=== PATIENT | female | born 1955 | race Two or more races ===

== ENCOUNTER 2020-07-15 09:36 | Outpatient (REF) | payer OTHER, SELFPAY ==
[2020-07-15 11:05] LABS: Basophils Percent Auto 0.4 % (0-2); Eosinophils Absolute Auto 0.3 X10*3/uL (0.0-0.4); Eosinophils Percent Auto 2.8 % (0-4); Hematocrit 37.4 % (37-47); Hemoglobin 13.1 g/dl (12.0-16.0); Imm Gran Abs Auto 0.06 X10*3/uL (0.00-0.03); Imm Gran Pct Auto 0.6 % (0.0-0.4); Lymphocytes Absolute Auto 3.1 X10*3/uL (1.2-4.9); MANUAL DIFF FLAG NO; Mean Corpuscular Hemoglobin 27.3 pg (27.0-33.0); Mean Corpuscular Volume 77.9 fL (80-98); Mean Platelet Volume 10.2 fL (9.4-12.3); Monocytes Absolute Auto 0.8 X10*3/uL (0.1-1.2); Monocytes Percent Auto 8.5 % (2-11); Neutrophils Absolute Auto 5.1 X10*3/uL (2.0-8.3); Neutrophils Percent Auto 54.7 % (45-73); Platelet Count 301 X10*3/uL (160-400); Red Cell Distribution Width 15.1 % (11.0-16.0); White Blood Count 9.3 X10*3/uL (4.8-10.8)
[2020-07-15 11:48] LABS: Alanine Aminotransferase 23 U/L (0-31); Albumin Level 4.5 g/dL (3.5-5.0); Alkaline Phosphatase 75 U/L (39-117); Anion Gap 13 (12-20); Aspartate Amino Transferase 23 U/L (5-31); Bilirubin Total 0.5 mg/dL (0.0-1.0); Blood Urea Nitrogen 10 mg/dL (9-16); Calcium 8.4 mg/dL (8.4-10.2); Carbon Dioxide 25 mmol/L (22-29); Chloride 105 mmol/L (96-108); Cholesterol 128 mg/dL; Estimated Glomerular Filt Rate > 60; Glucose Fasting 117 mg/dL (60-99); HDL Cholesterol 41 mg/dL; LDL Cholesterol Calculated 69 mg/dl; Potassium 4.6 mmol/l (3.3-5.1); Sodium 138 mmol/L (135-145); Total Protein 7.5 g/dL (6.5-8.0); Triglycerides 91 mg/dL
[2020-07-15 11:57] LABS: TSH reflex Free T4 2.52 mIU/mL (0.32-4.0)
[2020-07-15 12:15] LABS: Folate 11.5 ng/mL (> or = 4.0); Vitamin B12 490 pg/mL (200-900)
[2020-07-16 17:06] LABS: Absolute CD3 Count 1718 cells/uL (840-3060); Absolute CD4 Count 962 cells/uL (490-1740); Absolute CD8 Count 820 cells/uL (180-1170); Absolute Lymphocytes 2643 cells/uL (850-3900); CD4 CD8 Ratio 1.17 (0.86-5.00); Percent CD3 Cells 65 % (57-85); Percent CD4 Cells 36 % (30-61); Percent CD8 Cells 31 % (12-42)
[2020-07-19 15:11] LABS: Collagen Type I C-Telopeptide 85 pg/mL (see note)
[2020-07-20 13:22] LABS: HIV RNA PCR Qn Copies <20 DETECTED copies/mL (NOT DETECTED); HIV RNA PCR Qn Log Copies <1.30 DETECTED (NOT DETECTED)
== END 2020-07-15 09:37 | disposition home or self-care (01) ==
LOC: HO.LAB 09:36
PROVIDERS: PCP Internal Medicine; Referring Provider Internal Medicine Infectious Disease; Visit Provider Internal Medicine Endocrinology, Diabetes & Metabolism
DX: M81.0 Age-related osteoporosis without current pathological fracture (principal); E11.9 Type 2 diabetes mellitus without complications; E78.00 Pure hypercholesterolemia, unspecified; E53.8 Deficiency of other specified B group vitamins; E55.9 Vitamin D deficiency, unspecified; E03.9 Hypothyroidism, unspecified; B20 Human immunodeficiency virus [HIV] disease
CPT/HCPCS: 36415; 80053; 80061; 82306; 82523; 82607; 82746; 84443; 85025; 86359; 86360; 87536

== ENCOUNTER → 2020-09-16 10:21 | Outpatient (BNVA) | payer OTHER, SELFPAY | PROVIDERS: PCP Internal Medicine; Visit Provider Hospitalist | DX: J44.9 Chronic obstructive pulmonary disease, unspecified (principal); E66.09 Other obesity due to excess calories; B20 Human immunodeficiency virus [HIV] disease; R91.8 Other nonspecific abnormal finding of lung field; Z68.34 Body mass index [BMI] 34.0-34.9, adult | CPT/HCPCS: 99212 ==

== ENCOUNTER → 2020-11-07 11:15 | Outpatient (BNVA) | payer OTHER, SELFPAY | PROVIDERS: PCP Internal Medicine; Visit Provider Internal Medicine Endocrinology, Diabetes & Metabolism | DX: E11.42 Type 2 diabetes mellitus with diabetic polyneuropathy (principal); E78.00 Pure hypercholesterolemia, unspecified; E66.9 Obesity, unspecified; M81.0 Age-related osteoporosis without current pathological fracture; I10 Essential (primary) hypertension | CPT/HCPCS: 82947; 96402; 99212 ==

== ENCOUNTER 2020-12-02 11:30 | Outpatient (REF) | payer OTHER, SELFPAY | END 2020-12-02 11:31 | disposition home or self-care (01) | LOC: HO.LAB 11:30 | PROVIDERS: Visit Provider Internal Medicine | DX: Z20.822 Contact with and (suspected) exposure to COVID-19 (principal) | CPT/HCPCS: C9803; U0003; U0005 ==

== ENCOUNTER 2020-12-12 11:22 | Emergency (ER) | payer OTHER, SELFPAY ==
--- NOTE | ~2020-12-12 | XR_ITS ---
EXAMINATION: XR CHEST CLINICAL INFORMATION: covid+ sob COMPARISON: CT dated 03/05/2020 and radiograph dated 09/11/2019 TECHNIQUE: Frontal view of the chest was obtained. FINDINGS: Linear opacity in the left lung base to correspond to focal pleural parenchymal scarring. There is a subtle, hazy airspace opacity in the lateral aspect of the right upper lobe. No additional airspace opacities are identified. Mild dependent atelectasis. Cardiac and mediastinal contours are normal aside from calcific atherosclerosis in the thoracic aorta. Pulmonary vascular is normal. No acute osseous findings. XR/XR chest 1V IMPRESSION: Subtle focal airspace opacity in the lateral aspect of the right upper lobe which is of uncertain etiology, potentially corresponding to pneumonia. No additional evidence of pneumonia. Mild dependent atelectasis.
--- NOTE | ~2020-12-12 | US_ITS ---
EXAMINATION: US VENOUS ULTRASOUND WITH DOPPLER LOWER EXTREMITY, BILATERAL CLINICAL INFORMATION: Bilateral calf pain. COMPARISON: Ultrasound venous duplex TECHNIQUE: Ultrasound of the deep veins is performed from the hip to the calf with compression sonography and color and pulse Doppler assessment. Spectral analysis with color-flow imaging is performed. FINDINGS: RIGHT: There is normal venous compression and respiratory variation and augmented flow. The visualized common femoral vein, superficial femoral vein, profunda femoral vein, popliteal vein, and the trifurcation region shows no evidence of deep venous thrombosis. There is no significant popliteal fossa cyst. LEFT: There is normal venous compression and respiratory variation and augmented flow. The visualized common femoral vein, superficial femoral vein, profunda femoral vein, popliteal vein, and the trifurcation region shows no evidence of deep venous thrombosis. There is no significant popliteal fossa cyst. If the patient's symptoms persist, followup ultrasound in 5 days 7 days might be of value to exclude proximal propagation from a non-visualized calf vein. US/US venous duplex LE BI IMPRESSION: No DVT demonstrated in the bilateral lower extremity.
--- NOTE | ~2020-12-12 | NM_ITS ---
EXAMINATION: NM LUNG IMAGE PERFUSION CLINICAL INFORMATION: Difficulty breathing. Chronic shortness of breath. Chest tightness. Covid positive. COPD. COMPARISON: CT chest 03/05/2020. Chest x-ray 12/12/2020 TECHNIQUE: 4.0 mCi technetium 99m MAA was used for perfusion.. Multiple images were obtained of the chest. FINDINGS: There is homogeneous perfusion of the right and left lung. No defects. No evidence of pulmonary embolism. NM/DC pul perfusion IMPRESSION: Normal perfusion lung scan. No evidence of pulmonary embolism.
[2020-12-12 11:45] VITALS: BP 109/70; PULSE 97; RESP 18; TEMP 38.2; O2SAT 96; BMI 32.9
--- NOTE | 2020-12-12 12:54 | ED.SOB ---
HPI - SOB/Dyspnea General Chief Complaint: Dyspnea Stated Complaint: COVIS + DIFF BREATHING Time Seen by Provider: 12/12/20 12:51 Source: patient Mode of arrival: ambulatory History of Present Illness HPI Narrative: 65-year-old female with a past medical history of COPD chronically on 2L NC, DM, HTN, anemia, hypothyroid, obesity, hyperlipidemia, COVID-19 positive on 12/02/2020, presenting to the ED complaining persistent chronic SOB, chest tightness, myalgias, generalized fatigue, bilateral calf pain since COVID-19 diagnosis. Also reports low-grade fevers. Denies abdominal pain, nausea/vomiting, recent travel, decreased p.o. intake Related Data Home Medications Medication Instructions Recorded Confirmed dolutegravir 50 mg tablet 50 mg PO DAILY 07/22/20 11/07/20 fluticasone fur. 100 mcg-umeclid 1 inh INHALATION DAILY 07/22/20 11/07/20 62.5 mcg-vilant 25 mcg inhalat.powder emtricitabine 200 mg-tenofovir 1 tab PO DAILY 11/07/20 11/07/20 alafenamide fumarate 25 mg tablet sulfamethoxazole 800 1 tab PO 3XW 11/07/20 11/07/20 mg-trimethoprim 160 mg tablet Previous Rx's Medication Instructions Recorded albuterol sulfate 2.5 mg INHALATION Q6H PRN 30 Days 07/22/20 #75 ml alcohol swabs 1 pad TOPICAL BID 90 Days #200 ea 07/22/20 atorvastatin 10 mg tablet 10 mg PO DAILY 90 Days #90 tab 07/22/20 blood sugar diagnostic #50 ea 07/22/20 ferrous sulfate 325 mg (65 mg 325 mg PO TID 90 Days #270 tab 07/22/20 iron) tablet lancets 28 gauge #100 ea 07/22/20 levothyroxine 25 mcg tablet 25 mcg PO DAILY 90 Days #90 tab 07/22/20 lisinopril 10 mg tablet 10 mg PO DAILY 90 Days #90 tab 07/22/20 montelukast 10 mg tablet 10 mg PO DAILY 90 Days #90 tab 07/22/20 umeclidinium 62.5 mcg/actuation 1 inh PO DAILY #30 cap 08/26/20 blister powder for inhalation fluticasone furoate 200 1 inh PO DAILY #60 cap 09/03/20 mcg-vilanterol 25 mcg/dose inhalation powder nystatin 100,000 unit/gram topical 1 appl TOPICAL BID 14 Days #30 g 10/14/20 cream ProAir HFA 90 mcg/actuation 2 puff INHALATION Q4H PRN #8.5 g NS 10/15/20 aerosol inhaler cyanocobalamin (vitamin B-12) 500 500 mcg SUBLINGUAL DAILY 30 Days 10/15/20 mcg sublingual tablet #30 tab denosumab 60 mg/mL subcutaneous 60 mg SUBCUT [id number] #1 ml 10/29/20 syringe calcium carbonate 600 mg (1,500 1 tab PO BID 90 Days #180 tab 11/07/20 mg)-vitamin D3 400 unit tablet cholecalciferol (vitamin D3) 50 50 mcg PO DAILY 90 Days #90 tab 11/07/20 mcg (2,000 unit) tablet metformin 500 mg tablet,extended 500 mg PO BID 90 Days #180 tab 11/07/20 release 24hr mometasone-formoterol HFA 200 2 puff INHALATION Q12H 30 Days #13 12/04/20 mcg-5 mcg/actuation aerosol inhaler g azithromycin See Rx Instructions .ROUTE 12/12/20 .COMPLEX #6 tab benzonatate [Tessalon Perles] 100 mg PO TID PRN #14 cap 12/12/20 cefpodoxime 200 mg PO BID 7 Days #14 tab 12/12/20 Allergies Allergy/AdvReac Type Severity Reaction Status Date / Time egg [EGG] Allergy Intermediate STOMACH Verified 09/16/20 10:31 UPSET Review of Systems Review of Systems: Constitutional: + Fever, No Chills, No Night Sweats, + Fatigue, No Malaise ENT/Mouth: No Hearing loss, No Ear Pain, + Nasal Congestion, No sore throat, + Rhinorrhea, No Swallowing Difficulty Eyes: No Eye Pain, No Swelling, No Redness, No Foreign Body, No Discharge, No Vision Changes Cardiovascular: + Chest Pain, + SOB, No Dyspnea on Exertion, No Orthopnea, + Edema Respiratory: + Cough, No Sputum, No Wheezing Gastrointestinal: No Nausea, No Vomiting, No Diarrhea, No Constipation, No Abdominal pain Musculoskeletal: No joint pain, + Myalgias, No Joint Swelling Skin: No Skin Lesions, No rash Neuro: + Weakness, No Numbness, No Headache Yes all other systems are reviewed and are negative PMFSH Past Medical History Attestation statement: The following information was validated with the patient. Medical History (Updated 12/12/20 @ 16:56 by JAM Mccartney) Age-related osteoporosis without current pathological fracture Anemia COPD (chronic obstructive pulmonary disease) Diabetes mellitus Essential hypertension HIV (human immunodeficiency virus infection) Hypothyroidism Intertrigo Obese Obesity (BMI 30-39.9) Pulmonary nodules Pure hypercholesterolemia Surgical History (Updated 07/14/20 @ 11:42 by CHEVY Taylor) History of tubal ligation History of umbilical hernia repair Family History Family History (Updated 07/14/20 @ 11:44 by CHEVY Taylor) Father Medical history unknown Mother Diabetes Hypertension CVD (cardiovascular disease) Pulmonary embolism Sister Colon cancer Maternal Aunt Breast cancer Brother Substance abuse Family/Other FH: mental illness Social History Social History (Updated 07/22/20 @ 16:51 by Amarilis Squires MD) Alcohol intake: never Smoking Status: Former smoker Tobacco Type: Cigarette Years Smoked: 38 years Advance Directives: Yes Advance Directives Information Provided: Yes Advance Directives on File: No Physical Exam Vital Signs: Vital Signs: Last Vital Signs Temp 98.0 F 12/12/20 15:22 Pulse 87 12/12/20 15:22 Resp 18 12/12/20 15:22 BP 135/58 L 12/12/20 15:22 Pulse Ox 95 12/12/20 15:22 Oxygen Flow Rate 2 12/12/20 11:45 Body Mass Index 32.9 Const: General: cooperative, healthy appearing and no acute distress Orientation/consciousness: patient oriented x3 Limitations: no limitations HENMT: Head: Yes normal to inspection Ears: hearing grossly normal bilaterally General nose exam: Normal external nose present Face and sinus: Yes normal facial exam Eyes: General: appearance normal, both eyes and all related structures EOM: EOMs intact bilaterally Neck: Neck: Yes normal visual inspection and Yes no meningeal signs Resp: Effort & Inspection: normal respiratory effort Auscultation: clear to auscultation bilaterally and wheezes expiratory wheezes and throughout Cardio: Rate: regular rate Heart sounds: S1 normal heart sound present and S2 normal heart sound present GI: Inspection: Yes normal to inspection Palpation (GI): Soft to palpation, nontender, no guarding and not rigid Skin: Rashes: no rashes Wounds: no wounds Neuro: General: patient oriented x3, tone normal, moves all extremities and no meningeal signs Gait exam (Neuro): Normal gait present Extrem: Other: +1 b/l pitting edema >RLE with bilateral calf ttp General: Yes normal to inspection Course Course Course Narrative: XR chest 1V IMPRESSION: Subtle focal airspace opacity in the lateral aspect of the right upper lobe which is of uncertain etiology, potentially corresponding to pneumonia. No additional evidence of pneumonia. Mild dependent atelectasis. >> lactic, blood cultures, empiric IV Azithromycin & Ceftriaxone ordered -no leukocytosis, lactic negative, CRP mildly elevated. Troponin <5. -D-dimer 412 >> CTA ordered however patient difficult access, unable to obtain 20 gauge will obtain V/Q scan to r/o PE US venous duplex LE BI IMPRESSION: No DVT demonstrated in the bilateral lower extremity. -1700--ED care transferred to [employer] Kristal pending V/Q scan, ambulation with pulse ox, and anticipated DC home MDM - SOB/Dyspnea MDM Narrative Medical decision making narrative: 65-year-old female with a past medical history of COPD chronically on 2L NC, DM, HTN, anemia, hypothyroid, obesity, hyperlipidemia, COVID-19 positive on 12/02/2020, presenting to the ED complaining persistent chronic SOB, chest tightness, myalgias, generalized fatigue, bilateral calf pain since COVID-19 diagnosis. On exam low-grade temp 100.8?, NAD/nontoxic, diffuse expiatory wheeze, +RLE edema in bilateral calf tenderness. Concern for COVID-19 symptoms/viral pneumonia vs PE/DVT vs ACS vs COPD exacerbation Plan: EKG, labs, CXR, venous duplex, CTA, reassess Medical Records Attestation: I reviewed the patient's medical records. Lab Data Attestation: I reviewed the patient's lab results. Result diagrams: 12/12/20 14:11 12/12/20 14:11 Labs: Lab Results 12/12/20 12/12/20 12/12/20 Range/Units 14:11 14:11 14:11 WBC 8.9 (4.8-10.8) X10*3/uL RBC 4.92 (4.20-5.50) X10*6/uL Hgb 13.5 (12.0-16.0) g/dl Hct 38.4 (37-47) % MCV 78.0 L (80-98) fL MCH 27.4 (27.0-33.0) pg MCHC 35.2 H (31.0-35.0) g/dl RDW 14.5 (11.0-16.0) % Plt Count 311 (160-400) X10*3/uL MPV 9.8 (9.4-12.3) fL Immature Gran % (Auto) 0.5 H (0.0-0.4) % Neut % (Auto) 67.2 (45-73) % Lymph % (Auto) 23.7 (20-40) % Kershaw % (Auto) 8.2 (2-11) % Eos % (Auto) 0.2 (0-4) % Baso % (Auto) 0.2 (0-2) % Lymph # (Auto) 2.1 (1.2-4.9) X10*3/uL Kershaw # (Auto) 0.7 (0.1-1.2) X10*3/uL Eos # (Auto) 0.0 (0.0-0.4) X10*3/uL Baso # (Auto) 0.0 (0.0-0.2) X10*3/uL Abs Immat Gran (auto) 0.04 H (0.00-0.03) X10*3/uL Absolute Neuts (auto) 6.0 (2.0-8.3) X10*3/uL Absolute Nucleated RBC 0.000 (0.0-0.012) X10*3/uL Nucleated RBC % (auto) 0.0 (0.0-0.2) /100WBC PT 13.3 H (10.8-13.0) SEC INR 1.1 (0.9-1.1) APTT 25.1 (24.1-38.0) SEC D-Dimer 412 NG/ML Sodium 136 (135-145) mmol/L Potassium 4.3 (3.3-5.1) mmol/L Chloride 104 (96-108) mmol/L Carbon Dioxide 20 L (22-29) mmol/L Anion Gap 16 (12-20) BUN 8 L (9-16) mg/dL Creatinine 0.71 (0.5-1.4) mg/dL Estim Creat Clear Calc 79.2 Estimated GFR > 60 Random Glucose 108 (60-115) mg/dL Lactic Acid (0.5-2.0) mmol/L Calcium 8.8 (8.4-10.2) mg/dL Magnesium 1.7 (1.6-2.6) mg/dL Ferritin 184 (10-250) ng/mL Total Bilirubin 0.7 (0.0-1.0) mg/dL Direct Bilirubin 0.3 (0.0-0.5) mg/dL AST 23 (5-31) U/L ALT 13 (0-31) U/L Alkaline Phosphatase 87 (39-117) U/L Lactate Dehydrogenase 217 (122-220) U/L Troponin I High Sens (<3.5-17.0) ng/L C-Reactive Protein 5.69 H (< or = 0.50) mg/dL B-Natriuretic Peptide (<100) pg/mL Total Protein 8.1 H (6.5-8.0) g/dL Albumin 4.6 (3.5-5.0) g/dL Procalcitonin ng/mL 12/12/20 12/12/20 12/12/20 Range/Units 14:11 14:12 16:28 WBC (4.8-10.8) X10*3/uL RBC (4.20-5.50) X10*6/uL Hgb (12.0-16.0) g/dl Hct (37-47) % MCV (80-98) fL MCH (27.0-33.0) pg MCHC (31.0-35.0) g/dl RDW (11.0-16.0) % Plt Count (160-400) X10*3/uL MPV (9.4-12.3) fL Immature Gran % (Auto) (0.0-0.4) % Neut % (Auto) (45-73) % Lymph % (Auto) (20-40) % Kershaw % (Auto) (2-11) % Eos % (Auto) (0-4) % Baso % (Auto) (0-2) % Lymph # (Auto) (1.2-4.9) X10*3/uL Kershaw # (Auto) (0.1-1.2) X10*3/uL Eos # (Auto) (0.0-0.4) X10*3/uL Baso # (Auto) (0.0-0.2) X10*3/uL Abs Immat Gran (auto) (0.00-0.03) X10*3/uL Absolute Neuts (auto) (2.0-8.3) X10*3/uL Absolute Nucleated RBC (0.0-0.012) X10*3/uL Nucleated RBC % (auto) (0.0-0.2) /100WBC PT (10.8-13.0) SEC INR (0.9-1.1) APTT (24.1-38.0) SEC D-Dimer NG/ML Sodium (135-145) mmol/L Potassium (3.3-5.1) mmol/L Chloride (96-108) mmol/L Carbon Dioxide (22-29) mmol/L Anion Gap (12-20) BUN (9-16) mg/dL Creatinine (0.5-1.4) mg/dL Estim Creat Clear Calc Estimated GFR Random Glucose (60-115) mg/dL Lactic Acid 0.9 (0.5-2.0) mmol/L Calcium (8.4-10.2) mg/dL Magnesium (1.6-2.6) mg/dL Ferritin (10-250) ng/mL Total Bilirubin (0.0-1.0) mg/dL Direct Bilirubin (0.0-0.5) mg/dL AST (5-31) U/L ALT (0-31) U/L Alkaline Phosphatase (39-117) U/L Lactate Dehydrogenase (122-220) U/L Troponin I High Sens 4.2 (<3.5-17.0) ng/L C-Reactive Protein (< or = 0.50) mg/dL B-Natriuretic Peptide < 10 (<100) pg/mL Total Protein (6.5-8.0) g/dL Albumin (3.5-5.0) g/dL Procalcitonin 0.02 ng/mL ECG Data Attestation: I personally reviewed and interpreted this ECG as follows: ECG interpretation date: 12/12/20 ECG interpretation time: 13:39 Interpretation: EKG normal sinus rhythm. Rate of 89. No STEMI, nonischemic. QTC 430 Discharge Plan Discharge Clinical Impression: COVID-19, Pneumonia Instructions: Viral Pneumonia (ED) Additional Instructions: Your x-ray showed evidence of pneumonia. A Zithromax and an cefpodoxime antibiotics, take as prescribed Continue to use all home prescribed medications including her inhalers and neb machine Continue to self isolate at home as your COVID-19 positive. Follow-up with her doctor, if you have persistent or worsening shortness of breath, chest pain, or fever unresolved medications return to the ED Prescriptions: New cefpodoxime 200 mg tablet 200 mg PO BID 7 Days Qty: 14 RF: 0 azithromycin 250 mg tablet See Rx Instructions .ROUTE .COMPLEX Qty: 6 RF: 0 benzonatate [Tessalon Perles] 100 mg capsule 100 mg PO TID PRN (Reason: cough) Qty: 14 RF: 0 No Action umeclidinium [Incruse Ellipta] 62.5 mcg/actuation blister with device 1 inh PO DAILY Qty: 30 RF: 11 fluticasone furoate-vilanterol [Breo Ellipta] 200-25 mcg/dose blister with device 1 inh PO DAILY Qty: 60 RF: 11 nystatin 100,000 unit/gram cream 1 appl topical BID 14 Days Qty: 30 RF: 2 cyanocobalamin (vitamin B-12) 500 mcg tablet, sublingual 500 mcg sublingual DAILY 30 Days Qty: 30 RF: 6 albuterol sulfate [ProAir HFA] 90 mcg/actuation HFA aerosol inhaler 2 puff inhalation Q4H PRN (Reason: for wheezing) Qty: 8.5 RF: 5 Prolia 60 mg/mL syringe 60 mg subcut [id number] Qty: 1 RF: 1 Dulera 200-5 mcg/actuation HFA aerosol inhaler 2 puff inhalation Q12H 30 Days Qty: 13 RF: 11 Tivicay 50 mg tablet 50 mg PO DAILY RF: 0 Trelegy Ellipta 100-62.5-25 mcg blister with device 1 inh inhalation DAILY RF: 0 lisinopril 10 mg tablet 10 mg PO DAILY 90 Days Qty: 90 RF: 3 albuterol sulfate 2.5 mg /3 mL (0.083 %) solution for nebulization 2.5 mg inhalation Q6H PRN (Reason: shortness of breath or wheezing) 30 Days Qty: 75 RF: 6 alcohol swabs [Alcohol Prep Pads] Pads, Medicated 1 pad topical BID 90 Days Qty: 200 RF: 3 atorvastatin 10 mg tablet 10 mg PO DAILY 90 Days Qty: 90 RF: 3 (DME) FreeStyle Lite Strips Strip See Rx Instructions .ROUTE .MEDSUPPLY Qty: 50 RF: 11 ferrous sulfate 325 mg (65 mg iron) tablet 325 mg PO TID 90 Days Qty: 270 RF: 3 (DME) lancets [FreeStyle Lancets] 28 gauge misc See Rx Instructions .ROUTE .MEDSUPPLY Qty: 100 RF: 11 levothyroxine 25 mcg tablet 25 mcg PO DAILY 90 Days Qty: 90 RF: 1 montelukast 10 mg tablet 10 mg PO DAILY 90 Days Qty: 90 RF: 3 Descovy 200-25 mg tablet 1 tab PO DAILY RF: 0 sulfamethoxazole-trimethoprim 800-160 mg tablet 1 tab PO 3XW RF: 0 metformin 500 mg tablet extended release 24hr 500 mg PO BID 90 Days Qty: 180 RF: 1 cholecalciferol (vitamin D3) 50 mcg (2,000 unit) tablet 50 mcg PO DAILY 90 Days Qty: 90 RF: 3 calcium carbonate-vitamin D3 600 mg(1,500mg) -400 unit tablet 1 tab PO BID 90 Days Qty: 180 RF: 2 Print Language: Latvian
--- NOTE | 2020-12-12 13:14 | ECG_ITS ---
Test Reason : SOB Blood Pressure : / mmHG Vent. Rate : 089 BPM Atrial Rate : 089 BPM P-R Int : 136 ms QRS Dur : 086 ms QT Int : 354 ms P-R-T Axes : 037 -27 041 degrees QTc Int : 430 ms Normal sinus rhythm Normal ECG When compared to the previous EKG of Vent. rate has decreased Referred By: Marnie Beard Electronically Signed By:MARSHALL SAPP MD
[2020-12-12] MEDS: Acetaminophen 325 MG TABLET 650 MG PO (13:17)
[2020-12-12 14:21] LABS: MANUAL DIFF FLAG NO
[2020-12-12 14:26] LABS: Basophils Percent Auto 0.2 % (0-2); Eosinophils Percent Auto 0.2 % (0-4); Hematocrit 38.4 % (37-47); Hemoglobin 13.5 g/dl (12.0-16.0); Imm Gran Abs Auto 0.04 X10*3/uL (0.00-0.03); Imm Gran Pct Auto 0.5 % (0.0-0.4); Lymphocytes Absolute Auto 2.1 X10*3/uL (1.2-4.9); Lymphocytes Percent Auto 23.7 % (20-40); Mean Corpuscular HGB Conc 35.2 g/dl (31.0-35.0); Mean Corpuscular Hemoglobin 27.4 pg (27.0-33.0); Mean Platelet Volume 9.8 fL (9.4-12.3); Monocytes Absolute Auto 0.7 X10*3/uL (0.1-1.2); Monocytes Percent Auto 8.2 % (2-11); Neutrophils Percent Auto 67.2 % (45-73); Platelet Count 311 X10*3/uL (160-400); Red Blood Count 4.92 X10*6/uL (4.20-5.50); Red Cell Distribution Width 14.5 % (11.0-16.0); White Blood Count 8.9 X10*3/uL (4.8-10.8)
[2020-12-12 14:28] LABS: INTERNATIONAL NORM RATIO 1.1 (0.9-1.1); Prothrombin Time 13.3 SEC (10.8-13.0)
[2020-12-12 14:31] LABS: D Dimer 412 NG/ML; Partial Thromboplastin Time 25.1 SEC (24.1-38.0)
[2020-12-12 14:37] VITALS: RESP 18
[2020-12-12 14:47] LABS: Alanine Aminotransferase 13 U/L (0-31); Albumin Level 4.6 g/dL (3.5-5.0); Alkaline Phosphatase 87 U/L (39-117); Anion Gap 16 (12-20); Aspartate Amino Transferase 23 U/L (5-31); Bilirubin Direct 0.3 mg/dL (0.0-0.5); Bilirubin Total 0.7 mg/dL (0.0-1.0); Blood Urea Nitrogen 8 mg/dL (9-16); C Reactive Protein 5.69 mg/dL (< or = 0.50); Calcium 8.8 mg/dL (8.4-10.2); Carbon Dioxide 20 mmol/L (22-29); Chloride 104 mmol/L (96-108); Creatinine Clr Calc Pharmacy 79.2; Estimated Glomerular Filt Rate > 60; Glucose Random 108 mg/dL (60-115); Magnesium 1.7 mg/dL (1.6-2.6); Potassium 4.3 mmol/L (3.3-5.1); Sodium 136 mmol/L (135-145); Total Protein 8.1 g/dL (6.5-8.0)
[2020-12-12 14:49] LABS: Lactate Dehydrogenase 217 U/L (122-220)
[2020-12-12] MEDS: Albuterol Sulfate 90 MCG 8 GM INHALER 4 PUFF INHALE (14:51)
[2020-12-12 14:53] LABS: B Type Natriuretic Peptide < 10 pg/mL (<100); Troponin-I High Sensitivity 4.2 ng/L (<3.5-17.0)
[2020-12-12 15:09] LABS: Ferritin 184 ng/mL (10-250)
--- NOTE | 2020-12-12 15:15 | PC.NURSE ---
PT TOUGH STICK, SECOND RN TO TRY IV. LAB WORK SENT, NO DIFF BREATHING, NO CP, AT US NOW.
[2020-12-12 15:22] VITALS: BP 135/58; PULSE 87; RESP 18; TEMP 36.7; O2SAT 95
--- NOTE | 2020-12-12 16:09 | PC.NURSE ---
REPORT GIVEN TO ABRAHAM SR. PT MOVED TO ED ROOM 2 FOR FURTHER WORK UP.
[2020-12-12 16:26] LABS: Procalcitonin 0.02 ng/mL
[2020-12-12] MEDS: cefTRIAXone sodium 1 GM in 0.9 % Sodium Chloride 50 ML IV (16:44)
[2020-12-12 16:51] LABS: Lactic Acid 0.9 mmol/L (0.5-2.0)
[2020-12-12] MEDS: Azithromycin 500 MG in 0.9 % Sodium Chloride 250 ML 125 MG IV (17:15)
[2020-12-12 18:26] VITALS: BP 132/48; PULSE 84; RESP 16; O2SAT 98
--- NOTE | 2020-12-12 18:28 | PC.NURSE ---
pt to nuclear med for scan, on return restarted iv ABX. Pt denies ppain, has been resting quietly. she is sinus on monitor with no ectopy. awaits results. will continue to monitor
--- NOTE | 2020-12-12 19:42 | PC.NURSE ---
Pt ambulating to and from the bathroom with a steady gait, reports some SOB upon return to room but quickly recovered. Plan for ambulation trial.
--- NOTE | 2020-12-12 19:46 | PC.NURSE ---
electrostatic powder coating technician at bedside for ambulation trial.
[2020-12-12 19:54] VITALS: O2SAT 95
--- NOTE | 2020-12-12 21:06 | PC.NURSE ---
daughter (Morgan [phone]) called for update on her mother, daughter was told mother is to be discharged home tonight with antibiotics and daughter will receive a call when mother is ready to be picked up. daughter was reminded to bring oxygen for her mother. daughter has no other questions at this time.
--- NOTE | 2020-12-12 21:28 | PC.NURSE ---
Provider at bedside informing pt of plan to DC home.
[2020-12-12 21:44] VITALS: BP 112/85; PULSE 85; RESP 20; O2SAT 95
== END 2020-12-12 21:45 | disposition home or self-care (01) ==
PROVIDERS: Physician Assistant; Emergency Provider Emergency Medicine; PCP Internal Medicine
DX: U07.1 COVID-19 (principal); J12.82 Pneumonia due to coronavirus disease 2019; R60.0 Localized edema; R06.02 Shortness of breath; M79.605 Pain in left leg; M79.604 Pain in right leg; Z79.899 Other long term (current) drug therapy
CPT/HCPCS: 36415; 71045; 78580; 80048; 80076; 82728; 83605; 83615; 83735; 83880; 84145; 84484; 85025; 85379; 85610; 85730; 86140; 87040; 93005; 93970; 96360; 96361; 99285; A9540; J0456; J0696

== ENCOUNTER 2021-01-21 10:14 | Outpatient (REF) | payer OTHER, SELFPAY ==
--- NOTE | ~2021-01-21 | MM_ITS ---
EXAMINATION: BONE DENSITOMETRY CLINICAL INDICATION: Osteoporosis. COMPARISON: Previous BD dated 12/05/2018 and baseline BD dated 10/31/2006. TECHNIQUE: Using a [employer] DXA System (software version: 13.1) manufactured by [employer] dual-energy x-ray absorptiometry was performed of the lumbar spine and left hip. The images are of good technical quality. Summary results are attached. FINDINGS: AP SPINE L1-L4: Current: BMD 0.934 g/cm2, Z-score -1.0, T-score -2.0, osteopenia, 0.5% decrease from previous, 1.5% increase from baseline (<5% change is not significant). Prior: BMD 0.939 g/cm2. Baseline: BMD 0.920 g/cm2. LEFT FEMUR, NECK: Current: BMD 0.655 g/cm2, Z-score -1.7, T-score -2.8, osteoporosis. Prior: BMD 0.629 g/cm2. Baseline: BMD 0.744 g/cm2. LEFT FEMUR, TOTAL: Current: BMD 0.733 g/cm2, Z-score -1.4, T-score -2.2, osteopenia, 10.9% increase from previous, 1.9% decrease from baseline (<5% change is not significant). Prior: BMD 0.661 g/cm2. Baseline: BMD 0.747 g/cm2. IDENTIFIED RISK FACTORS: Early menopause, low calcium intake, osteoporosis, secondary osteoporosis. HISTORY OF FRACTURE: None listed. MEDICATIONS: Calcium, vitamin D. MM/XR DEXA axial skeleton IMPRESSION: 1. DIAGNOSIS: Osteoporosis based on the lowest T-score value of -2.8 in the femoral neck applying World Health Organization criteria. 2. 10-YEAR FRACTURE RISK PREDICTION, FRAX: According to the guidelines, FRAX calculation should only be performed on patients in the osteopenia bone density category. Therefore, FRAX was not performed on this patient. 3. Treatment Recommendations: NOF guidelines recommend consideration for treatment in postmenopausal women and men age 50 and older presenting with the following: -A hip or vertebral (clinical or morphometric) fracture. -T-score less than or equal to -2.5 at the femoral neck or spine after appropriate evaluation to exclude secondary causes. -Low bone mass at the hip or spine and a 10-year fracture probability by FRAX of greater than or equal to 3% for hip fracture or greater than or equal to 20% for major osteoporotic fracture based on the [place] adapted WHO algorithm. 4. Other Recommendations: All treatment decisions require clinical judgment and consideration of individual patient factors, including patient preferences, comorbidities, previous drug use, risk factors not captured in the FRAX model (e.g. frailty, falls, vitamin D deficiency, increased bone turnover, interval significant decline in bone density) and possible under or overestimation of fracture risk by FRAX. Additional medical evaluation for secondary cause of low bone mineral density may be appropriate. FUTURE SCAN RECOMMENDATION: People with diagnosed cases of osteoporosis or at high risk for fracture should have regular bone mineral density tests. For patients eligible for Medicare, routine testing is allowed once every 2 years. The testing frequency can be increased to one year for patients who have rapidly progressing disease, those who are receiving or discontinuing medical therapy to restore bone mass, or have additional risk factors.
== END 2021-01-21 10:15 | disposition home or self-care (01) ==
LOC: HO.MAMMO 10:14
PROVIDERS: Visit Provider Internal Medicine Endocrinology, Diabetes & Metabolism
DX: M81.0 Age-related osteoporosis without current pathological fracture (principal); E58 Dietary calcium deficiency; Z78.0 Asymptomatic menopausal state
CPT/HCPCS: 77080

== ENCOUNTER 2021-01-28 08:22 | Outpatient (REF) | payer OTHER, SELFPAY ==
[2021-01-28 09:29] LABS: MANUAL DIFF FLAG NO
[2021-01-28 09:36] LABS: Basophils Absolute Auto 0.1 X10*3/uL (0.0-0.2); Basophils Percent Auto 0.7 % (0-2); Eosinophils Absolute Auto 0.5 X10*3/uL (0.0-0.4); Hemoglobin 13.3 g/dl (12.0-16.0); Imm Gran Abs Auto 0.05 X10*3/uL (0.00-0.03); Imm Gran Pct Auto 0.5 % (0.0-0.4); Lymphocytes Absolute Auto 3.6 X10*3/uL (1.2-4.9); Lymphocytes Percent Auto 34.3 % (20-40); Mean Corpuscular Hemoglobin 27.7 pg (27.0-33.0); Mean Corpuscular Volume 79.2 fL (80-98); Mean Platelet Volume 10.2 fL (9.4-12.3); Monocytes Absolute Auto 0.8 X10*3/uL (0.1-1.2); Monocytes Percent Auto 7.3 % (2-11); Neutrophils Absolute Auto 5.4 X10*3/uL (2.0-8.3); Neutrophils Percent Auto 52.2 % (45-73); Platelet Count 331 X10*3/uL (160-400); Red Cell Distribution Width 15.9 % (11.0-16.0); White Blood Count 10.4 X10*3/uL (4.8-10.8)
[2021-01-28 10:20] LABS: Alanine Aminotransferase 18 U/L (0-31); Albumin Level 4.4 g/dL (3.5-5.0); Alkaline Phosphatase 77 U/L (39-117); Anion Gap 14 (12-20); Aspartate Amino Transferase 21 U/L (5-31); Bilirubin Total 0.6 mg/dL (0.0-1.0); Blood Urea Nitrogen 10 mg/dL (9-16); Calcium 9.6 mg/dL (8.4-10.2); Carbon Dioxide 26 mmol/L (22-29); Chloride 105 mmol/L (96-108); Cholesterol 140 mg/dL; Estimated Glomerular Filt Rate > 60; Glucose Fasting 110 mg/dL (60-99); HDL Cholesterol 43 mg/dL; Iron 108 mcg/dL (30-160); LDL Cholesterol Calculated 71 mg/dl; Percent Iron Saturation 30 % (15-50); Potassium 4.7 mmol/L (3.3-5.1); Sodium 140 mmol/L (135-145); Total Iron Binding Capacity 362 mcg/dL (228-428); Total Protein 7.6 g/dL (6.5-8.0); Triglycerides 134 mg/dL; Unsaturated Iron Binding 254 ug/dL
[2021-01-28 10:41] LABS: TSH reflex Free T4 2.58 uIU/mL (0.32-4.0)
[2021-02-01 14:11] LABS: Vitamin D 25-OH, D2 <4 ng/mL; Vitamin D 25-OH, D3 39 ng/mL; Vitamin D 25-OH, Total 39 ng/mL (30-100)
== END 2021-01-28 08:23 | disposition home or self-care (01) ==
LOC: HO.LAB 08:22
PROVIDERS: PCP Internal Medicine; Visit Provider Internal Medicine
DX: D64.9 Anemia, unspecified (principal); E78.00 Pure hypercholesterolemia, unspecified; E03.9 Hypothyroidism, unspecified; E55.9 Vitamin D deficiency, unspecified
CPT/HCPCS: 36415; 80053; 80061; 82306; 83540; 84443; 85025

== ENCOUNTER 2021-02-26 10:18 | Outpatient (REF) | payer OTHER, SELFPAY ==
--- NOTE | ~2021-02-26 | MM_ITS ---
EXAMINATION: MM SCREENING DIGITAL BREAST TOMOSYNTHESIS, BILATERAL CLINICAL INFORMATION: Screening. Asymptomatic. The lifetime risk of breast cancer based on the Tyrer-Cuzick Model is 4.6%. COMPARISON: Mammography: February 21, 2020 and studies dating back to April 19, 2011 TECHNIQUE: Digital breast tomosynthesis is performed in both the craniocaudal and mediolateral oblique views along with computer-aided detection (CAD). Synthesized 2D images are generated from the tomosynthesis. FINDINGS: There are scattered areas of fibroglandular density (ACR BI-RADS breast composition Category b). There is a stable region of architectural distortion seen about the lateral aspect of the right breast. No new abnormal dominant mass or suspicious grouping of microcalcifications identified. MM/MM tomosynthesis screening BI IMPRESSION: There are no significant changes from prior study. ASSESSMENT: BI-RADS 2: Benign RECOMMENDATION: Routine annual mammography screening. This patient's information was entered into a reminder system with a target due date for their next mammogram.
== END 2021-02-26 10:19 | disposition home or self-care (01) ==
LOC: HO.MAMMO 10:18
PROVIDERS: Visit Provider Internal Medicine
DX: Z12.31 Encounter for screening mammogram for malignant neoplasm of breast (principal)
CPT/HCPCS: 77063; 77067

== ENCOUNTER 2021-03-23 09:35 | Outpatient (REF) | payer OTHER, SELFPAY ==
[2021-03-23 10:15] LABS: MANUAL DIFF FLAG NO
[2021-03-23 10:32] LABS: Basophils Absolute Auto 0.1 X10*3/uL (0.0-0.2); Basophils Percent Auto 0.5 % (0-2); Eosinophils Absolute Auto 0.3 X10*3/uL (0.0-0.4); Eosinophils Percent Auto 2.6 % (0-4); Hematocrit 36.8 % (37-47); Hemoglobin 12.9 g/dl (12.0-16.0); Imm Gran Abs Auto 0.05 X10*3/uL (0.00-0.03); Imm Gran Pct Auto 0.5 % (0.0-0.4); Lymphocytes Absolute Auto 3.3 X10*3/uL (1.2-4.9); Lymphocytes Percent Auto 31.4 % (20-40); Mean Corpuscular HGB Conc 35.1 g/dl (31.0-35.0); Mean Corpuscular Hemoglobin 27.9 pg (27.0-33.0); Mean Corpuscular Volume 79.5 fL (80-98); Mean Platelet Volume 9.6 fL (9.4-12.3); Monocytes Absolute Auto 0.8 X10*3/uL (0.1-1.2); Monocytes Percent Auto 7.4 % (2-11); Neutrophils Percent Auto 57.6 % (45-73); Platelet Count 302 X10*3/uL (160-400); Red Blood Count 4.63 X10*6/uL (4.20-5.50); White Blood Count 10.4 X10*3/uL (4.8-10.8)
[2021-03-23 11:12] LABS: Alanine Aminotransferase 18 U/L (0-31); Aspartate Amino Transferase 18 U/L (5-31); Estimated Glomerular Filt Rate > 60
[2021-03-24 15:01] LABS: HIV RNA PCR Qn Copies <20 NOT DETECTED copies/mL (NOT DETECTED); HIV RNA PCR Qn Log Copies <1.30 NOT DETECTED (NOT DETECTED)
[2021-03-24 15:45] LABS: Absolute CD3 Count 2067 cells/uL (840-3060); Absolute CD4 Count 1242 cells/uL (490-1740); Absolute CD8 Count 926 cells/uL (180-1170); Absolute Lymphocytes 3286 cells/uL (850-3900); CD4 CD8 Ratio 1.34 (0.86-5.00); Percent CD3 Cells 63 % (57-85); Percent CD4 Cells 38 % (30-61); Percent CD8 Cells 28 % (12-42)
[2021-03-24 18:55] LABS: HCV Log PCR <1.18 NOT DETECTED Log IU/mL (NOT DETECTED); HepC Viral Load <15 NOT DETECTED IU/mL (NOT DETECTED)
== END 2021-03-23 09:36 | disposition home or self-care (01) ==
LOC: HO.LAB 09:35
PROVIDERS: PCP Internal Medicine; Referring Provider Internal Medicine; Visit Provider Internal Medicine Infectious Disease
DX: B20 Human immunodeficiency virus [HIV] disease (principal)
CPT/HCPCS: 36415; 82565; 84450; 84460; 85025; 86359; 86360; 87522; 87536

== ENCOUNTER 2021-03-24 08:26 | Outpatient (REF) | payer OTHER, SELFPAY ==
--- NOTE | ~2021-03-24 | CT_ITS ---
EXAMINATION: CT CHEST WITHOUT CONTRAST CLINICAL INFORMATION: Nonspecific abnormal finding of lung mabry COMPARISON: Previous chest CT February 2020 and chest x-ray November 2020 TECHNIQUE: Multidetector volumetric CT imaging of the chest was done. Axial MIP volume rendering provided. Sagittal and coronal reformatted images were obtained. This CT examination was performed using dose optimization techniques as appropriate, variously including the following: *Automated exposure control *Adjustment of mA and/or kV according to patient size (this includes techniques or standardized protocols for targeted exams where dose is matched to indication/reason for exam; i.e. extremities or head) *Use of iterative reconstruction technique DLP: 309 mGy-cm FINDINGS: BACKBREAKER: LUNGS: There is evidence of emphysema. There are small pulmonary micronodules that are stable. Largest pulmonary nodules are a 3 mm right lower lobe nodule axial image 318 series 5 and left lower lobe nodule axial image 205. There are linear branching calcifications probably representing calcified broncholiths, for example in the right lower lobe axial image 256 series 9. There is scarring or subsegmental atelectasis in the right upper lobe, right middle lobe and lingula. MEDIASTINUM: The thyroid gland is unremarkable. There are small mediastinal lymph nodes that are stable. There is mild coronary artery calcification. There is no pericardial effusion. PLEURA: There is no pleural effusion. No pleural mass or thickening. There is a small right diaphragmatic hernia containing fat. AXILLA: No lymphadenopathy. UPPER ABDOMEN: There is fatty infiltration of the pancreas. There is high attenuation in the gallbladder questionable for gallstones. OSSEOUS STRUCTURES: Unremarkable. CT/CT chest wo con IMPRESSION: Mild emphysema. Stable small pulmonary nodules or micronodules.
== END 2021-03-24 08:27 | disposition home or self-care (01) ==
LOC: HO.CT 08:26
PROVIDERS: Visit Provider Hospitalist
DX: R91.8 Other nonspecific abnormal finding of lung field (principal)
CPT/HCPCS: 71250

== ENCOUNTER → 2021-04-23 09:46 | Outpatient (BNVA) | payer OTHER, SELFPAY | PROVIDERS: PCP Internal Medicine; Visit Provider Hospitalist | DX: J44.9 Chronic obstructive pulmonary disease, unspecified (principal); J96.11 Chronic respiratory failure with hypoxia; R91.8 Other nonspecific abnormal finding of lung field | CPT/HCPCS: 99212 ==

== ENCOUNTER → 2021-05-15 10:48 | Outpatient (BNVA) | payer OTHER, SELFPAY | PROVIDERS: PCP Internal Medicine; Visit Provider Nurse Practitioner Gerontology ==

== ENCOUNTER → 2021-05-19 10:17 | Outpatient (BNVA) | payer OTHER, SELFPAY | PROVIDERS: PCP Internal Medicine; Visit Provider Nurse Practitioner Gerontology | DX: M81.0 Age-related osteoporosis without current pathological fracture (principal) | CPT/HCPCS: 96372 ==

== ENCOUNTER 2021-06-01 08:55 | Outpatient (REF) | payer OTHER, SELFPAY ==
[2021-06-01 09:51] LABS: Alanine Aminotransferase 20 U/L (0-31); Albumin Level 4.7 g/dL (3.5-5.0); Alkaline Phosphatase 84 U/L (39-117); Anion Gap 13 (12-20); Aspartate Amino Transferase 22 U/L (5-31); Blood Urea Nitrogen 9 mg/dL (9-16); Calcium 9.1 mg/dL (8.4-10.2); Carbon Dioxide 24 mmol/L (22-29); Chloride 107 mmol/L (96-108); Cholesterol 140 mg/dL; Estimated Glomerular Filt Rate > 60; Glucose Fasting 113 mg/dL (60-99); HDL Cholesterol 42 mg/dL; LDL Cholesterol Calculated 72 mg/dl; Potassium 4.9 mmol/L (3.3-5.1); Sodium 139 mmol/L (135-145); Total Protein 8.1 g/dL (6.5-8.0); Triglycerides 133 mg/dL
[2021-06-01 10:02] LABS: Creatinine Urine 185.14 mg/dL
[2021-06-02 16:01] LABS: Calcium (PTHI) 9.3 mg/dL (8.6-10.4); PTHI 73 pg/mL (14-64)
== END 2021-06-01 08:56 | disposition home or self-care (01) ==
LOC: HO.LAB 08:55
PROVIDERS: Absent Provider Internal Medicine; PCP Internal Medicine; Visit Provider Internal Medicine
DX: M81.0 Age-related osteoporosis without current pathological fracture (principal); E78.5 Hyperlipidemia, unspecified; E11.42 Type 2 diabetes mellitus with diabetic polyneuropathy
CPT/HCPCS: 36415; 80053; 80061; 82043; 83970

== ENCOUNTER 2021-09-21 09:33 | Outpatient (REF) | payer OTHER, SELFPAY ==
[2021-09-21 10:13] LABS: Urine Cytology See Pathology rpt
[2021-09-21 10:22] LABS: INTERNATIONAL NORM RATIO 0.9 (0.9-1.1); Prothrombin Time 10.7 SEC (9.9-13.0)
[2021-09-21 10:45] LABS: Anion Gap 13 (12-20); Carbon Dioxide 25 mmol/L (22-29); Chloride 106 mmol/L (96-108); Potassium 4.6 mmol/L (3.3-5.1); Sodium 139 mmol/L (135-145)
[2021-09-22 14:12] LABS: Absolute CD3 Count 2300 cells/uL (840-3060); Absolute CD4 Count 1350 cells/uL (490-1740); Absolute CD8 Count 1026 cells/uL (180-1170); Absolute Lymphocytes 3463 cells/uL (850-3900); CD4 CD8 Ratio 1.32 (0.86-5.00); Percent CD3 Cells 66 % (57-85); Percent CD4 Cells 39 % (30-61); Percent CD8 Cells 30 % (12-42)
[2021-09-24 15:21] LABS: HCV Log PCR <1.18 log IU/mL; HepC Viral Load <15 IU/mL
[2021-09-24 19:27] LABS: HIV RNA PCR Qn Copies <20 Copies/mL; HIV RNA PCR Qn Log Copies <1.30 Log cps/mL
== END 2021-09-21 09:34 | disposition home or self-care (01) ==
LOC: HO.LAB 09:33
PROVIDERS: Absent Provider Internal Medicine; PCP Internal Medicine; Visit Provider Internal Medicine Infectious Disease
DX: B20 Human immunodeficiency virus [HIV] disease (principal)
CPT/HCPCS: 36415; 80051; 85610; 86359; 86360; 87522; 87536; 88112

== ENCOUNTER 2021-10-21 08:42 | Outpatient (REF) | payer MEDICAID, SELFPAY ==
[2021-10-21 09:05] LABS: MANUAL DIFF FLAG NO
[2021-10-21 09:41] LABS: Basophils Percent Auto 0.4 % (0-2); Eosinophils Absolute Auto 0.2 X10*3/uL (0.0-0.4); Eosinophils Percent Auto 2.1 % (0-4); Hematocrit 38.2 % (37.0-47.0); Hemoglobin 13.3 g/dl (12.0-16.0); Imm Gran Abs Auto 0.04 X10*3/uL (0.00-0.03); Imm Gran Pct Auto 0.4 % (0.0-0.4); Lymphocytes Absolute Auto 2.4 X10*3/uL (1.2-4.9); Lymphocytes Percent Auto 26.7 % (20-40); Mean Corpuscular HGB Conc 34.8 g/dl (31.0-35.0); Mean Corpuscular Hemoglobin 27.4 pg (27.0-33.0); Mean Corpuscular Volume 78.6 fL (80.0-98.0); Mean Platelet Volume 10.5 fL (9.4-12.3); Monocytes Absolute Auto 0.8 X10*3/uL (0.1-1.2); Monocytes Percent Auto 8.7 % (2-11); Neutrophils Absolute Auto 5.6 x10*3/uL (2.0-8.3); Neutrophils Percent Auto 61.7 % (45-73); Platelet Count 272 X10*3/uL (160-400); Red Blood Count 4.86 X10*6/uL (4.20-5.50); Red Cell Distribution Width 14.1 % (11.0-16.0)
[2021-10-21 10:19] LABS: Creatinine Urine 166.96 mg/dL; Microalbum/Creatinine Ratio Ur 6.5 ug/mg cr
[2021-10-21 10:34] LABS: Alanine Aminotransferase 13 U/L (0-31); Albumin Level 4.3 g/dL (3.5-5.0); Alkaline Phosphatase 71 U/L (39-117); Anion Gap 14 (12-20); Aspartate Amino Transferase 18 U/L (5-31); Bilirubin Total 0.6 mg/dL (0.0-1.0); Blood Urea Nitrogen 10 mg/dL (9-16); Calcium 9.3 mg/dL (8.4-10.2); Carbon Dioxide 22 mmol/L (22-29); Chloride 107 mmol/L (96-108); Cholesterol 119 mg/dL; Estimated Glomerular Filt Rate > 60; Glucose Fasting 122 mg/dL (60-99); HDL Cholesterol 37 mg/dL; LDL Cholesterol Calculated 61 mg/dl; Potassium 4.7 mmol/L (3.3-5.1); Sodium 138 mmol/L (135-145); Total Protein 7.3 g/dL (6.5-8.0); Triglycerides 105 mg/dL
[2021-10-21 10:39] LABS: Free T4 (Free Thyroxine) 0.96 ng/dL (0.71-1.85); Thyroid Stimulating Hormone 2.31 uIU/mL (0.32-4.0)
[2021-10-21 10:57] LABS: Folate 3.9 ng/mL (> or = 4.0); Vitamin B12 661 pg/mL (200-900)
[2021-10-22 07:02] LABS: LDL Cholesterol Direct 64 mg/dL (<100)
[2021-10-25 15:41] LABS: Vitamin D 25-OH, D2 <4 ng/mL; Vitamin D 25-OH, D3 36 ng/mL; Vitamin D 25-OH, Total 36 ng/mL (30-100)
== END 2021-10-21 08:43 | disposition home or self-care (01) ==
LOC: HO.LAB 08:42
PROVIDERS: PCP Internal Medicine; Visit Provider Internal Medicine Endocrinology, Diabetes & Metabolism
DX: E11.42 Type 2 diabetes mellitus with diabetic polyneuropathy (principal); E03.9 Hypothyroidism, unspecified; E78.5 Hyperlipidemia, unspecified; E53.8 Deficiency of other specified B group vitamins; E55.9 Vitamin D deficiency, unspecified; D64.9 Anemia, unspecified; M81.0 Age-related osteoporosis without current pathological fracture
CPT/HCPCS: 36415; 80053; 80061; 82043; 82306; 82607; 82746; 83721; 84439; 84443; 85025

== ENCOUNTER → 2021-10-22 09:58 | Outpatient (BNVA) | payer MEDICAID, SELFPAY | PROVIDERS: PCP Internal Medicine; Visit Provider Internal Medicine Endocrinology, Diabetes & Metabolism | DX: M81.0 Age-related osteoporosis without current pathological fracture (principal) | CPT/HCPCS: 99212 ==

== ENCOUNTER → 2021-11-17 10:01 | Outpatient (BNVA) | payer MEDICARE, MEDICAID, SELFPAY | PROVIDERS: PCP Internal Medicine; Visit Provider Internal Medicine Endocrinology, Diabetes & Metabolism | DX: M81.0 Age-related osteoporosis without current pathological fracture (principal) | CPT/HCPCS: 96372 ==

== ENCOUNTER → 2021-11-23 09:39 | Outpatient (BNVA) | payer MEDICARE, MEDICAID, SELFPAY | PROVIDERS: PCP Internal Medicine; Visit Provider Hospitalist | DX: J44.9 Chronic obstructive pulmonary disease, unspecified (principal); J96.11 Chronic respiratory failure with hypoxia; R91.8 Other nonspecific abnormal finding of lung field; Z79.899 Other long term (current) drug therapy; Z99.81 Dependence on supplemental oxygen | CPT/HCPCS: 99212 ==

== ENCOUNTER 2022-03-29 11:32 | Outpatient (REF) | payer MEDICARE, MEDICAID, SELFPAY ==
--- NOTE | ~2022-03-29 | MM_ITS ---
EXAMINATION: MM SCREENING DIGITAL BREAST TOMOSYNTHESIS, BILATERAL CLINICAL INFORMATION: Screening. Asymptomatic. The lifetime risk of breast cancer based on the Tyrer-Cuzick Model is 5%. COMPARISON: Mammography: 02/26/2021, 02/21/2020, 12/05/2018 TECHNIQUE: Digital breast tomosynthesis is performed in both the craniocaudal and mediolateral oblique views along with computer-aided detection (CAD). Synthesized 2D images are generated from the tomosynthesis. FINDINGS: There are scattered areas of fibroglandular density (ACR BI-RADS breast composition Category b). Parenchymal pattern is similar to prior studies. Minor scattered asymmetries are stable including nodular asymmetric density anterior lower inner left breast. No developing density. There are no significant masses, abnormal calcifications, or other abnormalities. MM/MM tomosynthesis screening BI IMPRESSION: No mammographic evidence of malignancy. ASSESSMENT: BI-RADS 1: Negative RECOMMENDATION: Routine annual mammography screening. This patient's information was entered into a reminder system with a target due date for their next mammogram.
== END 2022-03-29 11:33 | disposition home or self-care (01) ==
LOC: HO.MAMMO 11:32
PROVIDERS: PCP Internal Medicine; Visit Provider Internal Medicine
DX: Z12.31 Encounter for screening mammogram for malignant neoplasm of breast (principal)
CPT/HCPCS: 77063; 77067

== ENCOUNTER 2022-05-14 08:59 | Outpatient (REF) | payer MEDICARE, MEDICAID, SELFPAY ==
[2022-05-14 09:42] LABS: MANUAL DIFF FLAG NO
[2022-05-14 10:47] LABS: Basophils Absolute Auto 0.1 X10*3/uL (0.0-0.2); Basophils Percent Auto 0.5 % (0-2); Eosinophils Absolute Auto 0.2 X10*3/uL (0.0-0.4); Eosinophils Percent Auto 2.4 % (0-4); Hematocrit 39.8 % (37.0-47.0); Hemoglobin 13.8 g/dl (12.0-16.0); Imm Gran Abs Auto 0.04 X10*3/uL (0.00-0.03); Imm Gran Pct Auto 0.4 % (0.0-0.4); Lymphocytes Percent Auto 30.9 % (20-40); Mean Corpuscular HGB Conc 34.7 g/dl (31.0-35.0); Mean Corpuscular Hemoglobin 27.8 pg (27.0-33.0); Mean Corpuscular Volume 80.1 fL (80.0-98.0); Mean Platelet Volume 10.2 fL (9.4-12.3); Monocytes Absolute Auto 0.7 X10*3/uL (0.1-1.2); Monocytes Percent Auto 6.9 % (2-11); Neutrophils Absolute Auto 5.7 x10*3/uL (2.0-8.3); Neutrophils Percent Auto 58.9 % (45-73); Platelet Count 288 X10*3/uL (160-400); Red Blood Count 4.97 X10*6/uL (4.20-5.50); Red Cell Distribution Width 14.7 % (11.0-16.0); White Blood Count 9.6 X10*3/uL (4.8-10.8)
[2022-05-17 15:36] LABS: Absolute CD3 Count 2338 cells/uL (840-3060); Absolute CD4 Count 1485 cells/uL (490-1740); Absolute CD8 Count 987 cells/uL (180-1170); Absolute Lymphocytes 3429 cells/uL (850-3900); CD4 CD8 Ratio 1.51 (0.86-5.00); Percent CD3 Cells 68 % (57-85); Percent CD4 Cells 43 % (30-61); Percent CD8 Cells 29 % (12-42)
== END 2022-05-14 09:00 | disposition home or self-care (01) ==
LOC: HO.LAB 08:59
PROVIDERS: Absent Provider Internal Medicine Endocrinology, Diabetes & Metabolism; PCP Internal Medicine; Visit Provider Internal Medicine Infectious Disease
DX: B20 Human immunodeficiency virus [HIV] disease (principal)
CPT/HCPCS: 36415; 80051; 82565; 84450; 84460; 85025; 86359; 86360

== ENCOUNTER 2022-05-25 08:59 | Outpatient (REF) | payer MEDICARE, MEDICAID, SELFPAY ==
[2022-05-25 11:50] LABS: Estimated Glomerular Filt Rate > 60
[2022-05-26 12:37] LABS: Calcium (PTHI) 9.5 mg/dL (8.6-10.4); PTHI 85 pg/mL (16-77)
== END 2022-05-25 09:00 | disposition home or self-care (01) ==
LOC: HO.LAB 08:59
PROVIDERS: PCP Internal Medicine; Visit Provider Internal Medicine Endocrinology, Diabetes & Metabolism
DX: M81.0 Age-related osteoporosis without current pathological fracture (principal)
CPT/HCPCS: 36415; 82565; 83970

== ENCOUNTER 2022-06-02 11:39 | Outpatient (REF) | payer MEDICARE, MEDICAID, SELFPAY ==
[2022-06-02 12:45] LABS: Total Volume 24 Hour Urine 500 mL
[2022-06-02 13:07] LABS: Creatinine, 24Hr Urine 0.6 G/Day (1.0-2.0); Creatinine, mg/dL 114.07
[2022-06-05 18:02] LABS: Calcium, 24 Hr Urine 56 mg/24 h; Calcium/Creatinine Ratio 105 mg/g creat (30-275); Creatinine 24Hr Urine 0.54 g/24 h (0.50-2.15)
== END 2022-06-02 11:40 | disposition home or self-care (01) ==
LOC: HO.LNP 11:39
PROVIDERS: Visit Provider Internal Medicine Endocrinology, Diabetes & Metabolism
DX: M81.0 Age-related osteoporosis without current pathological fracture (principal); E11.42 Type 2 diabetes mellitus with diabetic polyneuropathy
CPT/HCPCS: 82340; 82570; 96372; 99212

== ENCOUNTER 2022-08-09 08:28 | Outpatient (REF) | payer OTHER, SELFPAY ==
[2022-08-09 08:51] LABS: MANUAL DIFF FLAG NO
[2022-08-09 09:08] LABS: Basophils Absolute Auto 0.1 X10*3/uL (0.0-0.2); Basophils Percent Auto 0.4 % (0-2); Eosinophils Absolute Auto 0.6 X10*3/uL (0.0-0.4); Eosinophils Percent Auto 5.4 % (0-4); Hematocrit 39.6 % (37.0-47.0); Hemoglobin 13.8 g/dl (12.0-16.0); Imm Gran Abs Auto 0.04 X10*3/uL (0.00-0.03); Imm Gran Pct Auto 0.4 % (0.0-0.4); Lymphocytes Absolute Auto 3.7 X10*3/uL (1.2-4.9); Lymphocytes Percent Auto 32.6 % (20-40); Mean Corpuscular HGB Conc 34.8 g/dl (31.0-35.0); Mean Corpuscular Volume 77.3 fL (80.0-98.0); Mean Platelet Volume 9.7 fL (9.4-12.3); Monocytes Absolute Auto 0.8 X10*3/uL (0.1-1.2); Monocytes Percent Auto 7.2 % (2-11); Neutrophils Absolute Auto 6.1 x10*3/uL (2.0-8.3); Platelet Count 303 X10*3/uL (160-400); Red Blood Count 5.12 X10*6/uL (4.20-5.50); Red Cell Distribution Width 14.1 % (11.0-16.0); White Blood Count 11.3 X10*3/uL (4.8-10.8)
[2022-08-09 09:39] LABS: Alanine Aminotransferase 21 U/L (0-31); Albumin Level 4.5 g/dL (3.5-5.0); Anion Gap 15 (12-20); Aspartate Amino Transferase 22 U/L (5-31); Calcium 9.9 mg/dL (8.4-10.2); Carbon Dioxide 24 mmol/L (22-29); Chloride 104 mmol/L (96-108); Estimated Glomerular Filt Rate > 60; Sodium 138 mmol/L (135-145)
[2022-08-09 10:00] LABS: Vitamin D 25-OH Total 42.8 ng/mL (>30)
[2022-08-10 15:58] LABS: HIV RNA PCR Qn Copies NOT DETECTED copies/mL (NOT DETECTED); HIV RNA PCR Qn Log Copies NOT DETECTED (NOT DETECTED)
[2022-08-11 13:39] LABS: Absolute CD3 Count 2103 cells/uL (840-3060); Absolute CD4 Count 1299 cells/uL (490-1740); Absolute CD8 Count 919 cells/uL (180-1170); Absolute Lymphocytes 3278 cells/uL (850-3900); CD4 CD8 Ratio 1.41 (0.86-5.00); Percent CD3 Cells 64 % (57-85); Percent CD4 Cells 40 % (30-61); Percent CD8 Cells 28 % (12-42)
[2022-08-12 17:47] LABS: Calcium (PTHI) 9.7 mg/dL (8.6-10.4); PTHI 57 pg/mL (16-77)
== END 2022-08-09 08:29 | disposition home or self-care (01) ==
LOC: HO.LAB 08:28
PROVIDERS: Absent Provider Internal Medicine Infectious Disease; PCP Internal Medicine; Visit Provider Internal Medicine Endocrinology, Diabetes & Metabolism
DX: E21.3 Hyperparathyroidism, unspecified (principal); M81.0 Age-related osteoporosis without current pathological fracture; B20 Human immunodeficiency virus [HIV] disease
CPT/HCPCS: 36415; 80051; 82040; 82306; 82310; 82565; 83970; 84450; 84460; 85025; 86359; 86360; 87536

== ENCOUNTER → 2022-08-10 10:34 | Outpatient (BNVA) | payer OTHER, SELFPAY | PROVIDERS: PCP Internal Medicine; Visit Provider Internal Medicine Endocrinology, Diabetes & Metabolism | DX: E11.42 Type 2 diabetes mellitus with diabetic polyneuropathy (principal); Z79.84 Long term (current) use of oral hypoglycemic drugs | CPT/HCPCS: 82947; 83036; 99212 ==

== ENCOUNTER 2022-11-29 08:05 | Outpatient (REF) | payer OTHER, SELFPAY ==
[2022-11-29 08:26] LABS: MANUAL DIFF FLAG NO
[2022-11-29 09:00] LABS: Basophils Absolute Auto 0.1 X10*3/uL (0.0-0.2); Basophils Percent Auto 0.6 % (0-2); Eosinophils Absolute Auto 0.3 X10*3/uL (0.0-0.4); Eosinophils Percent Auto 2.6 % (0-4); Hematocrit 40.1 % (37.0-47.0); Hemoglobin 13.9 g/dl (12.0-16.0); Imm Gran Abs Auto 0.06 X10*3/uL (0.00-0.03); Imm Gran Pct Auto 0.6 % (0.0-0.4); Lymphocytes Absolute Auto 4.1 X10*3/uL (1.2-4.9); Lymphocytes Percent Auto 39.6 % (20-40); Mean Corpuscular HGB Conc 34.7 g/dl (31.0-35.0); Mean Corpuscular Hemoglobin 27.1 pg (27.0-33.0); Mean Corpuscular Volume 78.2 fL (80.0-98.0); Mean Platelet Volume 10.2 fL (9.4-12.3); Monocytes Absolute Auto 0.9 X10*3/uL (0.1-1.2); Monocytes Percent Auto 8.2 % (2-11); Neutrophils Percent Auto 48.4 % (45-73); Platelet Count 310 X10*3/uL (160-400); Red Blood Count 5.13 X10*6/uL (4.20-5.50); Red Cell Distribution Width 14.6 % (11.0-16.0); White Blood Count 10.3 X10*3/uL (4.8-10.8)
[2022-11-29 09:38] LABS: Alanine Aminotransferase 20 U/L (0-31); Albumin Level 4.4 g/dL (3.5-5.0); Anion Gap 14 (12-20); Aspartate Amino Transferase 21 U/L (5-31); Carbon Dioxide 25 mmol/L (22-29); Chloride 105 mmol/L (96-108); Cholesterol 146 mg/dL; Estimated Glomerular Filt Rate > 60; HDL Cholesterol 44 mg/dL; LDL Cholesterol Calculated 85 mg/dl; Potassium 4.8 mmol/L (3.3-5.1); Sodium 139 mmol/L (135-145); Triglycerides 88 mg/dL
[2022-11-30 13:04] LABS: Absolute CD3 Count 2351 cells/uL (840-3060); Absolute CD4 Count 1394 cells/uL (490-1740); Absolute CD8 Count 1094 cells/uL (180-1170); Absolute Lymphocytes 4063 cells/uL (850-3900); CD4 CD8 Ratio 1.27 (0.86-5.00); Percent CD3 Cells 58 % (57-85); Percent CD4 Cells 34 % (30-61); Percent CD8 Cells 27 % (12-42)
[2022-12-01 13:48] LABS: Calcium (PTHI) 9.8 mg/dL (8.6-10.4); PTHI 60 pg/mL (16-77)
[2022-12-01 14:54] LABS: HIV RNA PCR Qn Copies NOT DETECTED copies/mL (NOT DETECTED); HIV RNA PCR Qn Log Copies NOT DETECTED (NOT DETECTED)
== END 2022-11-29 08:06 | disposition home or self-care (01) ==
LOC: HO.LAB 08:05
PROVIDERS: Absent Provider Internal Medicine Infectious Disease; PCP Internal Medicine; Visit Provider Internal Medicine Endocrinology, Diabetes & Metabolism
DX: E11.42 Type 2 diabetes mellitus with diabetic polyneuropathy (principal); E21.3 Hyperparathyroidism, unspecified; B20 Human immunodeficiency virus [HIV] disease
CPT/HCPCS: 36415; 80051; 80061; 82040; 82565; 83970; 84450; 84460; 85025; 86359; 86360; 87536

== ENCOUNTER → 2022-12-01 12:36 | Outpatient (BNVA) | payer OTHER, SELFPAY | PROVIDERS: PCP Internal Medicine; Visit Provider Internal Medicine Endocrinology, Diabetes & Metabolism | DX: M81.0 Age-related osteoporosis without current pathological fracture (principal) | CPT/HCPCS: 99212 ==

== ENCOUNTER → 2022-12-03 13:53 | Outpatient (BNVA) | payer OTHER, SELFPAY | PROVIDERS: PCP Internal Medicine; Visit Provider Hospitalist | DX: J96.10 Chronic respiratory failure, unspecified whether with hypoxia or hypercapnia (principal); R91.8 Other nonspecific abnormal finding of lung field; J44.9 Chronic obstructive pulmonary disease, unspecified; B20 Human immunodeficiency virus [HIV] disease; Z23 Encounter for immunization; Z99.81 Dependence on supplemental oxygen | CPT/HCPCS: 90471; 90677; 99212 ==

== ENCOUNTER → 2022-12-07 10:49 | Outpatient (BNVA) | payer OTHER, SELFPAY | PROVIDERS: PCP Internal Medicine; Visit Provider Internal Medicine Endocrinology, Diabetes & Metabolism | DX: M81.0 Age-related osteoporosis without current pathological fracture (principal); Z79.620 Long term (current) use of immunosuppressive biologic | CPT/HCPCS: 96372 ==

== ENCOUNTER 2022-12-31 10:56 | Outpatient (REF) | payer OTHER, SELFPAY ==
--- NOTE | ~2022-12-31 | CT_ITS ---
EXAMINATION: CT CHEST WITHOUT CONTRAST CLINICAL INFORMATION: Nonspecific abnormal lung findings. COMPARISON: CT chest 03/24/2021. TECHNIQUE: Multidetector volumetric CT imaging of the chest was done. Axial MIP volume rendering provided. Sagittal and coronal reformatted images were obtained. This CT examination was performed using dose optimization techniques as appropriate, variously including the following: *Automated exposure control *Adjustment of mA and/or kV according to patient size (this includes techniques or standardized protocols for targeted exams where dose is matched to indication/reason for exam; i.e. extremities or head) *Use of iterative reconstruction technique DLP: 144 mGy-cm FINDINGS: SUPERVISOR PRE WAVE: Well-expanded lungs. LUNGS: The lungs are well-expanded without any acute pneumonic process. There are several micronodules throughout both lungs. The most significant nodules are 3 mm right lower lobe axial image 388/5 and a 5 mm nodule axial image 385 image 5. Overall these nodules are stable. No new nodules visualized. Linear calcification is seen in the right lower lobe anterior segment adjacent to major fissure on axial image 296/5, question broncholiths as suggested previously. Minimal scarring or atelectasis seen in the lingula and right middle lobe. MEDIASTINUM: The thyroid lobes are symmetric and normal. The central trachea and the bronchi are widely patent. Heart size and the great vessels are normal caliber. No abnormal size mediastinal or hilar lymph nodes seen. No pericardial effusion. CORONARY ARTERY CALCIFICATION: Mild coronary artery calcifications are present. PLEURA: There is no pleural effusion. No pleural mass or thickening. AXILLA: Small shotty axillary lymph nodes are seen. The chest wall is unremarkable. UPPER ABDOMEN: Visualized liver, spleen, pancreas and bilateral adrenal glands are unremarkable. OSSEOUS STRUCTURES: No aggressive lytic or sclerotic process seen. There is mild ventral spondylosis mid dorsal spine. CT/CT chest wo IV con IMPRESSION: Multiple micronodules are stable. Right lower lobe largest pulmonary nodules measuring 3 mm and 5 mm are stable as well. No new nodules are seen. No abnormal size mediastinal or hilar lymph nodes seen. Fleischner guidelines were followed.
== END 2022-12-31 10:57 | disposition home or self-care (01) ==
LOC: HO.CT 10:56
PROVIDERS: PCP Internal Medicine; Visit Provider Hospitalist
DX: R91.8 Other nonspecific abnormal finding of lung field (principal)
CPT/HCPCS: 71250

== ENCOUNTER 2023-04-20 09:53 | Outpatient (AMB) | payer OTHER, SELFPAY ==
[2023-04-20 10:39] VITALS: BP 110/60; PULSE 71; O2SAT 92
--- NOTE | 2023-04-20 10:39 | A.OFFVIS_ITS ---
Intake Vital Signs 04/20/23 10:39 Weight 83 kg BP 110/60 Blood Pressure Location Lt brachial Position Sitting Pulse 71 Pulse Source Pulse Oximeter Pulse Oximetry (%) 92 Oxygen Delivery Method Room Air Intake Visit Reasons: 6 Mins Walk Eval for O2 Allergies egg [EGG] Allergy (Intermediate, Verified 04/20/23 10:40) STOMACH UPSET Medication List - Last Reconciled 04/20/23 by Danuta Winkler LPN albuterol sulfate 2.5 mg (3 mL) inhalation Q6H PRN 30 days alcohol swabs (Alcohol Prep Pads) 1 pad topical BID 90 days atorvastatin 20 mg PO BEDTIME 90 days blood sugar diagnostic ([employer] Ultra Test strips) USE DIRECTED TESTS 4 X/DAY blood-glucose meter ([employer] Ultra2 Meter kit) As directed tests 4 X/day calcium carbonate-vitamin D3 600 mg-10 mcg (400 unit) 1 tab PO BID 90 days cholecalciferol (vitamin D3) 100 mcg (2 x 50 mcg (2,000 unit)) PO DAILY 90 days cyanocobalamin (vitamin B-12) 500 mcg sublingual DAILY 30 days denosumab (Prolia) 60 mg subcut [id number] dolutegravir (Tivicay) 50 mg PO DAILY emtricitabine-tenofovir alafen 200-25 mg (Descovy) 1 tab PO DAILY ferrous sulfate 325 mg PO TID 90 days fluticasone furoate-vilanterol 200-25 mcg/dose (Breo Ellipta) 1 inh PO DAILY lancets (Bell[employer] UltraSoft Lancets) As directed tests 4 X/day levothyroxine 25 mcg PO DAILY lisinopril 10 mg PO DAILY 90 days metformin ER 500 mg PO BID mometasone-formoterol 200-5 mcg/actuation (Dulera) 2 puffs inhalation Q12H 30 days montelukast 10 mg PO DAILY 90 days nebulizers (AeroEclipse II Nebulizer) As directed nystatin 1 appl topical BID 14 days Oxygen Home Use As directed sulfamethoxazole-trimethoprim 800-160 mg 1 tab PO 3XW umeclidinium 62.5 mcg/actuation (Incruse Ellipta) 1 inh inhalation DAILY Ventolin HFA 90 mcg/actuation (albuterol sulfate) 2 puffs PO Q4H PRN BART walker with seat [facility] Medical History Age-related osteoporosis without current pathological fracture Anemia B12 deficiency Chronic respiratory failure COPD (chronic obstructive pulmonary disease) Diabetes mellitus Essential hypertension HIV (human immunodeficiency virus infection) Hypothyroidism Intertrigo Loss of balance Lumbar degenerative disc disease Obese Obesity (BMI 30-39.9) Pulmonary nodules Pure hypercholesterolemia Surgical History History of tubal ligation History of umbilical hernia repair Family History Father Medical history unknown Mother Diabetes Hypertension CVD (cardiovascular disease) Pulmonary embolism Sister Colon cancer Maternal Aunt Breast cancer Brother Substance abuse Family/Other FH: mental illness Social History Housing: Apartment Alcohol intake: never Patient Tobacco Use Status: Former Tobacco user Tobacco use type: Cigarette Years Smoked: 38 years e-Cigarette/Vaping Use: Never Used Second Hand Smoke Exposure: No service: No Current occupational status: disabled Cognitive needs: No Hearing needs: No Vision needs: No Office Procedures 6 Minute Walk Time:: 10:30 SPO2 % at rest: 92 Pulse at rest: 71 SPO2 % during excercise: 88 Pulse during excercise: 110 SPO2 % after excercise: 93 Pulse after excercise: 89 Distance in yards walked: 200 Cristian Score: 8 Performance Observations:: [place] walked on level ground without assistance, she walked for 2 minutes before her SPO2 decreased to 88% on room air. O2 started at 2 lpm pulsed and her SPO2 recovered to 93% and was maintained at 93% for the remainder of the walk. [id number] - 6 Minute Walk Assessment & Plan Assessment & Plan (1) COPD (chronic obstructive pulmonary disease): Code(s): J44.9 - Chronic obstructive pulmonary disease, unspecified Orders: Orders AMB 6 minute walk Today J44.9 - Chronic obstructive pulmonary disease, unspecified Coding Level of Care Code Established Pt Est Pt Level 1 (87542) Patient Type Established Diagnoses COPD (chronic obstructive pulmonary disease) J44.9 CPT Codes Coding ([id number]) Comment NURSE VISIT ONLY
[2023-04-20 10:46] VITALS: PULSE 71; O2SAT 92
== END 2023-04-20 10:40 | disposition home or self-care (01) ==
PROVIDERS: PCP Internal Medicine; Visit Provider Hospitalist
DX: J44.9 Chronic obstructive pulmonary disease, unspecified (principal)
CPT/HCPCS: 94618

== ENCOUNTER → 2023-04-20 09:53 | Outpatient (BNVA) | payer OTHER, SELFPAY | PROVIDERS: PCP Internal Medicine; Visit Provider Hospitalist | DX: J44.9 Chronic obstructive pulmonary disease, unspecified (principal) | CPT/HCPCS: 94618; 99212 ==

== ENCOUNTER 2023-04-27 08:10 | Outpatient (REF) | payer OTHER, SELFPAY ==
[2023-04-27 09:55] LABS: Alanine Aminotransferase 14 U/L (0-31); Albumin Level 4.4 g/dL (3.5-5.0); Alkaline Phosphatase 76 U/L (39-117); Anion Gap 12 (12-20); Aspartate Amino Transferase 19 U/L (5-31); Bilirubin Total 0.6 mg/dL (0.0-1.0); Blood Urea Nitrogen 10 mg/dL (9-16); Carbon Dioxide 24 mmol/L (22-29); Chloride 108 mmol/L (96-108); Cholesterol 110 mg/dL (<200); Estimated Glomerular Filt Rate > 60; Glucose Fasting 124 mg/dL (60-99); HDL Cholesterol 38 mg/dL (>40); LDL Cholesterol Calculated 50 mg/dL (<100); Potassium 4.5 mmol/L (3.3-5.1); Sodium 139 mmol/L (135-145); Total Protein 7.8 g/dL (6.5-8.0); Triglycerides 111 mg/dL (<150)
[2023-04-27 10:00] LABS: Vitamin D 25-OH Total 45.1 ng/mL (>30)
[2023-04-27 10:08] LABS: Folate 6.5 ng/mL (> or = 4.0); Vitamin B12 394 pg/mL (200-900)
[2023-04-27 11:09] LABS: Creatinine Urine 191.25 mg/dL; Microalbum/Creatinine Ratio Ur 3.6 ug/mg cr (<30)
== END 2023-04-27 08:11 | disposition home or self-care (01) ==
LOC: HO.LAB 08:10
PROVIDERS: PCP Internal Medicine; Visit Provider Internal Medicine
DX: E78.5 Hyperlipidemia, unspecified (principal); E11.9 Type 2 diabetes mellitus without complications; E53.8 Deficiency of other specified B group vitamins; E78.00 Pure hypercholesterolemia, unspecified; E55.9 Vitamin D deficiency, unspecified; E03.9 Hypothyroidism, unspecified
CPT/HCPCS: 36415; 80053; 80061; 82043; 82306; 82570; 82607; 82746; 84443

== ENCOUNTER 2023-05-03 11:08 | Outpatient (REF) | payer OTHER, SELFPAY | END 2023-05-03 11:09 | disposition home or self-care (01) | LOC: HO.MAMMO 11:08 | PROVIDERS: PCP Internal Medicine; Visit Provider Internal Medicine | DX: Z12.31 Encounter for screening mammogram for malignant neoplasm of breast (principal) | CPT/HCPCS: 77063; 77067 ==

== ENCOUNTER → 2023-05-03 11:15 | Outpatient (BNV) | payer OTHER, SELFPAY | PROVIDERS: PCP Internal Medicine; Visit Provider Radiology Diagnostic Radiology | DX: Z12.31 Encounter for screening mammogram for malignant neoplasm of breast (principal) | CPT/HCPCS: 77063; 77067 ==

== ENCOUNTER 2023-05-16 10:20 | Outpatient (REF) | payer OTHER, SELFPAY ==
--- NOTE | 2023-05-16 11:03 | PFT_ITS ---
Forced vital capacity is 69%, FEV1 51%, FEV1 over FVC ratio is 57. IPR89-77 27% and MVV 45%. Post bronchodilator therapy, there is no significant change. Total lung capacity 92% and residual volume 117%. Diffusion capacity 57%. CONCLUSION: Moderately severe obstructive airway disorder. No significant response to bronchodilator therapy. Clinical correlation recommended. MD JESSA Hi/RYAN / [id number]
== END 2023-05-16 10:21 | disposition home or self-care (01) ==
LOC: HO.RESP 10:20
PROVIDERS: PCP Internal Medicine; Visit Provider Hospitalist
DX: J96.10 Chronic respiratory failure, unspecified whether with hypoxia or hypercapnia (principal)
CPT/HCPCS: 94010; 94727; 94729

== ENCOUNTER → 2023-05-16 11:03 | Outpatient (BNV) | payer OTHER, SELFPAY | PROVIDERS: PCP Internal Medicine; Visit Provider Internal Medicine | DX: J96.10 Chronic respiratory failure, unspecified whether with hypoxia or hypercapnia (principal) | CPT/HCPCS: 94060; 94727; 94729 ==

== ENCOUNTER 2023-05-18 11:22 | Outpatient (AMB) | payer OTHER, SELFPAY ==
[2023-05-18 11:26] VITALS: BP 142/80; BMI 33.7
--- NOTE | 2023-05-18 11:26 | MHC.PC.OV ---
Vital Signs 05/18/23 11:26 Height 5 ft 2 in Weight 184 lb BMI 33.7 BP 142/80 H Blood Pressure Location Lt brachial Position Sitting Intake Visit Reasons: 4 month f/u Intake Note: Patient here for a 4 month follow up Certified Pharmacist Assistant Required: No Accompanied by: Self / Same As Patient Allergies egg [EGG] Allergy (Intermediate, Verified 05/18/23 11:34) STOMACH UPSET Medication List - Last Reconciled 05/18/23 by Amarilis Squires MD albuterol sulfate 2.5 mg (3 mL) inhalation Q6H PRN 30 days alcohol swabs (Alcohol Prep Pads) 1 pad topical BID 90 days atorvastatin 20 mg PO BEDTIME 90 days blood sugar diagnostic ([employer] Ultra Test strips) USE DIRECTED TESTS 4 X/DAY blood-glucose meter ([employer] Ultra2 Meter kit) As directed tests 4 X/day calcium carbonate-vitamin D3 600 mg-10 mcg (400 unit) 1 tab PO BID 90 days cholecalciferol (vitamin D3) 100 mcg (2 x 50 mcg (2,000 unit)) PO DAILY 90 days cyanocobalamin (vitamin B-12) 500 mcg sublingual DAILY 30 days denosumab (Prolia) 60 mg subcut [id number] dolutegravir (Tivicay) 50 mg PO DAILY emtricitabine-tenofovir alafen 200-25 mg (Descovy) 1 tab PO DAILY fluticasone furoate-vilanterol 200-25 mcg/dose (Breo Ellipta) 1 inh PO DAILY lancets ([employer] UltraSoft Lancets) As directed tests 4 X/day levothyroxine 25 mcg PO DAILY lisinopril 10 mg PO DAILY 90 days metformin ER 500 mg PO BID mometasone-formoterol 200-5 mcg/actuation (Dulera) 2 puffs inhalation Q12H 30 days montelukast 10 mg PO DAILY 90 days nebulizers (AeroEclipse II Nebulizer) As directed nystatin 1 appl topical BID 14 days Oxygen Home Use As directed sulfamethoxazole-trimethoprim 800-160 mg 1 tab PO 3XW umeclidinium 62.5 mcg/actuation (Incruse Ellipta) 1 inh inhalation DAILY Ventolin HFA 90 mcg/actuation (albuterol sulfate) 2 puffs PO Q4H PRN BART walker with seat Tobacco use date assessed: 01/24/23 Fall risk assessment: No Falls in past year Last assessed Fall Risk: 05/18/23 Dental Screening Dental Screen Date: 05/18/23 Did you have a dental visit in the last 12 months?: No Did you have a dental problem in the last 6 months where you did not have access to dental care?: No Was dental information given to patient?: Patient has dentist HPI HPI Comments History of Present Illness Details This is a 67-year-old female with diabetes mellitus type 2, hypertension, hypothyroidism, pure hypercholesterolemia, COPD and HIV that comes today accompanied by daughter complaining of bilateral pain in foot burning like in quality most likely due to neuropathy. I will start her on gabapentin and patient was advised that gabapentin can cause sleepiness and dizziness. A1c within goal. Blood pressure stable. TSH normal. LDL within goal. She use rescue inhaler few times a month and is on 2 L of nasal cannula. HIV stable with HAART and follow by [facility]. [facility] Medical History (Updated 05/18/23 @ 11:41 by Amarilis Squires MD) B12 deficiency Chronic respiratory failure Loss of balance Lumbar degenerative disc disease Obesity (BMI 30-39.9) Age-related osteoporosis without current pathological fracture Pulmonary nodules Obese Intertrigo Anemia Hypothyroidism COPD (chronic obstructive pulmonary disease) HIV (human immunodeficiency virus infection) Pure hypercholesterolemia Essential hypertension Diabetes mellitus Surgical History History of umbilical hernia repair History of tubal ligation Family History Father Medical history unknown Mother Diabetes Hypertension CVD (cardiovascular disease) Pulmonary embolism Sister Colon cancer Maternal Aunt Breast cancer Brother Substance abuse Family/Other FH: mental illness Social History Housing: Apartment Alcohol intake: never Patient Tobacco Use Status: Former Tobacco user Tobacco use type: Cigarette Years Smoked: 38 years e-Cigarette/Vaping Use: Never Used Second Hand Smoke Exposure: No service: No Current occupational status: disabled Cognitive needs: No Hearing needs: No Vision needs: No Questionnaire Thrive Questionnaire Date Thrive assessed: 09/30/22 MIRANDA-7 AMB Questionnaire MIRANDA-7 Date MIRANDA - 7 assessed: 02/09/23 Source: Developed by Drs. Kenneth Tavarez, Tuyet David, Kenneth Peterson and colleagues, with an educational faby from [employer] Review of Systems Const All systems reviewed & are unremarkable except as noted in HPI and below Eyes Reports no additional complaints, Denies change in vision and Denies other visual disturbances Card Denies chest pain at rest, Denies chest pain with activity, Denies edema, Denies irregular heart rhythm, Denies claudication, Denies dyspnea, Denies dyspnea on exertion, Denies orthopnea, Denies paroxysmal nocturnal dyspnea and Denies slow heart rate Resp Denies cough, Denies dyspnea and Denies dyspnea on exertion GI Denies abdominal pain, Denies change in bowel habits, Denies excessive flatus, Denies nausea and Denies vomiting Denies urinary incontinence, Denies urinary hesitancy and Denies urinary urgency Musc Denies abnormal gait, Denies atrophy, Denies deformity, Reports arthralgias and Denies limited range of motion Skin/Breast Denies bleeding lesions, Denies changing lesions and Denies rash Neuro Denies abnormal gait and Denies lack of coordination Physical exam (Primary Care) Vital Signs: Last Vital Signs BP 142/80 H 05/18/23 11:26 BMI result Body Mass Index 33.7 Tobacco/Smoking Status: Tobacco use Status Tobacco use date assessed 01/24/23 05/18/23 11:29 Patient Tobacco Use Status Former Tobacco user 05/18/23 11:29 Tobacco use type Cigarette 05/18/23 11:29 e-Cigarette/Vaping Use Never Used 05/18/23 11:29 Thrive Assessment: Date of Thrive Assessment Date Thrive assessed 09/30/22 05/18/23 11:29 Eyes General: appearance normal, both eyes and all related structures Eyelids: Yes eyelids normal Conjunctivae: conjunctivae normal Neck Neck: Yes normal visual inspection and Yes supple Resp Effort & Inspection: normal respiratory effort Auscultation: clear to auscultation bilaterally Cardio Jugular venous distension: no JVD Rate: regular rate Rhythm: regular rhythm Heart sounds: S1 normal heart sound present and S2 normal heart sound present Extrem General: Yes full ROM Results AMB Hemoglobin A1c AMB Hemoglobin A1c 6.5 % Last Edit by CHEVY Morgan on 05/18/23 11:35 Assessment and Plan Assessment & Plan (1) Diabetes mellitus: Code(s): E11.9 - Type 2 diabetes mellitus without complications Qualifiers: Diabetes mellitus type: type 2 Diabetes mellitus terminal superintendent insulin use: without terminal superintendent use Diabetes mellitus complication status: with neurologic complications Diabetes mellitus complication detail: with polyneuropathy Qualified Code(s): E11.42 - Type 2 diabetes mellitus with diabetic polyneuropathy Plan: Continue metformin. A1c goal is equal or less than 7%. (2) Essential hypertension: Code(s): I10 - Essential (primary) hypertension Plan: Continue lisinopril. Blood pressure goal is equal or less than 130/80. (3) Pure hypercholesterolemia: Code(s): E78.00 - Pure hypercholesterolemia, unspecified Plan: Continue statins. LDL goal is less than 70. (4) COPD (chronic obstructive pulmonary disease): Code(s): J44.9 - Chronic obstructive pulmonary disease, unspecified Plan: Continue Incruse and longstanding inhaler. Use rescue inhaler as needed. Follow-up with pulmonology. (5) HIV (human immunodeficiency virus infection): Comment: stable Code(s): B20 - Human immunodeficiency virus [HIV] disease Plan: Continue Descovy and Tivicay. Follow-up with ID. (6) Neuropathy: Code(s): G62.9 - Polyneuropathy, unspecified Plan: Start gabapentin. Orders: Orders AMB Hemoglobin A1c Today E11.9 - Type 2 diabetes mellitus without complications Comprehensive [place]. Panel Fast 4 Months J44.9 - Chronic obstructive pulmonary disease, unspecified Thyroid Stimulating Hormone 4 Months E03.9 - Hypothyroidism, unspecified Lipid Panel 4 Months E78.5 - Hyperlipidemia, unspecified Microalbumin, Random (w Creat) 4 Months E11.9 - Type 2 diabetes mellitus without complications Complete Blood Count Auto Diff 4 Months D64.9 - Anemia, unspecified IRON PROFILE 4 Months D64.9 - Anemia, unspecified Vitamin B12 and Folate 4 Months E53.8 - Deficiency of other specified B group vitamins Vitamin D 25-OH Total 4 Months E55.9 - Vitamin D deficiency, unspecified Referrals Cologuard Test Z12.11 - Encounter for screening for malignant neoplasm of colon, Z12.12 - Encounter for screening for malignant neoplasm of rectum Medications: New gabapentin 100 mg PO TID 90 days 270 caps 1RF G62.9 - Polyneuropathy, unspecified Coding Level of Care Code Est Pt Level 4 (86711) Diagnoses Type 2 diabetes mellitus with diabetic polyneuropathy, without long-term current use of insulin E11.42 Diabetes mellitus type: type 2 Diabetes mellitus chcf insulin use: without chcf use Diabetes mellitus complication status: with neurologic complications Diabetes mellitus complication detail: with polyneuropathy Essential hypertension I10 Pure hypercholesterolemia E78.00 COPD (chronic obstructive pulmonary disease) J44.9 HIV (human immunodeficiency virus infection) B20 Neuropathy G62.9 Time Spent (min) 25
== END 2023-05-18 11:45 | disposition home or self-care (01) ==
PROVIDERS: PCP Internal Medicine; Visit Provider Internal Medicine
DX: E11.42 Type 2 diabetes mellitus with diabetic polyneuropathy (principal); J44.9 Chronic obstructive pulmonary disease, unspecified; B20 Human immunodeficiency virus [HIV] disease; I10 Essential (primary) hypertension; E78.00 Pure hypercholesterolemia, unspecified; G62.9 Polyneuropathy, unspecified
CPT/HCPCS: 83036; 99214

== ENCOUNTER 2023-05-20 09:09 | Outpatient (REF) | payer OTHER, SELFPAY ==
[2023-05-20 09:56] LABS: Basophils Absolute Auto 0.1 X10*3/uL (0.0-0.2); Basophils Percent Auto 0.5 % (0-2); Neutrophils Absolute Auto 5.6 x10*3/uL (2.0-8.3); PLT CLUMP 1; Red Cell Distribution Width 14.9 % (11.0-16.0); SCAN SMEAR FLAG 1
[2023-05-20 09:59] LABS: Eosinophils Absolute Auto 0.3 X10*3/uL (0.0-0.4); Eosinophils Percent Auto 2.8 % (0-4); Hematocrit 40.6 % (37.0-47.0); Hemoglobin 13.9 g/dl (12.0-16.0); Imm Gran Abs Auto 0.04 X10*3/uL (0.00-0.03); Imm Gran Pct Auto 0.4 % (0.0-0.4); Lymphocytes Absolute Auto 3.1 X10*3/uL (1.2-4.9); Lymphocytes Percent Auto 31.5 % (20-40); MANUAL DIFF FLAG SCAN; Mean Corpuscular HGB Conc 34.2 g/dl (31.0-35.0); Mean Corpuscular Hemoglobin 26.7 pg (27.0-33.0); Mean Corpuscular Volume 78.1 fL (80.0-98.0); Monocytes Absolute Auto 0.8 X10*3/uL (0.1-1.2); Monocytes Percent Auto 7.7 % (2-11); Neutrophils Percent Auto 57.1 % (45-73)
[2023-05-20 10:06] LABS: White Blood Count 9.9 X10*3/uL (4.8-10.8)
[2023-05-20 10:19] LABS: Alanine Aminotransferase 13 U/L (0-31); Anion Gap 16 (12-20); Aspartate Amino Transferase 17 U/L (5-31); Carbon Dioxide 20 mmol/L (22-29); Chloride 107 mmol/L (96-108); Estimated Glomerular Filt Rate > 60; Potassium 4.3 mmol/L (3.3-5.1); Sodium 139 mmol/L (135-145)
[2023-05-20 10:35] LABS: Syphilis Screen Nonreactive (Nonreactive)
[2023-05-20 10:45] LABS: Platelet Count 193 X10*3/uL (160-400); SLIDE REVIEW VERIFIED
[2023-05-22 12:09] LABS: HIV RNA PCR Qn Copies NOT DETECTED copies/mL (NOT DETECTED); HIV RNA PCR Qn Log Copies NOT DETECTED (NOT DETECTED)
[2023-05-23 08:39] LABS: Absolute CD3 Count 2568 cells/uL (840-3060); Absolute CD4 Count 1598 cells/uL (490-1740); Absolute CD8 Count 1070 cells/uL (180-1170); Absolute Lymphocytes 3659 cells/uL (850-3900); CD4 CD8 Ratio 1.49 (0.86-5.00); Percent CD3 Cells 70 % (57-85); Percent CD4 Cells 44 % (30-61); Percent CD8 Cells 29 % (12-42)
== END 2023-05-20 09:10 | disposition home or self-care (01) ==
LOC: HO.LAB 09:09
PROVIDERS: PCP Internal Medicine; Visit Provider Internal Medicine Infectious Disease
DX: B20 Human immunodeficiency virus [HIV] disease (principal)
CPT/HCPCS: 0353U; 36415; 80051; 82565; 84450; 84460; 85025; 86359; 86360; 86780; 87536

== ENCOUNTER 2023-06-09 10:42 | Outpatient (AMB) | payer OTHER, SELFPAY ==
--- NOTE | 2023-06-09 10:51 | MHC.OFFVIS ---
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 She is currently using oxygen at a level of 2 L continues. She is not clear she is on a conserving device trial. She continues uses Spiriva. She is also using her rescue inhaler. She has been having issues with shortness of breath. Moderate severity. He did have a chest x-ray done at [facility] at the that will reviewed in December demonstrating some atelectatic changes. She also had a x-ray at [facility] that we have to look up. She has not had pulmonary function studies in some time. We talked about the importance of pulmonary rehabilitation. We also reviewed her CT scan of the chest done at [facility] February 2019 demonstrating new 3 mm pulmonary nodule along with moderate degree of emphysema. We did review her chest x-ray that was without any acute disease. She is scheduled to undergo a CT scan of the chest in February to assess the pulmonary nodules. In the meantime she continues use her respiratory therapy with good effect. 11/23/2021 the patient is here for a pulmonary follow-up visit. Overall she is feeling better from respiratory status. She is tolerating her respiratory therapy very well. She has not had to use her rescue inhaler. She does continue with the oxygen. She does tolerate the pulse valve conserving device very well. Although, I do believe she can get a professional bondsman tank. She is currently has C tanks. I will request that she can get at least a be tank or professional bondsman in order to provide her with less discomfort in her shoulder. I will send a script to the [employer] for this and did give her a copy so she can order them herself. We did review her last CT scan of the chest done back in March 2021 demonstrating pulmonary nodules which are subcentimeter in nature. Since the patient is doing well will go ahead and repeat the CT scan a year from now which would be close to year and have from her last CT scan of the chest. If her CT scan does not show any changes then we can just follow her imaging studies as needed. 12/03/2022 the patient is here for pulmonary follow-up visit. Overall the patient has been doing relatively well. She is using her oxygen with good effect. She has a pulse device that she can not carry with good tolerability. She also continues with her inhalers with good effect as well as where we did review her CT scan of the chest that she had back in 2020 demonstrating pulmonary nodules. She was supposed to have a CT scan prior to this visit but she has not had as of yet. Therefore I will order CT scan. I explained to her this anything worsening and we have to have her come in so we can address that. Otherwise I will let him know that everything is okay. If her CT scan demonstrates the ability then no further additional CT scans are needed serial E although we can consider them as needed. Will plan to return in 6 months with a repeat pulmonary function studies. 06/09/2023 the patient is here for pulmonary follow-up visit. The patient overall has been about the same. Still complains about dyspnea on exertion. Moderate severity. The oxygen has been helpful. However, the tanks having extremely happy for her. She has a hard time carrying season velasquez. The patient would like better portability outside of the home. Will request a portable oxygen concentrator which provide better portability also the home for her. The patient also can get some B Cylinders. This also be helpful. Will request him for the [employer]. We did do a titration study again the patient did require oxygen with activity. She continues respiratory therapy. Has not required prednisone. Her last CT scan of the chest back in December 2022 demonstrating stable pulmonary nodules. [facility] Medical History Age-related osteoporosis without current pathological fracture Anemia B12 deficiency Chronic respiratory failure COPD (chronic obstructive pulmonary disease) Diabetes mellitus Essential hypertension HIV (human immunodeficiency virus infection) Hypothyroidism Intertrigo Loss of balance Lumbar degenerative disc disease Obese Obesity (BMI 30-39.9) Pulmonary nodules Pure hypercholesterolemia Surgical History History of umbilical hernia repair History of tubal ligation Family History Father Medical history unknown Mother Diabetes Hypertension CVD (cardiovascular disease) Pulmonary embolism Sister Colon cancer Maternal Aunt Breast cancer Brother Substance abuse Family/Other FH: mental illness Social History Housing: Apartment Alcohol intake: never Patient Tobacco Use Status: Former Tobacco user Tobacco use type: Cigarette Years Smoked: 38 years e-Cigarette/Vaping Use: Never Used Second Hand Smoke Exposure: No service: No Current occupational status: disabled Cognitive needs: No Hearing needs: No Vision needs: No Review of Systems Const All systems reviewed & are unremarkable except as noted in HPI and below Eyes Reports no additional complaints, Denies change in vision and Denies other visual disturbances Card Denies chest pain at rest, Denies chest pain with activity, Denies edema, Denies irregular heart rhythm, Denies claudication, Denies dyspnea, Denies dyspnea on exertion, Denies orthopnea, Denies paroxysmal nocturnal dyspnea and Denies slow heart rate Resp Denies cough, Denies dyspnea and Denies dyspnea on exertion GI Denies abdominal pain, Denies change in bowel habits, Denies excessive flatus, Denies nausea and Denies vomiting Denies urinary incontinence, Denies urinary hesitancy and Denies urinary urgency Musc Denies abnormal gait, Denies atrophy, Denies deformity, Reports arthralgias and Denies limited range of motion Skin/Breast Denies bleeding lesions, Denies changing lesions and Denies rash Neuro Denies abnormal gait and Denies lack of coordination Physical Exam Vital Signs: Last Vital Signs Pulse 72 06/09/23 10:52 Pulse Ox 96 06/09/23 10:52 Oxygen Delivery Method Room Air 06/09/23 10:52 BMI result Body Mass Index 33.6 Const General: comfortable HEENT General nose exam: Nasal discharge present Eyes Pupils: Equal, round and reactive pupils present Neck Neck: Yes normal visual inspection, Yes full ROM and Yes no lymphadenopathy Chest Chest palpation & inspection: normal inspection of the chest Resp Auscultation: diminished lung sounds Cardio Rate: regular rate Rhythm: regular rhythm Heart sounds: S1 normal heart sound present and S2 normal heart sound present GI Palpation (GI): Soft to palpation and nontender Auscultation: normal bowel sounds General: Yes no CVA tenderness Back/Spine/Pelvis Back: no CVA tenderness Skin General skin exam: rashes and/or lesions noted Neuro Cranial nerves: Yes Equal, round and reactive pupils present Office Procedures 6 Minute Walk Time:: 21:55 SPO2 % at rest: 92 Pulse at rest: 89 SPO2 % during excercise: 87 Pulse during excercise: 94 Distance in yards walked: 200 Cristian Score: 5 Supplemental Oxygen: desaturated to 87% RA with activity. Placed on 2Lpulse inproved to 94% with activity 33854 - 6 Minute Walk Assessment & Plan Assessment & Plan (1) COPD (chronic obstructive pulmonary disease): Code(s): J44.9 - Chronic obstructive pulmonary disease, unspecified Qualifiers: COPD type: emphysema Emphysema type: centrilobular Qualified Code(s): J43.2 - Centrilobular emphysema Plan: continue respiratory therapy (2) Pulmonary nodules: Code(s): R91.8 - Other nonspecific abnormal finding of lung field (3) Chronic respiratory failure: Code(s): J96.10 - Chronic respiratory failure, unspecified whether with hypoxia or hypercapnia Qualifiers: Respiratory failure complication: hypoxia Qualified Code(s): J96.11 - Chronic respiratory failure with hypoxia Plan Continue Breo and Incruse daily CHAZ as needed conrinue singulair continue oxygen 2 L pulse with activity. B cylinders or professional bondsman. Requesting Portable oxygen concentrater for better portability outside of the home Follow-up in 6 months Coding Level of Care Code Est Pt Level 4 (20591) Diagnoses Centrilobular emphysema J43.2 COPD type: emphysema Emphysema type: centrilobular Pulmonary nodules R91.8 Chronic respiratory failure with hypoxia J96.11 Respiratory failure complication: hypoxia CPT Codes Coding ([id number]) Time Spent (min) 16
[2023-06-09 10:52] VITALS: PULSE 72; O2SAT 96; BMI 33.6
[2023-06-09 21:55] VITALS: PULSE 89; O2SAT 92
== END 2023-06-09 11:14 | disposition home or self-care (01) ==
PROVIDERS: PCP Internal Medicine; Visit Provider Hospitalist
DX: J43.2 Centrilobular emphysema (principal); R91.8 Other nonspecific abnormal finding of lung field; J96.11 Chronic respiratory failure with hypoxia
CPT/HCPCS: 94618; 99214

== ENCOUNTER → 2023-06-09 10:42 | Outpatient (BNVA) | payer OTHER, SELFPAY | PROVIDERS: Visit Provider Hospitalist | DX: J96.11 Chronic respiratory failure with hypoxia (principal); J43.2 Centrilobular emphysema; R91.8 Other nonspecific abnormal finding of lung field; Z99.81 Dependence on supplemental oxygen | CPT/HCPCS: 94618; 99212 ==

== ENCOUNTER 2023-06-14 09:41 | Outpatient (AMB) | payer OTHER, SELFPAY ==
--- NOTE | 2023-06-14 10:16 | AM.OFFVISNUR ---
Intake Intake Visit Reasons: prolia Allergies egg [EGG] Allergy (Intermediate, Verified 06/09/23 10:53) STOMACH UPSET Office Meds Prolia 60 mg/mL subcutaneous syringe Performing Provider: Kenneth Story MD Performing Location: [facility] Endocrinology Administered by: Audrey Albright LPN on 06/14/23 10:17 Dose Route Admin Location Dispensed Lot Number Expiration Date NDC Hogshead Wrecker 60 mg subcut Right upper arm 1 mL [id number] 10/19/25 AMGEN Coding Assessment & Plan Assessment & Plan Orders: Orders AMB Denosumab Injection Patient Supplied Today M81.0 - Age-related osteoporosis without current pathological fracture
== END 2023-06-14 09:56 | disposition home or self-care (01) ==
PROVIDERS: PCP Internal Medicine; Visit Provider Internal Medicine Endocrinology, Diabetes & Metabolism
DX: M81.0 Age-related osteoporosis without current pathological fracture (principal)

== ENCOUNTER → 2023-06-14 09:41 | Outpatient (BNVA) | payer OTHER, SELFPAY | PROVIDERS: PCP Internal Medicine; Visit Provider Internal Medicine Endocrinology, Diabetes & Metabolism | DX: M81.0 Age-related osteoporosis without current pathological fracture (principal) | CPT/HCPCS: 96372; J0897 ==

== ENCOUNTER 2023-08-26 09:26 | Outpatient (REF) | payer OTHER, SELFPAY ==
[2023-08-26 10:20] LABS: Basophils Absolute Auto 0.1 X10*3/uL (0.0-0.2); Basophils Percent Auto 0.6 % (0-2); Eosinophils Absolute Auto 0.3 X10*3/uL (0.0-0.4); Hematocrit 38.6 % (37.0-47.0); Hemoglobin 13.5 g/dl (12.0-16.0); Imm Gran Abs Auto 0.03 X10*3/uL (0.00-0.03); Imm Gran Pct Auto 0.4 % (0.0-0.4); Lymphocytes Absolute Auto 3.3 X10*3/uL (1.2-4.9); Lymphocytes Percent Auto 39.1 % (20-40); Mean Corpuscular Hemoglobin 26.8 pg (27.0-33.0); Mean Corpuscular Volume 76.7 fL (80.0-98.0); Monocytes Absolute Auto 0.7 X10*3/uL (0.1-1.2); Monocytes Percent Auto 7.9 % (2-11); Neutrophils Absolute Auto 4.1 x10*3/uL (2.0-8.3); Red Blood Count 5.03 X10*6/uL (4.20-5.50); Red Cell Distribution Width 14.5 % (11.0-16.0)
[2023-08-26 10:21] LABS: Mean Platelet Volume 11.3 fL (9.4-12.3); Platelet Count 203 X10*3/uL (160-400); White Blood Count 8.4 X10*3/uL (4.8-10.8)
[2023-08-29 10:43] LABS: Absolute CD3 Count 2527 cells/uL (840-3060); Absolute CD4 Count 1538 cells/uL (490-1740); Absolute CD8 Count 1138 cells/uL (180-1170); Absolute Lymphocytes 3607 cells/uL (850-3900); CD4 CD8 Ratio 1.35 (0.86-5.00); Percent CD3 Cells 70 % (57-85); Percent CD4 Cells 43 % (30-61); Percent CD8 Cells 32 % (12-42)
[2023-08-29 14:47] LABS: HIV RNA PCR Qn Copies NOT DETECTED copies/mL (NOT DETECTED); HIV RNA PCR Qn Log Copies NOT DETECTED (NOT DETECTED)
[2023-08-30 13:03] LABS: Hepatitis B Viral DNA Qn - cp NOT DETECTED Log IU/mL (NOT DETECTED); Hepatitis B Viral DNA Qn-IU/mL NOT DETECTED (NOT DETECTED)
[2023-08-30 14:44] LABS: HCV Log PCR <1.18 NOT DETECTED Log IU/mL (NOT DETECTED); HepC Viral Load <15 NOT DETECTED IU/mL (NOT DETECTED)
== END 2023-08-26 09:27 | disposition home or self-care (01) ==
LOC: HO.LAB 09:26
PROVIDERS: Absent Provider Internal Medicine Endocrinology, Diabetes & Metabolism; PCP Internal Medicine; Visit Provider Internal Medicine Infectious Disease
DX: B20 Human immunodeficiency virus [HIV] disease (principal)
CPT/HCPCS: 36415; 80051; 82565; 84450; 84460; 85025; 86359; 86360; 86780; 87517; 87522; 87536

== ENCOUNTER 2023-09-16 08:07 | Outpatient (REF) | payer OTHER, SELFPAY ==
[2023-09-16 08:39] LABS: MANUAL DIFF FLAG NO
[2023-09-16 09:20] LABS: Basophils Absolute Auto 0.1 X10*3/uL (0.0-0.2); Basophils Percent Auto 0.5 % (0-2); Eosinophils Absolute Auto 0.3 X10*3/uL (0.0-0.4); Hematocrit 37.9 % (37.0-47.0); Hemoglobin 13.4 g/dl (12.0-16.0); Imm Gran Abs Auto 0.03 X10*3/uL (0.00-0.03); Imm Gran Pct Auto 0.3 % (0.0-0.4); Lymphocytes Absolute Auto 3.9 X10*3/uL (1.2-4.9); Lymphocytes Percent Auto 37.9 % (20-40); Mean Corpuscular HGB Conc 35.4 g/dl (31.0-35.0); Mean Corpuscular Hemoglobin 27.5 pg (27.0-33.0); Mean Corpuscular Volume 77.7 fL (80.0-98.0); Mean Platelet Volume 10.3 fL (9.4-12.3); Monocytes Absolute Auto 0.8 X10*3/uL (0.1-1.2); Monocytes Percent Auto 7.4 % (2-11); Neutrophils Absolute Auto 5.2 x10*3/uL (2.0-8.3); Neutrophils Percent Auto 50.9 % (45-73); Platelet Count 304 X10*3/uL (160-400); Red Blood Count 4.88 X10*6/uL (4.20-5.50); Red Cell Distribution Width 14.5 % (11.0-16.0); White Blood Count 10.2 X10*3/uL (4.8-10.8)
[2023-09-16 10:14] LABS: Creatinine Urine 66.55 mg/dL; Microalbumin Urine < 5.0 mg/L
[2023-09-16 10:31] LABS: Alanine Aminotransferase 16 U/L (0-31); Albumin Level 4.4 g/dL (3.5-5.0); Alkaline Phosphatase 83 U/L (39-117); Anion Gap 16 (12-20); Aspartate Amino Transferase 20 U/L (5-31); Bilirubin Total 0.6 mg/dL (0.0-1.0); Blood Urea Nitrogen 11 mg/dL (9-16); Calcium 9.7 mg/dL (8.4-10.2); Carbon Dioxide 24 mmol/L (22-29); Chloride 105 mmol/L (96-108); Cholesterol 116 mg/dL (<200); Estimated Glomerular Filt Rate > 60; Glucose Fasting 129 mg/dL (60-99); HDL Cholesterol 37 mg/dL (>40); Iron 73 mcg/dL (30-160); LDL Cholesterol Calculated 54 mg/dL (<100); Percent Iron Saturation 22 % (15-50); Potassium 4.4 mmol/L (3.3-5.1); Sodium 141 mmol/L (135-145); Total Iron Binding Capacity 330 mcg/dL (228-428); Total Protein 8.1 g/dL (6.5-8.0); Triglycerides 127 mg/dL (<150); Unsaturated Iron Binding 257 ug/dL
[2023-09-16 10:33] LABS: Thyroid Stimulating Hormone 4.12 uIU/mL (0.32-4.0); Vitamin D 25-OH Total 48.1 ng/mL (>30)
[2023-09-16 10:42] LABS: Folate 5.2 ng/mL (> or = 4.0); Vitamin B12 322 pg/mL (200-900)
== END 2023-09-16 08:08 | disposition home or self-care (01) ==
LOC: HO.LAB 08:07
PROVIDERS: PCP Internal Medicine; Visit Provider Internal Medicine
DX: J44.9 Chronic obstructive pulmonary disease, unspecified (principal); E11.42 Type 2 diabetes mellitus with diabetic polyneuropathy; E78.5 Hyperlipidemia, unspecified; E11.9 Type 2 diabetes mellitus without complications; E03.9 Hypothyroidism, unspecified; E53.8 Deficiency of other specified B group vitamins; E55.9 Vitamin D deficiency, unspecified; D64.9 Anemia, unspecified
CPT/HCPCS: 36415; 80053; 80061; 82043; 82306; 82570; 82607; 82746; 83540; 84443; 85025

== ENCOUNTER 2023-09-16 09:24 | Outpatient (REF) | payer OTHER, SELFPAY ==
[2023-09-16 11:08] LABS: CT PCR NOT DETECTED (Not Detect.); NG PCR NOT DETECTED (Not Detect.)
== END 2023-09-16 09:25 | disposition home or self-care (01) ==
LOC: HO.LNP 09:24
PROVIDERS: Visit Provider Internal Medicine Infectious Disease
DX: B20 Human immunodeficiency virus [HIV] disease (principal); R76.8 Other specified abnormal immunological findings in serum
CPT/HCPCS: 0353U

== ENCOUNTER 2023-09-21 09:49 | Outpatient (AMB) | payer OTHER, SELFPAY ==
--- NOTE | 2023-09-21 09:56 | MHC.PC.OV ---
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 Accompanied by: Daughter Allergies egg [EGG] Allergy (Intermediate, Verified 09/21/23 10:10) STOMACH UPSET Medication List - Last Reconciled 09/21/23 by Amarilis Squires MD albuterol sulfate 2.5 mg (3 mL) inhalation Q6H PRN 30 days alcohol swabs (Alcohol Prep Pads) 1 pad topical BID 90 days atorvastatin 20 mg PO BEDTIME 90 days blood sugar diagnostic ([employer] Ultra Test strips) USE DIRECTED TESTS 4 X/DAY blood-glucose meter (Synd[employer] Ultra2 Meter kit) As directed tests 4 X/day calcium carbonate-vitamin D3 600 mg-10 mcg (400 unit) 1 tab PO BID 90 days cholecalciferol (vitamin D3) (Vitamin D3) 50 mcg PO DAILY denosumab (Prolia) 60 mg subcut [id number] dolutegravir (Tivicay) 50 mg PO DAILY emtricitabine-tenofovir alafen 200-25 mg (Descovy) 1 tab PO DAILY fluticasone furoate-vilanterol 200-25 mcg/dose (Breo Ellipta) 1 inh PO DAILY lancets (SyndicatePlusuch UltraSoft Lancets) As directed tests 4 X/day levothyroxine 25 mcg PO DAILY lisinopril 10 mg PO DAILY 90 days metformin ER 500 mg PO BID mometasone-formoterol 200-5 mcg/actuation (Dulera) 2 puffs inhalation Q12H 30 days montelukast 10 mg PO DAILY 90 days nebulizers (AeroEclipse II Nebulizer) As directed nystatin 1 appl topical BID 14 days Oxygen Home Use As directed sulfamethoxazole-trimethoprim 800-160 mg 1 tab PO 3XW umeclidinium 62.5 mcg/actuation (Incruse Ellipta) 1 inh inhalation DAILY Ventolin HFA 90 mcg/actuation (albuterol sulfate) 2 puffs PO Q4H PRN NS walker with seat Tobacco use date assessed: 09/21/23 Fall risk assessment: No Falls in past year Last assessed Fall Risk: 09/21/23 Dental Screening Dental Screen Date: 09/21/23 Did you have a dental visit in the last 12 months?: No Did you have a dental problem in the last 6 months where you did not have access to dental care?: No Was dental information given to patient?: Patient has dentist HPI HPI Comments History of Present Illness Details This is a 67-year-old female with diabetes mellitus type 2, hypertension, pure hypercholesterolemia, HIV, COPD and osteoporosis that comes today accompanied by daughter for follow-up on her conditions. A1c elevated and I will add Tradjenta. Blood pressure stable. LDL within goal. On HAART for her HIV and this is follow by Infectious Disease which has been stable. COPD stable with longstanding inhaler and is oxygen dependent. Osteoporosis is follow by Endocrinology on Prolia. No chest pain or shortness of breath. She has hypothyroidism and her TSH is mildly elevated. She takes levothyroxine with [employer] in the morning with LDL medications. I advised her to start taking either alone or at bedtime. TSH will be repeated in 6 weeks. [facility] Medical History B12 deficiency Chronic respiratory failure Loss of balance Lumbar degenerative disc disease Obesity (BMI 30-39.9) Age-related osteoporosis without current pathological fracture Pulmonary nodules Obese Intertrigo Anemia Hypothyroidism COPD (chronic obstructive pulmonary disease) HIV (human immunodeficiency virus infection) Pure hypercholesterolemia Essential hypertension Diabetes mellitus Surgical History History of umbilical hernia repair History of tubal ligation Family History Father Medical history unknown Mother Diabetes Hypertension CVD (cardiovascular disease) Pulmonary embolism Sister Colon cancer Maternal Aunt Breast cancer Brother Substance abuse Family/Other FH: mental illness Social History Housing: Apartment Alcohol intake: never Patient Tobacco Use Status: Former Tobacco user Tobacco use type: Cigarette Years Smoked: 38 years e-Cigarette/Vaping Use: Never Used Second Hand Smoke Exposure: No service: No Current occupational status: disabled Cognitive needs: No Hearing needs: No Vision needs: No Questionnaire PHQ-9 Over the last 2 weeks, how often have you been bothered by any of the following problems? 1. Little interest or pleasure in doing things: not at all 2. Feeling down, depressed, or hopeless: not at all 3. Trouble falling or staying asleep, or sleeping too much: not at all 4. Feeling tired or having little energy: not at all 5. Poor appetite or overeating: not at all 6. Feeling bad about yourself - or that you are a failure or have let yourself or your family down: not at all 7. Trouble concentrating on things, such as reading the newspaper or watching television: not at all 8. Moving or speaking so slowly that other people could have noticed. Or the opposite - being so fidgety or restless that you have been moving around a lot more than usual: not at all 9. Thoughts that you would be better off or of hurting yourself in some way: not at all Total score: 0 Depression Screening Interpretation: Negative Depression Screening Done: Yes 12233 - PHQ-9 Billing: Yes Source: Developed by Drs. Kenneth Tavarez, Tuyet David, Kenneth Peterson and colleagues, with an educational faby from [employer]. Thrive Questionnaire Date Thrive assessed: 09/21/23 I am a: Patient What is your living situation today?: I have a steady place to live Within the past 12 months, did the food you bought not last and you didn't have the money to get more?: Never true Within the past 12 months, did you worry whether your food would run out before you got money to buy more?: Never true Do you have trouble paying for medicines?: No Do you have trouble getting transportation to medical appointments?: No Do you have trouble paying your heating and electricity bill?: No Do you have trouble taking care of your child, family member or friend?: No Do you have trouble with day-to-day activities such as bathing, preparing meals, shopping, managing finances, etc.?: Yes Are you currently unemployed and looking for a job?: No Are you interested in more education?: No Please select the resources that you would like help with: None Currently or been in a relationship where the following occur: no concerns reported THRIVE Score: 0 AUDIT C Alcohol Use Questionnaire (AUDIT-C) 1. How often do you have a drink containing alcohol?: Never Total Score: 0 MIRANDA-7 AMB Questionnaire MIRANDA-7 Date MIRANDA - 7 assessed: 09/21/23 Feeling nervous, anxious, or on edge: 1 = Several days Not being able to stop or control worryin = Not at all Worrying too much about different things: 1 = Several days Trouble relaxin = Not at all Being so restless that it is hard to sit still: 0 = Not at all Becoming easily annoyed or irritable: 1 = Several days Feeling afraid as if something awful might happen: 0 = Not at all Total MIRANDA-7 score (0-4 normal; 5-9 mild; 10-14 moderate; 15-21 severe): 3 Source: Developed by Drs. Kenneth Tavarez, Tuyet David, Kenneth Peterson and colleagues, with an educational faby from [employer]. MIRANDA-7 Assessment Billing MIRANDA-7 Assessment Tool: MIRANDA-7 Assessment 39779 Review of Systems Const All systems reviewed & are unremarkable except as noted in HPI and below Eyes Reports no additional complaints, Denies change in vision and Denies other visual disturbances Card Denies chest pain at rest, Denies chest pain with activity, Denies edema, Denies irregular heart rhythm, Denies claudication, Denies dyspnea, Denies dyspnea on exertion, Denies orthopnea, Denies paroxysmal nocturnal dyspnea and Denies slow heart rate Resp Denies cough, Denies dyspnea and Denies dyspnea on exertion GI Denies abdominal pain, Denies change in bowel habits, Denies excessive flatus, Denies nausea and Denies vomiting Denies urinary incontinence, Denies urinary hesitancy and Denies urinary urgency Musc Denies abnormal gait, Denies atrophy, Denies deformity and Denies limited range of motion Skin/Breast Denies bleeding lesions, Denies changing lesions and Denies rash Neuro Denies abnormal gait, Denies behavioral changes and Denies lack of coordination Psych Denies behavioral changes Physical exam (Primary Care) Vital Signs: Last Vital Signs BP 118/70 09/21/23 09:57 BMI result Body Mass Index 32.9 Tobacco/Smoking Status: Tobacco use Status Tobacco use date assessed 09/21/23 09/21/23 10:07 Patient Tobacco Use Status Former Tobacco user 09/21/23 10:03 Tobacco use type Cigarette 09/21/23 10:03 e-Cigarette/Vaping Use Never Used 09/21/23 10:03 PHQ-9: PHQ-9 Score PHQ-9: Total score 0 09/21/23 11:47 Depression Screening Interpretation: Negative Thrive Assessment: Date of Thrive Assessment Date Thrive assessed 09/21/23 09/21/23 10:03 Currently or been in a relationship where the following occur: no concerns reported Eyes General: appearance normal, both eyes and all related structures Eyelids: Yes eyelids normal Conjunctivae: conjunctivae normal Neck Neck: Yes normal visual inspection and Yes supple Resp Effort & Inspection: normal respiratory effort Auscultation: clear to auscultation bilaterally Cardio Jugular venous distension: no JVD Rate: regular rate Rhythm: regular rhythm Heart sounds: S1 normal heart sound present and S2 normal heart sound present Extrem General: Yes full ROM Office Procedures Flu Questionnaire Does the patient have a severe egg allergy?: No Results AMB Hemoglobin A1c AMB Hemoglobin A1c 7.5 % Last Edit by CHEVY Morgan on 09/21/23 10:09 Immunizations flu vacc [id number] 6mos up(PF) 60 mcg(15 mcgx4)/0.5 mL IM syringe Performing Provider: Amarilis Squires MD [facility] Documented (not given) by: CHEVY Morgan on 09/21/23 10:03 Reason Not Given: Received Previously Results Reviewed Results Reviewed: Laboratory Last Values Hgb A1c (Clinic) 7.5 % (4.0-6.0) H 09/21/23 09:55 Assessment and Plan Assessment & Plan (1) Diabetes mellitus: Code(s): E11.9 - Type 2 diabetes mellitus without complications Qualifiers: Diabetes mellitus complication detail: with polyneuropathy Diabetes mellitus complication status: with neurologic complications Diabetes mellitus intern brand insulin use: without fpc use Diabetes mellitus type: type 2 Qualified Code(s): E11.42 - Type 2 diabetes mellitus with diabetic polyneuropathy Plan: Continue metformin. Start Tradjenta. A1c goal is equal or less than 7%. (2) HIV (human immunodeficiency virus infection): Comment: stable Code(s): B20 - Human immunodeficiency virus [HIV] disease Plan: Continue Tivicay, Descovy and Bactrim. Follow-up with ID. (3) COPD (chronic obstructive pulmonary disease): Code(s): J44.9 - Chronic obstructive pulmonary disease, unspecified Qualifiers: COPD type: emphysema Emphysema type: centrilobular Qualified Code(s): J43.2 - Centrilobular emphysema Plan: Continue longstanding inhaler. Use rescue inhaler as needed. Use oxygen as needed. Follow-up with pulmonology. (4) Hypothyroidism: Code(s): E03.9 - Hypothyroidism, unspecified Qualifiers: Hypothyroidism type: unspecified Qualified Code(s): E03.9 - Hypothyroidism, unspecified Plan: Continue levothyroxine and patient was instructed to take it with water and wait 1 hour for the other medications. If she can not do that she can take levothyroxine at bedtime. TSH will be repeated in 6 weeks and patient is aware. Patient was taking levothyroxine with the other medications and her TSH was slightly elevated. (5) Essential hypertension: Code(s): I10 - Essential (primary) hypertension Plan: Continue lisinopril. Blood pressure goal is equal or less than 130/80. (6) Pure hypercholesterolemia: Code(s): E78.00 - Pure hypercholesterolemia, unspecified Plan: Continue statins. Repeat lipid panel. LDL goal is less than 70. (7) Age-related osteoporosis without current pathological fracture: Code(s): M81.0 - Age-related osteoporosis without current pathological fracture Plan: Continue Prolia. Follow-up with endocrinology. Orders: Orders AMB Hemoglobin A1c Today E11.9 - Type 2 diabetes mellitus without complications Lipid Panel 4 Months E78.5 - Hyperlipidemia, unspecified Microalbumin, Random (w Creat) 4 Months E11.9 - Type 2 diabetes mellitus without complications Vitamin D 25-OH Total 4 Months E55.9 - Vitamin D deficiency, unspecified Vitamin B12 and Folate 4 Months E53.8 - Deficiency of other specified B group vitamins Influenza [id number] Immunization Today Z23 - Encounter for immunization Thyroid Stimulating Hormone 6 Weeks E03.9 - Hypothyroidism, unspecified Comprehensive Roberts. Panel Fast 4 Months E11.9 - Type 2 diabetes mellitus without complications Medications: New linagliptin (Tradjenta) 5 mg PO DAILY 90 tabs 0RF 90 days E11.9 - Type 2 diabetes mellitus without complications Coding Level of Care Code Est Pt Level 4 (51210) Diagnoses Type 2 diabetes mellitus with diabetic polyneuropathy, without long-term current use of insulin E11.42 Diabetes mellitus complication detail: with polyneuropathy Diabetes mellitus complication status: with neurologic complications Diabetes mellitus fpc insulin use: without fpc use Diabetes mellitus type: type 2 HIV (human immunodeficiency virus infection) B20 Centrilobular emphysema J43.2 COPD type: emphysema Emphysema type: centrilobular Hypothyroidism, unspecified type E03.9 Hypothyroidism type: unspecified Essential hypertension I10 Pure hypercholesterolemia E78.00 Age-related osteoporosis without current pathological fracture M81.0 Additional Codes MIRANDA-7 Assessment Billing - MIRANDA-7 Assessment Tool: MIRANDA-7 Assessment 41104 ([id number]) Time Spent (min) 28
[2023-09-21 09:57] VITALS: BP 118/70; BMI 32.9
== END 2023-09-21 10:28 | disposition home or self-care (01) ==
PROVIDERS: PCP Internal Medicine; Visit Provider Internal Medicine
DX: E11.42 Type 2 diabetes mellitus with diabetic polyneuropathy (principal); B20 Human immunodeficiency virus [HIV] disease; J43.2 Centrilobular emphysema; E03.9 Hypothyroidism, unspecified; I10 Essential (primary) hypertension; E78.00 Pure hypercholesterolemia, unspecified; M81.0 Age-related osteoporosis without current pathological fracture; Z23 Encounter for immunization
CPT/HCPCS: 83036; 99214

== ENCOUNTER 2023-10-14 10:50 | Outpatient (REF) | payer OTHER, SELFPAY ==
--- NOTE | ~2023-10-14 | MM_ITS ---
EXAMINATION: BONE DENSITOMETRY CLINICAL INDICATION: Osteoporosis. COMPARISON: Previous BD dated 01/21/2021 and baseline BD dated 10/31/2006. TECHNIQUE: Using a BlueSpace DXA System (software version: 13.1) manufactured by [employer], dual-energy x-ray absorptiometry was performed of the lumbar spine and left hip. The images are of good technical quality. Summary results are attached. FINDINGS: LEFT FEMUR, NECK: Current: BMD 0.661 g/cm2, Z-score -1.5, T-score -2.7, osteoporosis. Prior: BMD 0.655 g/cm2. Baseline: BMD 0.744 g/cm2. LEFT FEMUR, TOTAL: Current: BMD 0.753 g/cm2, Z-score -1.1, T-score -2.0, osteopenia, 2.7% increase from previous, 0.8% increase from baseline (<5% change is not significant). Prior: BMD 0.733 g/cm2. Baseline: BMD 0.747 g/cm2. AP SPINE L1-L4: Current: BMD 0.966 g/cm2, Z-score -0.7, T-score -1.8, osteopenia, 3.4% increase from previous, 5.0% increase from baseline (<5% change is not significant). Prior: BMD 0.934 g/cm2. Baseline: BMD 0.920 g/cm2. IDENTIFIED RISK FACTORS: Osteoporosis. HISTORY OF FRACTURE: None listed. MEDICATIONS: Vitamin D, Prolia. MM/XR DEXA axial skeleton IMPRESSION: 1. DIAGNOSIS: Osteoporosis based on the lowest T-score value of -2.7 in the femoral neck applying World Health Organization criteria. 2. 10-YEAR FRACTURE RISK PREDICTION, FRAX: According to the guidelines, FRAX calculation should only be performed on patients in the osteopenia bone density category. Therefore, FRAX was not performed on this patient. 3. Treatment Recommendations: NOF guidelines recommend consideration for treatment in postmenopausal women and men age 50 and older presenting with the following: -A hip or vertebral (clinical or morphometric) fracture. -T-score less than or equal to -2.5 at the femoral neck or spine after appropriate evaluation to exclude secondary causes. -Low bone mass at the hip or spine and a 10-year fracture probability by FRAX of greater than or equal to 3% for hip fracture or greater than or equal to 20% for major osteoporotic fracture based on the [place] adapted WHO algorithm. 4. Other Recommendations: All treatment decisions require clinical judgment and consideration of individual patient factors, including patient preferences, comorbidities, previous drug use, risk factors not captured in the FRAX model (e.g. frailty, falls, vitamin D deficiency, increased bone turnover, interval significant decline in bone density) and possible under or overestimation of fracture risk by FRAX. Additional medical evaluation for secondary cause of low bone mineral density may be appropriate. FUTURE SCAN RECOMMENDATION: People with diagnosed cases of osteoporosis or at high risk for fracture should have regular bone mineral density tests. For patients eligible for Medicare, routine testing is allowed once every 2 years. The testing frequency can be increased to one year for patients who have rapidly progressing disease, those who are receiving or discontinuing medical therapy to restore bone mass, or have additional risk factors.
== END 2023-10-14 10:51 | disposition home or self-care (01) ==
LOC: HO.MAMMO 10:50
PROVIDERS: PCP Internal Medicine; Visit Provider Internal Medicine Endocrinology, Diabetes & Metabolism
DX: M81.0 Age-related osteoporosis without current pathological fracture (principal); Z79.620 Long term (current) use of immunosuppressive biologic
CPT/HCPCS: 77080

== ENCOUNTER 2023-11-21 08:18 | Outpatient (REF) | payer OTHER, SELFPAY | END 2023-11-21 08:19 | disposition home or self-care (01) | LOC: HO.LAB 08:18 | PROVIDERS: PCP Internal Medicine; Visit Provider Internal Medicine Infectious Disease | DX: Z13.89 Encounter for screening for other disorder (principal) ==

== ENCOUNTER 2023-11-28 09:55 | Outpatient (AMB) | payer OTHER, SELFPAY ==
--- NOTE | 2023-11-28 09:57 | A.OFFVIS_ITS ---
Intake Vital Signs 11/28/23 09:58 Height 5 ft 2 in Weight 180 lb 1.883 oz BMI 32.9 BP 140/72 H Blood Pressure Location Lt brachial Position Sitting Pulse 82 Pulse Source Pulse Oximeter Intake Visit Reasons: f/u Type 2 DM Intake Note: Patient present today to follow up on Type 2 Diabetes Mellitus. Last Diabetic Eye exam: 06/30/2023 [facility] Last Podiatry Visit: Doesn't have one. Random Glucose: 133 mg/dl HgA1C: 7.5% 09/21/2023 Truck Car And [employer]er Required: Yes Truck Car And [employer] Cleaner Language: Telephone Repairer Name: Audrey medical staff Information Interpreted: non-clinical & clinical Accompanied by: Daughter Allergies egg [EGG] Allergy (Intermediate, Verified 11/28/23 10:06) STOMACH UPSET HPI HPI Comments History of Present Illness Details This 66-year-old H ispanic female fol lowed by endocrino logy for managemen t of osteoporosis and type 2 diabete s?. Today's visit focus is on the diabetes She has D M type 2 diagnosed over 10 years. ? Currently on Metformin ER 500 mg bid not taking . Trajenta 5 mg Q D She reports reso lution of diarrhea after decreasing the dose. ? Other past medic al history is HIV, anemia, COPD, thy roiditis, hypothyr oidism, osteoporos is, hyperlipidemia . ? The pat ient apparently ruiz s neuropathy but n o other microvascu lar disease. She d oes not have macro vascular disease. She has not been checking blood sug ars and did not br ing meter or senso r to f/u ? ? ? L ast ophthalmology evaluation:, has a ppt in next few mo s no retinopath y. She is overdue for dilated eye ex am. [facility] Medical History B12 deficiency Chronic respiratory failure Loss of balance Lumbar degenerative disc disease Obesity (BMI 30-39.9) Age-related osteoporosis without current pathological fracture Pulmonary nodules Obese Intertrigo Anemia Hypothyroidism COPD (chronic obstructive pulmonary disease) HIV (human immunodeficiency virus infection) Pure hypercholesterolemia Essential hypertension Diabetes mellitus Surgical History History of umbilical hernia repair History of tubal ligation Family History Father Medical history unknown Mother Diabetes Hypertension CVD (cardiovascular disease) Pulmonary embolism Sister Colon cancer Maternal Aunt Breast cancer Brother Substance abuse Family/Other FH: mental illness Social History Housing: Apartment Alcohol intake: never Patient Tobacco Use Status: Former Tobacco user Tobacco use type: Cigarette Years Smoked: 38 years e-Cigarette/Vaping Use: Never Used Second Hand Smoke Exposure: No service: No Current occupational status: disabled Cognitive needs: No Hearing needs: No Vision needs: No Physical Exam There are no Cushingoid features. Absence of blue sclera. Absence of kyphosis. Thyroid gland is of nl size and weighs 15 gms. There are no thyroid nodules palpated. Lungs CTA. Heart S1 S2 Reg R/R Abdominal exam benign. Muscle strength 5/5 . Examination of spine reveals absence of tenderness on palpation Assessment & Plan Assessment & Plan (1) Diabetes mellitus: Code(s): E11.9 - Type 2 diabetes mellitus without complications Qualifiers: Diabetes mellitus type: type 2 Diabetes mellitus intermediate card tender insulin use: without mcfp use Diabetes mellitus complication status: with neurologic complications Diabetes mellitus complication detail: with polyneuropathy Qualified Code(s): E11.42 - Type 2 diabetes mellitus with diabetic polyneuropathy Plan: This 66-year-old female with history of type 2 diabetes being treated with metformin and Trajenta with less than optimal glycemic control and known microvascular complications namely neuropathy. Plan is to switch the Tradjenta to Ozempic and started 0.25 mg Q weekly. Patient was warned about the side effects do a case management coordinator including nausea, vomiting rare risk of pancreatitis. (2) Age-related osteoporosis without current pathological fracture: Code(s): M81.0 - Age-related osteoporosis without current pathological fracture Plan: This is a 66-year-old female with a history of osteoporosis previously treated with a bisphosphonate for now treated with Prolia with improved bone density on recent DEXA. Secondary workup showed mild secondary hyperparathyroid which resolved The plan is to continue the Prolia injections. . Will check calcium and BMP prior to Prolia injection. Could consider transitioning Prolia to alendronate at next visit after next injection aS patient received about 3 years of Prolia injections with improvement in bone density Medications: New semaglutide (Ozempic) for 4 weeks 0.25 mg (0.368 mL) subcut QWEEK 3 mL 4RF Discontinued linagliptin (Tradjenta) Discontinued Reason: Doctor's Order 5 mg PO DAILY 90 days 90 tabs 0RF E11.9 - Type 2 diabetes mellitus without complications Coding Level of Care Code Est Pt Level 4 (56428) Diagnoses Type 2 diabetes mellitus with diabetic polyneuropathy, without long-term current use of insulin E11.42 Diabetes mellitus type: type 2 Diabetes mellitus intermediate card tender insulin use: without mcfp use Diabetes mellitus complication status: with neurologic complications Diabetes mellitus complication detail: with polyneuropathy Age-related osteoporosis without current pathological fracture M81.0
[2023-11-28 09:58] VITALS: BP 140/72; PULSE 82; BMI 32.9
[2023-11-28 10:14] LABS: Glucose, Whole Blood 133 mg/dL (60-115)
== END 2023-11-28 10:39 | disposition home or self-care (01) ==
PROVIDERS: PCP Internal Medicine; Visit Provider Internal Medicine Endocrinology, Diabetes & Metabolism
DX: E11.42 Type 2 diabetes mellitus with diabetic polyneuropathy (principal); M81.0 Age-related osteoporosis without current pathological fracture
CPT/HCPCS: 99214

== ENCOUNTER → 2023-11-28 09:55 | Outpatient (BNVA) | payer OTHER, SELFPAY | PROVIDERS: PCP Internal Medicine; Visit Provider Internal Medicine Endocrinology, Diabetes & Metabolism | DX: E11.42 Type 2 diabetes mellitus with diabetic polyneuropathy (principal); M81.0 Age-related osteoporosis without current pathological fracture | CPT/HCPCS: 36415; 82310; 82947; 99212 ==

== ENCOUNTER 2023-11-28 10:50 | Outpatient (REF) | payer OTHER, SELFPAY ==
[2023-11-28 13:27] LABS: Calcium 9.6 mg/dL (8.4-10.2)
== END 2023-11-28 10:51 | disposition home or self-care (01) ==
LOC: HO.10HDL 10:50
PROVIDERS: Visit Provider Internal Medicine Endocrinology, Diabetes & Metabolism
DX: Z13.89 Encounter for screening for other disorder (principal)
CPT/HCPCS: 36415; 82310

== ENCOUNTER 2023-12-12 10:10 | Outpatient (AMB) | payer OTHER, SELFPAY ==
--- NOTE | 2023-12-12 10:13 | MHC.OFFVIS ---
Vital Signs 12/12/23 10:15 Height 5 ft 2 in Weight 180 lb 1.883 oz BMI 32.9 Pulse 74 Pulse Source Pulse Oximeter Pulse Oximetry (%) 96 Oxygen Delivery Method Room Air Intake Visit Reasons: COPD Exhibit Electrician Required: No Allergies egg [EGG] Allergy (Intermediate, Verified 12/12/23 10:18) STOMACH UPSET HPI Comments Details: The patient is a 68-year-old woman known COPD and chronic respiratory failure on oxygen. She is currently using oxygen at a level of 2 L continues. She is not clear she is on a conserving device trial. She continues uses Spiriva. She is also using her rescue inhaler. She has been having issues with shortness of breath. Moderate severity. He did have a chest x-ray done at [facility] at the that will reviewed in December demonstrating some atelectatic changes. She also had a x-ray at [facility] that we have to look up. She has not had pulmonary function studies in some time. We talked about the importance of pulmonary rehabilitation. We also reviewed her CT scan of the chest done at [facility] February 2019 demonstrating new 3 mm pulmonary nodule along with moderate degree of emphysema. We did review her chest x-ray that was without any acute disease. She is scheduled to undergo a CT scan of the chest in February to assess the pulmonary nodules. In the meantime she continues use her respiratory therapy with good effect. 11/23/2021 the patient is here for a pulmonary follow-up visit. Overall she is feeling better from respiratory status. She is tolerating her respiratory therapy very well. She has not had to use her rescue inhaler. She does continue with the oxygen. She does tolerate the pulse valve conserving device very well. Although, I do believe she can get a c python developer tank. She is currently has C tanks. I will request that she can get at least a be tank or c python developer in order to provide her with less discomfort in her shoulder. I will send a script to the [facility] for this and did give her a copy so she can order them herself. We did review her last CT scan of the chest done back in March 2021 demonstrating pulmonary nodules which are subcentimeter in nature. Since the patient is doing well will go ahead and repeat the CT scan a year from now which would be close to year and have from her last CT scan of the chest. If her CT scan does not show any changes then we can just follow her imaging studies as needed. 12/03/2022 the patient is here for pulmonary follow-up visit. Overall the patient has been doing relatively well. She is using her oxygen with good effect. She has a pulse device that she can not carry with good tolerability. She also continues with her inhalers with good effect as well as where we did review her CT scan of the chest that she had back in 2020 demonstrating pulmonary nodules. She was supposed to have a CT scan prior to this visit but she has not had as of yet. Therefore I will order CT scan. I explained to her this anything worsening and we have to have her come in so we can address that. Otherwise I will let him know that everything is okay. If her CT scan demonstrates the ability then no further additional CT scans are needed serial E although we can consider them as needed. Will plan to return in 6 months with a repeat pulmonary function studies. 06/09/2023 the patient is here for pulmonary follow-up visit. The patient overall has been about the same. Still complains about dyspnea on exertion. Moderate severity. The oxygen has been helpful. However, the tanks having extremely happy for her. She has a hard time carrying season velasquez. The patient would like better portability outside of the home. Will request a portable oxygen concentrator which provide better portability also the home for her. The patient also can get some B Cylinders. This also be helpful. Will request him for the [facility]. We did do a titration study again the patient did require oxygen with activity. She continues respiratory therapy. Has not required prednisone. Her last CT scan of the chest back in December 2022 demonstrating stable pulmonary nodules. 12/12/2023 the patient is here for a pulmonary follow-up visit. She does complaint of dyspnea on exertion. Does not feel like the Breo and the Incruse hopeful. She does like to continue with the powder inhaler. Will try her on Trelegy 200 to see if she finds this more effective. In the meantime she continues with her oxygen therapy with good effect. She does use it continuously. In addition to that she did get a portable oxygen concentrator. Although all time she still using the oxygen tanks she finds him a little bit easier to use. The patient does have underlying pulmonary nodules. We did look at her last CT scan back in December 2022. She will require a CT scan in the coming month. [facility] Medical History B12 deficiency Chronic respiratory failure Loss of balance Lumbar degenerative disc disease Obesity (BMI 30-39.9) Age-related osteoporosis without current pathological fracture Pulmonary nodules Obese Intertrigo Anemia Hypothyroidism COPD (chronic obstructive pulmonary disease) HIV (human immunodeficiency virus infection) Pure hypercholesterolemia Essential hypertension Diabetes mellitus Surgical History History of umbilical hernia repair History of tubal ligation Family History Father Medical history unknown Mother Diabetes Hypertension CVD (cardiovascular disease) Pulmonary embolism Sister Colon cancer Maternal Aunt Breast cancer Brother Substance abuse Family/Other FH: mental illness Social History Housing: Apartment Alcohol intake: never Patient Tobacco Use Status: Former Tobacco user Tobacco use type: Cigarette Years Smoked: 38 years e-Cigarette/Vaping Use: Never Used Second Hand Smoke Exposure: No service: No Current occupational status: disabled Cognitive needs: No Hearing needs: No Vision needs: No Review of Systems Const All systems reviewed & are unremarkable except as noted in HPI and below Eyes Reports no additional complaints, Denies change in vision and Denies other visual disturbances Card Denies chest pain at rest, Denies chest pain with activity, Denies edema, Denies irregular heart rhythm, Denies claudication, Denies dyspnea, Reports dyspnea on exertion, Denies orthopnea, Denies paroxysmal nocturnal dyspnea and Denies slow heart rate Resp Denies cough, Denies dyspnea and Reports dyspnea on exertion GI Denies abdominal pain, Denies change in bowel habits, Denies excessive flatus, Denies nausea and Denies vomiting Denies urinary incontinence, Denies urinary hesitancy and Denies urinary urgency Musc Denies abnormal gait, Denies atrophy, Denies deformity and Denies limited range of motion Skin/Breast Denies bleeding lesions, Denies changing lesions and Denies rash Neuro Denies abnormal gait, Denies behavioral changes and Denies lack of coordination Psych Denies behavioral changes Physical Exam Vital Signs: Last Vital Signs Pulse 74 12/12/23 10:15 Pulse Ox 96 12/12/23 10:15 Oxygen Delivery Method Room Air 12/12/23 10:15 BMI result Body Mass Index 32.9 Const General: comfortable HEENT General nose exam: Nasal discharge present Eyes Pupils: Equal, round and reactive pupils present Neck Neck: Yes normal visual inspection, Yes full ROM and Yes no lymphadenopathy Chest Chest palpation & inspection: normal inspection of the chest Resp Auscultation: diminished lung sounds Cardio Rate: regular rate Rhythm: regular rhythm Heart sounds: S1 normal heart sound present and S2 normal heart sound present GI Palpation (GI): Soft to palpation and nontender Auscultation: normal bowel sounds General: Yes no CVA tenderness Back/Spine/Pelvis Back: no CVA tenderness Skin General skin exam: rashes and/or lesions noted Neuro Cranial nerves: Yes Equal, round and reactive pupils present Assessment & Plan Assessment & Plan (1) COPD (chronic obstructive pulmonary disease): Code(s): J44.9 - Chronic obstructive pulmonary disease, unspecified Category: Medical Qualifiers: COPD type: emphysema Emphysema type: centrilobular Qualified Code(s): J43.2 - Centrilobular emphysema Plan: continue respiratory therapy (2) Pulmonary nodules: Code(s): R91.8 - Other nonspecific abnormal finding of lung field Category: Medical (3) Chronic respiratory failure: Code(s): J96.10 - Chronic respiratory failure, unspecified whether with hypoxia or hypercapnia Category: Medical Qualifiers: Respiratory failure complication: hypoxia Qualified Code(s): J96.11 - Chronic respiratory failure with hypoxia Plan stop Breo and Incruse daily start Trelegy 200 CHAZ as needed conrinue singulair continue oxygen 2 L pulse with activity. Has POC, but suing tanks Follow-up in 6 months Orders: Orders CT chest wo IV con 1 Month R91.8 - Other nonspecific abnormal finding of lung field Medications: New yawnddtpqmu-ondnjhsim-[id number] 200-62.5-25 mcg (Trelegy Ellipta) 1 inh inhalation DAILY 60 ea 12RF 30 days
[2023-12-12 10:15] VITALS: PULSE 74; O2SAT 96; BMI 32.9
== END 2023-12-12 10:28 | disposition home or self-care (01) ==
LOC: HO.HPS 10:14
PROVIDERS: PCP Internal Medicine; Visit Provider Hospitalist
DX: J43.2 Centrilobular emphysema (principal); R91.8 Other nonspecific abnormal finding of lung field; J96.11 Chronic respiratory failure with hypoxia
CPT/HCPCS: 99214

== ENCOUNTER → 2023-12-12 10:14 | Outpatient (BNVA) | payer OTHER, SELFPAY | PROVIDERS: PCP Internal Medicine; Visit Provider Hospitalist | DX: J96.10 Chronic respiratory failure, unspecified whether with hypoxia or hypercapnia (principal); R91.8 Other nonspecific abnormal finding of lung field; J44.9 Chronic obstructive pulmonary disease, unspecified | CPT/HCPCS: 99212 ==

== ENCOUNTER 2023-12-14 08:31 | Outpatient (REF) | payer OTHER, SELFPAY ==
[2023-12-14 10:23] LABS: MANUAL DIFF FLAG NO
[2023-12-14 10:38] LABS: Basophils Percent Auto 0.4 % (0-2); Eosinophils Absolute Auto 0.2 X10*3/uL (0.0-0.4); Hemoglobin 13.8 g/dl (12.0-16.0); Imm Gran Abs Auto 0.02 X10*3/uL (0.00-0.03); Imm Gran Pct Auto 0.2 % (0.0-0.4); Lymphocytes Absolute Auto 3.4 X10*3/uL (1.2-4.9); Mean Corpuscular HGB Conc 35.4 g/dl (31.0-35.0); Mean Corpuscular Volume 76.2 fL (80.0-98.0); Mean Platelet Volume 10.1 fL (9.4-12.3); Monocytes Absolute Auto 0.8 X10*3/uL (0.1-1.2); Monocytes Percent Auto 8.4 % (2-11); Neutrophils Absolute Auto 4.7 x10*3/uL (2.0-8.3); Platelet Count 290 X10*3/uL (160-400); Red Blood Count 5.12 X10*6/uL (4.20-5.50); Red Cell Distribution Width 14.7 % (11.0-16.0); White Blood Count 9.1 X10*3/uL (4.8-10.8)
[2023-12-14 11:01] LABS: Alanine Aminotransferase 14 U/L (0-31); Anion Gap 13 (12-20); Aspartate Amino Transferase 18 U/L (5-31); Carbon Dioxide 23 mmol/L (22-29); Chloride 106 mmol/L (96-108); Estimated Glomerular Filt Rate > 60; Potassium 4.2 mmol/L (3.3-5.1); Sodium 138 mmol/L (135-145)
[2023-12-14 11:02] LABS: Alanine Aminotransferase 14 U/L (0-31); Albumin Level 4.3 g/dL (3.5-5.0); Alkaline Phosphatase 85 U/L (39-117); Anion Gap 12 (12-20); Aspartate Amino Transferase 18 U/L (5-31); Bilirubin Total 0.5 mg/dL (0.0-1.0); Blood Urea Nitrogen 9 mg/dL (9-16); Calcium 9.5 mg/dL (8.4-10.2); Carbon Dioxide 24 mmol/L (22-29); Chloride 106 mmol/L (96-108); Estimated Glomerular Filt Rate > 60; Glucose Fasting 123 mg/dL (60-99); Potassium 4.2 mmol/L (3.3-5.1); Sodium 138 mmol/L (135-145)
[2023-12-14 11:17] LABS: Syphilis Screen Nonreactive (Nonreactive)
[2023-12-14 14:24] LABS: CT PCR NOT DETECTED (Not Detect.); NG PCR NOT DETECTED (Not Detect.)
[2023-12-15 11:08] LABS: Absolute CD3 Count 2690 cells/uL (840-3060); Absolute CD4 Count 1552 cells/uL (490-1740); Absolute CD8 Count 1268 cells/uL (180-1170); Absolute Lymphocytes 3845 cells/uL (850-3900); CD4 CD8 Ratio 1.22 (0.86-5.00); Percent CD3 Cells 70 % (57-85); Percent CD4 Cells 40 % (30-61); Percent CD8 Cells 33 % (12-42)
[2023-12-17 16:53] LABS: HIV RNA PCR Qn Copies 81 Copies/mL; HIV RNA PCR Qn Log Copies 1.91 Log cps/mL
== END 2023-12-14 08:32 | disposition home or self-care (01) ==
LOC: HO.10HDL 08:31
PROVIDERS: Referring Provider Internal Medicine Infectious Disease; Visit Provider Internal Medicine Endocrinology, Diabetes & Metabolism
DX: B20 Human immunodeficiency virus [HIV] disease (principal); E11.42 Type 2 diabetes mellitus with diabetic polyneuropathy
CPT/HCPCS: 0353U; 36415; 80051; 80053; 82565; 84450; 84460; 85025; 86359; 86360; 86780; 87536; 87900

== ENCOUNTER 2023-12-15 09:10 | Outpatient (AMB) | payer OTHER, SELFPAY ==
--- NOTE | 2023-12-15 09:40 | AM.OFFVISNUR ---
Intake Intake Visit Reasons: Prolia Injection Allergies egg [EGG] Allergy (Intermediate, Verified 12/12/23 10:18) STOMACH UPSET Office Meds Prolia 60 mg/mL subcutaneous syringe Performing Provider: Kenneth Story MD Performing Location: [facility] Endocrinology Administered by: Audrey Albright LPN on 12/15/23 09:40 Dose Route Admin Location Dispensed Lot Number Expiration Date NDC Printing Supervisor 60 mg subcut Right upper arm 1 mL [id number] 04/21/26 [employer] Coding Assessment & Plan Assessment & Plan Orders: Orders AMB Denosumab Injection Patient Supplied Today M81.0 - Age-related osteoporosis without current pathological fracture Medications: New Prolia (denosumab) 60 mg subcut ONCE 1 mL 0RF NS M81.0 - Age-related osteoporosis without current pathological fracture
== END 2023-12-15 09:41 | disposition home or self-care (01) ==
PROVIDERS: PCP Internal Medicine; Visit Provider Internal Medicine Endocrinology, Diabetes & Metabolism
DX: M81.0 Age-related osteoporosis without current pathological fracture (principal)

== ENCOUNTER → 2023-12-15 09:10 | Outpatient (BNVA) | payer OTHER, SELFPAY | PROVIDERS: PCP Internal Medicine; Visit Provider Internal Medicine Endocrinology, Diabetes & Metabolism | DX: M81.0 Age-related osteoporosis without current pathological fracture (principal) | CPT/HCPCS: 96372; J0897 ==

== ENCOUNTER 2024-01-30 08:45 | Outpatient (REF) | payer OTHER, SELFPAY ==
[2024-01-30 11:33] LABS: Alanine Aminotransferase 15 U/L (0-31); Albumin Level 4.4 g/dL (3.5-5.0); Alkaline Phosphatase 86 U/L (39-117); Anion Gap 11 (12-20); Aspartate Amino Transferase 19 U/L (5-31); Bilirubin Total 0.5 mg/dL (0.0-1.0); Blood Urea Nitrogen 9 mg/dL (9-16); Calcium 9.3 mg/dL (8.4-10.2); Carbon Dioxide 25 mmol/L (22-29); Chloride 107 mmol/L (96-108); Cholesterol 106 mg/dL (<200); Estimated Glomerular Filt Rate > 60; Glucose Fasting 108 mg/dL (60-99); HDL Cholesterol 40 mg/dL (>40); LDL Cholesterol Calculated 51 mg/dL (<100); Potassium 4.8 mmol/L (3.3-5.1); Sodium 138 mmol/L (135-145); Total Protein 8.1 g/dL (6.5-8.0); Triglycerides 76 mg/dL (<150)
[2024-01-30 11:47] LABS: Vitamin D 25-OH Total 43.1 ng/mL (>30)
[2024-01-30 11:57] LABS: Folate 7.1 ng/mL (> or = 4.0); Vitamin B12 342 pg/mL (200-900)
== END 2024-01-30 08:46 | disposition home or self-care (01) ==
LOC: HO.10HDL 08:45
PROVIDERS: Visit Provider Internal Medicine
DX: E78.5 Hyperlipidemia, unspecified (principal); E55.9 Vitamin D deficiency, unspecified; E53.8 Deficiency of other specified B group vitamins; E11.9 Type 2 diabetes mellitus without complications; R91.8 Other nonspecific abnormal finding of lung field
CPT/HCPCS: 36415; 80053; 80061; 82306; 82607; 82746

== ENCOUNTER 2024-01-30 10:01 | Outpatient (REF) | payer OTHER, SELFPAY ==
--- NOTE | ~2024-01-30 | CT_ITS ---
EXAMINATION: CT CHEST WITHOUT CONTRAST CLINICAL INFORMATION: Multiple micronodules seen on the previous examination COMPARISON: None available. TECHNIQUE: Multidetector volumetric CT imaging of the chest was done. Axial MIP volume rendering provided. Sagittal and coronal reformatted images were obtained. This CT examination was performed using dose optimization techniques as appropriate, variously including the following: *Automated exposure control *Adjustment of mA and/or kV according to patient size (this includes techniques or standardized protocols for targeted exams where dose is matched to indication/reason for exam; i.e. extremities or head) *Use of iterative reconstruction technique DLP: 156 mGy-cm FINDINGS: VASCULAR ULTRASOUND TECHNICIAN: Unremarkable. LUNGS: There are mild emphysematous changes with micronodules seen mostly on the right there is tree-in-bud appearance micronodules are 80 seen in the right lower lobe seen on images 28-31 series 4 and there is 0.3 cm nodule in the right lower lobe seen on image 31. There are a few other micronodules seen bilaterally. Another area of micronodular nodularity seen in the lingula. Central airways are patent. No significant consolidations seen. MEDIASTINUM: The mediastinum is normal. CORONARY ARTERY CALCIFICATION: Mild PLEURA: There is no pleural effusion. No pleural mass or thickening. AXILLA: No lymphadenopathy. UPPER ABDOMEN: There is small hiatal hernia. OSSEOUS STRUCTURES: Unremarkable. CT/CT chest wo IV con IMPRESSION: 1. Mild emphysematous changes with micronodules and tree-in-bud appearance. 2. Mild coronary artery calcifications. 3. Small hiatal hernia. Fleischner guidelines were followed.
== END 2024-01-30 10:02 | disposition home or self-care (01) ==
LOC: HO.CT 10:01
PROVIDERS: PCP Internal Medicine; Visit Provider Hospitalist
DX: R91.8 Other nonspecific abnormal finding of lung field (principal)
CPT/HCPCS: 71250

== ENCOUNTER 2024-02-02 10:44 | Outpatient (AMB) | payer OTHER, SELFPAY ==
[2024-02-02 10:50] VITALS: BP 112/70; PULSE 70; O2SAT 97; BMI 31.6
--- NOTE | 2024-02-02 10:50 | MHC.PC.OV ---
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 Accompanied by: Daughter Allergies egg [EGG] Allergy (Intermediate, Verified 02/02/24 11:03) STOMACH UPSET Medication List - Last Reconciled 02/02/24 by Amarilis Squires MD albuterol sulfate 2.5 mg (3 mL) inhalation Q6H PRN 30 days alcohol swabs (Alcohol Prep Pads) 1 pad topical BID 90 days atorvastatin 20 mg PO BEDTIME 90 days blood sugar diagnostic ([employer] Ultra Test strips) USE DIRECTED TESTS 4 X/DAY blood-glucose meter ([employer] Ultra2 Meter kit) As directed tests 4 X/day blood-glucose meter,continuous (FreeStyle Marco 3 [place]) As directed blood-glucose sensor (FreeStyle Marco 3 Sensor device) As directed change every 14 days calcium carbonate-vitamin D3 600 mg-10 mcg (400 unit) 1 tab PO BID 90 days cholecalciferol (vitamin D3) (Vitamin D3) 100 mcg (2 x 50 mcg (2,000 unit)) PO DAILY denosumab (Prolia) 60 mg subcut [id number] dolutegravir (Tivicay) 50 mg PO DAILY emtricitabine-tenofovir alafen 200-25 mg (Descovy) 1 tab PO DAILY fluticasone furoate-vilanterol 200-25 mcg/dose (Breo Ellipta) 1 inh PO DAILY iamupgabhyt-qadympykv-hrsvbmsy 200-62.5-25 mcg (Trelegy Ellipta) 1 inh inhalation DAILY 30 days lancets DIRECTED TESTS 4 X/DAY levothyroxine 25 mcg PO DAILY lisinopril 10 mg PO DAILY 90 days metformin ER 500 mg PO BID mometasone-formoterol 200-5 mcg/actuation (Dulera) 2 puffs inhalation Q12H 30 days montelukast 10 mg PO DAILY 90 days nebulizers (AeroEclipse II Nebulizer) As directed nystatin 1 appl topical BID 14 days Oxygen Home Use As directed semaglutide (Ozempic) 0.25 mg (0.368 mL) subcut QWEEK sulfamethoxazole-trimethoprim 800-160 mg 1 tab PO 3XW umeclidinium 62.5 mcg/actuation (Incruse Ellipta) 1 inh inhalation DAILY Ventolin HFA 90 mcg/actuation (albuterol sulfate) 2 puffs inhalation Q4H PRN NS walker with seat Tobacco use date assessed: 09/21/23 Fall risk assessment: No Falls in past year Last assessed Fall Risk: 02/02/24 Dental Screening Dental Screen Date: 02/02/24 Did you have a dental visit in the last 12 months?: No Did you have a dental problem in the last 6 months where you did not have access to dental care?: No Was dental information given to patient?: No HPI HPI Comments History of Present Illness Details This is a 68-year-old female with diabetes mellitus type 2, COPD and HIV that comes today accompanied by daughter for her physical exam. A1c within goal. COPD stable with long-acting inhaler and this is follow by pulmonology. HIV well controlled with medications and follow by ID. Denies any chest pain or shortness on breath. She is oxygen dependent with 2 L of oxygen by nasal cannula. Last mammogram was 2022 and has mammogram scheduled for April. Last colonoscopy was 2012 showing no colon polyps and has no family history of colon cancer. Colonoscopy from 2006 did show tubular adenoma that was removed. She has Cologuard at home that will be done soon. Last bone density was 2022 showing osteoporosis and this is follow by Endocrinology. She does complains of left 5th finger pain in which had surgery in the past to straighten it out and improve but has small DIP deviation. Tender lower limbs on physical exam. [facility] Medical History (Updated 02/02/24 @ 11:37 by Amarilis Squires MD) B12 deficiency Chronic respiratory failure Loss of balance Lumbar degenerative disc disease Obesity (BMI 30-39.9) Age-related osteoporosis without current pathological fracture Pulmonary nodules Obese Intertrigo Anemia Hypothyroidism COPD (chronic obstructive pulmonary disease) HIV (human immunodeficiency virus infection) Pure hypercholesterolemia Essential hypertension Diabetes mellitus Surgical History (Updated 02/02/24 @ 11:10 by Amarilis Squires MD) History of laparoscopy History of tubal ligation Family History (Updated 02/02/24 @ 11:12 by Amarilis Squires MD) Father Medical history unknown Mother Diabetes Hypertension CVD (cardiovascular disease) Pulmonary embolism Sister Crohn disease Maternal Aunt Breast cancer Brother Substance abuse Family/Other FH: mental illness Social History Housing: Apartment Alcohol intake: never Patient Tobacco Use Status: Former Tobacco user Tobacco use type: Cigarette Years Smoked: 38 years e-Cigarette/Vaping Use: Never Used Second Hand Smoke Exposure: No service: No Current occupational status: disabled Cognitive needs: No Hearing needs: No Vision needs: No Questionnaire Thrive Questionnaire Date Thrive assessed: 09/21/23 MIRANDA-7 AMB Questionnaire MIRANDA-7 Date MIRANDA - 7 assessed: 09/21/23 Source: Developed by Drs. Kenneth Tavarez, Tuyet David, Kenneth Peterson and colleagues, with an educational faby from [employer]. Review of Systems Const All systems reviewed & are unremarkable except as noted in HPI and below Card Denies chest pain at rest, Denies chest pain with activity, Denies edema, Denies irregular heart rhythm, Denies claudication, Denies dyspnea, Denies dyspnea on exertion, Denies orthopnea, Denies paroxysmal nocturnal dyspnea and Denies slow heart rate Resp Denies cough, Denies dyspnea and Denies dyspnea on exertion Physical exam (Primary Care) Vital Signs: Last Vital Signs Pulse 70 02/02/24 10:50 BP 112/70 02/02/24 10:50 Pulse Ox 97 02/02/24 10:50 Oxygen Delivery Method Nasal Cannula 02/02/24 10:50 BMI result Body Mass Index 31.6 BMI Assessment/Plan discussion: High BMI High, discussed plan: lifestyle, weight reduction, dietary and physical activity Tobacco/Smoking Status: Tobacco use Status Tobacco use date assessed 09/21/23 02/02/24 10:58 Patient Tobacco Use Status Former Tobacco user 02/02/24 10:58 Tobacco use type Cigarette 02/02/24 10:58 e-Cigarette/Vaping Use Never Used 02/02/24 10:58 Thrive Assessment: Date of Thrive Assessment Date Thrive assessed 09/21/23 02/02/24 10:58 Const General: cooperative and well groomed Nutritional Appearance: obese HENMT Head: Yes normal to inspection, Yes normocephalic and Yes atraumatic Ears: external ears normal Eyes General: appearance normal, both eyes and all related structures Eyelids: Yes eyelids normal Conjunctivae: conjunctivae normal Neck Neck: Yes normal visual inspection and Yes supple Resp Effort & Inspection: normal respiratory effort Auscultation: clear to auscultation bilaterally Cardio Jugular venous distension: no JVD Rate: regular rate Rhythm: regular rhythm Heart sounds: S1 normal heart sound present and S2 normal heart sound present GI Inspection: Yes normal to inspection Palpation (GI): Soft to palpation and nontender Auscultation: normal bowel sounds Skin General skin exam: no rashes or lesions noted Neuro General: no focal motor deficits Extrem Other: Left 5th finger permanently flexed General: Yes full ROM Psych Appearance: grossly normal Office Procedures Advance Care Planning Advance Care Planning discussion: Exists, not on file Date of discussion: 02/02/24 Who was present: Patient, healthcare proxy and me Forms completed: Health Care Proxy Time spent: 1-15 minutes, on File Actual minutes spent: 1 Results AMB Hemoglobin A1c AMB Hemoglobin A1c 6.2 % Last Edit by CHEVY Morgan on 02/02/24 11:00 Assessment and Plan Assessment & Plan (1) Physical exam: Code(s): Z00.00 - Encounter for general adult medical examination without abnormal findings Plan: Repeat in a year. (2) COPD (chronic obstructive pulmonary disease): Code(s): J44.9 - Chronic obstructive pulmonary disease, unspecified Qualifiers: COPD type: emphysema Emphysema type: centrilobular Qualified Code(s): J43.2 - Centrilobular emphysema Plan: Continue long-acting inhaler. Use rescue inhaler as needed. Continue oxygen. Follow-up with pulmonology. (3) HIV (human immunodeficiency virus infection): Comment: stable Code(s): B20 - Human immunodeficiency virus [HIV] disease Qualifiers: HIV symptom status: asymptomatic, with no history of HIV-related illness Qualified Code(s): Z21 - Asymptomatic human immunodeficiency virus [HIV] infection status Plan: Continue Tivicay and Descovy. Follow-up with ID. (4) Diabetes mellitus: Code(s): E11.9 - Type 2 diabetes mellitus without complications Qualifiers: Diabetes mellitus type: type 2 Diabetes mellitus loading unit operator crimping insulin use: without loading unit operator crimping use Diabetes mellitus complication status: with neurologic complications Diabetes mellitus complication detail: with polyneuropathy Qualified Code(s): E11.42 - Type 2 diabetes mellitus with diabetic polyneuropathy Plan: Increase Ozempic to 0.5 mg. Continue metformin. A1c goal is equal or less than 7%. (5) Left hand pain: Code(s): M79.642 - Pain in left hand Plan: X-ray ordered. Orders: Orders AMB Hemoglobin A1c Today E11.42 - Type 2 diabetes mellitus with diabetic polyneuropathy XR hand LT 2V Today M79.642 - Pain in left hand Microalbumin, Random (w Creat) 4 Months E11.9 - Type 2 diabetes mellitus without complications Lipid Panel 4 Months E78.5 - Hyperlipidemia, unspecified Vitamin D 25-OH Total 4 Months E55.9 - Vitamin D deficiency, unspecified Comprehensive [place]. Panel Fast 4 Months E11.42 - Type 2 diabetes mellitus with diabetic polyneuropathy, J43.2 - Centrilobular emphysema Thyroid Stimulating Hormone 4 Months E03.9 - Hypothyroidism, unspecified Medications: New semaglutide (Ozempic) 0.5 mg (0.736 mL) subcut QWEEK 4 weeks 2.944 mL 0RF Refilled atorvastatin 20 mg PO BEDTIME 90 days 90 tabs 3RF E78.00 - Pure hypercholesterolemia, unspecified lisinopril 10 mg PO DAILY 90 days 90 tabs 3RF metformin ER 500 mg PO BID 180 tabs 2RF E11.42 - Type 2 diabetes mellitus with diabetic polyneuropathy levothyroxine 25 mcg PO DAILY 90 tabs 1RF Discontinued semaglutide (Ozempic) for 4 weeks Discontinued Reason: Patient Completed Course 0.25 mg (0.368 mL) subcut QWEEK 3 mL 4RF Coding Level of Care Code Est Pt Level 3 (74396) Est Pt Prev Care >65y(03745) Diagnoses Physical exam Z00.00 Centrilobular emphysema J43.2 COPD type: emphysema Emphysema type: centrilobular Asymptomatic HIV infection, with no history of HIV-related illness Z21 HIV symptom status: asymptomatic, with no history of HIV-related illness Type 2 diabetes mellitus with diabetic polyneuropathy, without long-term current use of insulin E11.42 Diabetes mellitus type: type 2 Diabetes mellitus loading unit operator crimping insulin use: without loading unit operator crimping use Diabetes mellitus complication status: with neurologic complications Diabetes mellitus complication detail: with polyneuropathy Left hand pain M79.642 CPT Codes Advance Care Planning - Time spent: 1-15 minutes, on File ([id number]) Time Spent (min) 40
== END 2024-02-02 11:23 | disposition home or self-care (01) ==
PROVIDERS: PCP Internal Medicine; Visit Provider Internal Medicine
DX: Z00.00 Encounter for general adult medical examination without abnormal findings (principal); J43.2 Centrilobular emphysema; Z21 Asymptomatic human immunodeficiency virus [HIV] infection status; E11.42 Type 2 diabetes mellitus with diabetic polyneuropathy; M79.642 Pain in left hand
CPT/HCPCS: 1123F; 83036; 99213; 99397

== ENCOUNTER 2024-02-02 11:30 | Outpatient (REF) | payer OTHER, SELFPAY ==
[2024-02-02 13:46] LABS: Creatinine Urine 78.91 mg/dL; Microalbumin Urine < 5.0 mg/L
== END 2024-02-02 11:31 | disposition home or self-care (01) ==
LOC: HO.10HDLNP 11:30
PROVIDERS: Visit Provider Internal Medicine
DX: E11.42 Type 2 diabetes mellitus with diabetic polyneuropathy (principal)
CPT/HCPCS: 82570

== ENCOUNTER 2024-04-02 10:00 | Outpatient (REF) | payer OTHER, SELFPAY ==
[2024-04-02 14:43] LABS: CT PCR NOT DETECTED (Not Detect.); NG PCR NOT DETECTED (Not Detect.)
== END 2024-04-02 10:01 | disposition home or self-care (01) ==
LOC: HO.10HDL 10:00
PROVIDERS: Visit Provider Internal Medicine Infectious Disease
DX: B20 Human immunodeficiency virus [HIV] disease (principal)
CPT/HCPCS: 87491; 87591

== ENCOUNTER 2024-04-09 09:05 | Outpatient (REF) | payer OTHER, SELFPAY ==
[2024-04-09 10:36] LABS: MANUAL DIFF FLAG NO
[2024-04-09 10:46] LABS: Basophils Absolute Auto 0.1 X10*3/uL (0.0-0.2); Basophils Percent Auto 0.6 % (0-2); Eosinophils Absolute Auto 0.4 X10*3/uL (0.0-0.4); Eosinophils Percent Auto 3.8 % (0-4); Hemoglobin 14.7 g/dl (12.0-16.0); Imm Gran Abs Auto 0.04 X10*3/uL (0.00-0.03); Imm Gran Pct Auto 0.4 % (0.0-0.4); Lymphocytes Absolute Auto 3.4 X10*3/uL (1.2-4.9); Lymphocytes Percent Auto 33.8 % (20-40); Mean Corpuscular Hemoglobin 27.7 pg (27.0-33.0); Mean Corpuscular Volume 79.1 fL (80.0-98.0); Mean Platelet Volume 9.9 fL (9.4-12.3); Monocytes Absolute Auto 0.8 X10*3/uL (0.1-1.2); Monocytes Percent Auto 8.4 % (2-11); Neutrophils Absolute Auto 5.3 x10*3/uL (2.0-8.3); Platelet Count 307 X10*3/uL (160-400); Red Blood Count 5.31 X10*6/uL (4.20-5.50); White Blood Count 9.9 X10*3/uL (4.8-10.8)
[2024-04-09 11:05] LABS: Alanine Aminotransferase 13 U/L (0-31); Anion Gap 16 (12-20); Aspartate Amino Transferase 18 U/L (5-31); Carbon Dioxide 22 mmol/L (22-29); Chloride 108 mmol/L (96-108); Estimated Glomerular Filt Rate > 60; Potassium 4.5 mmol/L (3.3-5.1); Sodium 141 mmol/L (135-145)
[2024-04-09 11:29] LABS: Syphilis Screen Nonreactive (Nonreactive)
[2024-04-09 11:31] LABS: ~HepC Num1 3.31 S/CO (0.00-0.79); ~Hepatitis C Antibody Reactive (Nonreactive)
[2024-04-10 16:34] LABS: HIV RNA PCR Qn Copies 51 copies/mL (NOT DETECTED); HIV RNA PCR Qn Log Copies 1.71 (NOT DETECTED)
[2024-04-13 12:03] LABS: Absolute CD3 Count 2587 cells/uL (840-3060); Absolute CD4 Count 1549 cells/uL (490-1740); Absolute CD8 Count 1179 cells/uL (180-1170); Absolute Lymphocytes 3648 cells/uL (850-3900); CD4 CD8 Ratio 1.31 (0.86-5.00); Percent CD3 Cells 71 % (57-85); Percent CD4 Cells 42 % (30-61); Percent CD8 Cells 32 % (12-42)
== END 2024-04-09 09:06 | disposition home or self-care (01) ==
LOC: HO.10HDL 09:05
PROVIDERS: Visit Provider Internal Medicine Infectious Disease
DX: B20 Human immunodeficiency virus [HIV] disease (principal)
CPT/HCPCS: 36415; 80051; 82565; 82947; 84450; 84460; 85025; 86359; 86360; 86780; 86803; 87536; 99212

== ENCOUNTER 2024-04-09 09:20 | Outpatient (AMB) | payer OTHER, SELFPAY ==
[2024-04-09 09:24] VITALS: BP 104/62; PULSE 80; BMI 32.2
--- NOTE | 2024-04-09 09:24 | MHC.OFFVIS ---
Vital Signs 04/09/24 09:24 Height 5 ft 2 in Weight 175 lb 14.862 oz BMI 32.2 BP 104/62 Blood Pressure Location Lt brachial Position Sitting Pulse 80 Pulse Source Pulse Oximeter Intake Visit Reasons: f/u Type 2 DM/ osteoporosis Intake Note: Patient presents today for D2MT follow up visit. Last Diabetic Eye exam: 12/30/23 Last Podiatry Visit: Doesn't have one Random Glucose:117 mg/dl HgA1c: 6.2% 02/02/24 Staffing Operations Manager Required: Yes Staffing Operations Manager Language: Pharmacy Benefits Coordinator Services: Staffing Operations Manager Present Staffing Operations Manager Name: Tsering Information Interpreted: non-clinical & clinical Accompanied by: Daughter Allergies egg [EGG] Allergy (Intermediate, Verified 04/09/24 09:31) STOMACH UPSET Medication List - Last Reconciled 04/09/24 by Kenneth Story MD albuterol sulfate 2.5 mg (3 mL) inhalation Q6H PRN 30 days alcohol swabs (Alcohol Prep Pads) 1 pad topical BID 90 days alendronate 70 mg PO QWEEK atorvastatin 20 mg PO BEDTIME 90 days blood sugar diagnostic ([employer] Ultra Test strips) USE DIRECTED TESTS 4 X/DAY blood-glucose meter ([employer] Ultra2 Meter kit) As directed tests 4 X/day blood-glucose meter,continuous (FreeStyle [place] 3 [place]) As directed blood-glucose sensor (FreeStyle Marco 3 Sensor device) As directed change every 14 days calcium carbonate-vitamin D3 600 mg-10 mcg (400 unit) 1 tab PO BID 90 days cholecalciferol (vitamin D3) (Vitamin D3) 100 mcg (2 x 50 mcg (2,000 unit)) PO DAILY dolutegravir (Tivicay) 50 mg PO DAILY emtricitabine-tenofovir alafen 200-25 mg (Descovy) 1 tab PO DAILY fluticasone furoate-vilanterol 200-25 mcg/dose (Breo Ellipta) 1 inh PO DAILY akspvbtlgmr-vtolvvxas-gyqwyztk 200-62.5-25 mcg (Trelegy Ellipta) 1 inh inhalation DAILY 30 days lancets DIRECTED TESTS 4 X/DAY levothyroxine 25 mcg PO DAILY lisinopril 10 mg PO DAILY 90 days metformin ER 500 mg PO BID mometasone-formoterol 200-5 mcg/actuation (Dulera) 2 puffs inhalation Q12H 30 days montelukast 10 mg PO DAILY 90 days nebulizers (AeroEclipse II Nebulizer) As directed nystatin 1 appl topical BID 14 days Oxygen Home Use As directed semaglutide (Ozempic) 0.5 mg (0.736 mL) subcut QWEEK 4 weeks sulfamethoxazole-trimethoprim 800-160 mg 1 tab PO 3XW umeclidinium 62.5 mcg/actuation (Incruse Ellipta) 1 inh inhalation DAILY Ventolin HFA 90 mcg/actuation (albuterol sulfate) 2 puffs inhalation Q4H PRN NS walker with seat HPI Comments Details: This 66-year-old female followed by endocrinology for management of osteoporosis and type 2 diabetes?. She has DM type 2 diagnosed over 10 years. ? Currently on Metformin ER 500 mg bid . Ozempic 0.5 mg Qwkly ? Other past medical history is HIV, anemia, COPD, thyroiditis, hypothyroidism, osteoporosis, hyperlipidemia. ? The patient apparently has neuropathy but no other microvascular disease. She does not have macrovascular disease. Marco download shows she is using the sensor 94% of the time. Average glucose is 125 with G mi of 6.3% variability 25.5%. 93% range with 7% hyperglycemia and no hypoglycemia ? ? ? Last ophthalmology evaluation:, 12/2023 no retinopathy. She is overdue for dilated eye exam. She is on Prolia 60 mg Q6 mos for osteoporosis. Last injection 12/15/2023 [facility] Medical History (Updated 02/02/24 @ 11:37 by Amarilis Squires MD) B12 deficiency Chronic respiratory failure Loss of balance Lumbar degenerative disc disease Obesity (BMI 30-39.9) Age-related osteoporosis without current pathological fracture Pulmonary nodules Obese Intertrigo Anemia Hypothyroidism COPD (chronic obstructive pulmonary disease) HIV (human immunodeficiency virus infection) Pure hypercholesterolemia Essential hypertension Diabetes mellitus Surgical History (Updated 02/02/24 @ 11:10 by Amarilis Squires MD) History of laparoscopy History of tubal ligation Family History (Updated 02/02/24 @ 11:12 by Amarilis Squires MD) Father Medical history unknown Mother Diabetes Hypertension CVD (cardiovascular disease) Pulmonary embolism Sister Crohn disease Maternal Aunt Breast cancer Brother Substance abuse Family/Other FH: mental illness Social History Housing: Apartment Alcohol intake: never Patient Tobacco Use Status: Former Tobacco user Tobacco use type: Cigarette Years Smoked: 38 years e-Cigarette/Vaping Use: Never Used Second Hand Smoke Exposure: No service: No Current occupational status: disabled Cognitive needs: No Hearing needs: No Vision needs: No Physical Exam Vital Signs: Last Vital Signs Pulse 80 04/09/24 09:24 BP 104/62 04/09/24 09:24 BMI result Body Mass Index 32.2 There are no Cushingoid features. Absence of blue sclera. Absence of kyphosis. Thyroid gland is of nl size and weighs 15 gms. There are no thyroid nodules palpated. Lungs CTA. Heart S1 S2 Reg R/R Abdominal exam benign. Muscle strength 5/5 . Examination of spine reveals absence of tenderness on palpation Results Reviewed Results Reviewed: Laboratory Last Values Glucose (Clinic) 117 mg/dL (60-115) H 04/09/24 09:33 Assessment & Plan Assessment & Plan (1) Diabetes mellitus: Code(s): E11.9 - Type 2 diabetes mellitus without complications Category: Medical Qualifiers: Diabetes mellitus complication detail: with polyneuropathy Diabetes mellitus complication status: with neurologic complications Diabetes mellitus assisted insulin use: without science writer use Diabetes mellitus type: type 2 Qualified Code(s): E11.42 - Type 2 diabetes mellitus with diabetic polyneuropathy Plan: This 66-year-old female with history of type 2 diabetes being treated with metformin and Ozempic with excellent improved glycemic control and known microvascular complications namely neuropathy. Plan is to continue the current management. Patient will follow up with the primary care diabetes team here (2) Age-related osteoporosis without current pathological fracture: Code(s): M81.0 - Age-related osteoporosis without current pathological fracture Category: Medical Plan: This is a 66-year-old female with a history of osteoporosis previously treated with a bisphosphonate for now treated with Prolia with improved bone density on recent DEXA. Secondary workup showed mild secondary hyperparathyroid which resolved . Recent DEXA showed improvement of bone density with low score of -2.7 T-score in the femoral neck The plan is to transition the patient from Prolia to alendronate 70 mg Q weekly in last wk 05/2025 Medications: New alendronate 70 mg PO QWEEK 5 tabs 5RF Refilled semaglutide (Ozempic) 0.5 mg (0.736 mL) subcut QWEEK 2.944 mL 5RF 4 weeks metformin ER 500 mg PO BID 180 tabs 4RF E11.42 - Type 2 diabetes mellitus with diabetic polyneuropathy Discontinued denosumab (Prolia) Discontinued Reason: Doctor's Order 60 mg subcut [id number] 1 mL 0RF M81.0 - Age-related osteoporosis without current pathological fracture Coding Level of Care Code Est Pt Level 4 (45545) Diagnoses Type 2 diabetes mellitus with diabetic polyneuropathy, without long-term current use of insulin E11.42 Diabetes mellitus complication detail: with polyneuropathy Diabetes mellitus complication status: with neurologic complications Diabetes mellitus science writer insulin use: without science writer use Diabetes mellitus type: type 2 Age-related osteoporosis without current pathological fracture M81.0
[2024-04-09 09:36] LABS: Glucose, Whole Blood 117 mg/dL (60-115)
== END 2024-04-09 09:50 | disposition home or self-care (01) ==
PROVIDERS: PCP Internal Medicine; Visit Provider Internal Medicine Endocrinology, Diabetes & Metabolism
DX: E11.42 Type 2 diabetes mellitus with diabetic polyneuropathy (principal); M81.0 Age-related osteoporosis without current pathological fracture
CPT/HCPCS: 99214

== ENCOUNTER 2024-05-08 11:07 | Outpatient (REF) | payer OTHER, SELFPAY ==
--- NOTE | ~2024-05-08 | MM_ITS ---
EXAMINATION: MM SCREENING DIGITAL BREAST TOMOSYNTHESIS, BILATERAL CLINICAL INFORMATION: Screening. Asymptomatic. COMPARISON: Mammography: Comparison is made with available priors TECHNIQUE: Digital breast mammography with tomosynthesis is performed in both the craniocaudal and mediolateral oblique views along with computer-aided detection (CAD). FINDINGS: There are scattered areas of fibroglandular density (ACR BI-RADS breast composition Category b). Focal asymmetry lower inner left breast anterior depth stable dating back to 2020. There are no significant masses, abnormal calcifications, or other abnormalities. MM/MM tomosynthesis screening BI IMPRESSION: No mammographic evidence of malignancy. ASSESSMENT: BI-RADS BI-RADS 2 - Benign Findings RECOMMENDATION: Routine annual mammography screening. 1 year F/U This examination should not preclude the clinical evaluation of a suspicious palpable abnormality. This patient's information was entered into a reminder system with a target due date for their next mammogram. Electronically signed by: Leslie Betancourt DO 05/21/2024 04:22 PM EDT
== END 2024-05-08 11:08 | disposition home or self-care (01) ==
LOC: HO.MAMMO 11:07
PROVIDERS: PCP Internal Medicine; Visit Provider Internal Medicine
DX: Z12.31 Encounter for screening mammogram for malignant neoplasm of breast (principal)
CPT/HCPCS: 77063; 77067

== ENCOUNTER → 2024-05-08 11:15 | Outpatient (BNV) | payer OTHER, SELFPAY | PROVIDERS: PCP Internal Medicine; Visit Provider Internal Medicine | DX: Z12.31 Encounter for screening mammogram for malignant neoplasm of breast (principal) | CPT/HCPCS: 77063; 77067 ==

== ENCOUNTER 2024-06-13 09:32 | Outpatient (REF) | payer OTHER, SELFPAY ==
--- NOTE | ~2024-06-13 | XR_ITS ---
EXAMINATION: XR HAND LEFT 3 VIEWS CLINICAL INFORMATION: Pain in left hand M79.642. Pain in 5th digit. COMPARISON: XR Left hand wrist (report only). TECHNIQUE: PA, lateral, and oblique views of the left hand. FINDINGS: There is no fracture or dislocation. There is fusion of the fifth digit DIP joint. Mild soft tissue prominence along the ulnar aspect of the fifth metacarpal and in the distal aspect of the fifth digit. XR/XR hand LT 2V IMPRESSION: No fracture or dislocation. Mild soft tissue prominence along the ulnar aspect of the fifth metacarpal and in the distal aspect of the fifth digit. Electronically signed by: Kenneth Bustos MD 08/01/2024 09:00 AM NATALIIA
== END 2024-06-13 09:33 | disposition home or self-care (01) ==
LOC: HO.XRAY 09:32
PROVIDERS: PCP Internal Medicine; Visit Provider Internal Medicine
DX: J43.2 Centrilobular emphysema (principal); M79.642 Pain in left hand
CPT/HCPCS: 73120; 99212

== ENCOUNTER 2024-06-13 09:34 | Outpatient (AMB) | payer OTHER, SELFPAY ==
--- NOTE | 2024-06-13 09:45 | A.OFFVIS_ITS ---
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 She is currently using oxygen at a level of 2 L continues. She is not clear she is on a conserving device trial. She continues uses Spiriva. She is also using her rescue inhaler. She has been having issues with shortness of breath. Moderate severity. He did have a chest x-ray done at [facility] at the that will reviewed in December demonstrating some atelectatic changes. She also had a x- ray at [facility] that we have to look up. She has not had pulmonary function studies in some time. We talked about the importance of pulmonary rehabilitation. We also reviewed her CT scan of the chest done at [facility] February 2019 demonstrating new 3 mm pulmonary nodule along with moderate degree of emphysema. We did review her chest x-ray that was without any acute disease. She is scheduled to undergo a CT scan of the chest in February to assess the pulmonary nodules. In the meantime she continues use her respiratory therapy with good effect. 11/23/2021 the patient is here for a pulmonary follow-up visit. Overall she is feeling better from respiratory status. She is tolerating her respiratory therapy very well. She has not had to use her rescue inhaler. She does continue with the oxygen. She does tolerate the pulse valve conserving device very well. Although, I do believe she can get a bait tier tank. She is currently has C tanks. I will request that she can get at least a be tank or bait tier in order to provide her with less discomfort in her shoulder. I will send a script to the [facility] for this and did give her a copy so she can order them herself. We did review her last CT scan of the chest done back in March 2021 demonstrating pulmonary nodules which are subcentimeter in nature. Since the patient is doing well will go ahead and repeat the CT scan a year from now which would be close to year and have from her last CT scan of the chest. If her CT scan does not show any changes then we can just follow her imaging studies as needed. 12/03/2022 the patient is here for pulmonary follow-up visit. Overall the patient has been doing relatively well. She is using her oxygen with good effect. She has a pulse device that she can not carry with good tolerability. She also continues with her inhalers with good effect as well as where we did review her CT scan of the chest that she had back in 2020 demonstrating pulmonary nodules. She was supposed to have a CT scan prior to this visit but she has not had as of yet. Therefore I will order CT scan. I explained to her this anything worsening and we have to have her come in so we can address that. Otherwise I will let him know that everything is okay. If her CT scan demonstrates the ability then no further additional CT scans are needed serial E although we can consider them as needed. Will plan to return in 6 months with a repeat pulmonary function studies. 06/09/2023 the patient is here for pulmonary follow-up visit. The patient overall has been about the same. Still complains about dyspnea on exertion. Moderate severity. The oxygen has been helpful. However, the tanks having extremely happy for her. She has a hard time carrying season velasquez. The patient would like better portability outside of the home. Will request a portable oxygen concentrator which provide better portability also the home for her. The patient also can get some B Cylinders. This also be helpful. Will request him for the [facility]. We did do a titration study again the patient did require oxygen with activity. She continues respiratory therapy. Has not required prednisone. Her last CT scan of the chest back in December 2022 demonstrating stable pulmonary nodules. 12/12/2023 the patient is here for a pulmonary follow-up visit. She does complaint of dyspnea on exertion. Does not feel like the Breo and the Incruse hopeful. She does like to continue with the powder inhaler. Will try her on Trelegy 200 to see if she finds this more effective. In the meantime she continues with her oxygen therapy with good effect. She does use it continuously. In addition to that she did get a portable oxygen concentrator. Although all time she still using the oxygen tanks she finds him a little bit easier to use. The patient does have underlying pulmonary nodules. We did look at her last CT scan back in December 2022. She will require a CT scan in the coming month. 06/13/2024 the patient is here for a pulmonary follow-up visit. Overall she is doing okay. She is tolerating the Trelegy very well. Helping her. She is complaining of worsening cough still productive in nature greenish in color. Moderate severity. . Inhalers do help her partially. She is concerned because she is developing some chest discomfort along the back area when she coughs. The patient did have a CT scan of the chest part of the lung cancer screening program back in 02/09/2024 which I personally reviewed. She has developed tree-in-bud suggesting bronchiolitis primarily in the right lung. Explained to the patient that this may or may not be related to her ongoing symptoms. Will go ahead and request a sputum for culture and also AFB. She has had TB test in the past with a PPD that been negative. At some point will do blood work including a TB test. For now will try to get a sputum in addition to getting an x-ray when she has the opportunity. Will go ahead and give her a course of antibiotics for now in it the patient has done better she can always call the office. [facility] Medical History (Updated 06/13/24 @ 21:44 by Noel Albright MD) Bronchiolitis B12 deficiency Chronic respiratory failure Loss of balance Lumbar degenerative disc disease Obesity (BMI 30-39.9) Age-related osteoporosis without current pathological fracture Pulmonary nodules Obese Intertrigo Anemia Hypothyroidism COPD (chronic obstructive pulmonary disease) HIV (human immunodeficiency virus infection) Pure hypercholesterolemia Essential hypertension Diabetes mellitus Surgical History (Updated 02/02/24 @ 11:10 by Amarilis Squires MD) History of laparoscopy History of tubal ligation Family History (Updated 02/02/24 @ 11:12 by Amarilis Squires MD) Father Medical history unknown Mother Diabetes Hypertension CVD (cardiovascular disease) Pulmonary embolism Sister Crohn disease Maternal Aunt Breast cancer Brother Substance abuse Family/Other FH: mental illness Social History Housing: Apartment Alcohol intake: never Patient Tobacco Use Status: Former Tobacco user Tobacco use type: Cigarette Years Smoked: 38 years e-Cigarette/Vaping Use: Never Used Second Hand Smoke Exposure: No service: No Current occupational status: disabled Cognitive needs: No Hearing needs: No Vision needs: No Review of Systems Const All systems reviewed & are unremarkable except as noted in HPI and below Eyes Reports no additional complaints, Denies change in vision and Denies other visual disturbances Card Denies chest pain at rest, Denies chest pain with activity, Denies edema, Denies irregular heart rhythm, Denies claudication, Denies dyspnea, Reports dyspnea on exertion, Denies orthopnea, Denies paroxysmal nocturnal dyspnea and Denies slow heart rate Resp Reports change in phlegm color, Reports chest congestion, Denies cough, Denies dyspnea and Reports dyspnea on exertion GI Denies abdominal pain, Denies change in bowel habits, Denies excessive flatus, Denies nausea and Denies vomiting Denies urinary incontinence, Denies urinary hesitancy and Denies urinary urgency Musc Denies abnormal gait, Denies atrophy, Denies deformity and Denies limited range of motion Skin/Breast Denies bleeding lesions, Denies changing lesions and Denies rash Neuro Denies abnormal gait, Denies behavioral changes and Denies lack of coordination Psych Denies behavioral changes Physical Exam Vital Signs: Last Vital Signs Pulse 78 06/13/24 09:46 BP 128/60 06/13/24 09:46 Pulse Ox 94 06/13/24 09:46 Oxygen Delivery Method Room Air 06/13/24 09:46 BMI result Body Mass Index 32.9 Const General: comfortable HEENT General nose exam: Nasal discharge present Eyes Pupils: Equal, round and reactive pupils present Neck Neck: Yes normal visual inspection, Yes full ROM and Yes no lymphadenopathy Chest Chest palpation & inspection: normal inspection of the chest Resp Effort & Inspection: normal respiratory effort and Actively coughing Quality: productive Auscultation: diminished lung sounds Cardio Rate: regular rate Rhythm: regular rhythm Heart sounds: S1 normal heart sound present and S2 normal heart sound present GI Palpation (GI): Soft to palpation and nontender Auscultation: normal bowel sounds General: Yes no CVA tenderness Back/Spine/Pelvis Back: no CVA tenderness Skin General skin exam: rashes and/or lesions noted Neuro Cranial nerves: Yes Equal, round and reactive pupils present Results Reviewed Results Reviewed: personally reviewd CT chest 02/2024 with tree in bud Assessment & Plan Assessment & Plan (1) COPD (chronic obstructive pulmonary disease): Code(s): J44.9 - Chronic obstructive pulmonary disease, unspecified Category: Medical Qualifiers: COPD type: emphysema Emphysema type: centrilobular Qualified Code(s): J43.2 - Centrilobular emphysema Plan: continue respiratory therapy (2) Pulmonary nodules: Code(s): R91.8 - Other nonspecific abnormal finding of lung field Category: Medical (3) Chronic respiratory failure: Code(s): J96.10 - Chronic respiratory failure, unspecified whether with hypoxia or hypercapnia Category: Medical Qualifiers: Respiratory failure complication: hypoxia Qualified Code(s): J96.11 - Chronic respiratory failure with hypoxia (4) Bronchiolitis: Code(s): J21.9 - Acute bronchiolitis, unspecified Category: Medical Plan Trelegy 200 CHAZ as needed conrinue singulair continue oxygen 2 L pulse with activity. Has POC, but suing tanks sputum cu CXR start Augmentin x 14 days Follow-up in 4 months Orders: Orders Acid-fast Culture + Smear Today J43.2 - Centrilobular emphysema, R91.8 - Other nonspecific abnormal finding of lung field Sputum Cult + Gram stain Today J43.2 - Centrilobular emphysema, R91.8 - Other nonspecific abnormal finding of lung field XR chest 2V Today J43.2 - Centrilobular emphysema, R91.8 - Other nonspecific abnormal finding of lung field Medications: New amoxicillin-pot clavulanate 875-125 mg 1 tab PO BID 20 tabs 0RF 10 days Refilled albuterol sulfate 2.5 mg (3 mL) inhalation Q6H PRN 180 mL 11RF shortness of breath or wheezing 30 days Coding Level of Care Code Est Pt Level 4 (10488) Complex EM visit Add On G2211 Diagnoses Centrilobular emphysema J43.2 COPD type: emphysema Emphysema type: centrilobular Pulmonary nodules R91.8 Chronic respiratory failure with hypoxia J96.11 Respiratory failure complication: hypoxia Bronchiolitis J21.9 Time Spent (min) 17
[2024-06-13 09:46] VITALS: BP 128/60; PULSE 78; O2SAT 94; BMI 32.9
== END 2024-06-13 10:09 | disposition home or self-care (01) ==
PROVIDERS: PCP Internal Medicine; Visit Provider Hospitalist
DX: J43.2 Centrilobular emphysema (principal); R91.8 Other nonspecific abnormal finding of lung field; J96.11 Chronic respiratory failure with hypoxia; J21.9 Acute bronchiolitis, unspecified
CPT/HCPCS: 99214; G2211

== ENCOUNTER 2024-06-22 08:56 | Outpatient (REF) | payer OTHER, SELFPAY ==
[2024-06-22 11:09] LABS: Alanine Aminotransferase 19 U/L (0-31); Albumin Level 4.4 g/dL (3.5-5.0); Alkaline Phosphatase 73 U/L (39-117); Anion Gap 14 (12-20); Aspartate Amino Transferase 29 U/L (5-31); Bilirubin Total 0.8 mg/dL (0.0-1.0); Blood Urea Nitrogen 11 mg/dL (9-16); Carbon Dioxide 23 mmol/L (22-29); Chloride 108 mmol/L (96-108); Cholesterol 114 mg/dL (<200); Estimated Glomerular Filt Rate > 60; Glucose Fasting 102 mg/dL (60-99); HDL Cholesterol 39 mg/dL (>40); LDL Cholesterol Calculated 53 mg/dL (<100); Potassium 5.1 mmol/L (3.3-5.1); Sodium 140 mmol/L (135-145); Total Protein 8.1 g/dL (6.5-8.0); Triglycerides 113 mg/dL (<150)
[2024-06-22 11:20] LABS: Creatinine Urine 97.58 mg/dL; Microalbumin Urine < 5.0 mg/L
[2024-06-22 11:32] LABS: Thyroid Stimulating Hormone 3.01 uIU/mL (0.32-4.0); Vitamin D 25-OH Total 48.6 ng/mL (>30)
[2024-06-22 11:39] LABS: Folate 11.1 ng/mL (> or = 4.0); Vitamin B12 306 pg/mL (200-900)
== END 2024-06-22 08:57 | disposition home or self-care (01) ==
LOC: HO.LAB 08:56
PROVIDERS: PCP Internal Medicine; Visit Provider Internal Medicine
DX: E11.42 Type 2 diabetes mellitus with diabetic polyneuropathy (principal); E78.5 Hyperlipidemia, unspecified; E53.8 Deficiency of other specified B group vitamins; E55.9 Vitamin D deficiency, unspecified; E03.9 Hypothyroidism, unspecified; E11.9 Type 2 diabetes mellitus without complications; J43.2 Centrilobular emphysema
CPT/HCPCS: 36415; 80053; 80061; 82043; 82306; 82570; 82607; 82746; 84443

== ENCOUNTER 2024-06-26 10:43 | Outpatient (AMB) | payer OTHER, SELFPAY ==
--- NOTE | 2024-06-26 10:51 | A.OFFPC_ITS ---
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 Accompanied by: Daughter Allergies egg [EGG] Allergy (Intermediate, Verified 06/26/24 11:08) STOMACH UPSET Medication List - Last Reconciled 06/26/24 by Amarilis Squires MD albuterol sulfate 2.5 mg (3 mL) inhalation Q6H PRN 30 days alcohol swabs (Alcohol Prep Pads) 1 pad topical BID 90 days alendronate 70 mg PO QWEEK atorvastatin 20 mg PO BEDTIME 90 days blood sugar diagnostic (Vyuuch Ultra Test strips) USE DIRECTED TESTS 4 X/DAY blood-glucose meter (AdapxTouch Ultra2 Meter kit) As directed tests 4 X/day blood-glucose meter,continuous (FreeStyle Marco 3 [place]) As directed blood-glucose sensor (FreeStyle Marco 3 Sensor device) USE DIRECTED CHANGE EVERY 14 DAYS calcium carbonate-vitamin D3 600 mg-10 mcg (400 unit) 1 tab PO BID 90 days cholecalciferol (vitamin D3) (Vitamin D3) 100 mcg (2 x 50 mcg (2,000 unit)) PO DAILY dolutegravir (Tivicay) 50 mg PO DAILY emtricitabine-tenofovir alafen 200-25 mg (Descovy) 1 tab PO DAILY fluticasone furoate-vilanterol 200-25 mcg/dose (Breo Ellipta) 1 inh PO DAILY wgyikbxqust-lzwlzbdxj-jviztufj 200-62.5-25 mcg (Trelegy Ellipta) 1 inh inhalation DAILY 30 days lancets DIRECTED TESTS 4 X/DAY levothyroxine 25 mcg PO DAILY lisinopril 10 mg PO DAILY 90 days metformin ER 500 mg PO BID mometasone-formoterol 200-5 mcg/actuation (Dulera) 2 puffs inhalation Q12H 30 days montelukast 10 mg PO DAILY 90 days nebulizers (AeroEclipse II Nebulizer) As directed nystatin 1 appl topical BID 14 days Oxygen Home Use As directed semaglutide (Ozempic) 0.5 mg (0.736 mL) subcut QWEEK 4 weeks umeclidinium 62.5 mcg/actuation (Incruse Ellipta) 1 inh inhalation DAILY Ventolin HFA 90 mcg/actuation (albuterol sulfate) 2 puffs inhalation Q4H PRN NS walker with seat Tobacco use date assessed: 09/21/23 Fall risk assessment: No Falls in past year Last assessed Fall Risk: 06/26/24 Dental Screening Dental Screen Date: 02/02/24 HPI HPI Comments History of Present Illness Details This is a 68-year-old female with diabetes mellitus type 2, hypertension, dyslipidemia, hypothyroidism, COPD and HIV that comes today accompanied by certified ophthalmic surgical assistant for follow-up on her conditions. A1c within goal. I will increase Ozempic to 0.5 mg. Blood pressure stable. LDL within goal. TSH normal. On 2 L of oxygen by nasal cannula saturating at 97%. COPD has been stable with Trelegy and is follow by pulmonology. Recently had bronchitis treated with antibiotics but recovered well. HIV stable with medications and follow by Infectious Disease. Declines any opportunistic infection. No chest pain or shortness on breath. [facility] Medical History Bronchiolitis B12 deficiency Chronic respiratory failure Loss of balance Lumbar degenerative disc disease Obesity (BMI 30-39.9) Age-related osteoporosis without current pathological fracture Pulmonary nodules Obese Intertrigo Anemia Hypothyroidism COPD (chronic obstructive pulmonary disease) HIV (human immunodeficiency virus infection) Pure hypercholesterolemia Essential hypertension Diabetes mellitus Surgical History History of laparoscopy History of tubal ligation Family History Father Medical history unknown Mother Diabetes Hypertension CVD (cardiovascular disease) Pulmonary embolism Sister Crohn disease Maternal Aunt Breast cancer Brother Substance abuse Family/Other FH: mental illness Social History Housing: Apartment Alcohol intake: never Patient Tobacco Use Status: Former Tobacco user Tobacco use type: Cigarette Years Smoked: 38 years e-Cigarette/Vaping Use: Never Used Second Hand Smoke Exposure: No service: No Current occupational status: disabled Cognitive needs: No Hearing needs: No Vision needs: No Questionnaire Thrive Questionnaire Date Thrive assessed: 09/21/23 MIRANDA-7 AMB Questionnaire MIRANDA-7 Date MIRANDA - 7 assessed: 09/21/23 Source: Developed by Drs. Kenneth Tavarez, Tuyet David, Kenneth Peterson and colleagues, with an educational faby from [employer]. Review of Systems Const All systems reviewed & are unremarkable except as noted in HPI and below Card Denies chest pain at rest, Denies chest pain with activity, Denies edema, Denies irregular heart rhythm, Denies claudication, Denies dyspnea, Denies dyspnea on exertion, Denies orthopnea, Denies paroxysmal nocturnal dyspnea and Denies slow heart rate Resp Denies cough, Denies dyspnea and Denies dyspnea on exertion GI Denies abdominal pain, Denies change in bowel habits, Denies excessive flatus, Denies nausea and Denies vomiting Physical exam (Primary Care) Vital Signs: Last Vital Signs Pulse 75 06/26/24 10:54 BP 132/80 06/26/24 10:54 Pulse Ox 97 06/26/24 10:54 Oxygen Delivery Method Nasal Cannula 06/26/24 10:54 Oxygen Flow Rate 2 06/26/24 10:54 BMI result Body Mass Index 31.3 BMI Assessment/Plan discussion: High BMI High, discussed plan: lifestyle, weight reduction, dietary and physical activity Tobacco/Smoking Status: Tobacco use Status Tobacco use date assessed 09/21/23 06/26/24 11:00 Patient Tobacco Use Status Former Tobacco user 06/26/24 11:00 Tobacco use type Cigarette 06/26/24 11:00 e-Cigarette/Vaping Use Never Used 06/26/24 11:00 Thrive Assessment: Date of Thrive Assessment Date Thrive assessed 09/21/23 06/26/24 11:00 [facility] Other: nasal canula in place Resp Effort & Inspection: normal respiratory effort Auscultation: clear to auscultation bilaterally Cardio Jugular venous distension: no JVD Rate: regular rate Rhythm: regular rhythm Heart sounds: S1 normal heart sound present and S2 normal heart sound present Extrem General: Yes full ROM Office Procedures Flu Questionnaire Does the patient have a severe egg allergy?: No Results AMB Hemoglobin A1c AMB Hemoglobin A1c 5.9 % Last Edit by CHEVY Morgan on 06/26/24 11:1 0 Immunizations Fluarix Triv [id number] (PF) 45 mcg (15 mcg x 3)/0.5 mL IM syringe Performing Provider: Amarilis Squires MD [facility] Documented (not given) by: CHEVY Morgan on 06/26/24 11:07 Reason Not Given: Received Previously Results Reviewed Results Reviewed: Laboratory Last Values Hgb A1c (Clinic) 5.9 % (4.0-6.0) 06/26/24 10:51 Coding Level of Care Code Est Pt Level 4 (01971) Complex EM visit Add On G2211 Diagnoses Centrilobular emphysema J43.2 COPD type: emphysema Emphysema type: centrilobular Asymptomatic HIV infection, with no history of HIV-related illness Z21 HIV symptom status: asymptomatic, with no history of HIV-related illness Hypothyroidism, unspecified type E03.9 Hypothyroidism type: unspecified Pure hypercholesterolemia E78.00 Essential hypertension I10 Type 2 diabetes mellitus with diabetic polyneuropathy, without long-term current use of insulin E11.42 Diabetes mellitus complication detail: with polyneuropathy Diabetes mellitus complication status: with neurologic complications Diabetes mellitus assisted insulin use: without assistant terminal manager use Diabetes mellitus type: type 2 Time Spent (min) 22 Assessment & Plan Assessment & Plan (1) COPD (chronic obstructive pulmonary disease): Code(s): J44.9 - Chronic obstructive pulmonary disease, unspecified Category: Medical Qualifiers: COPD type: emphysema Emphysema type: centrilobular Qualified Code(s): J43.2 - Centrilobular emphysema Plan: Continue long-acting inhaler. Use rescue inhaler as needed. Use oxygen as needed. Follow-up with pulmonology. (2) HIV (human immunodeficiency virus infection): Comment: stable Code(s): B20 - Human immunodeficiency virus [HIV] disease Category: Medical Qualifiers: HIV symptom status: asymptomatic, with no history of HIV-related illness Qualified Code(s): Z21 - Asymptomatic human immunodeficiency virus [HIV] infection status Plan: Continue Descovy and Tivicay. Follow-up with ID. (3) Hypothyroidism: Code(s): E03.9 - Hypothyroidism, unspecified Category: Medical Qualifiers: Hypothyroidism type: unspecified Qualified Code(s): E03.9 - Hypothyroidism, unspecified Plan: Continue levothyroxine. Monitor TSH. (4) Pure hypercholesterolemia: Code(s): E78.00 - Pure hypercholesterolemia, unspecified Category: Medical Plan: Continue statins. LDL goal is less than 70. (5) Essential hypertension: Code(s): I10 - Essential (primary) hypertension Category: Medical Plan: Continue lisinopril. Blood pressure goal is equal or less than 130/80. (6) Diabetes mellitus: Code(s): E11.9 - Type 2 diabetes mellitus without complications Category: Medical Qualifiers: Diabetes mellitus complication detail: with polyneuropathy Diabetes mellitus complication status: with neurologic complications Diabetes mellitus assistant terminal manager insulin use: without assistant terminal manager use Diabetes mellitus type: type 2 Qualified Code(s): E11.42 - Type 2 diabetes mellitus with diabetic polyneuropathy Plan: Continue metformin. Increase Ozempic. A1c goal is equal or less than 7%. Orders: Orders Lipid Panel 4 Months E78.5 - Hyperlipidemia, unspecified Vitamin B12 and Folate 4 Months E53.8 - Deficiency of other specified B group vitamins Influenza [id number] Immunization Today Z23 - Encounter for immunization AMB Hemoglobin A1c Today E11.42 - Type 2 diabetes mellitus with diabetic polyneuropathy Vitamin D 25-OH Total 4 Months E55.9 - Vitamin D deficiency, unspecified Microalbumin, Random (w Creat) 4 Months R80.9 - Proteinuria, unspecified Thyroid Stimulating Hormone 4 Months E03.9 - Hypothyroidism, unspecified Comprehensive [place]. Panel Fast 4 Months E11.42 - Type 2 diabetes mellitus with diabetic polyneuropathy Medications: New semaglutide 0.5 mg (0.736 mL) subcut QWEEK 2.944 mL 0RF 4 weeks Refilled alendronate 70 mg PO QWEEK 5 tabs 5RF E11.42 - Type 2 diabetes mellitus with diabetic polyneuropathy atorvastatin 20 mg PO BEDTIME 90 tabs 3RF 90 days E78.00 - Pure hypercholesterolemia, unspecified cholecalciferol (vitamin D3) (Vitamin D3) 100 mcg (2 x 50 mcg (2,000 unit)) PO DAILY 180 tabs 4RF M81.0 - Age-related osteoporosis without current pathological fracture lisinopril 10 mg PO DAILY 90 tabs 3RF 90 days E11.42 - Type 2 diabetes mellitus with diabetic polyneuropathy calcium carbonate-vitamin D3 600 mg-10 mcg (400 unit) 1 tab PO BID 180 tabs 1RF 90 days M81.0 - Age-related osteoporosis without current pathological fracture levothyroxine 25 mcg PO DAILY 90 tabs 1RF E11.42 - Type 2 diabetes mellitus with diabetic polyneuropathy metformin ER 500 mg PO BID 180 tabs 4RF E11.42 - Type 2 diabetes mellitus with diabetic polyneuropathy montelukast 10 mg PO DAILY 90 tabs 3RF 90 days E11.42 - Type 2 diabetes mellitus with diabetic polyneuropathy Discontinued semaglutide (Ozempic) Discontinued Reason: Patient Completed Course 0.5 mg (0.736 mL) subcut QWEEK 4 weeks 2.944 mL 5RF
[2024-06-26 10:54] VITALS: BP 132/80; PULSE 75; O2SAT 97; BMI 31.3
== END 2024-06-26 11:25 | disposition home or self-care (01) ==
LOC: HO.HMCH 10:43
PROVIDERS: PCP Internal Medicine; Visit Provider Internal Medicine
DX: J43.2 Centrilobular emphysema (principal); Z21 Asymptomatic human immunodeficiency virus [HIV] infection status; E11.42 Type 2 diabetes mellitus with diabetic polyneuropathy; E03.9 Hypothyroidism, unspecified; E78.00 Pure hypercholesterolemia, unspecified; I10 Essential (primary) hypertension

== ENCOUNTER → 2024-06-26 10:43 | Outpatient (BNVA) | payer OTHER, SELFPAY | PROVIDERS: PCP Internal Medicine; Visit Provider Internal Medicine | DX: J43.2 Centrilobular emphysema (principal); Z21 Asymptomatic human immunodeficiency virus [HIV] infection status; E03.9 Hypothyroidism, unspecified; E78.00 Pure hypercholesterolemia, unspecified; E11.42 Type 2 diabetes mellitus with diabetic polyneuropathy; I10 Essential (primary) hypertension | CPT/HCPCS: 83036; 99212 ==

== ENCOUNTER 2024-07-06 09:57 | Outpatient (AMB) | payer OTHER, SELFPAY ==
--- NOTE | 2024-07-06 09:58 | MHC.OFFVIS ---
Vital Signs 07/06/24 10:01 BP 122/60 Blood Pressure Location Rt brachial Position Sitting Pulse 76 Pulse Source Pulse Oximeter Pulse Oximetry (%) 95 Oxygen Delivery Method Nasal Cannula Oxygen Flow Rate 2 Intake Visit Reasons: acapella teaching Allergies egg [EGG] Allergy (Intermediate, Verified 07/06/24 10:02) STOMACH UPSET Medication List - Last Reconciled 07/06/24 by Danuta Winkler LPN albuterol sulfate 2.5 mg (3 mL) inhalation Q6H PRN 30 days alcohol swabs (Alcohol Prep Pads) 1 pad topical BID 90 days alendronate 70 mg PO QWEEK atorvastatin 20 mg PO BEDTIME 90 days blood sugar diagnostic ([employer] Ultra Test strips) USE DIRECTED TESTS 4 X/DAY blood-glucose meter ([employer] Ultra2 Meter kit) As directed tests 4 X/day blood-glucose meter,continuous (FreeStyle Marco 3 [place]) As directed blood-glucose sensor (FreeStyle Marco 3 Plus Sensor device) Apply 1 new sensor every 14 days as directed to monitor blood glucose continuously. blood-glucose sensor (FreeStyle Marco 3 Sensor device) USE DIRECTED CHANGE EVERY 14 DAYS calcium carbonate-vitamin D3 600 mg-10 mcg (400 unit) 1 tab PO BID 90 days cholecalciferol (vitamin D3) (Vitamin D3) 100 mcg (2 x 50 mcg (2,000 unit)) PO DAILY dolutegravir (Tivicay) 50 mg PO DAILY emtricitabine-tenofovir alafen 200-25 mg (Descovy) 1 tab PO DAILY gwxddcbrcqz-cusjxifyg-xsmzlvgv 200-62.5-25 mcg (Trelegy Ellipta) 1 inh inhalation DAILY 30 days lancets DIRECTED TESTS 4 X/DAY levothyroxine 25 mcg PO DAILY lisinopril 10 mg PO DAILY 90 days metformin ER 500 mg PO BID montelukast 10 mg PO DAILY 90 days nebulizers (AeroEclipse II Nebulizer) As directed nystatin 1 appl topical BID 14 days Oxygen Home Use As directed semaglutide 0.5 mg (0.736 mL) subcut QWEEK 4 weeks Ventolin HFA 90 mcg/actuation (albuterol sulfate) 2 puffs inhalation Q4H PRN NS walker with seat HPI HPI acapella teaching: Details: [place] is here for an acapella teach. She was educated on the proper use and cleaning of the acapella device. Written instructions were provided to her. She states she does not have any questions at this time. [facility] Medical History Bronchiolitis B12 deficiency Chronic respiratory failure Loss of balance Lumbar degenerative disc disease Obesity (BMI 30-39.9) Age-related osteoporosis without current pathological fracture Pulmonary nodules Obese Intertrigo Anemia Hypothyroidism COPD (chronic obstructive pulmonary disease) HIV (human immunodeficiency virus infection) Pure hypercholesterolemia Essential hypertension Diabetes mellitus Surgical History History of laparoscopy History of tubal ligation Family History Father Medical history unknown Mother Diabetes Hypertension CVD (cardiovascular disease) Pulmonary embolism Sister Crohn disease Maternal Aunt Breast cancer Brother Substance abuse Family/Other FH: mental illness Social History Housing: Apartment Alcohol intake: never Patient Tobacco Use Status: Former Tobacco user Tobacco use type: Cigarette Years Smoked: 38 years e-Cigarette/Vaping Use: Never Used Second Hand Smoke Exposure: No service: No Current occupational status: disabled Cognitive needs: No Hearing needs: No Vision needs: No Physical Exam Vital Signs: Last Vital Signs Pulse 76 07/06/24 10:01 BP 122/60 07/06/24 10:01 Pulse Ox 95 07/06/24 10:01 Oxygen Delivery Method Nasal Cannula 07/06/24 10:01 Oxygen Flow Rate 2 07/06/24 10:01 Assessment & Plan Assessment & Plan (1) COPD (chronic obstructive pulmonary disease): Code(s): J44.9 - Chronic obstructive pulmonary disease, unspecified Category: Medical Qualifiers: COPD type: emphysema Emphysema type: centrilobular Qualified Code(s): J43.2 - Centrilobular emphysema Plan continue respiratory therapy Coding Level of Care Code Established Pt Est Pt Level 1 (65931) Patient Type Established Diagnoses Centrilobular emphysema J43.2 COPD type: emphysema Emphysema type: centrilobular Comment NURSE VISIT ONLY
[2024-07-06 10:01] VITALS: BP 122/60; PULSE 76; O2SAT 95
== END 2024-07-06 10:44 | disposition home or self-care (01) ==
PROVIDERS: PCP Internal Medicine; Visit Provider Hospitalist
DX: J43.2 Centrilobular emphysema (principal)

== ENCOUNTER → 2024-07-06 09:57 | Outpatient (BNVA) | payer OTHER, SELFPAY | PROVIDERS: PCP Internal Medicine; Visit Provider Hospitalist | DX: J43.2 Centrilobular emphysema (principal) | CPT/HCPCS: 99211 ==

== ENCOUNTER 2024-07-10 09:30 | Outpatient (REF) | payer OTHER, SELFPAY ==
[2024-07-10 10:55] LABS: MANUAL DIFF FLAG NO
[2024-07-10 11:22] LABS: Basophils Absolute Auto 0.1 X10*3/uL (0.0-0.2); Basophils Percent Auto 0.7 % (0-2); Eosinophils Absolute Auto 0.7 X10*3/uL (0.0-0.4); Eosinophils Percent Auto 6.5 % (0-4); Hematocrit 37.9 % (37.0-47.0); Hemoglobin 13.4 g/dl (12.0-16.0); Imm Gran Abs Auto 0.04 X10*3/uL (0.00-0.03); Imm Gran Pct Auto 0.4 % (0.0-0.4); Lymphocytes Absolute Auto 3.2 X10*3/uL (1.2-4.9); Lymphocytes Percent Auto 30.2 % (20-40); Mean Corpuscular HGB Conc 35.4 g/dl (31.0-35.0); Mean Corpuscular Hemoglobin 27.7 pg (27.0-33.0); Mean Corpuscular Volume 78.5 fL (80.0-98.0); Monocytes Absolute Auto 0.8 X10*3/uL (0.1-1.2); Monocytes Percent Auto 7.3 % (2-11); Neutrophils Absolute Auto 5.8 x10*3/uL (2.0-8.3); Neutrophils Percent Auto 54.9 % (45-73); Platelet Count 278 X10*3/uL (160-400); Red Blood Count 4.83 X10*6/uL (4.20-5.50); Red Cell Distribution Width 14.5 % (11.0-16.0); White Blood Count 10.5 X10*3/uL (4.8-10.8)
[2024-07-10 11:39] LABS: Alanine Aminotransferase 16 U/L (0-31); Anion Gap 16 (12-20); Aspartate Amino Transferase 23 U/L (5-31); Carbon Dioxide 23 mmol/L (22-29); Chloride 106 mmol/L (96-108); Estimated Glomerular Filt Rate > 60; Potassium 4.6 mmol/L (3.3-5.1); Sodium 140 mmol/L (135-145)
[2024-07-10 11:54] LABS: Syphilis Screen Nonreactive (Nonreactive)
[2024-07-10 12:05] LABS: ~HepC Num1 3.21 S/CO (0.00-0.79); ~Hepatitis C Antibody Reactive (Nonreactive)
[2024-07-10 15:06] LABS: CT PCR NOT DETECTED (Not Detect.); NG PCR NOT DETECTED (Not Detect.)
[2024-07-11 15:44] LABS: HIV RNA PCR Qn Copies NOT DETECTED copies/mL (NOT DETECTED); HIV RNA PCR Qn Log Copies NOT DETECTED (NOT DETECTED)
[2024-07-13 19:07] LABS: Absolute CD3 Count 2130 cells/uL (840-3060); Absolute CD4 Count 1297 cells/uL (490-1740); Absolute CD8 Count 937 cells/uL (180-1170); Absolute Lymphocytes 2888 cells/uL (850-3900); CD4 CD8 Ratio 1.38 (0.86-5.00); Percent CD3 Cells 74 % (57-85); Percent CD4 Cells 45 % (30-61); Percent CD8 Cells 32 % (12-42)
== END 2024-07-10 09:31 | disposition home or self-care (01) ==
LOC: HO.10HDL 09:30
PROVIDERS: Visit Provider Internal Medicine Infectious Disease
DX: B20 Human immunodeficiency virus [HIV] disease (principal)
CPT/HCPCS: 80051; 82565; 84450; 84460; 85025; 86359; 86360; 86780; 86803; 87491; 87536; 87591

== ENCOUNTER 2024-08-01 08:47 | Outpatient (REF) | payer OTHER, SELFPAY | END 2024-08-01 08:48 | disposition home or self-care (01) | LOC: HO.US 08:47 | PROVIDERS: PCP Internal Medicine; Visit Provider Internal Medicine Infectious Disease | DX: R10.11 Right upper quadrant pain (principal) | CPT/HCPCS: 76700 ==

== ENCOUNTER 2024-08-09 09:56 | Outpatient (AMB) | payer OTHER, SELFPAY ==
--- NOTE | 2024-08-09 09:58 | A.OFFVIS_ITS ---
Vital Signs 08/09/24 10:01 Height 5 ft 2 in Weight 174 lb 2.643 oz BMI 31.9 BP 118/68 Blood Pressure Location Rt brachial Position Sitting Pulse 74 Pulse Source Pulse Oximeter Intake Visit Reasons: osteoporosis Intake Note: Patient presents today for a follow-up on Osteoporosis: Set Up Operator Required: Yes Set Up Operator Language: Renal Nurse Services: Set Up Operator Present Set Up Operator Name: CHEVY Black/UMM PEREZ Information Interpreted: non-clinical & clinical Accompanied by: Daughter Allergies egg [EGG] Allergy (Intermediate, Verified 08/09/24 10:06) STOMACH UPSET Medication List - Last Reconciled 08/09/24 by Kenneth Story MD albuterol sulfate 2.5 mg (3 mL) inhalation Q6H PRN 30 days alcohol swabs (Alcohol Prep Pads) 1 pad topical BID 90 days alendronate 70 mg PO QWEEK atorvastatin 20 mg PO BEDTIME 90 days blood sugar diagnostic (OneTouch Ultra Test strips) USE DIRECTED TESTS 4 X/DAY blood-glucose meter (OneTouch Ultra2 Meter kit) As directed tests 4 X/day blood-glucose meter,continuous (FreeStyle Marco 3 [place]) As directed blood-glucose sensor (FreeStyle Marco 3 Sensor device) USE DIRECTED CHANGE EVERY 14 DAYS blood-glucose sensor (FreeStyle Marco 3 Plus Sensor device) Apply 1 new sensor every 14 days as directed to monitor blood glucose continuously. calcium carbonate-vitamin D3 600 mg-10 mcg (400 unit) 1 tab PO BID 90 days cholecalciferol (vitamin D3) (Vitamin D3) 100 mcg (2 x 50 mcg (2,000 unit)) PO DAILY dolutegravir (Tivicay) 50 mg PO DAILY emtricitabine-tenofovir alafen 200-25 mg (Descovy) 1 tab PO DAILY txfvllsffnt-zjbyfemvo-gimsmedt 200-62.5-25 mcg (Trelegy Ellipta) 1 inh inhalation DAILY 30 days lancets DIRECTED TESTS 4 X/DAY levothyroxine 25 mcg PO DAILY lisinopril 10 mg PO DAILY 90 days metformin ER 500 mg PO BID montelukast 10 mg PO DAILY 90 days nebulizers (AeroEclipse II Nebulizer) As directed nystatin 1 appl topical BID 14 days Oxygen Home Use As directed semaglutide 0.5 mg (0.736 mL) subcut QWEEK 4 weeks Ventolin HFA 90 mcg/actuation (albuterol sulfate) 2 puffs inhalation Q4H PRN NS walker with seat HPI Comments Details: This 68-year-old female followed by endocrinology for management of osteoporosis ? Other past medical history is HIV, anemia, COPD, thyroiditis, hypothyroidism, osteoporosis, hyperlipidemia. ? She was on Prolia 60 mg Q6 mos for osteoporosis. She transitioning to alendronate 70 mg Q weekly in 11/2023. Toleraing alendronate PFSH Medical History Bronchiolitis B12 deficiency Chronic respiratory failure Loss of balance Lumbar degenerative disc disease Obesity (BMI 30-39.9) Age-related osteoporosis without current pathological fracture Pulmonary nodules Obese Intertrigo Anemia Hypothyroidism COPD (chronic obstructive pulmonary disease) HIV (human immunodeficiency virus infection) Pure hypercholesterolemia Essential hypertension Diabetes mellitus Surgical History History of laparoscopy History of tubal ligation Family History Father Medical history unknown Mother Diabetes Hypertension CVD (cardiovascular disease) Pulmonary embolism Sister Crohn disease Maternal Aunt Breast cancer Brother Substance abuse Family/Other FH: mental illness Social History Housing: Apartment Alcohol intake: never Patient Tobacco Use Status: Former Tobacco user Tobacco use type: Cigarette Years Smoked: 38 years e-Cigarette/Vaping Use: Never Used Second Hand Smoke Exposure: No service: No Current occupational status: disabled Cognitive needs: No Hearing needs: No Vision needs: No Physical Exam Vital Signs: Last Vital Signs Pulse 74 08/09/24 10:01 BP 118/68 08/09/24 10:01 BMI result Body Mass Index 31.9 Assessment & Plan Assessment & Plan (1) Age-related osteoporosis without current pathological fracture: Code(s): M81.0 - Age-related osteoporosis without current pathological fracture Category: Medical Plan: This is a 68-year-old female with a history of osteoporosis previously treated with a bisphosphonate for now treated with Prolia with improved bone density on recent DEXA. Secondary workup showed mild secondary hyperparathyroid which resolved . Recent DEXA showed improvement of bone density with low score of -2.7 T-score in the femoral neck The plan is to continue alendronate 70 mg Q weekly . Will check urine NTX and assuming suppressed we will continue the oral alendronate. If urine NTX rises could consider use of intravenous bisphosphonate. Anticipate continuing the charla ndronate for another here I which point DEXA bone density would be repeated and may consider drug holiday at that point Orders: Orders Collagen Crosslinks NTX Today M81.0 - Age-related osteoporosis without current pathological fracture Coding Level of Care Code Est Pt Level 3 (07898) Diagnoses Age-related osteoporosis without current pathological fracture M81.0
[2024-08-09 10:01] VITALS: BP 118/68; PULSE 74; BMI 31.9
== END 2024-08-09 10:12 | disposition home or self-care (01) ==
PROVIDERS: PCP Internal Medicine; Visit Provider Internal Medicine Endocrinology, Diabetes & Metabolism
DX: M81.0 Age-related osteoporosis without current pathological fracture (principal)
CPT/HCPCS: 99213

== ENCOUNTER → 2024-08-09 09:56 | Outpatient (BNVA) | payer OTHER, SELFPAY | PROVIDERS: PCP Internal Medicine; Visit Provider Internal Medicine Endocrinology, Diabetes & Metabolism | DX: M81.0 Age-related osteoporosis without current pathological fracture (principal) | CPT/HCPCS: 99212 ==

== ENCOUNTER 2024-09-04 09:50 | Outpatient (REF) | payer OTHER, SELFPAY ==
--- NOTE | ~2024-09-04 | XR_ITS ---
CLINICAL HISTORY: M79.642 - Pain in left hand 3 view left hand Comparison: DX/SR - XR HAND LT 2V - 06/13/24 10:29 EDT Findings: No acute fracture or dislocation. There is unchanged fusion of the middle and distal phalanx of the 5th digit in partial flexion likely indicating old trauma. No significant arthritic change. No erosions. No radiopaque foreign body. IMPRESSION: 1. No acute findings. No significant arthritic change. Stable deformity of the distal left 5th digit. This document has been electronically signed by: Luz Marina Carroll MD on 09/05/2024 06:20:36
== END 2024-09-04 09:51 | disposition home or self-care (01) ==
LOC: HO.HOSX 09:50
DX: M79.642 Pain in left hand (principal); Z98.890 Other specified postprocedural states
CPT/HCPCS: 73130; 99212

== ENCOUNTER 2024-09-04 09:51 | Outpatient (AMB) | payer OTHER, SELFPAY ==
--- NOTE | 2024-09-04 10:01 | MHC.OFFVIS ---
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 Patient reports her pain has been present for a few months, stating pain presented after she heard a crack. Hx of surgery to her 5th digit many years ago here at [facility]. Currently her pain starts in her small finger and radiates up her arm. Denies numbness or tingling. No locking or catching. No other tx. 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 Patient reports her pain has been present for a few months, stating pain presented after she heard a crack. Hx of surgery to her 5th digit many years ago here at [facility]. Currently her pain starts in her small finger and radiates up her arm. Denies numbness or tingling. No locking or catching. No other tx. [facility] Medical History Bronchiolitis B12 deficiency Chronic respiratory failure Loss of balance Lumbar degenerative disc disease Obesity (BMI 30-39.9) Age-related osteoporosis without current pathological fracture Pulmonary nodules Obese Intertrigo Anemia Hypothyroidism COPD (chronic obstructive pulmonary disease) HIV (human immunodeficiency virus infection) Pure hypercholesterolemia Essential hypertension Diabetes mellitus Surgical History History of laparoscopy History of tubal ligation Family History Father Medical history unknown Mother Diabetes Hypertension CVD (cardiovascular disease) Pulmonary embolism Sister Crohn disease Maternal Aunt Breast cancer Brother Substance abuse Family/Other FH: mental illness Social History (Updated 09/04/24 @ 10:10 by CHEVY Kahn) Housing: Apartment Alcohol intake: never Patient Tobacco Use Status: Former Tobacco user Tobacco use type: Cigarette Years Smoked: 38 years e-Cigarette/Vaping Use: Never Used Second Hand Smoke Exposure: No service: No Current occupational status: disabled Current occupation: right hand dominant Cognitive needs: No Hearing needs: No Vision needs: No Review of Systems Const All systems reviewed & are unremarkable except as noted in HPI and below Physical Exam Vital Signs: BMI result Body Mass Index 31.8 Extrem Other: Patient is alert, oriented, and in no acute distress. Neuro: Normal sensation of the tips of all digits of the left hand at this time Vascular: Cap refill brisk Pain: No tenderness to palpation noted of the left small finger or elsewhere in the left hand or wrist ROM: Patient is able to make a closed fist and extend all digits of the left hand fully, with the exception of the DIP joint of the left small finger which is surgically fused into a flexed position Patient reports minimal discomfort with range of motion of the left hand in the ulnar aspect of the left small finger No ligamentous laxity with varus and valgus testing of the MCP, PIP joints of the left small finger Skin: No lacerations or abrasions. General: No ecchymosis, erythema, or evidence of infection. Psych: Appears grossly normal Affect normal Attitude cooperative Results Reviewed Results Reviewed: X-rays obtained in the office today and independently reviewed by me, Maxime Kauffman PA-C, demonstrate surgically fused DIP joint of the left small finger, with no other fracture or acute bony abnormality noted. Assessment & Plan Assessment & Plan (1) Left hand pain: Code(s): M79.642 - Pain in left hand Category: Medical Plan 1. Left small finger pain Ulnar aspect Ongoing for approximately 2-3 months At this time, patient was referred to occupational therapy for range of motion and strengthening of the left hand, particularly the small finger No fracture or acute bony abnormality noted on x-rays, patient is informed of this Patient expresses understanding of this and is amenable to this plan Patient will follow-up as needed with any acute concerns Orders: Orders OT Evaluation and Treatment Today M79.642 - Pain in left hand XR hand LT min 3V Today M79.642 - Pain in left hand Coding Level of Care Code Est Pt Level 3 (12585) Diagnoses Left hand pain M79.642
[2024-09-04 10:11] VITALS: BMI 31.8
== END 2024-09-04 10:31 | disposition home or self-care (01) ==
PROVIDERS: PCP Internal Medicine
DX: M79.642 Pain in left hand (principal)
CPT/HCPCS: 99213

== ENCOUNTER 2024-10-01 10:13 | Outpatient (REF) | payer OTHER, SELFPAY ==
--- OUTSIDE RECORDS SUMMARY | 2024-10-01 11:07 | XMS_ITS | Data Portability ---
Author Organization ZOË - AYDEE REVELES MD [facility], Main Office Address [address] [place] [id number] Assessment Encounter Date Assessment Date Assessment LastModified by Organization Details LastModified Time 05/27/2023 05/27/2023 doximity; video; 19 min [email or web address] Not available 05/27/2023 14:11:09 08/30/2023 08/30/2023 telemedicine. [place] audio. 20 min [email or web address] Not available 08/30/2023 11:19:53 11/30/2023 11/30/2023 AUDIO. [place] audio. 18 min [email or web address] Not available 11/30/2023 09:20:29 04/12/2024 04/12/2024 AUDIO. [place] audio. 16 min [email or web address] Not available 04/12/2024 11:47:22 07/13/2024 07/13/2024 video. [place]. [place] audio. 17 min [email or web address] Not available 07/13/2024 09:50:20 Plan of Treatment Reminders Order Date Submit Date Provider Last Modified By Organization Details Last Modified Time Details Appointments TH B20 F/U 2024 09:00A Aretha Rizzo MD Not available Not available Not available Lab hepatiti s C RNA, qualitat emelina, serum [address] (Lab), [address] [place] [address], [id number], 07/28/2023 15:35:59 hepatiti s B virus, DNA, blood [address] (Lab), [address] [place] [address], [id number], 07/28/2023 15:35:59 CBC w/ diff [address] [place] [address] (Lab), [address] [place] [address], [id number], 07/28/2023 15:35:57 electrol ytes panel, blood [address] (Lab), [address] [place] [address], [id number], 07/28/2023 15:35:57 ALT (alanine aminotra nsferase ), serum or plasma [address] [place] [address] (Lab), [address] [place] [address], [id number], 07/28/2023 15:35:58 AST/SGOT (asparta te aminotra nsferase ), serum or plasma [address] (Lab), [address] [place] [address], [id number], 07/28/2023 15:35:58 CT + NG DNA, PCR, unspecif ied specimen [address] [place] [address] (Lab), [address] [place] [address], [id number], 07/28/2023 15:35:58 creatini ne w/ estimate d GFR (eGFR), serum or plasma [address] (Lab), [address] [place] [address], [id number], 07/28/2023 15:35:58 HIV-1 RNA, quantita tive, PCR, serum or plasma [address] (Lab), [address] [place], [address], 07/28/2023 15:35:58 RPR (rapid plasma reagin), serum [address] (Lab), [address] [place], [address], 07/28/2023 15:35:59 T-cell regulato ry subsets panel, blood [address] (Lab), [address] [place], [address], 07/28/2023 15:35:59 Referral None recorded . Procedures None recorded . Surgeries None recorded . Imaging US, abdomen - RUQ pain [address], [place], [address], 07/27/2024 14:33:12 Medication Orders Descovy 200 mg-25 mg tablet 2022 023 [id number], [address] [place], [address], 05/27/2023 14:09:10 Tivicay 50 mg tablet 2022 023 [facility], [address] [place], [address], 05/27/2023 14:09:09 Bactrim DS 800 mg-160 mg tablet 2022 023 [facility], [address] [place], [address], 05/27/2023 14:09:09 Descovy 200 mg-25 mg tablet 2023 024 [facility], [address] [place], [address], 08/30/2023 11:19:45 Tivicay 50 mg tablet 2023 024 [facility], [address] [place], [address], 08/30/2023 11:19:40 Bactrim DS 800 mg-160 mg tablet 2023 024 [facility], [address] [place], [address], 11/30/2023 09:21:41 Descovy 200 mg-25 mg tablet 2023 024 [facility], [address] [place], [address], 11/30/2023 09:21:41 Tivicay 50 mg tablet 2023 024 [facility], [address] [place], [address], 11/30/2023 09:21:40 Bactrim DS 800 mg-160 mg tablet 2023 024 [facility], [address] [place], [address], 04/12/2024 11:45:34 Descovy 200 mg-25 mg tablet 2023 024 [facility], [address] [place], [address], 04/12/2024 11:45:34 Tivicay 50 mg tablet 2023 024 [facility], [address] [place], [address], 04/12/2024 11:45:33 Bactrim DS 800 mg-160 mg tablet 2023 024 [email or web address] [facility] #2071, [address] [place], [address], 07/13/2024 09:52:03 Descovy 200 mg-25 mg tablet 2023 024 [facility]9359, [address] [place], [address], 07/13/2024 09:52:02 Tivicay 50 mg tablet 2023 024 [facility][id number], [address] [place], [address], 07/13/2024 09:52:01 Patient TargetsNo targets recorded. Patient InstructionsNo instructions recorded. Reason for Referral None Reported. Results Created Date Observation Date Name Description Value Unit Range Abnormal Flag Note LastModifiedBy Organization Detail LastModifiedTime 09/05/1908/01/2024 US, abdom en, compl ete No observ ation record ed. [email or web address] Not Available 2024 10:42:39 Result Notes None recorded. Problems Name Problem SNOMED Code Status Onset Date Resolution Date Notes Provider Name and Address Organization Details Recorded Time Chronic obstructi ve pulmonary disease 04207264 Active 2023 Aydee Rizzo MD [address] [place], [place] [address], [phone] , [facility] RIZZO MD [facility] 4 11:17:18 Human immunodef iciency virus infection 11940136 Active [address] [facility] [facility] [place], [address] , ZOË RIZZO MD [facility] 4 11:17:23 Viral hepatitis C 49240727 Active [address] [facility], [address] , ZOË RIZZO MD [facility] 4 11:17:45 HIV seroposit ivity Active 2015 HIV seropositi vity; snomeddesc ription: HIV seropositi vity; Report Immunity to Registry: Yes; Notes: dx 1989 IVDU [id number] neg 2007 genotype 2007; Not Available [facility] 4 06:58:29 Emphysema tous bronchiti s 934419877 Active 2013 Emphysemat ous bronchitis ; snomeddesc ription: Emphysemat ous bronchitis ; Report Immunity to Registry: Yes; Obstructi ve chronic bronchitis , without exacerbati on; snomeddesc ription: Emphysemat ous bronchitis ; Report Immunity to Registry: Yes; Not Available [facility] 4 06:58:30 Osteopeni a 183063073 Active 2014 Osteopenia ; snomeddesc ription: Osteopenia ; Report Immunity to Registry: Yes; Notes: endocrinol ogy; Not Available [facility] 4 06:58:30 Indigesti on 252311679 Active 2013 Dyspepsia and other specified disorders of function of stomach; snomeddesc ription: Indigestio n; Report Immunity to Registry: Yes; Indigesti on; snomeddesc ription: Indigestio n; Report Immunity to Registry: Yes; Not Available [facility] 4 06:58:30 Cobalamin deficienc y 529961256 Active 2013 Cobalamin deficiency ; snomeddesc ription: Cobalamin deficiency ; Report Immunity to Registry: Yes; Not Available [facility] 4 06:58:30 Disorder of bone and articular cartilage 400249013 Active 2014 Disorder of bone and cartilage, unspecifie d; snomeddesc ription: Osteopenia ; Report Immunity to Registry: Yes; Notes: endocrinol ogy; Not Available [facility] 4 06:58:30 Vitamin B deficienc y 71279429 Active 2013 Other B-complex deficienci es; snomeddesc ription: Cobalamin deficiency ; Report Immunity to Registry: Yes; Not Available [facility] 4 06:58:30 Viral hepatitis B without hepatic coma 263353048 Active 2016 Unspecifie d viral hepatitis B without hepatic coma; snomeddesc ription: Type B viral hepatitis; Report Immunity to Registry: Yes; Notes: past hx core ab pos; s ag neg; s ab pos 2016 HBV undetected 2016, 2017; Not Available [facility] 4 06:58:30 Hepatitis C carrier 257701598 Active 2017 Hepatitis C carrier; snomeddesc ription: Hepatitis C carrier; Report Immunity to Registry: Yes; Notes: VL undetectab le 2010; 2012; Ab pos; VL neg 2014; neg 12/2015; 2016; 2017; Not Available [facility] 4 06:58:31 Type B viral hepatitis 27605892 Active 2016 Type B viral hepatitis; snomeddesc ription: Type B viral hepatitis; Report Immunity to Registry: Yes; Notes: past hx core ab pos; s ag neg; s ab pos 2016 HBV undetected 2017; Not Available [facility] 4 06:58:31 Type 2 diabetes mellitus 99595117 Active 2023 Aydee Rizzo MD [address] [place] [address], [phone] , [facility] - AYDEE RIZZO MD [facility] 4 11:48:54 Problem Notes None recorded. Procedures Surgical History None recorded. Imaging Results Imaging Date Name Status LastModified by Organiz ation Details LastModified Time 08/01/2024 US, abdomen, complete completed [email or web address] Information not available 09/05/2024 10:42:39 Procedure Notes None recorded. Medical Equipment None Reported. Medications Name Sig Start Date Stop Date Status Note LastModified by Organization Details LastModified Time multivita min tablet Multiple Vitamins Quantity : 30; 3 refill(s ) 01/22 completed Frequenc y: qd; VACCINE_ IND: no; SU_FULL_ NAME: Aydee morales; Not Available Not Available Not Available pioglitaz one 15 mg tablet TOME EDYTA TABLETA POR VIA ORAL TODOS LOS SAXENA 07/10 completed Duration : 30; VACCINE_ IND: no; Not Available Not Available Not Available atorvasta tin 20 mg tablet TAB 20MG; Quantity : 90; Duration : 90; 0 refill(s ) 2022 active Duration : 90; VACCINE_ IND: no; Not Available Not Available Not Available albuterol sulfate 2.5 mg/3 mL (0.083 %) solution for nebulizat ion USE 1 VIAL VIA NEBULIZE R EVERY 6 HOURS NEEDED FOR SHORTNES S OF BREATH OR WHEEZING 02/03 completed Duration : 30; VACCINE_ IND: no; Not Available Not Available Not Available atorvasta tin 10 mg tablet 10 mg tablet; Quantity : 30; Duration : 30; 0 refill(s ) 08/27 completed Duration : 30; VACCINE_ IND: no; Not Available Not Available Not Available Pneumovax -23 25 mcg/0.5 mL injection solution - Quantity : ; 0 refill(s ) 11/09 completed VACCINE_ IND: yes; VACCINE_ NAME: pneumoco ccal polysacc haride PPV23; SU_FULL_ NAME: Aydee morales; Not Available Not Available Not Available azithromy tello 250 mg tablet 250 MG TABLET; Quantity : 12; Duration : 30; 0 refill(s ) 07/01 completed Duration : 30; VACCINE_ IND: no; Not Available Not Available Not Available ibuprofen 800 mg tablet 800 mg Quantity : 90; 3 refill(s ) 01/22 completed Frequenc y: tid; VACCINE_ IND: no; SU_FULL_ NAME: Aydee morales; Not Available Not Available Not Available alendrona te 70 mg tablet TAKE 1 TABLET WEEKLY 03/15 completed Duration : 28; VACCINE_ IND: no; Not Available Not Available Not Available cyanocoba elena (vit B-12) 1,000 mcg tablet B-12 1,000 MCG TABLET; Quantity : 30; Duration : 30; 0 refill(s ) 07/01 completed Duration : 30; VACCINE_ IND: no; Not Available Not Available Not Available terazosin 1 mg capsule TAKE 1 CAPSULE NIGHTLY ORALLY 30 DAY(S) 11/28 completed Duration : 30; VACCINE_ IND: no; Not Available Not Available Not Available levothyro xine 25 mcg tablet TAB 25MCG; Quantity : 90; Duration : 90; 0 refill(s ) 02/24 completed Duration : 90; VACCINE_ IND: no; Not Available Not Available Not Available Claritin- D 24 Hour 10 mg-240 mg tablet,ex tended release 1 tab po qd 11/25 completed VACCINE_ IND: no; SU_FULL_ NAME: Aydee morales; Not Available Not Available Not Available Antacid Anti-Gas 200 mg-200 mg-20 mg/5 mL oral suspensio n TAKE 5 ML NEEDED 2 TIMES A DAY ORALLY 30 DAYS 03/15 completed Duration : 30; VACCINE_ IND: no; Not Available Not Available Not Available OneTouch Ultra Test strips 0 Quantity : 100; Duration : 25; 0 refill(s ) 02/24 completed Duration : 25; VACCINE_ IND: no; Not Available Not Available Not Available meclizine 25 mg tablet TOME EDYTA TABLETA POR V?A ORAL JOSÉ LUIS VECES AL D?A CUANDO SEA NECESARI O 11/28 completed Duration : 30; VACCINE_ IND: no; Not Available Not Available Not Available cyanocoba elena (vit B-12) 1,000 mcg/mL injection solution 1000 mcg/mL Quantity : 1; Duration : 28; 3 refill(s ) 04/20 completed Duration : 28; VACCINE_ IND: no; SU_FULL_ NAME: Aydee morales; Not Available Not Available Not Available ferrous sulfate 325 mg (65 mg iron) tablet TAKE 1 TABLET BY MOUTH THREE TIMES A DAY 02/03 completed Duration : 30; VACCINE_ IND: no; Not Available Not Available Not Available metformin 1,000 mg tablet HYDROCHL ORIDE 1000MG TABLET; Quantity : 180; Duration : 90; 0 refill(s ) 08/29 completed Duration : 90; VACCINE_ IND: no; Not Available Not Available Not Available lisinopri l 10 mg tablet TAB 10MG; Quantity : 30; Duration : 30; 0 refill(s ) 02/24 completed Duration : 30; VACCINE_ IND: no; Not Available Not Available Not Available Advair Diskus 250 mcg-50 mcg/dose powder for inhalatio n 250 mcg-50 mcg Quantity : 60.000; Duration : 30; 5 refill(s ) 11/25 completed Duration : 30; VACCINE_ IND: no; Not Available Not Available Not Available Claritin- D 12 Hour 5 mg-120 mg tablet,ex tended release 5 mg-120 mg Quantity : 30; 0 refill(s ) 11/25 completed Frequenc y: qd; VACCINE_ IND: no; SU_FULL_ NAME: Aydee morales; Not Available Not Available Not Available folic acid 1 mg tablet TOME EDYTA TABLETA TODOS LOS D? 11/28 completed Duration : 30; VACCINE_ IND: no; Not Available Not Available Not Available montel[address] st 10 mg tablet TAB 10MG; Quantity : 90; Duration : 90; 0 refill(s ) 2022 active Duration : 90; VACCINE_ IND: no; Not Available Not Available Not Available gabapenti n 100 mg capsule 100 mg Quantity : 90; 3 refill(s ) 11/25 completed Frequenc y: tid; VACCINE_ IND: no; SU_FULL_ NAME: Aydee morales; Not Available Not Available Not Available azelastin e 137 mcg (0.1 %) nasal spray 137 mcg/inh Quantity : 30; Duration : 30; 0 refill(s ) 10/29 completed Duration : 30; VACCINE_ IND: no; Not Available Not Available Not Available fluticaso ne propionat e 50 mcg/actua tion nasal spray,nataliya pension TAKE 1 SPRAY IN EACH NOSTRIL ONCE A DAY 11/28 completed Duration : 30; VACCINE_ IND: no; Not Available Not Available Not Available metformin ER 500 mg tablet,ex tended release 24 hr TAB 500MG ER; Quantity : 60; Duration : 30; 0 refill(s ) 02/24 completed Duration : 30; VACCINE_ IND: no; Not Available Not Available Not Available Ventolin HFA 90 mcg/actua tion aerosol inhaler 108 Quantity : 18; Duration : 25; 0 refill(s ) 02/24 completed Duration : 25; VACCINE_ IND: no; Not Available Not Available Not Available Bactrim DS 800 mg-160 mg tablet Take 1 tablet 3 times a week by oral route for 30 days. 2023 active Not Available Not Available Not Avai lable Vitamin B-12 ER 1,000 mcg tablet,ex tended release TOME EDYTA TABLETA TODOS LOS D? 11/28 completed Duration : 30; VACCINE_ IND: no; Not Available Not Available Not Available Pneumovax -23 25 mcg/0.5 mL injection syringe - Quantity : ; 0 refill(s ) 05/06 completed VACCINE_ IND: yes; VACCINE_ DOCUMENT _DATE: 00:00:00 ; VACCINE_ DOCUMENT _NAME: Pneumoco ccal Polysacc haride (PPSV23) : 06/20/19 ; VACCINE_ NAME: pneumoco ccal polysacc haride PPV23; SU_FULL_ NAME: Aydee Shannon andrew; VIS_DATE : 14:13:43 .0; Not Available Not Available Not Available Prilosec OTC 20 mg tablet,de layed release 20 mg Quantity : 28.000; Duration : 28; 5 refill(s ) 01/22 completed Duration : 28; VACCINE_ IND: no; Not Available Not Available Not Available Alcohol Prep Pads Quantity : 100; Duration : 30; 0 refill(s ) 07/01 completed Duration : 30; VACCINE_ IND: no; Not Available Not Available Not Available Spiriva with [employer] r 18 mcg and inhalatio n capsules 18 mcg Quantity : 30; Duration : 30; 0 refill(s ) 05/20 completed Duration : 30; VACCINE_ IND: no; Not Available Not Available Not Available Truvada 200 mg-300 mg tablet TABLET; Quantity : 30; Duration : 30; 0 refill(s ) 02/17 completed Duration : 30; VACCINE_ IND: no; Not Available Not Available Not Available Antacid Plus Anti-Gas 400 mg-400 mg-40 mg/5 mL oral suspensio n Quantity : 355; Duration : 30; 0 refill(s ) 05/20 completed Duration : 30; VACCINE_ IND: no; Not Available Not Available Not Available oxycodone Quantity : ; 0 refill(s ) 01/22 completed VACCINE_ IND: no; Not Available Not Available Not Available alendrona te Quantity : ; 0 refill(s ) 11/25 completed VACCINE_ IND: no; Not Available Not Available Not Available Imodium A-D 2 mg Quantity : 30; 1 refill(s ) 01/22 completed Frequenc y: qd; VACCINE_ IND: no; SU_FULL_ NAME: Aydee morales; Not Available Not Available Not Available Levaquin Quantity : ; 0 refill(s ) 01/22 completed VACCINE_ IND: no; Not Available Not Available Not Available pioglitaz one Quantity : ; 0 refill(s ) 11/25 completed VACCINE_ IND: no; Not Available Not Available Not Available Tessalon Quantity : ; 0 refill(s ) 01/22 completed VACCINE_ IND: no; Not Available Not Available Not Available BD Insulin Syringe Ultra-Fin e 0.3 mL 30 gauge x 1/2 Quantity : 30.000; Duration : 30; 4 refill(s ) 01/22 completed Duration : 30; VACCINE_ IND: no; Not Available Not Available Not Available calcium 600 mg (as carbonate )-vitamin D3 10 mcg (400 unit) tablet TAB 600MG; Quantity : 30; Duration : 15; 0 refill(s ) 11/25 completed Duration : 15; VACCINE_ IND: no; Not Available Not Available Not Available Symbicort 160 mcg-4.5 mcg/actua tion HFA aerosol inhaler 160 mcg-4.5 mcg/inh Quantity : 10.2; Duration : 30; 0 refill(s ) 10/29 completed Duration : 30; VACCINE_ IND: no; Not Available Not Available Not Available Havrix (PF) 1,440 JADON unit/mL intramusc ular suspensio n 1440 units/mL preserva tive free Quantity : 1; 1 refill(s ) 2011 active Frequenc y: x1; VACCINE_ IND: no; VACCINE_ NAME: Hep A, adult; SU_FULL_ NAME: Aydee Shannon andrew; Not Available Not Available Not Available cholecalc iferol (vitamin D3) 50 mcg (2,000 unit) capsule TAKE 1 CAPSULE BY MOUTH EVERY DAY FOR 90 DAYS 02/03 completed Duration : 30; VACCINE_ IND: no; Not Available Not Available Not Available Vitamin D3 50 mcg (2,000 unit) tablet TAB 2000UNIT ; Quantity : 30; Duration : 30; 0 refill(s ) 02/24 completed Duration : 30; VACCINE_ IND: no; Not Available Not Available Not Available calcium 600 mg (as carbonate )-vitamin D3 10 mcg (400 unit) capsule 600 mg-10 mcg Quantity : 60; Duration : 30; 0 refill(s ) 08/29 completed Duration : 30; VACCINE_ IND: no; Not Available Not Available Not Available Robitussi n DM Max 10 mg-200 mg/5 mL oral liquid 10 mg-200 mg/5 mL Quantity : 1; Duration : 5; 0 refill(s ) 07/13 completed Frequenc y: tid; Duration : 5; VACCINE_ IND: no; SU_FULL_ NAME: Aydee morales; Not Available Not Available Not Available Yifan A-C-Y-W-1 35-Dip (PF) 10 mcg-5 mcg/0.5 mL IM kit (2 vials) - Quantity : ; 0 refill(s ) 2019 active VACCINE_ IND: yes; VACCINE_ NAME: Meningoc occal MCV4O; SU_FULL_ NAME: Aydee morales; VIS_DATE : 15:32:38 .0; Not Available Not Available Not Available Prevnar 13 (PF) 0.5 mL intramusc ular syringe - Quantity : ; Duration : 30; 0 refill(s ) 11/10 completed Duration : 30; VACCINE_ IND: yes; VACCINE_ NAME: Pneumoco ccal conjugat e PCV 13; SU_FULL_ NAME: Aydee Esparza; Not Available Not Available Not Available Prolia 60 mg/mL subcutane ous syringe 60 MG/ML Quantity : 1; Duration : 180; 0 refill(s ) 10/28 completed Duration : 180; VACCINE_ IND: no; Not Available Not Available Not Available Flulaval 45 mcg (15 mcg x 3)/0.5 mL intramusc ular suspensio n - Quantity : ; Duration : 30; 0 refill(s ) 06/12 completed Duration : 30; VACCINE_ IND: yes; VACCINE_ NAME: Influenz a, seasonal , injectab le; SU_FULL_ NAME: Aydee Esparza; VIS_DATE : 04:00:00 .0; Not Available Not Available Not Available Tivicay 50 mg tablet Take 1 tablet every day by oral route for 30 days, for HIV. 2023 active Not Available Not Available Not Avai lable Afluria 45 mcg (15 mcg x 3)/0.5 mL intramusc ular suspensio n trivalen t Quantity : ; 0 refill(s ) 2013 active VACCINE_ IND: yes; VACCINE_ NAME: Influenz a, seasonal , injectab le; SU_FULL_ NAME: Aydee Esparza; Not Available Not Available Not Available Triumeq 600 mg-50 mg-300 mg tablet 1 tab po qd 01/24 completed VACCINE_ IND: no; SU_FULL_ NAME: Aydee morales; Not Available Not Available Not Available Spiriva Respimat 2.5 mcg/actua tion solution for inhalatio n 2.5 mcg/inh Quantity : 4; Duration : 30; 0 refill(s ) 11/09 completed Duration : 30; VACCINE_ IND: no; Not Available Not Available Not Available Incruse Ellipta 62.5 mcg/actua tion powder for inhalatio n 62.5 Quantity : 30; Duration : 30; 0 refill(s ) 02/24 completed Duration : 30; VACCINE_ IND: no; Not Available Not Available Not Available Breo Ellipta 200 mcg-25 mcg/dose powder for inhalatio n 0 Quantity : 60; Duration : 30; 0 refill(s ) 02/24 completed Duration : 30; VACCINE_ IND: no; Not Available Not Available Not Available Vitamin B12 1000 mcg/mL Quantity : ; Duration : 30; 0 refill(s ) 08/07 completed Duration : 30; VACCINE_ IND: no; SU_FULL_ NAME: Aydee Esparza; Not Available Not Available Not Available Descovy 200 mg-25 mg tablet Take 1 tablet every day by oral route for 30 days, for HIV. 2023 active Not Available Not Available Not Avai lable Descovy Quantity : 30; 0 refill(s ) 2015 active Frequenc y: qd; VACCINE_ IND: no; Not Available Not Available Not Available Fluvirin 45 mcg (15 mcg x 3)/0.5 mL intramusc ular suspensio n trivalen t Quantity : ; 0 refill(s ) 09/16 completed VACCINE_ IND: yes; VACCINE_ NAME: Influenz a, seasonal , injectab le; SU_FULL_ NAME: Aydee morales; Not Available Not Available Not Available Shingrix (PF) 50 mcg/0.5 mL intramusc ular suspensio n, kit 0.5ml IM x 1, then 0.5ml IM 2 months after 1rst dose 10/30 completed Duration : 1; VACCINE_ IND: no; VACCINE_ NAME: zoster recombin ant; SU_FULL_ NAME: Aydee morales; Not Available Not Available Not Available Afluria Quad 60 mcg (15 mcg x 4)/0.5 mL IM suspensio n quadriva lent Quantity : ; 0 refill(s ) 2017 active VACCINE_ IND: yes; VACCINE_ NAME: influenz a, injectab le, quadriva lent; SU_FULL_ NAME: Aydee Mirtha morales; VIS_DATE : 19:32:33 .0; Not Available Not Available Not Available OneTouch Ultra2 Meter 0 Quantity : 1; Duration : 30; 0 refill(s ) 02/24 completed Duration : 30; VACCINE_ IND: no; Not Available Not Available Not Available Afluria Quad 60 mcg (15 mcg x 4)/0.5 mL intramusc ular susp. quadriva lent Quantity : ; 0 refill(s ) 2018 active VACCINE_ IND: yes; VACCINE_ NAME: influenz a, injectab le, quadriva lent; SU_FULL_ NAME: Aydee morales; VIS_DATE : 15:51:08 .0; Not Available Not Available Not Available Prevnar 20 (PF) 0.5 mL intramusc ular syringe - Quantity : 1; Duration : 1; 0 refill(s ) 11/26 completed Frequenc y: x1; Duration : 1; VACCINE_ IND: no; VACCINE_ NAME: Pneumoco ccal conjugat e PCV20, polysacc haride [id number] conjugat e, adjuvant , PF; SU_FULL_ NAME: Aydee morales; Not Available Not Available Not Available Afluria Quad (6mo up) 60 mcg (15 mcg x 4)/0.5 mL IM susp quadriva lent Quantity : ; 0 refill(s ) 05/06 completed VACCINE_ IND: yes; VACCINE_ DOCUMENT _DATE: 00:00:00 ; VACCINE_ DOCUMENT _NAME: Influenz a (Flu) (Inactiv ated or Recombin ant): 03/27/21; VACCINE_ NAME: influenz a, injectab le, quadriva lent; SU_FULL_ NAME: Aydee morales; VIS_DATE : 04:00:00 .0; Not Available Not Available Not Available Vitals None Recorded Social History None recorded. Functional Status None recorded. Mental Status None recorded. Family History Nothing Reported Notes:Cancer, other unspecif ied, Response Property: Yes; , Diabetes, Response Property: Yes; , Heart disease (CAD), Response Property: Yes; Medical History No medical history recorded. Gynecological HistoryNo gynecological history recorded. Obstetrics History GPAL:G 0 P 0 0 0 0 Immunizations Vaccine Type Date Status Note Provider Nam e and Address Organization Details Recorded Time Meningococcal MCV4O 0 completed Not Available [facility] 10/12/2023 06:54:07 Influenza, split virus, quadrivalent, preservative 8 completed Not Available [facility] 10/12/2023 06:54:07 Influenza, split virus, quadrivalent, preservative 9 completed Not Available [facility] 10/12/2023 06:54:07 Past Encounters Encounter ID Performer Location Encounter Start Date Encounter Closed Date Diagnosis/Indication Diagnosis SNOMED-CT Code Diagnosis ICD10 Code Diagnosis Note [id number] Aydee Rizzo MD Main Office [address] [place] [phone] 05/27/2023 13:01:20 05/27/2023 14:11:08 Human immunodeficiency virus infection [id number] B20 HIV: Continue Descovy 1 tab po qd and Tivicay 50 mg po qd. compliance reviewed to prevent viral resistance , keep viral suppressio n and prevent transmissi on. not interested in switching regimen. labs 02/2023: CBC ALT AST CD4 HIV vL creatinine , electrolyt es, GC/chlamyd ia, RPR. On Bactrim DS tiw suppressio n tx to prevent bronchitis /pneumonia . F/u pulmonary. RSV vaccine recommende d pt aware of PreP availabili ty; U=U; condom use to prevent STI's. Plan of care reviewed. Questions and concerns addressed Neuropathy [id number] G62 .9 on gabapentin . Chronic ob structive pulmonary disease [id number] J44.9 On Bactrim DS tiw suppressio n tx to prevent bronchitis /pneumonia .on o2 supplement F/u pulmonary. RSV vaccine recommende dflu vaccineon Bactrim DS tiw. Hepatitis C virus detected by enzyme-linked immunosorbent assay [id number] R76.8 HCV VL nondetcete d. past infection. [id number] Aydee Rizzo MD Main Office [address] [place] [phone] 08/30/2023 09:37:12 08/30/2023 12:56:26 Human immunodeficiency virus infection [id number] B20 HIV: Continue Descovy 1 tab po qd and Tivicay 50 mg po qd. compliance reviewed to prevent viral resistance , keep viral suppressio n and prevent transmissi on. pt aware of STR regimens, 2 drug regimens, longg acting agents, clinical trial options. pt aware of PreP availabili ty; U=U; condom use to prevent STI's. Plan of care reviewed. Questions and concerns addressed Chronic ob structive pulmonary disease [id number] J44.9 On Bactrim DS tiw suppressio n tx to prevent bronchitis /pneumonia .on o2 supplement F/u pulmonary. on Bactrim DS tiw for suppressio n of infection. vaccines recommende d Viral hepatitis C [id number] B19.20 past hx.VL undetectab le 2010; 2013; Ab pos; VL neg 2014; neg 12/2015; 2016; 2018 [id number] Aydee Rizzo MD Main Office [address] [place] [phone] 11/30/2023 09:03:23 11/30/2023 09:24:26 Human immunodeficiency virus infection [id number] B20 HIV: Continue Descovy 1 tab po qd and Tivicay 50 mg po qd. compliance reviewed to prevent viral resistance , keep viral suppressio n and prevent transmissi on.pt aware of PreP availabili ty; U=U; condom use to prevent STI's. Plan of care reviewed. Questions and concerns addressed Chronic ob structive pulmonary disease [id number] J44.9 On Bactrim DS tiw suppressio n tx to prevent bronchitis /pneumonia .on o2 supplement F/u pulmonary. [id number] Aydee Rizzo MD Main Office [address] [place] [phone] 04/12/2024 11:41:47 04/12/2024 12:24:59 Human immunodeficiency virus infection [id number] B20 HIV:Contin ue Descovy 1 tab po qd and Tivicay 50 mg po qd. compliance reviewed to prevent viral resistance , keep viral suppressio n and prevent transmissi on.pt aware of PreP availabili ty; U=U; condom use to prevent STI's.DOXY PEP reviewedPl an of care reviewed. Questions and concerns addressed Chronic ob structive pulmonary disease 32972870 J44.9 On Bactrim DS tiw suppressio n tx to prevent bronchitis /pneumonia .on o2 supplement F/u pulmonary. Type 2 cherry betes mellitus [id number] E11.9 on Ozempic sq qw.f/u PCP [id number] Aydee Rizzo MD Main Office [address] [place] [phone] 07/13/2024 09:45:07 07/13/2024 09:53:56 Human immunodeficiency virus infection [id number] B20 HIV:Contin ue Descovy 1 tab po qd and Tivicay 50 mg po qd. compliance reviewed to prevent viral resistance , keep viral suppressio n and prevent transmissi on.COVID19 and RSV vaccines prescribed .Plan of care reviewed. Questions and concerns addressed Chronic ob structive pulmonary disease [id number] J44.9 On Bactrim DS tiw suppressio n tx to prevent bronchitis /pneumonia .on o2 supplement F/u pulmonary. Right uppe r quadrant pain [id number] R10.11 will get lab results for ALt/ASTu/s abdto ER if worsening sx, n/v/d, fever or other Health Concerns Section Related Observation LastModified by Organization Detai ls LastModified Time None Recorded Concern Status LastModified by Organization Details LastModified Time None Recorded Advance Directives Directive None Recorded Payers Encounter Date Sequence Insurance Name Policy Number Policy Michel Covered Member ID Michel Member ID Guarantor Name 05/27/2023 1 [facility] Tryouts - DOS ON OR AFTER 2022 - DUAL ELIGIBLE - LONGTERM OPTIONS AND ONE CARE (MEDICARE REPLACEMENT/ADV ANTAGE - HMO) [place] Mendoza [id number] [place] Mendoza 08/30/2023 1 [facility] Tryouts - DOS ON OR AFTER 2022 - DUAL ELIGIBLE - LONGTERM OPTIONS AND ONE CARE (MEDICARE REPLACEMENT/ADV ANTAGE - HMO) [place] Mendoza [id number] [place] Mendoza 11/30/2023 1 [facility] Tryouts - DOS ON OR AFTER 2022 - DUAL ELIGIBLE - LONGTERM OPTIONS AND ONE CARE (MEDICARE REPLACEMENT/ADV ANTAGE - HMO) [place] Mendoza [id number] [place] Mendoza 04/12/2024 1 [facility] Tryouts - DOS ON OR AFTER 2022 - DUAL ELIGIBLE - LONGTERM OPTIONS AND ONE CARE (MEDICARE REPLACEMENT/ADV ANTAGE - HMO) [place] Mendoza [id number] [place] Mendoza 07/13/2024 1 [facility] - DOS ON OR AFTER 2022 - DUAL ELIGIBLE - LONGTERM OPTIONS AND ONE CARE (MEDICARE REPLACEMENT/ADV ANTAGE - HMO) Indiana Mendoza [id number] Indiana Mendoza Notes Date Note Type Note Provider Name and Address Organization Details Recorded Time 3 text/html /u HIV.Telemedicine visit. video. pt home in [place]. 19 min visit.pt is on Descovy 1 tab po qd and Tivicay 50 mg 1 tab po daily.compliant; denies missing doses.wants to keep same regimen.med list reviewed.no recent labs11/2022 SS6=0981; HIV VL nondetceted; ALt/AST wnl; eGFR>6012 HIV VL nondetceted; LN5=7676; ALT/AST wnl; eGFR>609 IE9=6103; HIV VL nondetected; eGFR>60. CKD hx.on Bactrim tiw to prevent recurrent bronchitis/pneumonia/hospi talizations. taking compliantly.tolerates well. has not been hospitalized. not for OI prophylaxis.not sexually activeno new meds.had shingles vaccine. had pneumonia vaccine and COVID vaccine boosteron neurontin for neuropathy Aydee Rizzo MD [address] [place] [address], [phone], [facility] - AYDEE RIZZO MD [facility] 05/27/2023 14:20:38 4 text/html /u HIV.pt is on Descovy 1 tab po qd and Tivicay 50 mg 1 tab po daily.compliant; denies missing doses.happy w regimen.aware of clinical trials.med list reviewed.lab results reviewed.08/26/2022 HIV VL nondetceted; JY5=0928; ALt/AST wnl;eGFR.60; syphilis NR; eGFR>6004/2023 HIV VL nondetceted; CD4 68883/2022 LP1=5606; HIV VL nondetceted; ALt/AST wnl; eGFR>6012/2021 HIV VL nondetceted; RF3=1721; ALT/AST wnl; eGFR>609/2021 ZO1=8286; HIV VL nondetected; eGFR>60. CKD hx.on Bactrim tiw to prevent recurrent bronchitis/pneumonia/hospi talizations. taking compliantly.tolerates well. has not been hospitalized. not for OI prophylaxis.not sexually activemed list reviewed.vaccines uptodate to include flu/COVID among other. Aydee Rizzo MD [address] [place] [address], [phone], ZOË RIZZO MD [facility] 08/30/2023 11:20:05 4 text/html /u HIV.pt is on Descovy 1 tab po qd and Tivicay 50 mg 1 tab po daily.compliant; denies missing doses.happy w regimen.prefers to keep same regimenmed list reviewed.lab results reviewed.has not been sick; no hospitalizations08/2023 HIV VL nondetceted; YR9=1662; AST/ALt wnl; no syphilis; HBV VL nondetceted.08/26/2022 HIV VL nondetceted; QS9=0428; ALt/AST wnl;eGFR.60; syphilis NR; eGFR>609 HIV VL nondetceted; CD4 74492/2022 ZM7=3250; HIV VL nondetceted; ALt/AST wnl; eGFR>6012/2021 HIV VL nondetceted; RL1=1201; ALT/AST wnl; eGFR>609/2021 RB3=3476; HIV VL nondetected; eGFR>60. CKD hx.on Bactrim tiw to prevent recurrent bronchitis/pneumonia/hospi talizations.not sexually activemed list reviewed. Aydee Rizzo MD [address] [place] [address], [phone], ZOË RIZZO MD [facility] 11/30/2023 09:21:47 4 text/html /u HIV.pt is on Descovy 1 tab po qd and Tivicay 50 mg 1 tab po daily.compliant; denies missing doses.happy w regimen.med list reviewed.lab results reviewed.has not been sick; no hospitalizations03/2024 HIV VL Pending; partial resulst available.08/2023 HIV VL nondetceted; SQ8=3607; AST/ALt wnl; no syphilis; HBV VL nondetceted.08/26/2022 HIV VL nondetceted; VS0=8005; ALt/AST wnl;eGFR.60; syphilis NR; eGFR>60 on Bactrim tiw to prevent recurrent bronchitis/pneumonia/hospi talizations.not sexually activemed list reviewed. pt was diabetic. on ozempic qw sc.she has lost some weight. Aydee Rizzo MD [address] [place], [phone], [place] ZOË RIZZO MD [facility] 04/12/2024 11:49:10 4 text/html f/u HIV.pt is on Descovy 1 tab po qd and Tivicay 50 mg 1 tab po daily.compliant; denies missing doses.happy w regimen.RUQ for few months; on/off; -01/29 . not after she eats. denies ETOH. no jaundice.lab results reviewed. no n/v/d.weight loss while on ozempic for DM.has not been sick; no pyloomvnijnwcrrb48/19/2024 HIV VL nondetected03/2024 HIV VL Pending; partial resulst available.08/2023 HIV VL nondetceted; BX5=7998; AST/ALt wnl; no syphilis; HBV VL nondetceted.08/26/2022 HIV VL nondetceted; TN5=5161; ALt/AST wnl;eGFR.60; syphilis NR; eGFR>60on Bactrim tiw to prevent recurrent bronchitis/pneumonia/hospi talizations. no flareups whil dana Bactrim suppression tx.not sexually activemed list reviewed.got the flu vaccinetrasnportation problems: daughter works and gets out late. Aydee Rizzo MD [address] [place], [phone], [place] ZOË RIZZO MD [facility] 07/13/2024 09:55:33 OBGyn Episode No OBEpisode recorded.
[2024-10-01 12:47] LABS: MANUAL DIFF FLAG NO
[2024-10-01 12:49] LABS: Basophils Absolute Auto 0.1 X10*3/uL (0.0-0.2); Basophils Percent Auto 0.6 % (0-2); Eosinophils Absolute Auto 0.2 X10*3/uL (0.0-0.4); Eosinophils Percent Auto 1.8 % (0-4); Hematocrit 40.1 % (37.0-47.0); Hemoglobin 13.7 g/dl (12.0-16.0); Imm Gran Abs Auto 0.04 X10*3/uL (0.00-0.03); Imm Gran Pct Auto 0.3 % (0.0-0.4); Lymphocytes Absolute Auto 3.1 X10*3/uL (1.2-4.9); Mean Corpuscular HGB Conc 34.2 g/dl (31.0-35.0); Mean Corpuscular Hemoglobin 27.1 pg (27.0-33.0); Mean Corpuscular Volume 79.4 fL (80.0-98.0); Mean Platelet Volume 10.3 fL (9.4-12.3); Monocytes Absolute Auto 0.8 X10*3/uL (0.1-1.2); Monocytes Percent Auto 6.6 % (2-11); Neutrophils Absolute Auto 8.2 x10*3/uL (2.0-8.3); Neutrophils Percent Auto 65.7 % (45-73); Platelet Count 257 X10*3/uL (160-400); Red Blood Count 5.05 X10*6/uL (4.20-5.50); Red Cell Distribution Width 14.6 % (11.0-16.0); White Blood Count 12.4 X10*3/uL (4.8-10.8)
[2024-10-01 13:03] LABS: Alanine Aminotransferase 17 U/L (0-31); Anion Gap 13 (12-20); Aspartate Amino Transferase 26 U/L (5-31); Carbon Dioxide 23 mmol/L (22-29); Chloride 108 mmol/L (96-108); Estimated Glomerular Filt Rate > 60; Potassium 4.2 mmol/L (3.3-5.1); Sodium 140 mmol/L (135-145)
[2024-10-01 13:21] LABS: Syphilis Screen Nonreactive (Nonreactive)
[2024-10-01 13:22] LABS: ~HepC Num1 2.95 S/CO (0.00-0.79); ~Hepatitis C Antibody Reactive (Nonreactive)
[2024-10-02 05:35] LABS: CT PCR NOT DETECTED (Not Detect.); NG PCR NOT DETECTED (Not Detect.)
[2024-10-05 10:33] LABS: HIV RNA PCR Qn Copies Not Detected Copies/mL; HIV RNA PCR Qn Log Copies Not Detected Log cps/mL
[2024-10-05 16:38] LABS: N-Telopeptide 35 (see note); NTXCreaRU 112 mg/dL (20-275)
[2024-10-06 13:48] LABS: Absolute CD3 Count 2298 cells/uL (840-3060); Absolute CD4 Count 1339 cells/uL (490-1740); Absolute CD8 Count 1098 cells/uL (180-1170); Absolute Lymphocytes 3243 cells/uL (850-3900); CD4 CD8 Ratio 1.22 (0.86-5.00); Percent CD3 Cells 71 % (57-85); Percent CD4 Cells 41 % (30-61); Percent CD8 Cells 34 % (12-42)
== END 2024-10-01 10:14 | disposition home or self-care (01) ==
LOC: HO.10HDL 10:13
PROVIDERS: Referring Provider Internal Medicine Infectious Disease; Visit Provider Internal Medicine Endocrinology, Diabetes & Metabolism
DX: B20 Human immunodeficiency virus [HIV] disease (principal); M81.0 Age-related osteoporosis without current pathological fracture; J43.2 Centrilobular emphysema; J96.11 Chronic respiratory failure with hypoxia; J21.9 Acute bronchiolitis, unspecified; Z99.81 Dependence on supplemental oxygen
CPT/HCPCS: 80051; 82523; 82565; 84450; 84460; 85025; 86359; 86360; 86780; 86803; 87491; 87536; 87591; 87900; 99212

== ENCOUNTER 2024-10-01 10:35 | Outpatient (AMB) | payer OTHER, SELFPAY ==
[2024-10-01 10:37] VITALS: BP 136/64; PULSE 69; O2SAT 98; BMI 31.4
--- NOTE | 2024-10-01 10:37 | MHC.OFFVIS ---
Vital Signs 10/01/24 10:37 Height 5 ft 2 in Weight 171 lb 15.369 oz BMI 31.4 BP 136/64 Blood Pressure Location Rt brachial Position Sitting Pulse 69 Pulse Source Pulse Oximeter Pulse Oximetry (%) 98 Oxygen Delivery Method Nasal Cannula Oxygen Flow Rate 2 Intake Visit Reasons: COPD Allergies egg [EGG] Allergy (Intermediate, Verified 10/01/24 10:41) STOMACH UPSET HPI Comments Details: The patient is a 69-year-old woman known COPD and chronic respiratory failure on oxygen. She is currently using oxygen at a level of 2 L continues. She is not clear she is on a conserving device trial. She continues uses Spiriva. She is also using her rescue inhaler. She has been having issues with shortness of breath. Moderate severity. He did have a chest x-ray done at [facility] at the that will reviewed in December demonstrating some atelectatic changes. She also had a x-ray at [facility] that we have to look up. She has not had pulmonary function studies in some time. We talked about the importance of pulmonary rehabilitation. We also reviewed her CT scan of the chest done at [facility] February 2019 demonstrating new 3 mm pulmonary nodule along with moderate degree of emphysema. We did review her chest x-ray that was without any acute disease. She is scheduled to undergo a CT scan of the chest in February to assess the pulmonary nodules. In the meantime she continues use her respiratory therapy with good effect. 11/23/2021 the patient is here for a pulmonary follow-up visit. Overall she is feeling better from respiratory status. She is tolerating her respiratory therapy very well. She has not had to use her rescue inhaler. She does continue with the oxygen. She does tolerate the pulse valve conserving device very well. Although, I do believe she can get a membership counselor tank. She is currently has C tanks. I will request that she can get at least a be tank or membership counselor in order to provide her with less discomfort in her shoulder. I will send a script to the [employer] for this and did give her a copy so she can order them herself. We did review her last CT scan of the chest done back in March 2021 demonstrating pulmonary nodules which are subcentimeter in nature. Since the patient is doing well will go ahead and repeat the CT scan a year from now which would be close to year and have from her last CT scan of the chest. If her CT scan does not show any changes then we can just follow her imaging studies as needed. 12/03/2022 the patient is here for pulmonary follow-up visit. Overall the patient has been doing relatively well. She is using her oxygen with good effect. She has a pulse device that she can not carry with good tolerability. She also continues with her inhalers with good effect as well as where we did review her CT scan of the chest that she had back in 2020 demonstrating pulmonary nodules. She was supposed to have a CT scan prior to this visit but she has not had as of yet. Therefore I will order CT scan. I explained to her this anything worsening and we have to have her come in so we can address that. Otherwise I will let him know that everything is okay. If her CT scan demonstrates the ability then no further additional CT scans are needed serial E although we can consider them as needed. Will plan to return in 6 months with a repeat pulmonary function studies. 06/09/2023 the patient is here for pulmonary follow-up visit. The patient overall has been about the same. Still complains about dyspnea on exertion. Moderate severity. The oxygen has been helpful. However, the tanks having extremely happy for her. She has a hard time carrying season velasquez. The patient would like better portability outside of the home. Will request a portable oxygen concentrator which provide better portability also the home for her. The patient also can get some B Cylinders. This also be helpful. Will request him for the [employer]. We did do a titration study again the patient did require oxygen with activity. She continues respiratory therapy. Has not required prednisone. Her last CT scan of the chest back in December 2022 demonstrating stable pulmonary nodules. 12/12/2023 the patient is here for a pulmonary follow-up visit. She does complaint of dyspnea on exertion. Does not feel like the Breo and the Incruse hopeful. She does like to continue with the powder inhaler. Will try her on Trelegy 200 to see if she finds this more effective. In the meantime she continues with her oxygen therapy with good effect. She does use it continuously. In addition to that she did get a portable oxygen concentrator. Although all time she still using the oxygen tanks she finds him a little bit easier to use. The patient does have underlying pulmonary nodules. We did look at her last CT scan back in December 2022. She will require a CT scan in the coming month. 06/13/2024 the patient is here for a pulmonary follow-up visit. Overall she is doing okay. She is tolerating the Trelegy very well. Helping her. She is complaining of worsening cough still productive in nature greenish in color. Moderate severity. . Inhalers do help her partially. She is concerned because she is developing some chest discomfort along the back area when she coughs. The patient did have a CT scan of the chest part of the lung cancer screening program back in 02/09/2024 which I personally reviewed. She has developed tree-in-bud suggesting bronchiolitis primarily in the right lung. Explained to the patient that this may or may not be related to her ongoing symptoms. Will go ahead and request a sputum for culture and also AFB. She has had TB test in the past with a PPD that been negative. At some point will do blood work including a TB test. For now will try to get a sputum in addition to getting an x-ray when she has the opportunity. Will go ahead and give her a course of antibiotics for now in it the patient has done better she can always call the office. 10/01/2024 the patient is here for pulmonary follow-up visit. Overall she is doing better. She was sick the last time we spoke and she required courses of antibiotics. Her cough significantly improved. She continues use the oxygen in her respiratory therapy. But if he days ago she again started developing worsening cough although nonproductive in nature. Some chest tightness. She also complains of some right-sided back discomfort. Seems the case more reproducible more musculoskeletal than pleural related. I will go ahead and order a chest x-ray for her to get and will follow-up with that. If any abnormal findings a let her know. Also she can start Mucinex and I will send her a script for that. If she were to worsen in data show chest congestion then at that point she can start doxycycline. But right now she can just continue with the current respiratory therapy. Will follow-up in 4 months she has any issues prior to that she will call for an earlier assessment. [facility] Medical History Bronchiolitis B12 deficiency Chronic respiratory failure Loss of balance Lumbar degenerative disc disease Obesity (BMI 30-39.9) Age-related osteoporosis without current pathological fracture Pulmonary nodules Obese Intertrigo Anemia Hypothyroidism COPD (chronic obstructive pulmonary disease) HIV (human immunodeficiency virus infection) Pure hypercholesterolemia Essential hypertension Diabetes mellitus Surgical History History of laparoscopy History of tubal ligation Family History Father Medical history unknown Mother Diabetes Hypertension CVD (cardiovascular disease) Pulmonary embolism Sister Crohn disease Maternal Aunt Breast cancer Brother Substance abuse Family/Other FH: mental illness Social History Housing: Apartment Alcohol intake: never Patient Tobacco Use Status: Former Tobacco user Tobacco use type: Cigarette Years Smoked: 38 years e-Cigarette/Vaping Use: Never Used Second Hand Smoke Exposure: No service: No Current occupational status: disabled Current occupation: right hand dominant Cognitive needs: No Hearing needs: No Vision needs: No Review of Systems Const All systems reviewed & are unremarkable except as noted in HPI and below Eyes Reports no additional complaints, Denies change in vision and Denies other visual disturbances Card Denies chest pain at rest, Denies chest pain with activity, Denies edema, Denies irregular heart rhythm, Denies claudication, Denies dyspnea, Reports dyspnea on exertion, Denies orthopnea, Denies paroxysmal nocturnal dyspnea and Denies slow heart rate Resp Reports change in phlegm color, Reports chest congestion, Denies cough, Denies dyspnea and Reports dyspnea on exertion GI Denies abdominal pain, Denies change in bowel habits, Denies excessive flatus, Denies nausea and Denies vomiting Denies urinary incontinence, Denies urinary hesitancy and Denies urinary urgency Musc Denies abnormal gait, Denies atrophy, Denies deformity and Denies limited range of motion Skin/Breast Denies bleeding lesions, Denies changing lesions and Denies rash Neuro Denies abnormal gait, Denies behavioral changes and Denies lack of coordination Psych Denies behavioral changes Physical Exam Vital Signs: Last Vital Signs Pulse 69 10/01/24 10:37 BP 136/64 10/01/24 10:37 Pulse Ox 98 10/01/24 10:37 Oxygen Delivery Method Nasal Cannula 10/01/24 10:37 Oxygen Flow Rate 2 10/01/24 10:37 BMI result Body Mass Index 31.4 Const General: comfortable HEENT General nose exam: Nasal discharge present Eyes Pupils: Equal, round and reactive pupils present Neck Neck: Yes normal visual inspection, Yes full ROM and Yes no lymphadenopathy Chest Chest palpation & inspection: normal inspection of the chest Resp Effort & Inspection: normal respiratory effort and Actively coughing Quality: productive Auscultation: diminished lung sounds Cardio Rate: regular rate Rhythm: regular rhythm Heart sounds: S1 normal heart sound present and S2 normal heart sound present GI Palpation (GI): Soft to palpation and nontender Auscultation: normal bowel sounds General: Yes no CVA tenderness Back/Spine/Pelvis Back: no CVA tenderness Skin General skin exam: rashes and/or lesions noted Neuro Cranial nerves: Yes Equal, round and reactive pupils present Assessment & Plan Assessment & Plan (1) COPD (chronic obstructive pulmonary disease): Code(s): J44.9 - Chronic obstructive pulmonary disease, unspecified Category: Medical Qualifiers: COPD type: emphysema Emphysema type: centrilobular Qualified Code(s): J43.2 - Centrilobular emphysema Plan: continue respiratory therapy (2) Pulmonary nodules: Code(s): R91.8 - Other nonspecific abnormal finding of lung field Category: Medical (3) Chronic respiratory failure: Code(s): J96.10 - Chronic respiratory failure, unspecified whether with hypoxia or hypercapnia Category: Medical Qualifiers: Respiratory failure complication: hypoxia Qualified Code(s): J96.11 - Chronic respiratory failure with hypoxia (4) Bronchiolitis: Code(s): J21.9 - Acute bronchiolitis, unspecified Category: Medical Plan Trelegy 200 CHAZ as needed conrinue singulair continue oxygen 2 L pulse with activity. start Doxycycline cough medicine CXR Follow-up in 4-6 months Medications: New doxycycline hyclate 100 mg PO BID 20 caps 0RF 10 days dextromethorphan-guaifenesin 60-1,200 mg ER (Mucinex DM) 1 tab PO Q12H 28 tabs 3RF 14 days Coding Level of Care Code Est Pt Level 4 (74878) Diagnoses Centrilobular emphysema J43.2 COPD type: emphysema Emphysema type: centrilobular Pulmonary nodules R91.8 Chronic respiratory failure with hypoxia J96.11 Respiratory failure complication: hypoxia Bronchiolitis J21.9 Time Spent (min) 16
== END 2024-10-01 10:57 | disposition home or self-care (01) ==
PROVIDERS: PCP Internal Medicine; Visit Provider Hospitalist
DX: J43.2 Centrilobular emphysema (principal); R91.8 Other nonspecific abnormal finding of lung field; J96.11 Chronic respiratory failure with hypoxia; J21.9 Acute bronchiolitis, unspecified
CPT/HCPCS: 99214

== ENCOUNTER 2024-10-12 09:35 | Outpatient (AMB) | payer OTHER, SELFPAY ==
--- NOTE | 2024-10-12 09:38 | A.OFFVIS_ITS ---
Vital Signs 10/12/24 09:45 Height 5 ft 2 in Weight 178 lb BMI 32.6 BP 130/58 L Blood Pressure Location Rt brachial Position Sitting Pulse 73 Pulse Source Pulse Oximeter Pulse Oximetry (%) 97 Oxygen Delivery Method Room Air Intake Visit Reasons: Type 2 DM Intake Note: Patient present today to follow up on Type 2 Diabetes Mellitus. Last Diabetic Eye exam: Jul 2024 Last Podiatry Visit: Does not see a Pile Driver Operator Helper Random Glucose: 107 mg/dl HgA1C: 6.1% 10/12/23 Primary Care Sales Representative Required: Yes Primary Care Sales Representative Language: Cement Car Dumper Services: Primary Care Sales Representative Present Primary Care Sales Representative Name: Poonam [id number] Information Interpreted: non-clinical & clinical Accompanied by: Daughter Allergies egg [EGG] Allergy (Intermediate, Verified 10/12/24 09:46) STOMACH UPSET Medication List - Last Reconciled 10/12/24 by JAM Storm albuterol sulfate 2.5 mg (3 mL) inhalation Q6H PRN 30 days alcohol swabs (Alcohol Prep Pads) 1 pad topical BID 90 days alendronate 70 mg PO QWEEK atorvastatin 20 mg PO BEDTIME 90 days blood sugar diagnostic (ParatureTouch Ultra Test strips) USE DIRECTED TESTS 4 X/DAY blood-glucose meter As directed tests 4 X/day blood-glucose meter,continuous (FreeStyle Marco 3 [place]) As directed blood-glucose sensor (FreeStyle Marco 3 Plus Sensor device) Apply 1 new sensor every 14 days as directed to monitor blood glucose continuously. calcium carbonate-vitamin D3 600 mg-10 mcg (400 unit) 1 tab PO BID 90 days cholecalciferol (vitamin D3) 50 mcg PO DAILY dextromethorphan-guaifenesin 60-1,200 mg ER (Mucinex DM) 1 tab PO Q12H 14 days dextrose (TRUEplus Glucose) 15 grams (32 mL) PO Q15M PRN dolutegravir (Tivicay) 50 mg PO DAILY doxycycline hyclate 100 mg PO BID 10 days emtricitabine-tenofovir alafen 200-25 mg (Descovy) 1 tab PO DAILY vpdefcrxrxt-svloaphtq-izuzvnyu 200-62.5-25 mcg (Trelegy Ellipta) 1 inh inhalation DAILY 30 days lancets DIRECTED TESTS 4 X/DAY lancets As directed to monitor glucose 4x/day. levothyroxine 25 mcg PO DAILY lisinopril 10 mg PO DAILY 90 days metformin ER 500 mg PO BID montelukast 10 mg PO DAILY 90 days nebulizers (AeroEclipse II Nebulizer) As directed nystatin 1 appl topical BID 14 days Oxygen Home Use As directed semaglutide 0.5 mg (0.736 mL) subcut QWEEK 4 weeks Ventolin HFA 90 mcg/actuation (albuterol sulfate) 2 puffs inhalation Q4H PRN NS walker with seat HPI Comments Details: This is a 69-year-old female with a past medical history of B12 deficiency, neur opathy, osteoporosis, pulmonary nodules, hypothyroidism, COPD, HIV, hyperlipidemia, hypertension and type 2 diabetes who presents for diabetic management. She was last seen in the endocrinology department by Dr. Story in July of 2024. She is accompanied by her daughter. lead technical writer, Monae Bertin, present for visit. Tablet did not work. She was diagnosed with diabetes about 13 years ago. I reviewed the patient's Retail Info 3 download today CGM active 50% Average glucose 114 GMI 6% Glucose variability 22.9% Very high 0% High 3% Target range 94% Low 2% Very low 1% There is a pattern of hypoglycemia between 5am and 10 am, but there is a paucity of data. Patient says she is getting frequent signal loss with the sensor which may be related to positional changes during sleeping. She denies any symptoms of hypoglycemia. She does not have a fingerstick glucometer to confirm readings. Hemoglobin a1c 6.1% 10/12/2024. Current medication regimen: Ozempic 0.5 mg weekly, metformin extended release 500 mg twice a day Compliance issues: none Diet: Edentulate, but she doesn't monitor what she eats or follow a diabetic diet, and she does have some juice and soda. Hypoglycemia symptoms: none Hyperglycemia symptoms: none Eye exam: Done 08/10/2024 Microvascular complications: neuropathy Macrovascular complications: none Hypertension: treated with lisinopril 10 mg Hyperlipidemia: treated with atorvastatin 20 mg Fib4 value 1.67. ROS: Constitutional: No unexplained weight loss, fever, chills, fatigue or night sweats. Gastrointestinal: No anorexia, nausea, vomiting or diarrhea. No abdominal pain or blood in stool. Neurologic: No headache, dizziness, syncope Skin: No wounds or rashes. +dry skin on the feet - recommended gold [place] for diabetic skin Endocrine: No cold or heat intolerance. No polyuria or polydipsia. Physical exam: Constitutional: Alert, in no distress. Neck: Supple, Full range of motion. No lymphadenopathy. No palpable thyroid masses. Respiratory: Clear to auscultation. Cardiovascular: S1 S2 regular. No murmurs Right foot: Warm and well perfused. No clubbing, cyanosis or edema. DP pulse 3+. Decreased vibratory sensation. Intact sensation to monofilament. Dry skin noted. Left foot: Warm and well perfused. No clubbing, cyanosis or edema. DP pulse 3+. Decreased vibratory sensation. Intact sensation to monofilament. Dry skin noted. [facility] Medical History (Updated 10/12/24 @ 10:48 by JAM Storm) Controlled type 2 diabetes with neuropathy Bronchiolitis B12 deficiency Chronic respiratory failure Loss of balance Lumbar degenerative disc disease Obesity (BMI 30-39.9) Age-related osteoporosis without current pathological fracture Pulmonary nodules Obese Intertrigo Anemia Hypothyroidism COPD (chronic obstructive pulmonary disease) HIV (human immunodeficiency virus infection) Pure hypercholesterolemia Essential hypertension Diabetes mellitus Surgical History History of laparoscopy History of tubal ligation Family History Father Medical history unknown Mother Diabetes Hypertension CVD (cardiovascular disease) Pulmonary embolism Sister Crohn disease Maternal Aunt Breast cancer Brother Substance abuse Family/Other FH: mental illness Social History Housing: Apartment Alcohol intake: never Patient Tobacco Use Status: Former Tobacco user Tobacco use type: Cigarette Years Smoked: 38 years e-Cigarette/Vaping Use: Never Used Second Hand Smoke Exposure: No service: No Current occupational status: disabled Current occupation: right hand dominant Cognitive needs: No Hearing needs: No Vision needs: No Physical Exam Vital Signs: Last Vital Signs Pulse 73 10/12/24 09:45 BP 130/58 L 10/12/24 09:45 Pulse Ox 97 10/12/24 09:45 Oxygen Delivery Method Room Air 10/12/24 09:45 BMI result Body Mass Index 32.6 Office Procedures Glucose Monitoring Details Details: see HPI 15668 - Glucose monitoring, continuous-physician I&R Procedure code (CPT) selection complete Results AMB Hemoglobin A1c AMB Hemoglobin A1c 6.1 % Last Edit by CHEVY Lopez on 10/12/24 10:08 Results Reviewed Results Reviewed: Laboratory Last Values Glucose (Clinic) 107 mg/dL (60-115) 10/12/24 09:52 Laboratory Tests 12/12/20 10/21/21 06/22/24 14:12 09:04 08:20 Plt Count Creatinine Estimated GFR Hgb A1c (Clinic) AST ALT B-Natriuretic Peptide < 10 Triglycerides LDL Cholesterol Direct 64 Cholesterol HDL Cholesterol TSH Urine Creatinine Urine Microalbumin < 5.0 Microalb/Creat Ratio TNP 06/22/24 06/26/24 10/01/24 09:15 10:51 10:00 Plt Count Creatinine Estimated GFR Hgb A1c (Clinic) 5.9 AST ALT B-Natriuretic Peptide Triglycerides 113 LDL Cholesterol Direct Cholesterol 114 HDL Cholesterol 39 L TSH 3.01 Urine Creatinine 112 Urine Microalbumin Microalb/Creat Ratio 10/01/24 10:34 Plt Count 257 Creatinine 0.74 Estimated GFR > 60 Hgb A1c (Clinic) AST 26 ALT 17 B-Natriuretic Peptide Triglycerides LDL Cholesterol Direct Cholesterol HDL Cholesterol TSH Urine Creatinine Urine Microalbumin Microalb/Creat Ratio Assessment & Plan Assessment & Plan (1) Controlled type 2 diabetes with neuropathy: Code(s): E11.40 - Type 2 diabetes mellitus with diabetic neuropathy, unspecified Category: Medical Plan In summary this is a 69-year-old female with well-controlled type 2 diabetes with neuropathy. She has been having difficulty with her sensor. We discussed placement strategies to mitigate this. She is going to also try to use the Marco 3+ instead of the Marco 3. I will see if we can get her a 3 month supply through a [employer]. If she has continued issues she will call the office, and we will refer her to the consumer educator. She declined referral today. She and I discussed a diabetic diet. She declines referral to the dietitian. She will have blood work done prior to her next 3 month appointment. Ordered B12 and BNP screening tests. Discussed pathophysiology of Type II Diabetes Mellitus with the patient in detail.? I explained the fci risks and complications associated with uncontrolled diabetes including nephropathy, neuropathy, peripheral vascular disease, retinopathy, increased risk of heart disease and stroke.? Eye exam is up-to-date. One-Touch glucometer system sent to pharmacy. If CGM alerts to a low glucose reading and she is asymptomatic she will check a fingerstick and treat this if appropriate. Written instructions for hypoglycemia given in [place] and [place]. Glucose gel sent to pharmacy. This is medically necessary since she is edentulate. Follow up in 1 month to review sensor data. I want to confirm she is not having frequent episodes of hypoglycemia. Orders: Orders Vitamin B12 Today Z91.89 - Other specified personal risk factors, not elsewhere classified Basic Metabolic Panel 3 Months E11.42 - Type 2 diabetes mellitus with diabetic polyneuropathy Hemoglobin A1c 3 Months E11.9 - Type 2 diabetes mellitus without complications AMB Glucose Monitoring Today E11.9 - Type 2 diabetes mellitus without complications AMB Hemoglobin A1c Today E11.42 - Type 2 diabetes mellitus with diabetic polyneuropathy B Type Natriuretic Peptide Today E11.9 - Type 2 diabetes mellitus without com plications Medications: New dextrose (TRUEplus Glucose) until symptoms of low blood sugar are controlled 15 grams (32 mL) PO Q15M PRN 128 mL 3RF hypoglycemia lancets As directed to monitor glucose 4x/day. 100 ea 5RF Changed From blood-glucose meter (OneTouch Ultra2 Meter kit) As directed tests 4 X/day 1 ea 0RF E11.42 - Type 2 diabetes mellitus with diabetic polyneuropathy To blood-glucose meter As directed tests 4 X/day 1 ea 0RF E11.42 - Type 2 diabetes mellitus with diabetic polyneuropathy Refilled blood-glucose sensor (FreeStyle Marco 3 Plus Sensor device) Apply 1 new sensor every 14 days as directed to monitor blood glucose continuously. 6 ea 3RF E11.42 - Type 2 diabetes mellitus with diabetic polyneuropathy blood sugar diagnostic (OneTouch Ultra Test strips) USE DIRECTED TESTS 4 X/DAY 100 strips 5RF E11.42 - Type 2 diabetes mellitus with diabetic polyneuropathy Patient Instructions: If you experience low blood sugar, treat this by eating a chewable fruit candy like skittles or jelly beans (about 8 pieces), 4 ounces (1/2 cup) of fruit juice (not diet), 1 tablespoon of honey or 4 glucose tablets or 1 pack of glucose gel. If your blood sugar is under 55, take double the amount of one of the above. Recheck your blood sugar in 15 minutes. Continue Metformin and Ozempic. Please call if the sensor is still alerting you to frequent signal loss in a week. Si experimenta un nivel bajo de az?car en la ivory (<70), tr?telo comiendo un jessica de fruta masticable molly bolos o gominolas (aproximadamente 8 piezas), 4 onzas (1/2 taza) de jugo de fruta (no diet?stewart), 1 cucharada de miel o 4 tabletas de glucosa o 1 paquete de gel de glucosa. Si brunner nivel de az?car en ivory es inferior a 55, tome el doble de jordan de los anteriores. Vuelva a controlar brunner nivel de az?car en la ivory en 15 minutos. Continuar con Metformina y Ozempic. Llame si el sensor todav?a le alerta sobre cathy p?rdida frecuente de se?al en cathy semana. Coding Level of Care Code Est Pt Level 5 (90123) Diagnoses Controlled type 2 diabetes with neuropathy E11.40 CPT Codes Details - CPT: 63217 - Glucose monitoring, continuous-physician I&R ([id number]) Time Spent (min) 58 Comment chart review, direct patient care, completing documentation
[2024-10-12 09:45] VITALS: BP 130/58; PULSE 73; O2SAT 97; BMI 32.6
[2024-10-12 09:59] LABS: Glucose, Whole Blood 107 mg/dL (60-115)
--- OUTSIDE RECORDS SUMMARY | 2024-10-12 10:06 | XMS_ITS | Data Portability ---
Author Organization ZOË - AYDEE REVELES MD [facility], Main Office Address [address] [place] [phone] Assessment Encounter Date Assessment Date Assessment LastModified by Organization Details LastModified Time 05/27/2023 05/27/2023 doximity; video; 19 min [email or web address] Not available 05/27/2023 14:11:09 08/30/2023 08/30/2023 telemedicine. [place] in [place] audio. 20 min [email or web address] Not available 08/30/2023 11:19:53 11/30/2023 11/30/2023 AUDIO. [place]. [place] audio. 18 min [email or web address] Not available 11/30/2023 09:20:29 04/12/2024 04/12/2024 AUDIO. [place]. [place] audio. 16 min [email or web address] Not available 04/12/2024 11:47:22 07/13/2024 07/13/2024 video. telemedicine. pt [place] audio. 17 min [email or web address] Not available 07/13/2024 09:50:20 Plan of Treatment Reminders Order Date Submit Date Provider Last Modified By Organization Details Last Modified Time Details Appointments TH B20 F/U 2024 09:00A Aretha Rizzo MD Not available Not available Not available Lab hepatiti s C RNA, qualitat meelina, serum [address] (Lab), [address] [place] [address], [id number], 07/28/2023 15:35:59 hepatiti s B virus, DNA, blood [address] (Lab), [address] [place] [address], [id number], 07/28/2023 15:35:59 CBC w/ diff [address] [place] [address] (Lab), [address] [place] [address], [id number], 07/28/2023 15:35:57 electrol ytes panel, blood [address] (Lab), [address] [place] [address], [id number], 07/28/2023 15:35:57 ALT (alanine aminotra nsferase ), serum or plasma [address] [place] [address] (Lab), [address] [place] [address], [id number], 07/28/2023 15:35:58 AST/SGOT (asparta te aminotra nsferase ), serum or plasma [address] (Lab), [address] [place] [address], [id number], 07/28/2023 15:35:58 CT + NG DNA, PCR, unspecif ied specimen [address] [place] [address] (Lab), [address] [place] [address], [id number], 07/28/2023 15:35:58 creatini ne w/ estimate d GFR (eGFR), serum or plasma [address] (Lab), [address] [place] [address], [id number], 07/28/2023 15:35:58 HIV-1 RNA, quantita tive, PCR, serum or plasma [address] (Lab), [address] [place] [address], [id number], 07/28/2023 15:35:58 RPR (rapid plasma reagin), serum [address] (Lab), [address] [place], [address], 07/28/2023 15:35:59 T-cell regulato ry subsets panel, blood [address] (Lab), [address] [place], [address], 07/28/2023 15:35:59 Referral None recorded . Procedures None recorded . Surgeries None recorded . Imaging US, abdomen - RUQ pain [address], [place], [address], 07/27/2024 14:33:12 Medication Orders Bactrim DS 800 mg-160 mg tablet 2023 024 [email or web address] [facility]acy #[id number], [address] [place], [address], 07/13/2024 09:52:03 Descovy 200 mg-25 mg tablet 2023 024 [facility]/Pharmacy #2071, [address] [place], [address], 07/13/2024 09:52:02 Tivicay 50 mg tablet 2023 024 [facility]/Pharmacy #2071, [address] [place], [address], 07/13/2024 09:52:01 Bactrim DS 800 mg-160 mg tablet 2023 024 [facility]/Pharmacy #2071, [address] [place], [address], 04/12/2024 11:45:34 Descovy 200 mg-25 mg tablet 2023 024 [facility]/Pharmacy #2071, [address] [place], [address], 04/12/2024 11:45:34 Tivicay 50 mg tablet 2023 024 [facility]/Pharmacy #2071, [address] [place], [address], 04/12/2024 11:45:33 Bactrim DS 800 mg-160 mg tablet 2023 024 [facility]/Pharmacy #2071, [address] [place], [address], 11/30/2023 09:21:41 Descovy 200 mg-25 mg tablet 2023 024 [facility]/Pharmacy #2071, [address] [place], [address], 11/30/2023 09:21:41 Tivicay 50 mg tablet 2023 024 [facility]/Pharmacy #2071, [address] [place], [address], 11/30/2023 09:21:40 Descovy 200 mg-25 mg tablet 2023 024 [facility]armacy #2071, [address] [place], [address], 08/30/2023 11:19:45 Tivicay 50 mg tablet 2023 024 [facility]/Pharmacy #2071, [address] [place], [address], 08/30/2023 11:19:40 Descovy 200 mg-25 mg tablet 2022 023 [facility]/Pharmacy #2071, [address] [place], [address], 05/27/2023 14:09:10 Tivicay 50 mg tablet 2022 023 [facility]/Pharmacy #4065, [address] [place], [address], 05/27/2023 14:09:09 Bactrim DS 800 mg-160 mg tablet 2022 023 [facility]/Pharmacy #6392, [address] [place], [address], 05/27/2023 14:09:09 Patient TargetsNo targets recorded. Patient InstructionsNo instructions [...] Recorded Time Chronic obstructi ve pulmonary disease 58679221 Active 2023 Aydee Rizzo MD [address] [place], [place] [address], [address] , [facility] 4 11:17:18 Human immunodef iciency virus infection 98577875 Active 2023 MD [facility] [place], [address] , [facility] RIZZO [facility] 4 11:17:23 Viral hepatitis C 50680187 Active 2023 MD Abel [place], [address] , [facility] R[facility]ZO [facility] 4 11:17:45 HIV seroposit ivity Active 2015 HIV seropositi vity; snomeddesc ription: HIV seropositi vity; Report Immunity to Registry: Yes; Notes: dx 1989 IVDU [id number] neg 2007 genotype 2007; Not Available [facility] 4 06:58:29 Emphysema tous bronchiti s 216758598 Active 2013 Emphysemat ous bronchitis ; snomeddesc ription: Emphysemat ous bronchitis ; Report Immunity to Registry: Yes; Obstructi ve chronic bronchitis , without exacerbati on; snomeddesc ription: Emphysemat ous bronchitis ; Report Immunity to Registry: Yes; Not Available [facility] 4 06:58:30 Osteopeni a 492987628 Active 2014 Osteopenia ; snomeddesc ription: Osteopenia ; Report Immunity to Registry: Yes; Notes: endocrinol ogy; Not Available [facility] 4 06:58:30 Indigesti on 628911603 Active 2013 Dyspepsia and other specified disorders of function of stomach; snomeddesc ription: Indigestio n; Report Immunity to Registry: Yes; Indigesti on; snomeddesc ription: Indigestio n; Report Immunity to Registry: Yes; Not Available [facility] 4 06:58:30 Cobalamin deficienc y 323446805 Active 2013 Cobalamin deficiency ; snomeddesc ription: Cobalamin deficiency ; Report Immunity to Registry: Yes; Not Available [facility] 4 06:58:30 Disorder of bone and articular cartilage 001130895 Active 2014 Disorder of bone and cartilage, unspecifie d; snomeddesc ription: Osteopenia ; Report Immunity to Registry: Yes; Notes: endocrinol ogy; Not Available [facility] 4 06:58:30 Vitamin B deficienc y 87629460 Active 2013 Other B-complex deficienci es; snomeddesc ription: Cobalamin deficiency ; Report Immunity to Registry: Yes; Not Available [facility] 4 06:58:30 Viral hepatitis B without hepatic coma 971978103 Active 2016 Unspecifie d viral hepatitis B without hepatic coma; snomeddesc ription: Type B viral hepatitis; Report Immunity to Registry: Yes; Notes: past hx core ab pos; s ag neg; s ab pos 2016 HBV undetected 2016, 2017; Not Available [facility] 4 06:58:30 Hepatitis C carrier 200176648 Active 2017 Hepatitis C carrier; snomeddesc ription: Hepatitis C carrier; Report Immunity to Registry: Yes; Notes: VL undetectab le 2010; 2012; Ab pos; VL neg 2014; neg 12/2015; 2016; 2017; Not Available [facility] 4 06:58:31 Type B viral hepatitis 02539195 Active 2016 Type B viral hepatitis; snomeddesc ription: Type B viral hepatitis; Report Immunity to Registry: Yes; Notes: past hx core ab pos; s ag neg; s ab pos 2016 HBV undetected 2017; Not Available [facility] 4 06:58:31 Type 2 diabetes mellitus 85700971 Active 2023 Aydee Rizzo MD [address] [place] [address], [phone] , [facility] - AYDEE RIZZO MD [facility] 4 11:48:54 Problem Notes None recorded. Procedures [...] 01/24 completed VACCINE_ IND: no; SU_FULL_ NAME: yAdee morales; Not Available Not Available Not Available [...] Pneumoco ccal conjugat e PCV20, polysacc haride [id number] conjugat e, adjuvant , PF; SU_FULL_ NAME: [...] Time Meningococcal MCV4O 0 completed Not Available [facility] 10/12/2023 06:54:07 Influenza, split virus, quadrivalent, preservative 8 completed Not Available [facility] 10/12/2023 06:54:07 Influenza, split virus, quadrivalent, preservative 9 completed Not Available [facility] 10/12/2023 06:54:07 Past Encounters Encounter ID Performer Location Encounter Start Date Encounter Closed Date Diagnosis/Indication Diagnosis SNOMED-CT Code Diagnosis ICD10 Code Diagnosis Note [id number] Aydee Rizzo MD Main Office [address] [place] [phone] 05/27/2023 13:01:20 05/27/2023 14:11:08 Human immunodeficiency virus infection 07248906 B20 HIV: Continue Descovy 1 tab po [...] care reviewed. Questions and concerns addressed Neuropathy 981750929 G62 .9 on gabapentin . Chronic ob structive pulmonary disease 80375088 J44.9 On Bactrim DS tiw suppressio n tx to prevent bronchitis /pneumonia .on o2 supplement F/u pulmonary. RSV vaccine recommende dflu vaccineon Bactrim DS tiw. Hepatitis C virus detected by enzyme-linked immunosorbent assay 534954039 R76.8 HCV VL nondetcete d. past infection. [id number] Aydee Rizzo MD Main Office [address] [place] [phone] 08/30/2023 09:37:12 08/30/2023 12:56:26 Human immunodeficiency virus infection [id number] B20 HIV: Continue Descovy 1 tab po [...] concerns addressed Chronic ob structive pulmonary disease 00541373 J44.9 On Bactrim DS tiw suppressio n tx to prevent bronchitis /pneumonia .on o2 supplement F/u pulmonary. on Bactrim DS tiw for suppressio n of infection. vaccines recommende d Viral hepatitis C 051967 07 B19.20 past hx.VL undetectab le 2010; 2013; Ab pos; VL neg 2014; neg 12/2015; 2016; 2018 [id number] Aydee Rizzo MD Main Office [address] [place] [address] 11/30/2023 09:03:23 11/30/2023 09:24:26 Human immunodeficiency virus infection 26506235 B20 HIV: Continue Descovy 1 tab po qd and Tivicay 50 mg po qd. compliance reviewed to prevent viral resistance , keep viral suppressio n and prevent transmissi on.pt aware of PreP availabili ty; U=U; condom use to prevent STI's. Plan of care reviewed. Questions and concerns addressed Chronic ob structive pulmonary disease 58265720 J44.9 On Bactrim DS tiw suppressio n tx to prevent bronchitis /pneumonia .on o2 supplement F/u pulmonary. [id number] Aydee Rizzo MD Main Office [address] [place] [address] 04/12/2024 11:41:47 04/12/2024 12:24:59 Human immunodeficiency virus infection 58054914 B20 HIV:Contin ue Descovy 1 tab po qd and Tivicay 50 mg po qd. compliance reviewed to prevent viral resistance , keep viral suppressio n and prevent transmissi on.pt aware of PreP availabili ty; U=U; condom use to prevent STI's.DOXY PEP reviewedPl an of care reviewed. Questions and concerns addressed Chronic ob structive pulmonary disease 24806915 J44.9 On Bactrim DS tiw suppressio n tx to prevent bronchitis /pneumonia .on o2 supplement F/u pulmonary. Type 2 cherry betes mellitus 45353217 E11.9 on Ozempic sq qw.f/u PCP [id number] Aydee Rizzo MD Main Office [address] [place] [address] 07/13/2024 09:45:07 07/13/2024 09:53:56 Human immunodeficiency virus infection 94972008 B20 HIV:Contin ue Descovy 1 tab po qd and Tivicay 50 mg po qd. compliance reviewed to prevent viral resistance , keep viral suppressio n and prevent transmissi on.COVID19 and RSV vaccines prescribed .Plan of care reviewed. Questions and concerns addressed Chronic ob structive pulmonary disease 73651906 J44.9 On Bactrim DS tiw suppressio n tx to prevent bronchitis /pneumonia .on o2 supplement F/u pulmonary. Right uppe r quadrant pain 613367636 R10.11 will get lab results for ALt/ASTu/s [...] Michel Member ID Guarantor Name 05/27/2023 1 [facility] vushaper - DOS ON OR AFTER 2022 - DUAL ELIGIBLE - SNF OPTIONS AND ONE CARE (MEDICARE REPLACEMENT/ADV ANTAGE - HMO) [place] Mendoza [id number] [place] Mendoza 08/30/2023 1 [facility] vushaper - DOS ON OR AFTER 2022 - DUAL ELIGIBLE - SNF OPTIONS AND ONE CARE (MEDICARE REPLACEMENT/ADV ANTAGE - HMO) [place] Mendoza [id number] [place] Mendoza 11/30/2023 1 [facility] vushaper - DOS ON OR AFTER 2022 - DUAL ELIGIBLE - SNF OPTIONS AND ONE CARE (MEDICARE REPLACEMENT/ADV ANTAGE - HMO) Indiana Mendoza [id number] [place] Mendoza 04/12/2024 1 [facility] vushaper - DOS ON OR AFTER 2022 - DUAL ELIGIBLE - SNF OPTIONS AND ONE CARE (MEDICARE REPLACEMENT/ADV ANTAGE - HMO) Indiana Mendoza [id number] Indiana Mendoza 07/13/2024 1 [facility] - DOS ON OR AFTER 2022 - DUAL ELIGIBLE - SNF OPTIONS AND ONE CARE (MEDICARE REPLACEMENT/ADV ANTAGE - HMO) Indiana Mendoza [id number] Indiana Mendoza Notes Date Note Type Note Provider Name and Address Organization Details Recorded Time 3 text/html /u HIV.Telemedicine visit. video. pt home in [place]. 19 min visit.pt is on Descovy 1 tab po qd and Tivicay 50 mg 1 tab po daily.compliant; denies missing doses.wants to keep same regimen.med list reviewed.no recent labs11/2022 VE3=6068; HIV VL nondetceted; ALt/AST wnl; eGFR>6012 HIV VL nondetceted; AO7=6247; ALT/AST wnl; eGFR>609 SD1=4707; HIV VL nondetected; eGFR>60. CKD hx.on Bactrim tiw to prevent recurrent bronchitis/pneumonia/hospi talizations. taking compliantly.tolerates well. has not been hospitalized. not for OI prophylaxis.not sexually activeno new meds.had shingles vaccine. had pneumonia vaccine and COVID vaccine boosteron neurontin for neuropathy Aydee Rizzo MD [address] [place] [address], [phone], [facility] - AYDEE RIZZO MD [facility] 05/27/2023 14:20:38 4 text/html /u HIV.pt is on Descovy 1 tab po qd and Tivicay 50 mg 1 tab po daily.compliant; denies missing doses.happy w regimen.aware of clinical trials.med list reviewed.lab results reviewed.08/26/2022 HIV VL nondetceted; VH9=8055; ALt/AST wnl;eGFR.60; syphilis NR; eGFR>6004/2023 HIV VL nondetceted; CD4 [address]5575/2022 JX8=3703; HIV VL nondetceted; ALt/AST wnl; eGFR>6012/2021 HIV VL nondetceted; NC1=8521; ALT/AST wnl; eGFR>609/2021 IM9=1167; HIV VL nondetected; eGFR>60. CKD hx.on Bactrim tiw to prevent recurrent bronchitis/pneumonia/hospi talizations. taking compliantly.tolerates well. has not been hospitalized. not for OI prophylaxis.not sexually activemed list reviewed.vaccines uptodate to include flu/COVID among other. Adyee Rizzo MD [address] [place] [address], [phone], [facility] 08/30/2023 11:20:05 4 text/html /u HIV.pt is on Descovy 1 tab po qd and Tivicay 50 mg 1 tab po daily.compliant; denies missing doses.happy w regimen.prefers to keep same regimenmed list reviewed.lab results reviewed.has not been sick; no hospitalizations08/2023 HIV VL nondetceted; CI4=9067; AST/ALt wnl; no syphilis; HBV VL nondetceted.08/26/2022 HIV VL nondetceted; KY5=8847; ALt/AST wnl;eGFR.60; syphilis NR; eGFR>609 HIV VL nondetceted; CD4 39900/2022 CU2=8045; HIV VL nondetceted; ALt/AST wnl; eGFR>6012/2021 HIV VL nondetceted; DQ8=4539; ALT/AST wnl; eGFR>609/2021 RU7=6983; HIV VL nondetected; eGFR>60. CKD hx.on Bactrim tiw to prevent recurrent bronchitis/pneumonia/hospi talizations.not sexually activemed list reviewed. Aydee Rizzo MD [address] [place] [address], [phone], [facility] 11/30/2023 09:21:47 4 text/html /u HIV.pt is on Descovy 1 tab po qd and Tivicay 50 mg 1 tab po daily.compliant; denies missing doses.happy w regimen.med list reviewed.lab results reviewed.has not been sick; no hospitalizations03/2024 HIV VL Pending; partial resulst available.08/2023 HIV VL nondetceted; XX6=5039; AST/ALt wnl; no syphilis; HBV VL nondetceted.08/26/2022 HIV VL nondetceted; AS5=7744; ALt/AST wnl;eGFR.60; syphilis NR; eGFR>60 on Bactrim tiw to prevent recurrent bronchitis/pneumonia/hospi talizations.not sexually activemed list reviewed. pt was diabetic. on ozempic qw sc.she has lost some weight. Aydee Rizzo MD [address] [place], [address], [place] [facility] 04/12/2024 11:49:10 4 text/html f/u HIV.pt is on Descovy 1 tab po qd and Tivicay 50 mg 1 tab po daily.compliant; denies missing doses.happy w regimen.RUQ for few months; on/off; -01/29 . not after she eats. denies ETOH. no jaundice.lab results reviewed. no n/v/d.weight loss while on ozempic for DM.has not been sick; no dvzlxvvyvotwlqdx24/19/2024 HIV VL nondetected03/2024 HIV VL Pending; partial resulst available.08/2023 HIV VL nondetceted; IR4=1207; AST/ALt wnl; no syphilis; HBV VL nondetceted.08/26/2022 HIV VL nondetceted; FS2=4156; ALt/AST wnl;eGFR.60; syphilis NR; eGFR>60on Bactrim tiw to prevent recurrent bronchitis/pneumonia/hospi talizations. no flareups whil dana Bactrim suppression tx.not sexually activemed list reviewed.got the flu vaccinetrasnportation problems: daughter works and gets out late. Aydee Rizzo MD [address] [place], [address], [place] [facility] 07/13/2024 09:55:33 OBGyn Episode No OBEpisode recorded.
== END 2024-10-12 10:34 | disposition home or self-care (01) ==
PROVIDERS: PCP Internal Medicine; Visit Provider Physician Assistant Medical
DX: E11.42 Type 2 diabetes mellitus with diabetic polyneuropathy (principal); E11.40 Type 2 diabetes mellitus with diabetic neuropathy, unspecified

== ENCOUNTER → 2024-10-12 09:35 | Outpatient (BNVA) | payer OTHER, SELFPAY | PROVIDERS: PCP Internal Medicine; Visit Provider Physician Assistant Medical | DX: E11.40 Type 2 diabetes mellitus with diabetic neuropathy, unspecified (principal); Z79.84 Long term (current) use of oral hypoglycemic drugs | CPT/HCPCS: 82947; 83036; 99212 ==

== ENCOUNTER 2024-11-09 10:17 | Outpatient (AMB) | payer OTHER, SELFPAY ==
--- NOTE | 2024-11-09 10:26 | MHC.OFFVIS ---
Vital Signs 11/09/24 10:29 Height 5 ft 2 in Weight 175 lb 4.28 oz BMI 32.1 BP 116/58 L Blood Pressure Location Lt brachial Position Sitting Pulse 78 Pulse Source Pulse Oximeter Pulse Oximetry (%) 98 Oxygen Delivery Method Room Air Intake Visit Reasons: T2DM Intake Note: Patient present today to follow up on Type 2 Diabetes Mellitus. Last Diabetic Eye exam: July 2024 Last Podiatry Visit: Does not see a Internet Marketing Coordinator Random Glucose: 105 mg/dl HgA1C: 6.1% 10/12/2024 Weapons Mechanic Required: Yes Weapons Mechanic Language: Adjunct Physics Instructor Services: Weapons Mechanic Offered & Declined Information Interpreted: non-clinical & clinical Accompanied by: Daughter Allergies egg [EGG] Allergy (Intermediate, Verified 11/09/24 10:29) STOMACH UPSET Medication List - Last Reconciled 11/09/24 by JAM Storm albuterol sulfate 2.5 mg (3 mL) inhalation Q6H PRN 30 days alcohol swabs (Alcohol Prep Pads) 1 pad topical BID 90 days alendronate 70 mg PO QWEEK atorvastatin 20 mg PO BEDTIME 90 days blood sugar diagnostic (Nex3 CommunicationsTouch Ultra Test strips) USE DIRECTED TESTS 4 X/DAY blood-glucose meter (Nex3 CommunicationsTouch Ultra2 Meter) As directed to check blood glucose 4 times a day blood-glucose meter,continuous ([employer] G7 Splicer Apprentice) As directed blood-glucose sensor (Dexcom G7 Sensor device) apply new sensor every 10 days as directed calcium carbonate-vitamin D3 600 mg-10 mcg (400 unit) 1 tab PO BID 90 days cholecalciferol (vitamin D3) 50 mcg PO DAILY dextromethorphan-guaifenesin 60-1,200 mg ER (Mucinex DM) 1 tab PO Q12H 14 days dextrose (TRUEplus Glucose) 15 grams (32 mL) PO Q15M PRN dolutegravir (Tivicay) 50 mg PO DAILY doxycycline hyclate 100 mg PO BID 10 days emtricitabine-tenofovir alafen 200-25 mg (Descovy) 1 tab PO DAILY bmvhzmfhseo-ojoxfijyq-rqyrtanq 200-62.5-25 mcg (Trelegy Ellipta) 1 inh inhalation DAILY 30 days lancets As directed to check blood glucose 4x/day. levothyroxine 25 mcg PO DAILY lisinopril 10 mg PO DAILY 90 days metformin ER 500 mg PO BID montelukast 10 mg PO DAILY 90 days nebulizers (AeroEclipse II Nebulizer) As directed nystatin 1 appl topical BID 14 days Oxygen Home Use As directed semaglutide 0.5 mg (0.736 mL) subcut QWEEK 4 weeks Ventolin HFA 90 mcg/actuation (albuterol sulfate) 2 puffs inhalation Q4H PRN NS walker with seat HPI Comments Details: This is a 69-year-old female with a past medical history of B12 deficiency, neuropathy, osteoporosis, pulmonary nodules, hypothyroidism, COPD, HIV, hyperlipidemia, hypertension and type 2 diabetes who presents for diabetic management. She is accompanied by her daughter. 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 She was diagnosed with diabetes about 13 years ago. I reviewed the patient's Marco 3 download today CGM active 38% Average glucose 108 Very high 0% High 2% Target range 98% Low 0% Very low 0% Paucity of data. They placed the Marco 3 days ago. They did receive the new Dexcom G7 from reliable, but they misplaced the barber. She found it yesterday. Hemoglobin a1c 6.1% 10/12/2024. Current medication regimen: Ozempic 0.5 mg weekly, metformin extended release 500 mg twice a day Compliance issues: none Diet: Edentulate, but she doesn't monitor what she eats or follow a diabetic diet, and she does have some juice and soda. Hypoglycemia symptoms: none Hyperglycemia symptoms: none Eye exam: Done 08/10/2024 Microvascular complications: neuropathy Macrovascular complications: none Hypertension: treated with lisinopril 10 mg Hyperlipidemia: treated with atorvastatin 20 mg Fib4 value 1.67. ROS: Constitutional: No unexplained weight loss, fever, chills, fatigue or night sweats. Gastrointestinal: No anorexia, nausea, vomiting or diarrhea. No abdominal pain or blood in stool. Neurologic: No headache, dizziness, syncope Skin: No wounds or rashes. Endocrine: No cold or heat intolerance. No polyuria or polydipsia. Physical exam: Constitutional: Alert, in no distress. Neck: Supple, Full range of motion. No lymphadenopathy. No palpable thyroid masses. Respiratory: Clear to auscultation. Cardiovascular: S1 S2 regular. No murmurs [facility] Medical History (Updated 10/12/24 @ 10:48 by JAM Storm) Controlled type 2 diabetes with neuropathy Bronchiolitis B12 deficiency Chronic respiratory failure Loss of balance Lumbar degenerative disc disease Obesity (BMI 30-39.9) Age-related osteoporosis without current pathological fracture Pulmonary nodules Obese Intertrigo Anemia Hypothyroidism COPD (chronic obstructive pulmonary disease) HIV (human immunodeficiency virus infection) Pure hypercholesterolemia Essential hypertension Diabetes mellitus Surgical History History of laparoscopy History of tubal ligation Family History Father Medical history unknown Mother Diabetes Hypertension CVD (cardiovascular disease) Pulmonary embolism Sister Crohn disease Maternal Aunt Breast cancer Brother Substance abuse Family/Other FH: mental illness Social History Housing: Apartment Alcohol intake: never Patient Tobacco Use Status: Former Tobacco user Tobacco use type: Cigarette Years Smoked: 38 years e-Cigarette/Vaping Use: Never Used Second Hand Smoke Exposure: No service: No Current occupational status: disabled Current occupation: right hand dominant Cognitive needs: No Hearing needs: No Vision needs: No Physical Exam Vital Signs: Last Vital Signs Pulse 78 11/09/24 10:29 BP 116/58 L 11/09/24 10:29 Pulse Ox 98 11/09/24 10:29 Oxygen Delivery Method Room Air 11/09/24 10:29 BMI result Body Mass Index 32.1 Results Reviewed Results Reviewed: Laboratory Last Values Glucose (Clinic) 105 mg/dL (60-115) 11/09/24 10:36 Laboratory Tests 12/12/20 10/21/21 06/22/24 14:12 09:04 08:20 Plt Count Creatinine Estimated GFR Hgb A1c (Clinic) AST ALT B-Natriuretic Peptide < 10 Triglycerides LDL Cholesterol Direct 64 Cholesterol HDL Cholesterol TSH Urine Creatinine Urine Microalbumin < 5.0 Microalb/Creat Ratio TNP 06/22/24 06/26/24 10/01/24 09:15 10:51 10:00 Plt Count Creatinine Estimated GFR Hgb A1c (Clinic) 5.9 AST ALT B-Natriuretic Peptide Triglycerides 113 LDL Cholesterol Direct Cholesterol 114 HDL Cholesterol 39 L TSH 3.01 Urine Creatinine 112 Urine Microalbumin Microalb/Creat Ratio 10/01/24 10:34 Plt Count 257 Creatinine 0.74 Estimated GFR > 60 Hgb A1c (Clinic) AST 26 ALT 17 B-Natriuretic Peptide Triglycerides LDL Cholesterol Direct Cholesterol HDL Cholesterol TSH Urine Creatinine Urine Microalbumin Microalb/Creat Ratio Assessment & Plan Assessment & Plan (1) Controlled type 2 diabetes with neuropathy: Code(s): E11.40 - Type 2 diabetes mellitus with diabetic neuropathy, unspecified Category: Medical Plan In summary this is a 69-year-old female with well-controlled type 2 diabetes with neuropathy. Continue regimen: Metformin extended release 500 mg twice daily and Ozempic 0.5 mg weekly. She and I discussed a diabetic diet. She declines referral to the dietitian. She will have blood work done prior to her next 3 month appointment. Discussed pathophysiology of Type II Diabetes Mellitus with the patient in detail.? I explained the terminal clerk risks and complications associated with uncontrolled diabetes including nephropathy, neuropathy, peripheral vascular disease, retinopathy, increased risk of heart disease and stroke.? Eye exam is up-to-date. Reviewed treatment of hypoglycemia. Follow up in 3 months for type 2 diabetes. Medications: Refilled semaglutide 0.5 mg (0.736 mL) subcut QWEEK 4 weeks 3 mL 5RF Coding Level of Care Code Est Pt Level 4 (85644) Complex EM visit Add On G2211 Diagnoses Controlled type 2 diabetes with neuropathy E11.40
[2024-11-09 10:29] VITALS: BP 116/58; PULSE 78; O2SAT 98; BMI 32.1
[2024-11-09 10:39] LABS: Glucose, Whole Blood 105 mg/dL (60-115)
--- OUTSIDE RECORDS SUMMARY | 2024-11-09 12:21 | XMS_ITS | Continuity of Care Document ---
Author Organization ZOË REVELES MD [facility], Main Office Address [address] [place] [phone] Assessment Encounter Date Assessment Date Assessment LastModified by Organization Details LastModified Time 10/15/2024 10/15/2024 video. telemedicine. pt home in [place]. audio. 19 min [email or web address] Not available 10/15/2024 09:56:46 Plan of Treatment Reminders Order Date Submit Date Provider Last Modified By Organization Details Last Modified Time Details Appointments None recorded. Lab CBC w/ diff [address] [place] [address] (Lab), [address] [place] [address], [id number], 5 08:51:28 ALT (alanine aminotransf erase), serum or plasma [address] [place] [address] (Lab), [address] [place] [address], [address], 5 08:51:28 AST/SGOT (aspartate aminotransf erase), serum or plasma [address] [place] [address] (Lab), [address] [place] [address], [address], 5 08:51:28 creatinine w/ estimated GFR (eGFR), serum or plasma [address] [place] [address] (Lab), [address] [place] [address], [address], 5 08:51:29 HIV-1 RNA, quantitativ e, PCR, serum or plasma [address] (Lab), [address] [place] [address], [address], 5 08:51:29 RPR (rapid plasma reagin), serum [address] (Lab), [address] [place] [address], [address], 5 08:51:29 T-cell regulatory subsets panel, blood [address] (Lab), [address] [place] [address], [address], 5 08:51:29 Referral None recorded. Procedures None recorded. Surgeries None recorded. Imaging None recorded. Medication Orders Bactrim DS 800 mg-160 mg tablet 2024 025 [facility][id number], [address] [place], [address], 5 10:09:08 Descovy 200 mg-25 mg tablet 2024 025 [facility][id number], [address] [place], [address], 5 10:09:08 Tivicay 50 mg tablet [address] [place] [address]/Pharmacy #[id number], [address] [place], [address], 5 10:09:08 Patient TargetsNo targets recorded. Patient InstructionsNo instructions recorded. Reason for Referral None Reported. Problems Name Problem SNOMED Code Status Onset Date Resolution Date Notes Provider Name and Address Organization Details Recorded Time Chronic obstructi ve pulmonary disease 93656509 Active 2023 Aydee Rizzo MD [address] [place] [address] [place], [phone] , [facility] - AYDEE RIZZO MD [facility] 4 11:17:18 Human immunodef iciency virus infection 84556059 Active 2023 Aydee Rizzo MD [address] [facility] [place], [address] , ZOË RIZZO MD [facility] 4 11:17:23 Viral hepatitis C 70512574 Active 2023 Aydee Rizzo MD [address] [facility] [place], [address] , ZOË RIZZO MD [facility] 4 11:17:45 HIV seroposit ivity Active 2015 HIV seropositi vity; snomeddesc ription: HIV seropositi vity; Report Immunity to Registry: Yes; Notes: dx 1990 IVDU [id number] neg 2008 genotype 2008; Not Available [facility] 4 06:58:29 Emphysema tous bronchiti s 714862473 Active 2013 Emphysemat ous bronchitis ; snomeddesc ription: Emphysemat ous bronchitis ; Report Immunity to Registry: Yes; Obstructi ve chronic bronchitis , without exacerbati on; snomeddesc ription: Emphysemat ous bronchitis ; Report Immunity to Registry: Yes; Not Available [facility] 4 06:58:30 Osteopeni a 072453398 Active 2014 Osteopenia ; snomeddesc ription: Osteopenia ; Report Immunity to Registry: Yes; Notes: endocrinol ogy; Not Available [facility] 4 06:58:30 Indigesti on 605671787 Active 2013 Dyspepsia and other specified disorders of function of stomach; snomeddesc ription: Indigestio n; Report Immunity to Registry: Yes; Indigesti on; snomeddesc ription: Indigestio n; Report Immunity to Registry: Yes; Not Available [facility] 4 06:58:30 Cobalamin deficienc y 164091902 Active 2013 Cobalamin deficiency ; snomeddesc ription: Cobalamin deficiency ; Report Immunity to Registry: Yes; Not Available [facility] 4 06:58:30 Disorder of bone and articular cartilage 964248920 Active 2014 Disorder of bone and cartilage, unspecifie d; snomeddesc ription: Osteopenia ; Report Immunity to Registry: Yes; Notes: endocrinol ogy; Not Available [facility] 4 06:58:30 Vitamin B deficienc y 49582331 Active 2013 Other B-complex deficienci es; snomeddesc ription: Cobalamin deficiency ; Report Immunity to Registry: Yes; Not Available [facility] 4 06:58:30 Viral hepatitis B without hepatic coma 541792878 Active 2016 Unspecifie d viral hepatitis B without hepatic coma; snomeddesc ription: Type B viral hepatitis; Report Immunity to Registry: Yes; Notes: past hx core ab pos; s ag neg; s ab pos 2016 HBV undetected 2017; Not Available [facility] 4 06:58:30 Hepatitis C carrier 685756881 Active 2017 Hepatitis C carrier; snomeddesc ription: Hepatitis C carrier; Report Immunity to Registry: Yes; Notes: VL undetectab le 2010; 2012; Ab pos; VL neg 2014; neg 12/2015; 2016; 2017; Not Available [facility] 4 06:58:31 Type B viral hepatitis 71870673 Active 2016 Type B viral hepatitis; snomeddesc ription: Type B viral hepatitis; Report Immunity to Registry: Yes; Notes: past hx core ab pos; s ag neg; s ab pos 2016 HBV undetected 2017; Not Available [facility] 4 06:58:31 Type 2 diabetes mellitus 78982422 Active 2023 Aydee Rizzo MD [address] [place] [address] [place], [address] [facility] ZOË - AYDEE RIZZO MD [facility] 4 11:48:54 Problem Notes None recorded. Medical Equipment None Reported. [...] tid; VACCINE_ IND: no; SU_FULL_ NAME: Aydee Martanam morales; Not Available Not Available Not Available [...] no; Not Available Not Available Not Available [employer]Touch Ultra Test strips 0 Quantity : 100; [...] qd; VACCINE_ IND: no; SU_FULL_ NAME: Aydee Shannon andrew; Not Available Not Available Not Available folic [...] tid; VACCINE_ IND: no; SU_FULL_ NAME: Aydee Shannon andrew; Not Available Not Available Not Available azelastin [...] week by oral route for 30 days. 2024 active Not Available Not Available Not Avai [...] ccal polysacc haride PPV23; SU_FULL_ NAME: Aydee Sellersanam morales; VIS_DATE : 14:13:43 .0; Not Available Not [...] qd; VACCINE_ IND: no; SU_FULL_ NAME: Aydee Sellersanam morales; Not Available Not Available Not Available [...] no; Not Available Not Available Not Available Angelitussi n DM Max 10 mg-200 mg/5 mL oral liquid 10 mg-200 mg/5 mL Quantity : 1; Duration : 5; 0 refill(s ) 07/13 completed Frequenc y: tid; Duration : 5; VACCINE_ IND: no; SU_FULL_ NAME: Aydee Shannon andrew; Not Available Not Available Not Available Yifan [...] oral route for 30 days, for HIV. 2024 active Not Available Not Available Not Avai [...] oral route for 30 days, for HIV. 2024 active Not Available Not Available Not Avai [...] lent; SU_FULL_ NAME: Aydee morales; VIS_DATE : 19:32:33 .0; Not Available [...] Pneumoco ccal conjugat e PCV20, polysacc haride [id number] conjugat e, adjuvant , PF; SU_FULL_ NAME: [...] Time Meningococcal MCV4O 0 completed Not Available [facility] 10/12/2023 06:54:07 Influenza, split virus, quadrivalent, preservative 8 completed Not Available [facility] 10/12/2023 06:54:07 Influenza, split virus, quadrivalent, preservative 9 completed Not Available [facility] 10/12/2023 06:54:07 Past Encounters Encounter ID Performer Location Encounter Start Date Encounter Closed Date Diagnosis/Indication Diagnosis SNOMED-CT Code Diagnosis ICD10 Code Diagnosis Note [id number] Aydee Rizzo MD Main Office [address] [place] [phone] 10/15/2024 09:08:19 10/23/2024 09:49:02 Human immunodeficiency virus infection 67311007 B20 HIV:Contin ue Descovy 1 tab po qd and Tivicay 50 mg po qd. compliance reviewed to prevent viral resistance , keep viral suppressio n and prevent transmissi on.COVID19 and RSV vaccines prescribed .Plan of care reviewed. Questions and concerns addressed Chronic ob structive pulmonary disease 36393146 J44.9 On Bactrim DS tiw suppressio n tx to prevent bronchitis /pneumonia .on o2 supplement F/u pulmonary. Steatosis of liver 1007 K76.0 weight losshydrat iondiet reviewed Atheroscle rosis of aorta 04424419 I70.0 on lipitor qddiet and exercisehy drationf/u PCPDM control Health Concerns Section Related Observation LastModified by Organization Detai ls LastModified Time None Recorded Concern Status LastModified by Organization Details LastModified Time None Recorded Payers Encounter Date Sequence Insurance Name Policy Number Policy Michel Covered Member ID Michel Member ID Guarantor Name 10/15/2024 1 [facility] - DOS ON OR AFTER 2022 - DUAL ELIGIBLE - HALF-WAY OPTIONS AND ONE CARE (MEDICARE REPLACEMENT/AD VANTAGE - HMO) [place] Mendoza [id number] [place] Mendoza Notes Date Note Type Note Provider Name and Address Organization Details Recorded Time text/html f/u HIV.pt is on Descovy 1 tab po qd and Tivicay 50 mg 1 tab po daily.compliant; denies missing doses.happy w regimen.med list reviewedhas not been sick; no hospitalizationslabs done 10/01/24: pending [id number]/10/2024 HIV VL nondetected03/2024 HIV VL Pending; partial results available.08/2023 HIV VL nondetceted; PI4=5605; AST/ALt wnl; no syphilis; HBV VL nondetceted.on Bactrim tiw to prevent recurrent bronchitis/pneumonia/hosp italizations. no flareups whil dana Bactrim suppression tx.not sexually activemed list reviewed.transportation problems: daughter works and gets out late. u/s 07/2024 fatty liver; aorta placquesDM/hypothyroidism on ozempic.weight loss. Aydee Rizzo MD [address] [place] [address], [phone], [facility] - AYDEE RIZZO MD [facility] 10/15/2024 10:10:59 OBGyn Episode No OBEpisode recorded.
== END 2024-11-09 10:53 | disposition home or self-care (01) ==
LOC: HO.ENCR 10:17
PROVIDERS: PCP Internal Medicine; Visit Provider Physician Assistant Medical
DX: E11.40 Type 2 diabetes mellitus with diabetic neuropathy, unspecified (principal)

== ENCOUNTER → 2024-11-09 10:17 | Outpatient (BNVA) | payer OTHER, SELFPAY | PROVIDERS: PCP Internal Medicine; Visit Provider Physician Assistant Medical | DX: E11.40 Type 2 diabetes mellitus with diabetic neuropathy, unspecified (principal); Z79.84 Long term (current) use of oral hypoglycemic drugs | CPT/HCPCS: 82947; 99212 ==

== ENCOUNTER 2024-11-12 11:11 | Outpatient (AMB) | payer OTHER, SELFPAY ==
--- NOTE | 2024-11-12 11:12 | A.OFFPC_ITS ---
Vital Signs 11/12/24 11:14 Height 5 ft 2 in Weight 168 lb BMI 30.7 BP 122/80 Blood Pressure Location Lt brachial Position Sitting Intake Visit Reasons: bp.dm Intake Note: Patient here for a follow up BP, DM Chief Nursing Officer Required: Yes Chief Nursing Officer Language: [employer] Supervisor Name: Amarilis Squires MD Information Interpreted: non-clinical & clinical Accompanied by: Daughter Allergies egg [EGG] Allergy (Intermediate, Verified 11/12/24 11:26) STOMACH UPSET Medication List - Last Reconciled 11/12/24 by Amarilis Squires MD albuterol sulfate 2.5 mg (3 mL) inhalation Q6H PRN 30 days alcohol swabs (Alcohol Prep Pads) 1 pad topical BID 90 days alendronate 70 mg PO QWEEK atorvastatin 20 mg PO BEDTIME 90 days blood sugar diagnostic (Genesys Systemsuch Ultra Test strips) USE DIRECTED TESTS 4 X/DAY blood-glucose meter (Genesys Systemsuch Ultra2 Meter) As directed to check blood glucose 4 times a day blood-glucose meter,continuous (BlueCava G7 Social Organization Professor) As directed blood-glucose sensor (BlueCava G7 Sensor device) apply new sensor every 10 days as directed calcium carbonate-vitamin D3 600 mg-10 mcg (400 unit) 1 tab PO BID 90 days cholecalciferol (vitamin D3) 50 mcg PO DAILY dextrose (TRUEplus Glucose) 15 grams (32 mL) PO Q15M PRN dolutegravir (Tivicay) 50 mg PO DAILY doxycycline hyclate 100 mg PO BID 10 days emtricitabine-tenofovir alafen 200-25 mg (Descovy) 1 tab PO DAILY qrxqzkipvro-fyudhnohu-lpngzjqg 200-62.5-25 mcg (Trelegy Ellipta) 1 inh inhalation DAILY 30 days lancets As directed to check blood glucose 4x/day. levothyroxine 25 mcg PO DAILY lisinopril 10 mg PO DAILY 90 days metformin ER 500 mg PO BID montelukast 10 mg PO DAILY 90 days nebulizers (AeroEclipse II Nebulizer) As directed nystatin 1 appl topical BID 14 days Oxygen Home Use As directed semaglutide 0.5 mg (0.736 mL) subcut QWEEK 4 weeks Ventolin HFA 90 mcg/actuation (albuterol sulfate) 2 puffs inhalation Q4H PRN NS walker with seat Tobacco use date assessed: 11/12/24 Fall risk assessment: No Falls in past year Last assessed Fall Risk: 11/12/24 Dental Screening Dental Screen Date: 11/12/24 Did you have a dental visit in the last 12 months?: No Did you have a dental problem in the last 6 months where you did not have access to dental care?: No Was dental information given to patient?: Patient has dentist HPI HPI Comments History of Present Illness Details The patient is a 69-year-old female presenting for a follow-up appointment focused on the management of multiple chronic conditions. Her diabetes mellitus type 2, which remains controlled, is managed with metformin and ozempic; previously administered at 0.25 mg weekly and currently at 0.5 mg, following an adjustment after initial intolerance symptoms resolved. Essential hypertension is effectively managed with lisinopril. Her osteoporosis, noted through DEXA scan results from 2023, is being addressed through alendronate therapy, while atorvastatin is used to address hyperlipidemia. She takes levohthyxroxine for hypothyroid management and HIV is managed with tibicai and descovy. She experiences well-regulated COPD symptoms managed by trelegy and singulair. Adding to her list is hepatic steatosis, identified on imaging in the prior year during a time when additional hepatic evaluation was conducted. Her regular screenings are up to date including vaccinations against pneumonia and shingles, though mammograms and tetanus boosters are upcoming. [facility] Medical History Controlled type 2 diabetes with neuropathy Bronchiolitis B12 deficiency Chronic respiratory failure Loss of balance Lumbar degenerative disc disease Obesity (BMI 30-39.9) Age-related osteoporosis without current pathological fracture Pulmonary nodules Obese Intertrigo Anemia Hypothyroidism COPD (chronic obstructive pulmonary disease) HIV (human immunodeficiency virus infection) Pure hypercholesterolemia Essential hypertension Diabetes mellitus Surgical History History of laparoscopy History of tubal ligation Family History Father Medical history unknown Mother Diabetes Hypertension CVD (cardiovascular disease) Pulmonary embolism Sister Crohn disease Maternal Aunt Breast cancer Brother Substance abuse Family/Other FH: mental illness Social History Housing: Apartment Alcohol intake: never Patient Tobacco Use Status: Former Tobacco user Tobacco use type: Cigarette Years Smoked: 38 years e-Cigarette/Vaping Use: Never Used Second Hand Smoke Exposure: No service: No Current occupational status: disabled Current occupation: right hand dominant Cognitive needs: No Hearing needs: No Vision needs: No Questionnaire PHQ-9 Over the last 2 weeks, how often have you been bothered by any of the following problems? 1. Little interest or pleasure in doing things: not at all 2. Feeling down, depressed, or hopeless: not at all 3. Trouble falling or staying asleep, or sleeping too much: not at all 4. Feeling tired or having little energy: not at all 5. Poor appetite or overeating: not at all 6. Feeling bad about yourself - or that you are a failure or have let yourself or your family down: not at all 7. Trouble concentrating on things, such as reading the newspaper or watching television: not at all 8. Moving or speaking so slowly that other people could have noticed. Or the opposite - being so fidgety or restless that you have been moving around a lot more than usual: not at all 9. Thoughts that you would be better off or of hurting yourself in some way: not at all Total score: 0 Depression Screening Interpretation: Negative Depression Screening Done: Yes 97292 - PHQ-9 Billing: Yes Source: Developed by Drs. Kenneth Tavarez, Tuyet David, Kenneth Peterson and colleagues, with an educational faby from [employer]. Thrive Questionnaire Date Thrive assessed: 11/12/24 I am a: Patient What is your living situation today?: I have a steady place to live Within the past 12 months, did the food you bought not last and you didn't have the money to get more?: Never true Within the past 12 months, did you worry whether your food would run out before you got money to buy more?: Never true Do you have trouble paying for medicines?: No Do you have trouble getting transportation to medical appointments?: No Do you have trouble paying your heating and electricity bill?: No Do you have trouble taking care of your child, family member or friend?: No Do you have trouble with day-to-day activities such as bathing, preparing meals, shopping, managing finances, etc.?: No Are you currently unemployed and looking for a job?: No Are you interested in more education?: No Please select the resources that you would like help with: None Currently or been in a relationship where the following occur: No concerns reported THRIVE Score: 0 AUDIT C Alcohol Use Questionnaire (AUDIT-C) 1. How often do you have a drink containing alcohol?: Never Total Score: 0 Score Reviewed/Action Taken: No MIRANDA-7 AMB Questionnaire MIRANDA-7 Date MIRANDA - 7 assessed: 11/12/24 Feeling nervous, anxious, or on edge: 1 = Several days Not being able to stop or control worryin = Not at all Worrying too much about different things: 0 = Not at all Trouble relaxin = Not at all Being so restless that it is hard to sit still: 0 = Not at all Becoming easily annoyed or irritable: 0 = Not at all Feeling afraid as if something awful might happen: 0 = Not at all Total MIRANDA-7 score (0-4 normal; 5-9 mild; 10-14 moderate; 15-21 severe): 1 Source: Developed by Drs. Kenneth Tavarez, Tuyet David, Kenneth Peterson and colleagues, with an educational faby from [employer]. MIRANDA-7 Assessment Billing MIRANDA-7 Assessment Tool: MIRANDA-7 Assessment 32746 Review of Systems Const All systems reviewed & are unremarkable except as noted in HPI and below Card Denies chest pain at rest, Denies chest pain with activity, Denies edema, Denies irregular heart rhythm, Denies claudication, Denies dyspnea, Denies dyspnea on exertion, Denies orthopnea, Denies paroxysmal nocturnal dyspnea and Denies slow heart rate Resp Denies cough, Denies dyspnea and Denies dyspnea on exertion GI Denies abdominal pain, Denies change in bowel habits, Denies excessive flatus, Denies nausea and Denies vomiting Physical exam (Primary Care) Vital Signs: Last Vital Signs BP 122/80 11/12/24 11:14 BMI result Body Mass Index 30.7 BMI Assessment/Plan discussion: High BMI High, discussed plan: lifestyle, weight reduction, dietary and physical activity Tobacco/Smoking Status: Tobacco use Status Tobacco use date assessed 11/12/24 11/12/24 11:22 Patient Tobacco Use Status Former Tobacco user 11/12/24 11:17 Tobacco use type Cigarette 11/12/24 11:17 e-Cigarette/Vaping Use Never Used 11/12/24 11:17 PHQ-9: PHQ-9 Score PHQ-9: Total score 0 11/12/24 11:17 Depression Screening Interpretation: Negative Thrive Assessment: Date of Thrive Assessment Date Thrive assessed 11/12/24 11/12/24 11:17 Currently or been in a relationship where the following occur: No concerns reported Resp Effort & Inspection: normal respiratory effort Auscultation: clear to auscultation bilaterally Cardio Jugular venous distension: no JVD Rate: regular rate Rhythm: regular rhythm Heart sounds: S1 normal heart sound present and S2 normal heart sound present Neuro General: no focal motor deficits Extrem General: Yes full ROM Coding Level of Care Code Est Pt Level 4 (80730) Complex EM visit Add On G2211 Diagnoses Hypothyroidism, unspecified type E03.9 Hypothyroidism type: unspecified Centrilobular emphysema J43.2 COPD type: emphysema Emphysema type: centrilobular Asymptomatic HIV infection, with no history of HIV-related illness Z21 HIV symptom status: asymptomatic, with no history of HIV-related illness Pure hypercholesterolemia E78.00 Essential hypertension I10 Type 2 diabetes mellitus with diabetic polyneuropathy, without long-term current use of insulin E11.42 Diabetes mellitus type: type 2 Diabetes mellitus supervisor home restoration service insulin use: without intermediate use Diabetes mellitus complication status: with neurologic complications Diabetes mellitus complication detail: with polyneuropathy Age-related osteoporosis without current pathological fracture M81.0 Additional Codes PHQ-9 - 17256 - PHQ-9 Billing: Yes ([id number]) MIRANDA-7 Assessment Billing - MIRANDA-7 Assessment Tool: MIRANDA-7 Assessment 44025 ([id number]) Time Spent (min) 24 Assessment & Plan Assessment & Plan (1) Hypothyroidism: Code(s): E03.9 - Hypothyroidism, unspecified Category: Medical Qualifiers: Hypothyroidism type: unspecified Qualified Code(s): E03.9 - Hypothyroidism, unspecified (2) COPD (chronic obstructive pulmonary disease): Code(s): J44.9 - Chronic obstructive pulmonary disease, unspecified Category: Medical Qualifiers: COPD type: emphysema Emphysema type: centrilobular Qualified Code(s): J43.2 - Centrilobular emphysema (3) HIV (human immunodeficiency virus infection): Comment: stable Code(s): B20 - Human immunodeficiency virus [HIV] disease Category: Medical Qualifiers: HIV symptom status: asymptomatic, with no history of HIV-related illness Qualified Code(s): Z21 - Asymptomatic human immunodeficiency virus [HIV] infection status (4) Pure hypercholesterolemia: Code(s): E78.00 - Pure hypercholesterolemia, unspecified Category: Medical (5) Essential hypertension: Code(s): I10 - Essential (primary) hypertension Category: Medical (6) Diabetes mellitus: Code(s): E11.9 - Type 2 diabetes mellitus without complications Category: Medical Qualifiers: Diabetes mellitus type: type 2 Diabetes mellitus intermediate insulin use: without intermediate use Diabetes mellitus complication status: with neurologic complications Diabetes mellitus complication detail: with polyneuropathy Qualified Code(s): E11.42 - Type 2 diabetes mellitus with diabetic polyneuropathy (7) Age-related osteoporosis without current pathological fracture: Code(s): M81.0 - Age-related osteoporosis without current pathological fracture Category: Medical Plan Continue current meds. Do diabetic eye exam yearly. DEXA scan to be repeated 2025. Cologuard to be repeated 2026. Mammogram to be done this year. Do diabetic eye exam yearly. For COPD follow with pulmonology. For osteoporosis and diabetes mellitus follow with endocrinology. Continue oxygen in 2 L to keep oxygen saturation over 90%. A1c goal is 7% or less. LDL goal is less than 70. I discussed with the patient her comprehensive care management, detailing medication purposes, dosages, and potential side effects specific to her chronic conditions, particularly focusing on her diabetes and the revised Ozempic dosage while addressing previous gastrointestinal side effects. We reviewed the essential medications like alendronate for osteoporosis and atorvastatin, discussing the effects on cholesterol levels and the reason for regular monitoring as part of the hyperlipidemia strategy. The importance of adhering to hypothyroid and hypertensive therapies with levothyroxine and lisinopril was reinforced alongside her HIV management. Discussed was the patient's preventive schedule, ensuring she is aware of upcoming mammography and tetanus booster requirements. Additionally, we deliberated her hepatic steatosis noting its dietary impacts, considering these with her current oral health hinderances. I provided guidance on laboratory panels scheduled in February and advised on maintaining these regiments, underscoring the need for timely follow-ups for lab reviews and physical updates. Orders: Orders Lipid Panel 4 Months E78.5 - Hyperlipidemia, unspecified Comprehensive [place]. Panel Fast 4 Months E11.40 - Type 2 diabetes mellitus with diabetic neuropathy, unspecified Microalbumin, Random (w Creat) 4 Months R80.9 - Proteinuria, unspecified Vitamin D 25-OH Total 4 Months E55.9 - Vitamin D deficiency, unspecified Thyroid Stimulating Hormone 4 Months E03.9 - Hypothyroidism, unspecified Patient Instructions: - Continue current medication regimen as prescribed. - Monitor and maintain blood pressure and glucose levels regularly. - Schedule and complete mammogram screening by May 13. - Plan for routine tetanus booster next year. - Follow dietary recommendations suitable for hepatic health, considering egg allergies and dental restrictions. - Attend upcoming lab appointments in February for thyroid, cholesterol, and comprehensive metabolic tests. - Maintain medication adherence, especially regarding HIV, diabetes, and osteoporosis. - Notify our office immediately of any side effects or new symptoms. - Schedule routine follow-ups as advised in our discussion.
[2024-11-12 11:14] VITALS: BP 122/80; BMI 30.7
== END 2024-11-12 11:41 | disposition home or self-care (01) ==
LOC: HO.HMCH 11:11
PROVIDERS: PCP Internal Medicine; Visit Provider Internal Medicine
DX: E11.42 Type 2 diabetes mellitus with diabetic polyneuropathy (principal); J43.2 Centrilobular emphysema; Z21 Asymptomatic human immunodeficiency virus [HIV] infection status; E03.9 Hypothyroidism, unspecified; E78.00 Pure hypercholesterolemia, unspecified; I10 Essential (primary) hypertension; M81.0 Age-related osteoporosis without current pathological fracture

== ENCOUNTER → 2024-11-12 11:11 | Outpatient (BNVA) | payer OTHER, SELFPAY | PROVIDERS: PCP Internal Medicine; Visit Provider Internal Medicine | DX: E03.9 Hypothyroidism, unspecified (principal); J43.2 Centrilobular emphysema; Z21 Asymptomatic human immunodeficiency virus [HIV] infection status; E78.00 Pure hypercholesterolemia, unspecified; I10 Essential (primary) hypertension; E11.42 Type 2 diabetes mellitus with diabetic polyneuropathy; M91.0 Juvenile osteochondrosis of pelvis | CPT/HCPCS: 96127; 99212 ==

== ENCOUNTER 2025-01-07 09:34 | Outpatient (REF) | payer OTHER, SELFPAY ==
[2025-01-07 10:20] LABS: MANUAL DIFF FLAG NO
[2025-01-07 10:50] LABS: Basophils Absolute Auto 0.1 X10*3/uL (0.0-0.2); Basophils Percent Auto 0.5 % (0-2); Eosinophils Absolute Auto 0.2 X10*3/uL (0.0-0.4); Eosinophils Percent Auto 2.3 % (0-4); Hematocrit 40.8 % (37.0-47.0); Hemoglobin 14.4 g/dl (12.0-16.0); Imm Gran Abs Auto 0.04 X10*3/uL (0.00-0.03); Imm Gran Pct Auto 0.4 % (0.0-0.4); Lymphocytes Absolute Auto 3.4 X10*3/uL (1.2-4.9); Mean Corpuscular HGB Conc 35.3 g/dl (31.0-35.0); Mean Corpuscular Hemoglobin 27.2 pg (27.0-33.0); Mean Corpuscular Volume 77.1 fL (80.0-98.0); Mean Platelet Volume 9.8 fL (9.4-12.3); Monocytes Absolute Auto 0.7 X10*3/uL (0.1-1.2); Monocytes Percent Auto 7.9 % (2-11); Neutrophils Absolute Auto 4.9 x10*3/uL (2.0-8.3); Neutrophils Percent Auto 52.9 % (45-73); Platelet Count 273 X10*3/uL (160-400); Red Blood Count 5.29 X10*6/uL (4.20-5.50); Red Cell Distribution Width 14.4 % (11.0-16.0); White Blood Count 9.3 X10*3/uL (4.8-10.8)
[2025-01-07 11:30] LABS: Alanine Aminotransferase 18 U/L (0-31); Aspartate Amino Transferase 23 U/L (5-31); Estimated Glomerular Filt Rate > 60
[2025-01-07 11:37] LABS: Syphilis Screen Nonreactive (Nonreactive)
[2025-01-10 18:28] LABS: HIV RNA PCR Qn Copies 125 Copies/mL
[2025-01-12 01:33] LABS: Absolute CD3 Count 2566 cells/uL (840-3060); Absolute CD4 Count 1379 cells/uL (490-1740); Absolute CD8 Count 1303 cells/uL (180-1170); Absolute Lymphocytes 3608 cells/uL (850-3900); CD4 CD8 Ratio 1.06 (0.86-5.00); Percent CD3 Cells 71 % (57-85); Percent CD4 Cells 38 % (30-61); Percent CD8 Cells 36 % (12-42)
== END 2025-01-07 09:35 | disposition home or self-care (01) ==
LOC: HO.10HDL 09:34
PROVIDERS: Visit Provider Internal Medicine Infectious Disease
DX: B20 Human immunodeficiency virus [HIV] disease (principal)
CPT/HCPCS: 36415; 82565; 84450; 84460; 85025; 86359; 86360; 86780; 87536; 87900

== ENCOUNTER 2025-01-21 08:29 | Outpatient (REF) | payer OTHER, SELFPAY ==
--- OUTSIDE RECORDS SUMMARY | 2025-01-21 08:40 | XMS_ITS | Data Portability ---
Author Organization ZOË - AYDEE REVELES MD [facility], Main Office Address [address] [place] [phone] Assessment Encounter Date Assessment Date Assessment LastModified by Organization Details LastModified Time 11/30/2023 11/30/2023 AUDIO. telemedicine. pt [place] in [place]. audio. 18 min [email or web address] Not available 11/30/2023 09:20:29 04/12/2024 04/12/2024 AUDIO. [place] audio. 16 min [email or web address] Not available 04/12/2024 11:47:22 07/13/2024 07/13/2024 video. [place] audio. 17 min [email or web address] Not available 07/13/2024 09:50:20 10/15/2024 10/15/2024 video. tele[place]. [place] audio. 19 min [email or web address] Not available 10/15/2024 09:56:46 Plan of Treatment Reminders Order Date Submit Date Provider Last Modified By Organization Details Last Modified Time Details Appointments B20 FOLLOW UP 2024 11:00A Aretha Rizzo MD Not available Not available Not available Lab CBC w/ diff [address] (Lab), [address] [place] [address], [id number], 10/22/2024 08:51:28 ALT (alanine aminotra nsferase ), serum or plasma [address] (Lab), [address] [place] [address], [id number], 10/22/2024 08:51:28 AST/SGOT (asparta te aminotra nsferase ), serum or plasma [address] (Lab), [address] [place] [address], [id number], 10/22/2024 08:51:28 creatini ne w/ estimate d GFR (eGFR), serum or plasma [address] (Lab), [address] [place] [address], [id number], 10/22/2024 08:51:29 HIV-1 RNA, quantita tive, PCR, serum or plasma [address] (Lab), [address] [place] [address], [id number], 10/22/2024 08:51:29 RPR (rapid plasma reagin), serum [address] (Lab), [address] [place] [address], [id number], 10/22/2024 08:51:29 T-cell regulato ry subsets panel, blood [address] (Lab), [address] [place] [address], [id number], 10/22/2024 08:51:29 Referral None recorded . Procedures None recorded . Surgeries None recorded . Imaging US, abdomen - RUQ pain [address], [place], [address], 07/27/2024 14:33:12 Medication Orders Bactrim DS 800 mg-160 mg tablet 2024 025 [id number], [address] [place], [address], 10/15/2024 10:09:08 Descovy 200 mg-25 mg tablet 2024 025 [facility]/Pharmacy #2071, [address] [place], [address], 10/15/2024 10:09:08 Tivicay 50 mg tablet 2024 025 [facility]/Pharmacy #2071, [address] [place], [address], 10/15/2024 10:09:08 Bactrim DS 800 mg-160 mg tablet 2023 024 [email or web address] [facility]/Pharmacy #2071, [address] [place], [address], 07/13/2024 09:52:03 Descovy 200 mg-[address] [facility] [address] [place], [address], 07/13/2024 09:52:02 Tivicay 50 [address] tablet [address] [facility] [address] [place], [address], 07/13/2024 09:52:01 Bactrim DS 800 mg-[address] [facility] [address] [place], [address], 04/12/2024 11:45:34 Descovy 200 mg-25 mg tablet 2023 024 [facility]/Pharmacy #2071, [address] [place], [address], 04/12/2024 11:45:34 Tivicay 50 mg tablet 2023 024 [facility]/Pharmacy #2071, [address] [place], [address], 04/12/2024 11:45:33 Bactrim DS 800 mg-160 mg tablet 2023 024 [facility]/Pharmacy #2071, [address] [place], [address], 11/30/2023 09:21:41 Descovy 200 mg-25 mg tablet 2023 024 [facility]/Pharmacy #2071, [address] [place], [address], 11/30/2023 09:21:41 Tivicay 50 mg tablet 2023 024 [facility]/Pharmacy #2071, [address] [place], [address], 11/30/2023 09:21:40 Patient TargetsNo targets recorded. Patient InstructionsNo instructions [...] Recorded Time Chronic obstructi ve pulmonary disease 56823359 Active 2023 Aydee Rizzo MD [address] [place], [place] [address], [address] , [place] ZOË RIZZO MD [facility] 11:17:18 Human immunodef iciency virus infection 23620594 Active 2023 [facility] [place], [address] , ZOË RIZZO MD [facility] 11:17:23 Viral hepatitis C 06634887 Active 2023 [facility] [place], [address] , ZOË RIZZO MD [facility] 4 11:17:45 HIV seroposit ivity Active 2015 HIV seropositi vity; snomeddesc ription: HIV seropositi vity; Report Immunity to Registry: Yes; Notes: dx 1990 IVDU [id number] neg 2008 genotype 2008; Not Available [facility] 4 06:58:29 Emphysema tous bronchiti s 363311389 Active 2013 Emphysemat ous bronchitis ; snomeddesc ription: Emphysemat ous bronchitis ; Report Immunity to Registry: Yes; Obstructi ve chronic bronchitis , without exacerbati on; snomeddesc ription: Emphysemat ous bronchitis ; Report Immunity to Registry: Yes; Not Available [facility] 4 06:58:30 Osteopeni a 656627131 Active 2014 Osteopenia ; snomeddesc ription: Osteopenia ; Report Immunity to Registry: Yes; Notes: endocrinol ogy; Not Available [facility] 4 06:58:30 Indigesti on 403278734 Active 2013 Dyspepsia and other specified disorders of function of stomach; snomeddesc ription: Indigestio n; Report Immunity to Registry: Yes; Indigesti on; snomeddesc ription: Indigestio n; Report Immunity to Registry: Yes; Not Available [facility] 4 06:58:30 Cobalamin deficienc y 624423615 Active 2013 Cobalamin deficiency ; snomeddesc ription: Cobalamin deficiency ; Report Immunity to Registry: Yes; Not Available [facility] 4 06:58:30 Disorder of bone and articular cartilage 091959738 Active 2014 Disorder of bone and cartilage, unspecifie d; snomeddesc ription: Osteopenia ; Report Immunity to Registry: Yes; Notes: endocrinol ogy; Not Available [facility] 4 06:58:30 Vitamin B deficienc y 42845342 Active 2013 Other B-complex deficienci es; snomeddesc ription: Cobalamin deficiency ; Report Immunity to Registry: Yes; Not Available [facility] 4 06:58:30 Viral hepatitis B without hepatic coma 717807948 Active 2016 Unspecifie d viral hepatitis B without hepatic coma; snomeddesc ription: Type B viral hepatitis; Report Immunity to Registry: Yes; Notes: past hx core ab pos; s ag neg; s ab pos 2016 HBV undetected 2016, 2017; Not Available [facility] 4 06:58:30 Hepatitis C carrier 933206499 Active 2017 Hepatitis C carrier; snomeddesc ription: Hepatitis C carrier; Report Immunity to Registry: Yes; Notes: VL undetectab le 2010; 2012; Ab pos; VL neg 2014; neg 12/2015; 2016; 2017; Not Available [facility] 4 06:58:31 Type B viral hepatitis 31151777 Active 2016 Type B viral hepatitis; snomeddesc ription: Type B viral hepatitis; Report Immunity to Registry: Yes; Notes: past hx core ab pos; s ag neg; s ab pos 2016 HBV undetected 2017; Not Available [facility] 4 06:58:31 Type 2 diabetes mellitus 26528293 Active 2023 Aydee Rizzo MD [address] [place] [address], [address] [facility] AYDEE RIZZO MD [facility] 4 11:48:54 Problem Notes None [...] FOR SHORTNES S OF BREATH OR WHEEZING 02/032 completed Duration : 30; VACCINE_ IND: no; [...] NAME: Hep A, adult; SU_FULL_ NAME: Aydee morales; Not Available Not Available Not Available cholecalc [...] completed VACCINE_ IND: no; SU_FULL_ NAME: Aydee Mirtha morales; Not Available Not Available Not Available [...] 2024 active Not Available Not Available Not Parris lable Descovy Quantity : 30; 0 refill(s [...] Pneumoco ccal conjugat e PCV20, polysacc haride [id number] conjugat e, adjuvant , PF; SU_FULL_ NAME: [...] Time Meningococcal MCV4O 0 completed Not Available [facility] 10/12/2023 06:54:07 Influenza, split virus, quadrivalent, preservative 8 completed Not Available [facility] 10/12/2023 06:54:07 Influenza, split virus, quadrivalent, preservative 9 completed Not Available [facility] 10/12/2023 06:54:07 Past Encounters Encounter ID Performer Location Encounter Start Date Encounter Closed Date Diagnosis/Indication Diagnosis SNOMED-CT Code Diagnosis ICD10 Code Diagnosis Note [id number] Aydee Rizzo MD Main Office [address] [place] [address] 05/27/2023 13:01:20 05/27/2023 14:11:08 Human immunodeficiency virus infection 62378492 B20 HIV: Continue Descovy 1 tab po [...] care reviewed. Questions and concerns addressed Neuropathy 418597752 G62 .9 on gabapentin . Chronic ob structive pulmonary disease 22597350 J44.9 On Bactrim DS tiw suppressio n tx to prevent bronchitis /pneumonia .on o2 supplement F/u pulmonary. RSV vaccine recommende dflu vaccineon Bactrim DS tiw. Hepatitis C virus detected by enzyme-linked immunosorbent assay 189000920 R76.8 HCV VL nondetcete d. past infection. [id number] Aydee Rizzo MD Main Office [address] [place] [address] 08/30/2023 09:37:12 08/30/2023 12:56:26 Human immunodeficiency virus infection 05504795 B20 HIV: Continue Descovy 1 tab po [...] concerns addressed Chronic ob structive pulmonary disease 36989310 J44.9 On Bactrim DS tiw suppressio n tx to prevent bronchitis /pneumonia .on o2 supplement F/u pulmonary. on Bactrim DS tiw for suppressio n of infection. vaccines recommende d Viral hepatitis C 108430 07 B19.20 past hx.VL undetectab le 2010; 2013; Ab pos; VL neg 2014; neg 12/2015; 2017; 2018 [id number] Aydee Rizzo MD Main Office [address] [place] [address], [place] [address] 11/30/2023 09:03:23 11/30/2023 09:24:26 Human immunodeficiency virus infection 18301636 B20 HIV: Continue Descovy 1 tab po qd and Tivicay 50 mg po qd. compliance reviewed to prevent viral resistance , keep viral suppressio n and prevent transmissi on.pt aware of PreP availabili ty; U=U; condom use to prevent STI's. Plan of care reviewed. Questions and concerns addressed Chronic ob structive pulmonary disease 85369168 J44.9 On Bactrim DS tiw suppressio n tx to prevent bronchitis /pneumonia .on o2 supplement F/u pulmonary. [id number] Aydee Rizzo MD Main Office [address] [place] [address] 04/12/2024 11:41:47 04/12/2024 12:24:59 Human immunodeficiency virus infection 12759427 B20 HIV:Contin ue Descovy 1 tab po qd and Tivicay 50 mg po qd. compliance reviewed to prevent viral resistance , keep viral suppressio n and prevent transmissi on.pt aware of PreP availabili ty; U=U; condom use to prevent STI's.DOXY PEP reviewedPl an of care reviewed. Questions and concerns addressed Chronic ob structive pulmonary disease 46643127 J44.9 On Bactrim DS tiw suppressio n tx to prevent bronchitis /pneumonia .on o2 supplement F/u pulmonary. Type 2 cherry betes mellitus 73132452 E11.9 on Ozempic sq qw.f/u PCP [id number] Aydee Rizzo MD Main Office [address] [place] [phone] 07/13/2024 09:45:07 07/13/2024 09:53:56 Human immunodeficiency virus infection 47359980 B20 HIV:Contin ue Descovy 1 tab po qd and Tivicay 50 mg po qd. compliance reviewed to prevent viral resistance , keep viral suppressio n and prevent transmissi on.COVID19 and RSV vaccines prescribed .Plan of care reviewed. Questions and concerns addressed Chronic ob structive pulmonary disease 37407853 J44.9 On Bactrim DS tiw suppressio n tx to prevent bronchitis /pneumonia .on o2 supplement F/u pulmonary. Right uppe r quadrant pain 857185619 R10.11 will get lab results for ALt/ASTu/s abdto ER if worsening sx, n/v/d, fever or other [id number] Aydee Rizzo MD Main Office [address] [place] [address] 10/15/2024 09:08:19 10/23/2024 09:49:02 Human immunodeficiency virus infection 73197703 B20 HIV:Contin ue Descovy 1 tab po qd and Tivicay 50 mg po qd. compliance reviewed to prevent viral resistance , keep viral suppressio n and prevent transmissi on.COVID19 and RSV vaccines prescribed .Plan of care reviewed. Questions and concerns addressed Chronic ob structive pulmonary disease 31847302 J44.9 On Bactrim DS tiw suppressio n tx to prevent bronchitis /pneumonia .on o2 supplement F/u pulmonary. Steatotic liver disease 327253822 K76.0 weight losshydrat iondiet reviewed Atheroscle rosis of aorta 80351015 I70.0 on lipitor qddiet and exercisehy drationf/u PCPDM control [id number] Aydee Rizzo MD Main Office [address] [place] [address] 01/11/2025 09:39:01 01/11/2025 10:21:01 Human immunodeficiency virus infection 39065759 B20 HIV:Contin ue Descovy 1 tab po qd and Tivicay 50 mg po qd. compliance reviewed to prevent viral resistance , keep viral suppressio n and prevent transmissi on.prevnar and RSV vaccines prescribed .Plan of care reviewed. Questions and concerns addressed Chronic ob structive pulmonary disease 56855020 J44.9 On Bactrim DS tiw suppressio n tx to prevent bronchitis /pneumonia .on o2 supplement F/u pulmonary. Health Concerns Section Related Observation LastModified by Organization Detai ls LastModified Time None Recorded Concern Status LastModified by Organization Details LastModified Time None Recorded Advance Directives Directive None Recorded Payers Encounter Date Sequence Insurance Name Policy Number Policy Michel Covered Member ID Michel Member ID Guarantor Name 11/30/2023 1 [facility] [employer] - DOS ON OR AFTER 2022 - DUAL ELIGIBLE - LONG TERM OPTIONS AND ONE CARE (MEDICARE REPLACEMENT/AD VANTAGE - HMO) [place] Mendoza [id number] Indiana Baezaza 04/12/2024 1 [employer] [employer] - DOS ON OR AFTER 2022 - DUAL ELIGIBLE - LONG TERM OPTIONS AND ONE CARE (MEDICARE REPLACEMENT/AD VANTAGE - HMO) [place] Glass Aryanza [id number] [place] Glass Aryanza 07/13/2024 1 [facility] [employer] - DOS ON OR AFTER 2022 - DUAL ELIGIBLE - LONG TERM OPTIONS AND ONE CARE (MEDICARE REPLACEMENT/AD VANTAGE - HMO) [place] Blumo Aryanza [id number] [place] Glass Aryanza 10/15/2024 1 [facility] - DOS ON OR AFTER 2022 - DUAL ELIGIBLE - LONG TERM OPTIONS AND ONE CARE (MEDICARE REPLACEMENT/AD VANTAGE - HMO) [place] Glass Aryanza [id number] Indiana Mendoza Notes Date Note Type Note Provider Name and Address Organization Details Recorded Time text/html /u HIV.pt is on Descovy 1 tab po qd and Tivicay 50 mg 1 tab po daily.compliant; denies missing doses.happy w regimen.prefers to keep same regimenmed list reviewed.lab results reviewed.has not been sick; no hospitalizations08/2023 HIV VL nondetceted; NB4=7217; AST/ALt wnl; no syphilis; HBV VL nondetceted.08/26/2022 HIV VL nondetceted; IU9=1903; ALt/AST wnl;eGFR.60; syphilis NR; eGFR>609 HIV VL nondetceted; CD4 63953/2022 IV6=8533; HIV VL nondetceted; ALt/AST wnl; eGFR>6012/2021 HIV VL nondetceted; LH5=4716; ALT/AST wnl; eGFR>609/2 MM9=9071; HIV VL nondetected; eGFR>60. CKD hx.on Bactrim tiw to prevent recurrent bronchitis/pneumonia/hospi talizations.not sexually activemed list reviewed. Aydee Rizzo MD [address] [place] [address], [phone], ZOË RIZZO MD [facility] 11/30/2023 09:21:47 4 text/html /u HIV.pt is on Descovy 1 tab po qd and Tivicay 50 mg 1 tab po daily.compliant; denies missing doses.happy w regimen.med list reviewed.lab results reviewed.has not been sick; no hospitalizations03/2024 HIV VL Pending; partial resulst available.08/2023 HIV VL nondetceted; IU7=0724; AST/ALt wnl; no syphilis; HBV VL nondetceted.08/26/2022 HIV VL nondetceted; NJ5=8977; ALt/AST wnl;eGFR.60; syphilis NR; eGFR>60 on Bactrim tiw to prevent recurrent bronchitis/pneumonia/hospi talizations.not sexually activemed list reviewed. pt was diabetic. on ozempic qw sc.she has lost some weight. Aydee Rizzo MD [address] [place] [address], [phone], ZOË RIZZO MD [facility] 04/12/2024 11:49:10 4 text/html f/u HIV.pt is on Descovy 1 tab po qd and Tivicay 50 mg 1 tab po daily.compliant; denies missing doses.happy w regimen.RUQ for few months; on/off; -01/29 . not after she eats. denies ETOH. no jaundice.lab results reviewed. no n/v/d.weight loss while on ozempic for DM.has not been sick; no xyacheyzqusntykn22/19/2024 HIV VL nondetected03/2024 HIV VL Pending; partial resulst available.08/2023 HIV VL nondetceted; CC5=9083; AST/ALt wnl; no syphilis; HBV VL nondetceted.08/26/2022 HIV VL nondetceted; WG0=4602; ALt/AST wnl;eGFR.60; syphilis NR; eGFR>60on Bactrim tiw to prevent recurrent bronchitis/pneumonia/hospi talizations. no flareups whil dnaa Bactrim suppression tx.not sexually activemed list reviewed.got the flu vaccinetrasnportation problems: daughter works and gets out late. Aydee Rizzo MD [address] [place], [address], [facility] AYDEE RIZZO MD [facility] 07/13/2024 09:55:33 text/html f/u HIV.pt is on Descovy 1 tab po qd and Tivicay 50 mg 1 tab po daily.compliant; denies missing doses.happy w regimen.med list reviewedhas not been sick; no hospitalizationslabs done 10/01/24: pending [id number]/10/2024 HIV VL nondetected03/2024 HIV VL Pending; partial results available.08/2023 HIV VL nondetceted; HW3=4524; AST/ALt wnl; no syphilis; HBV VL nondetceted.on Bactrim tiw to prevent recurrent bronchitis/pneumonia/hospi talizations. no flareups whil dana Bactrim suppression tx.not sexually activemed list reviewed.transportation problems: daughter works and gets out late. u/s 07/2024 fatty liver; aorta placquesDM/hypothyroidismo n ozempic.weight loss. Aydee Rizzo MD [address] [place], [address], [facility] AYDEE RIZZO MD [facility] 10/15/2024 10:10:59 OBGyn Episode No OBEpisode recorded.
[2025-01-21 10:22] LABS: Estimated Average Glucose 120 mg/dL; Hemoglobin A1c % 5.8 % (<6.0)
[2025-01-21 10:40] LABS: Alanine Aminotransferase 18 U/L (0-31); Albumin Level 4.9 g/dL (3.5-5.0); Alkaline Phosphatase 99 U/L (39-117); Anion Gap 13 (12-20); Aspartate Amino Transferase 26 U/L (5-31); Bilirubin Total 0.7 mg/dL (0.0-1.0); Blood Urea Nitrogen 14 mg/dL (9-16); Carbon Dioxide 24 mmol/L (22-29); Chloride 108 mmol/L (96-108); Cholesterol 115 mg/dL (<200); Estimated Glomerular Filt Rate > 60; Glucose Fasting 105 mg/dL (60-99); HDL Cholesterol 39 mg/dL (>40); LDL Cholesterol Calculated 60 mg/dL (<100); Potassium 4.6 mmol/L (3.3-5.1); Sodium 140 mmol/L (135-145); Total Protein 8.4 g/dL (6.5-8.0); Triglycerides 80 mg/dL (<150)
[2025-01-21 10:52] LABS: Creatinine Urine 102.95 mg/dL; Microalbum/Creatinine Ratio Ur 6.7 ug/mg cr (<30)
[2025-01-21 10:58] LABS: Thyroid Stimulating Hormone 1.22 uIU/mL (0.32-4.0); Vitamin D 25-OH Total 77.1 ng/mL (>30)
[2025-01-21 11:05] LABS: Vitamin B12 323 pg/mL (200-900)
== END 2025-01-21 08:30 | disposition home or self-care (01) ==
LOC: HO.10HDL 08:29
PROVIDERS: Physician Assistant Medical; Visit Provider Internal Medicine
DX: E78.5 Hyperlipidemia, unspecified (principal); E11.42 Type 2 diabetes mellitus with diabetic polyneuropathy; E11.9 Type 2 diabetes mellitus without complications; R80.9 Proteinuria, unspecified; E03.9 Hypothyroidism, unspecified; E53.8 Deficiency of other specified B group vitamins; E55.9 Vitamin D deficiency, unspecified
CPT/HCPCS: 36415; 80053; 80061; 82043; 82306; 82570; 82607; 82746; 83036; 84443

== ENCOUNTER 2025-01-28 10:29 | Outpatient (AMB) | payer OTHER, SELFPAY ==
--- NOTE | 2025-01-28 10:30 | MHC.OFFVIS ---
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 Services: Vertica Architect Present Vertica Architect Name: [facility] [place] Monae Information Interpreted: non-clinical & clinical Accompanied by: Daughter Allergies egg [EGG] Allergy (Intermediate, Verified 01/28/25 10:34) STOMACH UPSET Medication List - Last Reconciled 01/28/25 by Kenneth Story MD albuterol sulfate 2.5 mg (3 mL) inhalation Q6H PRN 30 days alcohol swabs (Alcohol Prep Pads) 1 pad topical BID 90 days alendronate 70 mg PO QWEEK atorvastatin 20 mg PO BEDTIME 90 days blood sugar diagnostic ([employer]uch Ultra Test strips) USE DIRECTED TESTS 4 X/DAY blood-glucose meter ([employer]uch Ultra2 Meter) DIRECTED TO CHECK BLOOD GLUCOSE 4 TIMES A DAY blood-glucose sensor (Afraxisyle Marco 3 Plus Sensor device) Apply 1 new sensor every 15 days as directed to monitor blood glucose continuously. calcium carbonate-vitamin D3 600 mg-10 mcg (400 unit) 1 tab PO BID 90 days cholecalciferol (vitamin D3) 50 mcg PO DAILY dextrose (TRUEplus Glucose) 15 grams (32 mL) PO Q15M PRN dolutegravir (Tivicay) 50 mg PO DAILY doxycycline hyclate 100 mg PO BID 10 days emtricitabine-tenofovir alafen 200-25 mg (Descovy) 1 tab PO DAILY rwxowdnwjup-zqpuqsbcz-ffvyqpkt 200-62.5-25 mcg (Trelegy Ellipta) 1 ea PO DAILY lancets As directed to check blood glucose 4x/day. levothyroxine 25 mcg PO DAILY lisinopril 10 mg PO DAILY 90 days metformin ER 500 mg PO BID montelukast 10 mg PO DAILY 90 days nebulizers (AeroEclipse II Nebulizer) As directed nystatin 1 appl topical BID 14 days Oxygen Home Use As directed semaglutide 0.5 mg (0.736 mL) subcut QWEEK 4 weeks Ventolin HFA 90 mcg/actuation (albuterol sulfate) 2 puffs inhalation Q4H PRN NS walker with seat HPI Comments Details: This 69-year-old female followed by endocrinology for management of osteoporosis ? Other past medical history is HIV, anemia, COPD, thyroiditis, hypothyroidism, osteoporosis, hyperlipidemia. ? She was on Prolia 60 mg Q6 mos for osteoporosis. She transitioning to alendronate 70 mg Q weekly in 11/2023. Toleraing alendronate. NTX remains suppressed The patient is a 69-year-old female presenting for osteoporosis management. She has been receiving treatment with alendronate for about a year after having taken Prolia. Improvements in her bone density have been noted since she began her current medication regimen. She remains adherent to calcium and vitamin D supplementation and reports no fractures since her last appointment. She also monitors her thyroid function regularly, with test results consistently within normal range, addressing those concerns without needing specific interventions from this visit. - Alendronate for osteoporosis, once weekly for one year. - Prolia previously used for osteoporosis. - Calcium supplements. - Vitamin D supplements. [facility] Medical History Controlled type 2 diabetes with neuropathy Bronchiolitis B12 deficiency Chronic respiratory failure Loss of balance Lumbar degenerative disc disease Obesity (BMI 30-39.9) Age-related osteoporosis without current pathological fracture Pulmonary nodules Obese Intertrigo Anemia Hypothyroidism COPD (chronic obstructive pulmonary disease) HIV (human immunodeficiency virus infection) Pure hypercholesterolemia Essential hypertension Diabetes mellitus Surgical History History of laparoscopy History of tubal ligation Family History Father Medical history unknown Mother Diabetes Hypertension CVD (cardiovascular disease) Pulmonary embolism Sister Crohn disease Maternal Aunt Breast cancer Brother Substance abuse Family/Other FH: mental illness Social History Housing: Apartment Alcohol intake: never Patient Tobacco Use Status: Former Tobacco user Tobacco use type: Cigarette Years Smoked: 38 years e-Cigarette/Vaping Use: Never Used Second Hand Smoke Exposure: No service: No Current occupational status: disabled Current occupation: right hand dominant Cognitive needs: No Hearing needs: No Vision needs: No Physical Exam Vital Signs: Last Vital Signs Pulse 83 01/28/25 10:33 BP 114/58 L 01/28/25 10:33 Pulse Ox 95 01/28/25 10:33 Oxygen Delivery Method Room Air 01/28/25 10:33 Assessment & Plan Assessment & Plan (1) Age-related osteoporosis without current pathological fracture: Code(s): M81.0 - Age-related osteoporosis without current pathological fracture Category: Medical Plan: This is a 68-year-old female with a history of osteoporosis previously treated with a bisphosphonate for now treated with Prolia with improved bone density on recent DEXA. Secondary workup showed mild secondary hyperparathyroid which resolved . Recent DEXA last yr showed improvement of bone density with low score of -2.7 T-score in the femoral neck. Been on alendronate for 1 year's time 1. Osteoporosis The patient's bone density has improved on alendronate, and I advised halting the medication for now. We will continue calcium and vitamin D supplements, rechecking her bone density and urine NTX in a year to reassess her treatment needs. I discussed with the patient the improvement in her bone density with the current treatment. We agreed to stop alendronate as her bone health looks stable. I explained the benefits of continued calcium and vitamin D supplementation, as well as the rationale for scheduling a DEXA scan and urine NTX test a year from now to evaluate ongoing bone health. The patient was reassured regarding her thyroid function, which is normal, and instructed to follow up with her PCP for thyroid-related concerns. We plan to meet again following her scheduled diagnostic tests to ensure continuous monitoring of her osteoporosis. - Continue taking calcium and vitamin D supplements as directed. - Stop taking alendronate as advised. - Schedule and complete a bone density test and a urine NTX test one year from now. - Follow-up about one month after those tests for further evaluation and discussion. - The patient had an opportunity to ask questions regarding treatment plan. The patient expressed understanding and agreement with the above treatment plan. Patient was informed and verbally consented to the use of an ambient scribe for clinic note documentation during this visit. Orders: Orders Collagen Crosslinks NTX 1 Year M81.0 - Age-related osteoporosis without current pathological fracture XR DEXA axial skeleton 1 Year M81.0 - Age-related osteoporosis without current pathological fracture Medications: Discontinued alendronate Discontinued Reason: Doctor's Order 70 mg PO QWEEK 5 tabs 1RF E11.42 - Type 2 diabetes mellitus with diabetic polyneuropathy Coding Level of Care Code Est Pt Level 3 (51409) Diagnoses Age-related osteoporosis without current pathological fracture M81.0
[2025-01-28 10:33] VITALS: BP 114/58; PULSE 83; O2SAT 95
--- OUTSIDE RECORDS SUMMARY | 2025-01-28 11:46 | XMS_ITS | Data Portability ---
Author Organization [place] - AYDEE REVELES MD [facility], Main Office Address [address] [place] [phone] Assessment Encounter Date Assessment Date Assessment LastModified by Organization Details LastModified Time 11/30/2023 11/30/2023 AUDIO. telemedicine. [place] audio. 18 min [email or web address] Not available 11/30/2023 09:20:29 04/12/2024 04/12/2024 AUDIO. [place]. [place] audio. 16 min cmartorell Not available 04/12/2024 11:47:22 07/13/2024 07/13/2024 video. [place]icine. [place] audio. 17 min cmartorell Not available 07/13/2024 09:50:20 10/15/2024 10/15/2024 video. telemedicine. [place] audio. 19 min cmartorell Not available 10/15/2024 09:56:46 01/11/2025 01/11/2025 video. telemedicine. [place]. 17 min [email or web address] Not available 01/25/2025 10:22:15 Plan of Treatment Reminders Order Date Submit Date Provider Last Modified By Organization Details Last Modified Time Details Appointments B20 FOLLOW UP 2024 11:00A Aretha Rizzo MD Not available Not available Not available Lab CBC w/ diff [address] (Lab), [address] [place] [address], [id number], 01/21/2025 10:03:30 ALT (alanine aminotra nsferase ), serum or plasma [address] (Lab), [address] [place] [address], [id number], 01/21/2025 10:03:30 AST/SGOT (asparta te aminotra nsferase ), serum or plasma [address] (Lab), [address] [place] [address], [id number], 01/21/2025 10:03:30 creatini ne w/ estimate d GFR (eGFR), serum or plasma [address] (Lab), [address] [place] [address], [id number], 01/21/2025 10:03:30 HIV-1 RNA, quantita tive, PCR, serum or plasma [address] (Lab), [address] [place] [address], [id number], 01/21/2025 10:03:30 RPR (rapid plasma reagin), serum [address] (Lab), [address] [place] [address], [address], 01/21/2025 10:03:31 cd4 T-cells, blood [address] (Lab), [address] [place] [address], [address], 01/21/2025 10:03:31 CBC w/ diff [address] (Lab), [address] [place] [address], [address], 10/22/2024 08:51:28 ALT (alanine aminotra nsferase ), serum or plasma [address] (Lab), [address] [place] [address], [address], 10/22/2024 08:51:28 AST/SGOT (asparta te aminotra nsferase ), serum or plasma [address] (Lab), [address] [place] [address], [address], 10/22/2024 08:51:28 creatini ne w/ estimate d GFR (eGFR), serum or plasma [address] (Lab), [address] [place] [address], [id number], 10/22/2024 08:51:29 HIV-1 RNA, quantita tive, PCR, serum or plasma [address] (Lab), [address] [place] [address], [address], 10/22/2024 08:51:29 RPR (rapid plasma reagin), serum [address] [place] [address] (Lab), [address] [place] [address], [address], 10/22/2024 08:51:29 T-cell regulato ry subsets panel, blood [address] [place] [address] (Lab), [address] [place] [address], [address], 10/22/2024 08:51:29 Referral None recorded . Procedures None recorded . Surgeries None recorded . Imaging US, abdomen - RUQ pain [address], [place], [address], 07/27/2024 14:33:12 Medication Orders Bactrim DS 800 mg-160 mg tablet 2024 025 cmartorell [id number], [address] [place], [address], 01/11/2025 09:45:52 Descovy 200 mg-25 mg tablet 2024 025 [id number] [address] [place] [address], [address], 01/11/2025 09:45:48 Tivicay 50 mg tablet 2024 025 [facility], [address] [place] [address], [address], 01/11/2025 09:45:51 Bactrim DS 800 mg-160 mg tablet 2024 025 [facility] [address] [place] [address], [address], 10/15/2024 10:09:08 Descovy 200 mg-25 mg tablet 2024 025 [facility], [address] [place] [address], [address], 10/15/2024 10:09:08 Tivicay 50 mg tablet 2024 025 [facility] [address] [place] [address], [address], 10/15/2024 10:09:08 Bactrim DS 800 mg-160 mg tablet 2023 024 cmartorell [facility], [address] [place] [address], [address], 07/13/2024 09:52:03 Descovy 200 mg-25 mg tablet 2023 024 [facility], [address] [place] [address], [address], 07/13/2024 09:52:02 Tivicay 50 mg tablet 2023 024 [facility], [address] [place] [address], [address], 07/13/2024 09:52:01 Bactrim DS 800 mg-160 mg tablet 2023 024 [facility] [address] [place], [address], 04/12/2024 11:45:34 Descovy 200 mg-25 mg tablet 2023 024 [facility] [address] [place], [address], 04/12/2024 11:45:34 Tivicay 50 mg tablet 2023 024 [facility] [address] [place], [address], 04/12/2024 11:45:33 Bactrim DS 800 mg-160 mg tablet 2023 024 [facility] [address] [place], [address], 11/30/2023 09:21:41 Descovy 200 mg-25 mg tablet 2023 024 [facility] [address] [place], [address], 11/30/2023 09:21:41 Tivicay 50 mg tablet 2023 024 [facility] [address] [place], [address], 11/30/2023 09:21:40 Patient TargetsNo targets recorded. Patient [...] Recorded Time Chronic obstructi ve pulmonary disease 61431746 Active 2023 Aydee Rizzo MD [address] [place] [address] Z[place], [id number] , ZOË RIZZO MD [facility] 4 11:17:18 Human immunodef iciency virus infection 83198238 Active 2023 Aydee Rizzo MD [address] [place], [place] [address], [address] , ZOË RIZZO MD [facility] 4 11:17:23 Viral hepatitis C 98035945 Active 2023 Aydee Rizzo MD [address] [place], [place] [address], [address] , ZOË RIZZO MD [facility] 4 11:17:45 HIV seroposit ivity Active 2015 HIV seropositi vity; snomeddesc ription: HIV seropositi vity; Report Immunity to Registry: Yes; Notes: dx 1989 IVDU [id number] neg 2007 genotype 2007; Not Available [facility] 4 06:58:29 Emphysema tous bronchiti s 471629373 Active 2013 Emphysemat ous bronchitis ; snomeddesc ription: Emphysemat ous bronchitis ; Report Immunity to Registry: Yes; Obstructi ve chronic bronchitis , without exacerbati on; snomeddesc ription: Emphysemat ous bronchitis ; Report Immunity to Registry: Yes; Not Available [facility] 4 06:58:30 Osteopeni a 364592605 Active 2014 Osteopenia ; snomeddesc ription: Osteopenia ; Report Immunity to Registry: Yes; Notes: endocrinol ogy; Not Available [facility] 4 06:58:30 Indigesti on 306365748 Active 2013 Dyspepsia and other specified disorders of function of stomach; snomeddesc ription: Indigestio n; Report Immunity to Registry: Yes; Indigesti on; snomeddesc ription: Indigestio n; Report Immunity to Registry: Yes; Not Available [facility] 4 06:58:30 Cobalamin deficienc y 323858850 Active 2013 Cobalamin deficiency ; snomeddesc ription: Cobalamin deficiency ; Report Immunity to Registry: Yes; Not Available [facility] 4 06:58:30 Disorder of bone and articular cartilage 706541992 Active 2014 Disorder of bone and cartilage, unspecifie d; snomeddesc ription: Osteopenia ; Report Immunity to Registry: Yes; Notes: endocrinol ogy; Not Available [facility] 4 06:58:30 Vitamin B deficienc y 97777055 Active 2013 Other B-complex deficienci es; snomeddesc ription: Cobalamin deficiency ; Report Immunity to Registry: Yes; Not Available [facility] 4 06:58:30 Viral hepatitis B without hepatic coma 125905997 Active 2016 Unspecifie d viral hepatitis B without hepatic coma; snomeddesc ription: Type B viral hepatitis; Report Immunity to Registry: Yes; Notes: past hx core ab pos; s ag neg; s ab pos 2016 HBV undetected 2017; Not Available [facility] 4 06:58:30 Hepatitis C carrier 684235486 Active 2017 Hepatitis C carrier; snomeddesc ription: Hepatitis C carrier; Report Immunity to Registry: Yes; Notes: VL undetectab le 2010; 2012; Ab pos; VL neg 2014; neg 12/2015; 2016; 2017; Not Available [facility] 4 06:58:31 Type B viral hepatitis 96738687 Active 2016 Type B viral hepatitis; snomeddesc ription: Type B viral hepatitis; Report Immunity to Registry: Yes; Notes: past hx core ab pos; s ag neg; s ab pos 2016 HBV undetected 2017; Not Available [facility] 4 06:58:31 Type 2 diabetes mellitus 83931281 Active 2023 Aydee Rizzo MD [address] [place] [address] [place], [phone] , ZOË - AYDEE RIZZO MD [facility] 4 11:48:54 Problem Notes None recorded. Medical [...] Not Available Not Available Not Parris lable Afluria 45 mcg (15 mcg x [...] Pneumoco ccal conjugat e PCV20, polysacc haride [id number] conjugat e, adjuvant , PF; SU_FULL_ NAME: [...] Time Meningococcal MCV4O 0 completed Not Available [facility] 10/12/2023 06:54:07 Influenza, split virus, quadrivalent, preservative 8 completed Not Available [facility] 10/12/2023 06:54:07 Influenza, split virus, quadrivalent, preservative 9 completed Not Available [facility] 10/12/2023 06:54:07 Past Encounters Encounter ID Performer Location Encounter Start Date Encounter Closed Date Diagnosis/Indication Diagnosis SNOMED-CT Code Diagnosis ICD10 Code Diagnosis Note [id number] Aydee Rizzo MD Main Office [address] [place] [phone] 05/27/2023 13:01:20 05/27/2023 14:11:08 Human immunodeficiency virus infection 11277634 B20 HIV: Continue Descovy 1 tab po [...] care reviewed. Questions and concerns addressed Neuropathy 852418482 G62 .9 on gabapentin . Chronic ob structive pulmonary disease 17748615 J44.9 On Bactrim DS tiw suppressio n tx to prevent bronchitis /pneumonia .on o2 supplement F/u pulmonary. RSV vaccine recommende dflu vaccineon Bactrim DS tiw. Hepatitis C virus detected by enzyme-linked immunosorbent assay 632611247 R76.8 HCV VL nondetcete d. past infection. [id number] Aydee Rizzo MD Main Office [address] [place] [phone] 08/30/2023 09:37:12 08/30/2023 12:56:26 Human immunodeficiency virus infection 31265478 B20 HIV: Continue Descovy 1 tab po [...] concerns addressed Chronic ob structive pulmonary disease 37342554 J44.9 On Bactrim DS tiw suppressio n tx to prevent bronchitis /pneumonia .on o2 supplement F/u pulmonary. on Bactrim DS tiw for suppressio n of infection. vaccines recommende d Viral hepatitis C 906121 07 B19.20 past hx.VL undetectab le 2010; 2012; Ab pos; VL neg 2014; neg 12/2015; 2016; 2017 [id number] Aydee Rizzo MD Main Office [address] [place] [phone] 11/30/2023 09:03:23 11/30/2023 09:24:26 Human immunodeficiency virus infection 60230856 B20 HIV: Continue Descovy 1 tab po qd and Tivicay 50 mg po qd. compliance reviewed to prevent viral resistance , keep viral suppressio n and prevent transmissi on.pt aware of PreP availabili ty; U=U; condom use to prevent STI's. Plan of care reviewed. Questions and concerns addressed Chronic ob structive pulmonary disease 64613440 J44.9 On Bactrim DS tiw suppressio n tx to prevent bronchitis /pneumonia .on o2 supplement F/u pulmonary. [id number] Aydee Rizzo MD Main Office [address] [place] [phone] 04/12/2024 11:41:47 04/12/2024 12:24:59 Human immunodeficiency virus infection 54095283 B20 HIV:Contin ue Descovy 1 tab po qd and Tivicay 50 mg po qd. compliance reviewed to prevent viral resistance , keep viral suppressio n and prevent transmissi on.pt aware of PreP availabili ty; U=U; condom use to prevent STI's.DOXY PEP reviewedPl an of care reviewed. Questions and concerns addressed Chronic ob structive pulmonary disease 59608205 J44.9 On Bactrim DS tiw suppressio n tx to prevent bronchitis /pneumonia .on o2 supplement F/u pulmonary. Type 2 cherry betes mellitus 18381931 E11.9 on Ozempic sq qw.f/u PCP [id number] Aydee Rizzo MD Main Office [address] [place] [phone] 07/13/2024 09:45:07 07/13/2024 09:53:56 Human immunodeficiency virus infection 27574220 B20 HIV:Contin ue Descovy 1 tab po qd and Tivicay 50 mg po qd. compliance reviewed to prevent viral resistance , keep viral suppressio n and prevent transmissi on.COVID19 and RSV vaccines prescribed .Plan of care reviewed. Questions and concerns addressed Chronic ob structive pulmonary disease 78994792 J44.9 On Bactrim DS tiw suppressio n tx to prevent bronchitis /pneumonia .on o2 supplement F/u pulmonary. Right uppe r quadrant pain 277216907 R10.11 will get lab results for ALt/ASTu/s abdto ER if worsening sx, n/v/d, fever or other [id number] Aydee Rizzo MD Main Office [address] [place] [phone] 10/15/2024 09:08:19 10/23/2024 09:49:02 Human immunodeficiency virus infection 21032890 B20 HIV:Contin ue Descovy 1 tab po qd and Tivicay 50 mg po qd. compliance reviewed to prevent viral resistance , keep viral suppressio n and prevent transmissi on.COVID19 and RSV vaccines prescribed .Plan of care reviewed. Questions and concerns addressed Chronic ob structive pulmonary disease 84068421 J44.9 On Bactrim DS tiw suppressio n tx to prevent bronchitis /pneumonia .on o2 supplement F/u pulmonary. 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 compliance reviewed to prevent viral resistance , keep viral suppressio n and prevent transmissi on.labs results to be requested. labs orderedcli nicaltrial options, 2 drug regimen, TAF free options, injectable s reviewed. she prefers to keep current regimen.pr evnar and RSV vaccines prescribed .aware of PreP and DOXYPEP availabili tyPlan of care reviewed. Questions and concerns addressed Chronic ob structive pulmonary disease 88673985 J44.9 On Bactrim DS tiw suppressio n [...] Michel Member ID Guarantor Name 11/30/2023 1 [facility] - DOS ON OR AFTER 2022 - DUAL ELIGIBLE - RESIDENTIAL OPTIONS AND ONE CARE (MEDICARE REPLACEMENT/AD VANTAGE - HMO) [place] Mendoza [id number] [place] Mendoza 04/12/2024 1 [facility] - DOS ON OR AFTER 2022 - DUAL ELIGIBLE - RESIDENTIAL OPTIONS AND ONE CARE (MEDICARE REPLACEMENT/AD VANTAGE - HMO) [place] Mendoza [id number] [place] Mendoza 07/13/2024 1 [facility] - DOS ON OR AFTER 2022 - DUAL ELIGIBLE - RESIDENTIAL OPTIONS AND ONE CARE (MEDICARE REPLACEMENT/AD VANTAGE - HMO) [place] Mendoza [id number] [place] Mendoza 10/15/2024 1 [facility] - DOS ON OR AFTER 2022 - DUAL ELIGIBLE - RESIDENTIAL OPTIONS AND ONE CARE (MEDICARE REPLACEMENT/AD VANTAGE - HMO) [place] Mendoza [id number] [place] Mendoza 01/11/2025 1 [facility] - DOS ON OR AFTER 2022 - DUAL ELIGIBLE - RESIDENTIAL OPTIONS AND ONE CARE (MEDICARE REPLACEMENT/AD VANTAGE - HMO) [place] Mendoza [id number] Indiana Mendoza Notes Date Note Type Note Provider Name and Address Organization Details Recorded Time 4 text/html /u HIV.pt is on Descovy 1 tab po qd and Tivicay 50 mg 1 tab po daily.compliant; denies missing doses.happy w regimen.prefers to keep same regimenmed list reviewed.lab results reviewed.has not been sick; no hospitalizations08/2023 HIV VL nondetceted; GJ9=4164; AST/ALt wnl; no syphilis; HBV VL nondetceted.08/26/2022 HIV VL nondetceted; CS4=4155; ALt/AST wnl;eGFR.60; syphilis NR; eGFR>609 HIV VL nondetceted; CD4 87935/2022 FG3=0581; HIV VL nondetceted; ALt/AST wnl; eGFR>6012/2021 HIV VL nondetceted; UI7=9413; ALT/AST wnl; eGFR>609 ZA4=6828; HIV VL nondetected; eGFR>60. CKD hx.on Bactrim tiw to prevent recurrent bronchitis/pneumonia/hospi talizations.not sexually activemed list reviewed. Aydee Rizzo MD [address] [place] [address], [phone], [facility] - AYDEE RIZZO MD [facility] 11/30/2023 09:21:47 4 text/html /u HIV.pt is on Descovy 1 tab po qd and Tivicay 50 mg 1 tab po daily.compliant; denies missing doses.happy w regimen.med list reviewed.lab results reviewed.has not been sick; no hospitalizations03/2024 HIV VL Pending; partial resulst available.08/2023 HIV VL nondetceted; PM6=5441; AST/ALt wnl; no syphilis; HBV VL nondetceted.08/26/2022 HIV VL nondetceted; NA9=6851; ALt/AST wnl;eGFR.60; syphilis NR; eGFR>60 on Bactrim tiw to prevent recurrent bronchitis/pneumonia/hospi talizations.not sexually activemed list reviewed. pt was diabetic. on ozempic qw sc.she has lost some weight. Aydee Rizzo MD [address] [place] [address], [phone], ZOË RIZZO MD [facility] 04/12/2024 11:49:10 4 text/html f/u HIV.pt is on Descovy 1 tab po qd and Tivicay 50 mg 1 tab po daily.compliant; denies missing doses.happy w regimen.RUQ for few months; on/off; -01/29 . not after she eats. denies ETOH. no jaundice.lab results reviewed. no n/v/d.weight loss while on ozempic for DM.has not been sick; no [id number]/19/2024 HIV VL nondetected03/2024 HIV VL Pending; partial resulst available.08/2023 HIV VL nondetceted; MT2=1200; AST/ALt wnl; no syphilis; HBV VL nondetceted.08/26/2022 HIV VL nondetceted; RY2=2238; ALt/AST wnl;eGFR.60; syphilis NR; eGFR>60on Bactrim tiw to prevent recurrent bronchitis/pneumonia/hospi talizations. no flareups whil dana Bactrim suppression tx.not sexually activemed list reviewed.got the flu vaccinetrasnportation problems: daughter works and gets out late. Aydee Rizzo MD [address] [place] [address], [phone], [place] Tammy RIZZO MD [facility] 07/13/2024 09:55:33 5 text/html f/u HIV.pt is on Descovy 1 tab po qd and Tivicay 50 mg 1 tab po daily.compliant; denies missing doses.happy w regimen.med list reviewedhas not been sick; no hospitalizationslabs done 10/01/24: pending [id number]/10/2024 HIV VL nondetected03/2024 HIV VL Pending; partial results available.08/2023 HIV VL nondetceted; RI0=9929; AST/ALt wnl; no syphilis; HBV VL nondetceted.on Bactrim tiw to prevent recurrent bronchitis/pneumonia/hospi talizations. no flareups whil dana Bactrim suppression tx.not sexually activemed list reviewed.transportation problems: daughter works and gets out late. u/s 07/2024 fatty liver; aorta placquesDM/hypothyroidismo n ozempic.weight loss. Aydee Rizzo MD [address] [place] [address], [phone], ZOË RIZZO MD [facility] 10/15/2024 10:10:59 text/html f/u HIV.pt is on Descovy 1 tab po qd and Tivicay 50 mg 1 tab po daily.would like to keep same regimenaware of 2 drug regimens and injectables and clinical trial optionscompliant; denies missing doses.happy w regimen.med list reviewedhad labs done on 01/07/25: pending resultshas not been sick; no hospitalizations 07/10/2024 HIV VL nondetected03/2024 HIV VL Pending; partial results available.08/2023 HIV VL nondetceted; NO8=0843; AST/ALt wnl; no syphilis; HBV VL nondetceted.on Bactrim tiw to prevent recurrent bronchitis/pneumonia/hospi talizations. no flareups while on Bactrim suppression tx.not sexually active for many years.med list reviewed.transportation barriers due to daughter/s job schedule Aydee Rizzo MD [address] [place] [address], [phone], [place] - AYDEE RIZZO MD [facility] 01/25/2025 10:23:57 OBGyn Episode No OBEpisode recorded.
== END 2025-01-28 10:48 | disposition home or self-care (01) ==
LOC: HO.ENCR 10:29
PROVIDERS: PCP Internal Medicine; Visit Provider Internal Medicine Endocrinology, Diabetes & Metabolism
DX: M81.0 Age-related osteoporosis without current pathological fracture (principal)
CPT/HCPCS: 99213

== ENCOUNTER → 2025-01-28 10:29 | Outpatient (BNVA) | payer OTHER, SELFPAY | PROVIDERS: PCP Internal Medicine; Visit Provider Internal Medicine Endocrinology, Diabetes & Metabolism | DX: M81.0 Age-related osteoporosis without current pathological fracture (principal) | CPT/HCPCS: 99212 ==

== ENCOUNTER 2025-02-25 10:15 | Outpatient (AMB) | payer OTHER, SELFPAY ==
[2025-02-25 10:18] VITALS: BP 112/60; PULSE 68; O2SAT 97; BMI 30.8
--- NOTE | 2025-02-25 10:18 | MHC.OFFVIS ---
Vital Signs 02/25/25 10:18 Height 5 ft 2 in Weight 168 lb 10.458 oz BMI 30.8 BP 112/60 Blood Pressure Location Rt brachial Position Sitting Pulse 68 Pulse Source Pulse Oximeter Pulse Oximetry (%) 97 Oxygen Delivery Method Nasal Cannula Oxygen Flow Rate 2 Intake Visit Reasons: COPD Accompanied by: Self / Same As Patient Allergies egg (EGG) Allergy (Intermediate, Verified 02/25/25 10:22) STOMACH UPSET HPI Comments Details: The patient is a 69-year-old woman known COPD and chronic respiratory failure on oxygen. She is currently using oxygen at a level of 2 L continues. She is not clear she is on a conserving device trial. She continues uses Spiriva. She is also using her rescue inhaler. She has been having issues with shortness of breath. Moderate severity. He did have a chest x-ray done at [facility] at the that will reviewed in December demonstrating some atelectatic changes. She also had a x-ray at [facility] that we have to look up. She has not had pulmonary function studies in some time. We talked about the importance of pulmonary rehabilitation. We also reviewed her CT scan of the chest done at [facility] February 2019 demonstrating new 3 mm pulmonary nodule along with moderate degree of emphysema. We did review her chest x-ray that was without any acute disease. She is scheduled to undergo a CT scan of the chest in February to assess the pulmonary nodules. In the meantime she continues use her respiratory therapy with good effect. 11/23/2021 the patient is here for a pulmonary follow-up visit. Overall she is feeling better from respiratory status. She is tolerating her respiratory therapy very well. She has not had to use her rescue inhaler. She does continue with the oxygen. She does tolerate the pulse valve conserving device very well. Although, I do believe she can get a drying tumbler operator tank. She is currently has C tanks. I will request that she can get at least a be tank or drying tumbler operator in order to provide her with less discomfort in her shoulder. I will send a script to the [facility] for this and did give her a copy so she can order them herself. We did review her last CT scan of the chest done back in March 2021 demonstrating pulmonary nodules which are subcentimeter in nature. Since the patient is doing well will go ahead and repeat the CT scan a year from now which would be close to year and have from her last CT scan of the chest. If her CT scan does not show any changes then we can just follow her imaging studies as needed. 12/03/2022 the patient is here for pulmonary follow-up visit. Overall the patient has been doing relatively well. She is using her oxygen with good effect. She has a pulse device that she can not carry with good tolerability. She also continues with her inhalers with good effect as well as where we did review her CT scan of the chest that she had back in 2020 demonstrating pulmonary nodules. She was supposed to have a CT scan prior to this visit but she has not had as of yet. Therefore I will order CT scan. I explained to her this anything worsening and we have to have her come in so we can address that. Otherwise I will let him know that everything is okay. If her CT scan demonstrates the ability then no further additional CT scans are needed serial E although we can consider them as needed. Will plan to return in 6 months with a repeat pulmonary function studies. 06/09/2023 the patient is here for pulmonary follow-up visit. The patient overall has been about the same. Still complains about dyspnea on exertion. Moderate severity. The oxygen has been helpful. However, the tanks having extremely happy for her. She has a hard time carrying season velasquez. The patient would like better portability outside of the home. Will request a portable oxygen concentrator which provide better portability also the home for her. The patient also can get some B Cylinders. This also be helpful. Will request him for the [facility]. We did do a titration study again the patient did require oxygen with activity. She continues respiratory therapy. Has not required prednisone. Her last CT scan of the chest back in December 2022 demonstrating stable pulmonary nodules. 12/12/2023 the patient is here for a pulmonary follow-up visit. She does complaint of dyspnea on exertion. Does not feel like the Breo and the Incruse hopeful. She does like to continue with the powder inhaler. Will try her on Trelegy 200 to see if she finds this more effective. In the meantime she continues with her oxygen therapy with good effect. She does use it continuously. In addition to that she did get a portable oxygen concentrator. Although all time she still using the oxygen tanks she finds him a little bit easier to use. The patient does have underlying pulmonary nodules. We did look at her last CT scan back in December 2022. She will require a CT scan in the coming month. 06/13/2024 the patient is here for a pulmonary follow-up visit. Overall she is doing okay. She is tolerating the Trelegy very well. Helping her. She is complaining of worsening cough still productive in nature greenish in color. Moderate severity. . Inhalers do help her partially. She is concerned because she is developing some chest discomfort along the back area when she coughs. The patient did have a CT scan of the chest part of the lung cancer screening program back in 02/09/2024 which I personally reviewed. She has developed tree-in-bud suggesting bronchiolitis primarily in the right lung. Explained to the patient that this may or may not be related to her ongoing symptoms. Will go ahead and request a sputum for culture and also AFB. She has had TB test in the past with a PPD that been negative. At some point will do blood work including a TB test. For now will try to get a sputum in addition to getting an x-ray when she has the opportunity. Will go ahead and give her a course of antibiotics for now in it the patient has done better she can always call the office. 10/01/2024 the patient is here for pulmonary follow-up visit. Overall she is doing better. She was sick the last time we spoke and she required courses of antibiotics. Her cough significantly improved. She continues use the oxygen in her respiratory therapy. But if he days ago she again started developing worsening cough although nonproductive in nature. Some chest tightness. She also complains of some right-sided back discomfort. Seems the case more reproducible more musculoskeletal than pleural related. I will go ahead and order a chest x-ray for her to get and will follow-up with that. If any abnormal findings a let her know. Also she can start Mucinex and I will send her a script for that. If she were to worsen in data show chest congestion then at that point she can start doxycycline. But right now she can just continue with the current respiratory therapy. Will follow-up in 4 months she has any issues prior to that she will call for an earlier assessment. 02/25/2025 the patient is here for pulmonary follow-up visit. Overall she is doing very well. She continues her respiratory therapy with good effect. She also continues her oxygen with a conserving device tank for portability. She did not do good with a POC. And she also has a concentrator home that she uses at nighttime. No recent imaging studies to review. She was supposed to have an x-ray. She will have it before the next visit. In the meantime she has not required any antibiotics nor prednisone since we last spoke. She continues to take her antiviral therapy and her viral load seems to be slightly elevated compared to before. The rest of the blood work is completely normal. We did review her vaccines. She needs to get her RSV vaccine in the fall. Otherwise will follow-up in the spring. If any issues arise she will call for an earlier assessment. [facility] Medical History Controlled type 2 diabetes with neuropathy Bronchiolitis B12 deficiency Chronic respiratory failure Loss of balance Lumbar degenerative disc disease Obesity (BMI 30-39.9) Age-related osteoporosis without current pathological fracture Pulmonary nodules Obese Intertrigo Anemia Hypothyroidism COPD (chronic obstructive pulmonary disease) HIV (human immunodeficiency virus infection) Pure hypercholesterolemia Essential hypertension Diabetes mellitus Surgical History History of laparoscopy History of tubal ligation Family History Father Medical history unknown Mother Diabetes Hypertension CVD (cardiovascular disease) Pulmonary embolism Sister Crohn disease Maternal Aunt Breast cancer Brother Substance abuse Family/Other FH: mental illness Social History Housing: Apartment Alcohol intake: never Patient Tobacco Use Status: Former Tobacco user Tobacco use type: Cigarette Years Smoked: 38 years e-Cigarette/Vaping Use: Never Used Second Hand Smoke Exposure: No service: No Current occupational status: disabled Current occupation: right hand dominant Cognitive needs: No Hearing needs: No Vision needs: No Review of Systems Const All systems reviewed & are unremarkable except as noted in HPI and below Eyes Reports no additional complaints, Denies change in vision and Denies other visual disturbances Card Denies chest pain at rest, Denies chest pain with activity, Denies edema, Denies irregular heart rhythm, Denies claudication, Denies dyspnea, Reports dyspnea on exertion, Denies orthopnea, Denies paroxysmal nocturnal dyspnea and Denies slow heart rate Resp Denies change in phlegm color, Denies chest congestion, Reports cough, Denies dyspnea and Reports dyspnea on exertion GI Denies abdominal pain, Denies change in bowel habits, Denies excessive flatus, Denies nausea and Denies vomiting Denies urinary incontinence, Denies urinary hesitancy and Denies urinary urgency Musc Denies abnormal gait, Denies atrophy, Denies deformity and Denies limited range of motion Skin/Breast Denies bleeding lesions, Denies changing lesions and Denies rash Neuro Denies abnormal gait, Denies behavioral changes and Denies lack of coordination Psych Denies behavioral changes Physical Exam Vital Signs: Last Vital Signs Pulse 68 02/25/25 10:18 BP 112/60 02/25/25 10:18 Pulse Ox 97 02/25/25 10:18 Oxygen Delivery Method Nasal Cannula 02/25/25 10:18 Oxygen Flow Rate 2 02/25/25 10:18 BMI result Body Mass Index 30.8 Const General: comfortable HEENT General nose exam: Nasal discharge present Eyes Pupils: Equal, round and reactive pupils present Neck Neck: Yes normal visual inspection, Yes full ROM and Yes no lymphadenopathy Chest Chest palpation & inspection: normal inspection of the chest Resp Effort & Inspection: normal respiratory effort Auscultation: diminished lung sounds Cardio Rate: regular rate Rhythm: regular rhythm Heart sounds: S1 normal heart sound present and S2 normal heart sound present GI Palpation (GI): Soft to palpation and nontender Auscultation: normal bowel sounds General: Yes no CVA tenderness Back/Spine/Pelvis Back: no CVA tenderness Skin General skin exam: rashes and/or lesions noted Neuro Cranial nerves: Yes Equal, round and reactive pupils present Assessment & Plan Assessment & Plan (1) COPD (chronic obstructive pulmonary disease): Code(s): J44.9 - Chronic obstructive pulmonary disease, unspecified Category: Medical Qualifiers: COPD type: emphysema Emphysema type: centrilobular Qualified Code(s): J43.2 - Centrilobular emphysema Plan: continue respiratory therapy (2) Pulmonary nodules: Code(s): R91.8 - Other nonspecific abnormal finding of lung field Category: Medical (3) Chronic respiratory failure: Code(s): J96.10 - Chronic respiratory failure, unspecified whether with hypoxia or hypercapnia Category: Medical Qualifiers: Respiratory failure complication: hypoxia Qualified Code(s): J96.11 - Chronic respiratory failure with hypoxia Plan Trelegy 200 CHAZ as needed conrinue singulair continue oxygen 2 L pulse with activity. CXR Follow-up in 8-10 months Coding Level of Care Code Est Pt Level 4 (92749) Complex EM visit Add On G2211 Diagnoses Centrilobular emphysema J43.2 COPD type: emphysema Emphysema type: centrilobular Pulmonary nodules R91.8 Chronic respiratory failure with hypoxia J96.11 Respiratory failure complication: hypoxia Time Spent (min) 17
--- OUTSIDE RECORDS SUMMARY | 2025-02-25 11:03 | XMS_ITS | Patient Health Record ---
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 Name Role Phone Be Chu MD, Jimenez Primary Care Provider Un available Cruz Lord Jr Unavailable Reason For Referral No Information Medications Medication SIG (Take, Route, Frequency, Duration) Notes Start Date End Date Status Levothyroxine Sodium 25mcg Active Proventil HFA 90mcg Active Sulfamethoxazole-TMP DS Active Multi Vitamin/Minerals Active metFORMIN HCl 1000mg Active Spiriva HandiHaler A ctive Aspir-81 81mg Active Ventolin HFA Active Albuterol 0.083% Act emelina Pioglitazone HCl Act emeilna Montelukast Sodium A ctive Suprep Bowel Prep 1 as directed Orally f or 1 dose 10/28/2011 Active Pantoprazole Sodium 40 MG 1 tablet Orall y Once a day for 30 day(s) 02/15/2013 Active Cyanocobalamin 1000mcg Active Symbicort 160-4.5mcg Active Alendronate Sodium 70mg Active Golytely 236 GM as directed before colonoscopy Orally every 15 minutes for 1 day(s) 02/15/2013 Active Dulcolax 5 MG 1 tablet as needed O rally Once a day for 30 day(s) 06/22/2013 Active Social History Alcohol Screen Question Answer Notes Did you have a drink containing alcohol in the p ast year? No Points 0 Interpretation Negative Section Notes: Tobacco and alcohol use are negative. Tobacco and alcohol use are negative. Tobacco and alcohol use are negative. Problems Problem Type SNOMED Code ICD Code Onset Dates Problem Status W/U Status Risk Notes Problem Esophageal reflux (811028835) Esophageal reflux (530.81) Active confirmed Problem Liver function tests abnormal (161147111) Nonspecific abnormal results of liver function study (794.8) Active confirmed Problem Screening for malignant neoplasm of colon (094003790) Special screening for malignant neoplasms, colon (V76.51) Active confirmed Problem Liver function tests abnormal (076646568) Abnormal liver function tests (790.6) Active confirmed Plan Of Treatment Future Test Test Name Order Date COLONOSCOPY 10/28/2011 Insurance Providers Payer Name Payer Address Payer Phone Subscriber Number Group Number Insured Name Patient Relationship to Insured Coverage Start Date Coverage End Date [facility] [employer] [address] [place] [address] [id number] CHRISTIANO ERNST Self - patient is the insured [id number] [address] [place] [address] [id number] CHRISTIANO ERNST Self - patient is the insured Medical (General) History Medical History History ICD Code colonoscopy 05-17-2007 colon polyps HIV infection thyroid disease elevated cholesterol diabetes mellitus asthma Denies CT,CVA,renal disease
--- OUTSIDE RECORDS SUMMARY | 2025-02-25 11:03 | XMS_ITS | Data Portability ---
Author Organization ZOË - AYDEE REVELES MD [facility], Main Office Address [address] [place] [id number] Assessment Encounter Date Assessment Date Assessment LastModified by Organization Details LastModified Time 11/30/2023 11/30/2023 AUDIO. tele[place] audio. 18 min [email or web address] Not available 11/30/2023 09:20:29 04/12/2024 04/12/2024 AUDIO. [place] audio. 16 min [email or web address] Not available 04/12/2024 11:47:22 07/13/2024 07/13/2024 video. [place] audio. 17 min cmartorell Not available 07/13/2024 09:50:20 10/15/2024 10/15/2024 video. [place]. [place] audio. 19 min [email or web address] Not available 10/15/2024 09:56:46 01/11/2025 01/11/2025 video. [place]medicine. [place] 17 min cmartorell Not available 01/25/2025 10:22:15 Plan of Treatment Reminders Order Date Submit Date Provider Last Modified By Organization Details Last Modified Time Details Appointments B20 FOLLOW UP 2024 11:00A Aretha Rizzo MD Not available Not available Not available Lab CBC w/ diff [address] (Lab), [address] [place] [address], [id number], 01/21/2025 10:03:30 ALT (alanine aminotra nsferase ), serum or plasma [address] (Lab), [address] [place] [address], [address], 01/21/2025 10:03:30 AST/SGOT (asparta te aminotra nsferase ), serum or plasma [address] (Lab), [address] [place] [address], [address], 01/21/2025 10:03:30 creatini ne w/ estimate d GFR (eGFR), serum or plasma [address] (Lab), [address] [place] [address], [address], 01/21/2025 10:03:30 HIV-1 RNA, quantita tive, PCR, serum or plasma [address] (Lab), [address] [place] [address], [address], 01/21/2025 10:03:30 RPR (rapid plasma reagin), serum [address] (Lab), [address] [place] [address], [address], 01/21/2025 10:03:31 cd4 T-cells, blood [address] (Lab), [address] [place] [address], [address], 01/21/2025 10:03:31 CBC w/ diff [address] (Lab), [address] [place] [address], [address], 10/22/2024 08:51:28 ALT (alanine aminotra nsferase ), serum or plasma [address] [place] [address] (Lab), [address] [place] [address], [address], 10/22/2024 08:51:28 AST/SGOT (asparta te aminotra nsferase ), serum or plasma [address] (Lab), [address] [place] [address], [address], 10/22/2024 08:51:28 creatini ne w/ estimate d GFR (eGFR), serum or plasma [address] (Lab), [address] [place] [address], [address], 10/22/2024 08:51:29 HIV-1 RNA, quantita tive, PCR, serum or plasma [address] (Lab), [address] [place] [address], [address], 10/22/2024 08:51:29 RPR (rapid plasma reagin), serum [address] (Lab), [address] [place] [address], [address], 10/22/2024 08:51:29 T-cell regulato ry subsets panel, blood [address] (Lab), [address] [place] [address], [address], 10/22/2024 08:51:29 Referral None recorded . Procedures None recorded . Surgeries None recorded . Imaging US, abdomen - RUQ pain [address], [place], [address], 07/27/2024 14:33:12 Medication Orders Bactrim DS 800 mg-160 mg tablet 2024 025 cm[id number], [address] [place], [address], 01/11/2025 09:45:52 Descovy 200 mg-25 mg tablet 2024 025 [facility], [address] [place] [address], [address], 01/11/2025 09:45:48 Tivicay 50 mg tablet 2024 025 [facility], [address] [place] [address], [address], 01/11/2025 09:45:51 Bactrim DS 800 mg-160 mg tablet 2024 025 [facility], [address] [place] [address], [address], 10/15/2024 10:09:08 Descovy 200 mg-25 mg tablet 2024 025 [facility], [address] [place] [address], [address], 10/15/2024 10:09:08 Tivicay 50 mg tablet 2024 025 [facility], [address] [place] [address], [address], 10/15/2024 10:09:08 Bactrim DS 800 mg-160 mg tablet 2023 024 cmartorell [facility], [address] [place] [address], [address], 07/13/2024 09:52:03 Descovy 200 mg-25 mg tablet 2023 024 [facility], [address] [place] [address], [address], 07/13/2024 09:52:02 Tivicay 50 mg tablet 2023 024 [facility], [address] [place] [address], [address], 07/13/2024 09:52:01 Bactrim DS 800 mg-160 mg tablet 2023 024 [facility], [address] [place], [address], 04/12/2024 11:45:34 Descovy 200 mg-25 mg tablet 2023 024 [facility], [address] [place], [address], 04/12/2024 11:45:34 Tivicay 50 mg tablet 2023 024 [facility], [address] [place] [address], [address], 04/12/2024 11:45:33 Bactrim DS 800 mg-160 mg tablet 2023 024 [facility], [address] [place], [address], 11/30/2023 09:21:41 Descovy 200 mg-25 mg tablet 2023 024 [facility], [address] [place], [address], 11/30/2023 09:21:41 Tivicay 50 mg tablet 2023 024 [facility], [address] [place] [address], [address], 11/30/2023 09:21:40 Patient TargetsNo targets recorded. Patient [...] Recorded Time Chronic obstructi ve pulmonary disease 80019331 Active 2023 Aydee Rizzo MD [address] [place] [address] [place], [phone] , ZOË RIZZO MD [facility] 4 11:17:18 Human immunodef iciency virus infection 71416468 Active 2023 Aydee Rizzo MD [address] [place], [place] [address], [address] , ZOË RIZZO MD [facility] 4 11:17:23 Viral hepatitis C 56871778 Active 2023 Aydee Rizzo MD [address] [place], [place] [address], [address] , ZOË RIZZO MD [facility] 4 11:17:45 HIV seroposit ivity Active 2015 HIV seropositi vity; snomeddesc ription: HIV seropositi vity; Report Immunity to Registry: Yes; Notes: dx 1989 IVDU [id number] neg 2008 genotype 2008; Not Available [facility] 4 06:58:29 Emphysema tous bronchiti s 561618511 Active 2013 Emphysemat ous bronchitis ; snomeddesc ription: Emphysemat ous bronchitis ; Report Immunity to Registry: Yes; Obstructi ve chronic bronchitis , without exacerbati on; snomeddesc ription: Emphysemat ous bronchitis ; Report Immunity to Registry: Yes; Not Available [facility] 4 06:58:30 Osteopeni a 038141538 Active 2014 Osteopenia ; snomeddesc ription: Osteopenia ; Report Immunity to Registry: Yes; Notes: endocrinol ogy; Not Available [facility] 4 06:58:30 Indigesti on 905260518 Active 2013 Dyspepsia and other specified disorders of function of stomach; snomeddesc ription: Indigestio n; Report Immunity to Registry: Yes; Indigesti on; snomeddesc ription: Indigestio n; Report Immunity to Registry: Yes; Not Available [facility] 4 06:58:30 Cobalamin deficienc y 545133245 Active 2013 Cobalamin deficiency ; snomeddesc ription: Cobalamin deficiency ; Report Immunity to Registry: Yes; Not Available [facility] 4 06:58:30 Disorder of bone and articular cartilage 442547882 Active 2014 Disorder of bone and cartilage, unspecifie d; snomeddesc ription: Osteopenia ; Report Immunity to Registry: Yes; Notes: endocrinol ogy; Not Available [facility] 4 06:58:30 Vitamin B deficienc y 95162358 Active 2013 Other B-complex deficienci es; snomeddesc ription: Cobalamin deficiency ; Report Immunity to Registry: Yes; Not Available [facility] 4 06:58:30 Viral hepatitis B without hepatic coma 963579116 Active 2016 Unspecifie d viral hepatitis B without hepatic coma; snomeddesc ription: Type B viral hepatitis; Report Immunity to Registry: Yes; Notes: past hx core ab pos; s ag neg; s ab pos 2016 HBV undetected 2017; Not Available [facility] 4 06:58:30 Hepatitis C carrier 578106561 Active 2017 Hepatitis C carrier; snomeddesc ription: Hepatitis C carrier; Report Immunity to Registry: Yes; Notes: VL undetectab le 2010; 2012; Ab pos; VL neg 2014; neg 12/2015; 2016; 2017; Not Available [facility] 4 06:58:31 Type B viral hepatitis 73308610 Active 2016 Type B viral hepatitis; snomeddesc ription: Type B viral hepatitis; Report Immunity to Registry: Yes; Notes: past hx core ab pos; s ag neg; s ab pos 2016 HBV undetected 2017; Not Available [facility] 4 06:58:31 Type 2 diabetes mellitus 38739476 Active 2023 Aydee Rizzo MD [address] [place] [address] [place], [address] , [place] - AYDEE RIZZO MD [facility] 4 11:48:54 Problem Notes None recorded. Medical Equipment None Reported. Medications Name Sig Start Date Stop Date Status Note LastModified by Organization Details LastModified Time multivita min tablet Multiple Vitamins Quantity : 30; 3 refill(s ) 01/22 completed Frequenc y: qd; VACCINE_ IND: no; SU_FULL_ NAME: Aydee Martanam [...] 5; VACCINE_ IND: no; SU_FULL_ NAME: Aydee Sellersanma morales; Not Available Not Available Not Available [...] no; Not Available Not Available Not Available [facility] Quad 60 mcg (15 mcg x 4)/0.5 [...] Pneumoco ccal conjugat e PCV20, polysacc haride [id number] conjugat e, adjuvant , PF; SU_FULL_ NAME: Aydee morales; Not Available Not Available Not Available [facility] (6mo up) 60 mcg (15 mcg x 4)/0.5 mL IM susp quadriva lent Quantity : ; 0 refill(s ) 05/06 completed VACCINE_ IND: yes; VACCINE_ DOCUMENT _DATE: 00:00:00 ; VACCINE_ DOCUMENT _NAME: Influenz a (Flu) (Inactiv ated or Recombin ant): 03/27/21; VACCINE_ NAME: influenz a, injectab le, quadriva lent; SU_FULL_ NAME: Aydee morales; VIS_DATE : 2022-08- 22 04:00:00 .0; Not Available Not Available Not [...] Time Meningococcal MCV4O 0 completed Not Available [facility] 10/12/2023 06:54:07 Influenza, split virus, quadrivalent, preservative 8 completed Not Available [facility] 10/12/2023 06:54:07 Influenza, split virus, quadrivalent, preservative 9 completed Not Available [facility] 10/12/2023 06:54:07 Past Encounters Encounter ID Performer Location Encounter Start Date Encounter Closed Date Diagnosis/Indication Diagnosis SNOMED-CT Code Diagnosis ICD10 Code Diagnosis Note [id number] Aydee Rizzo MD Main Office [address] [place] [phone] 05/27/2023 13:01:20 05/27/2023 14:11:08 Human immunodeficiency virus infection 75832172 B20 HIV: Continue Descovy 1 tab po [...] care reviewed. Questions and concerns addressed Neuropathy 246279649 G62 .9 on gabapentin . Chronic ob structive pulmonary disease 03152738 J44.9 On Bactrim DS tiw suppressio n tx to prevent bronchitis /pneumonia .on o2 supplement F/u pulmonary. RSV vaccine recommende dflu vaccineon Bactrim DS tiw. Hepatitis C virus detected by enzyme-linked immunosorbent assay 383324630 R76.8 HCV VL nondetcete d. past infection. [id number] Aydee Rizzo MD Main Office [address] [place] [phone] 08/30/2023 09:37:12 08/30/2023 12:56:26 Human immunodeficiency virus infection 61766046 B20 HIV: Continue Descovy 1 tab po [...] concerns addressed Chronic ob structive pulmonary disease 61448967 J44.9 On Bactrim DS tiw suppressio n tx to prevent bronchitis /pneumonia .on o2 supplement F/u pulmonary. on Bactrim DS tiw for suppressio n of infection. vaccines recommende d Viral hepatitis C 635045 07 B19.20 past hx.VL undetectab le 2010; 2012; Ab pos; VL neg 2014; neg 12/2015; 2016; 2017 [id number] Aydee Rizzo MD Main Office [address] [place] [phone] 11/30/2023 09:03:23 11/30/2023 09:24:26 Human immunodeficiency virus infection 98443330 B20 HIV: Continue Descovy 1 tab po qd and Tivicay 50 mg po qd. compliance reviewed to prevent viral resistance , keep viral suppressio n and prevent transmissi on.pt aware of PreP availabili ty; U=U; condom use to prevent STI's. Plan of care reviewed. Questions and concerns addressed Chronic ob structive pulmonary disease 28074033 J44.9 On Bactrim DS tiw suppressio n tx to prevent bronchitis /pneumonia .on o2 supplement F/u pulmonary. [id number] Aydee Rizzo MD Main Office [address] [place] [phone] 6 04/12/2024 11:41:47 04/12/2024 12:24:59 Human immunodeficiency virus infection 46553495 B20 HIV:Contin ue Descovy 1 tab po qd and Tivicay 50 mg po qd. compliance reviewed to prevent viral resistance , keep viral suppressio n and prevent transmissi on.pt aware of PreP availabili ty; U=U; condom use to prevent STI's.DOXY PEP reviewedPl an of care reviewed. Questions and concerns addressed Chronic ob structive pulmonary disease 64912079 J44.9 On Bactrim DS tiw suppressio n tx to prevent bronchitis /pneumonia .on o2 supplement F/u pulmonary. Type 2 cherry betes mellitus 15462862 E11.9 on Ozempic sq qw.f/u PCP [id number] Aydee Rizzo MD Main Office [address] [place] [address] 07/13/2024 09:45:07 07/13/2024 09:53:56 Human immunodeficiency virus infection 92217389 B20 HIV:Contin ue Descovy 1 tab po qd and Tivicay 50 mg po qd. compliance reviewed to prevent viral resistance , keep viral suppressio n and prevent transmissi on.COVID19 and RSV vaccines prescribed .Plan of care reviewed. Questions and concerns addressed Chronic ob structive pulmonary disease 87592762 J44.9 On Bactrim DS tiw suppressio n tx to prevent bronchitis /pneumonia .on o2 supplement F/u pulmonary. Right uppe r quadrant pain 970324510 R10.11 will get lab results for ALt/ASTu/s abdto ER if worsening sx, n/v/d, fever or other [id number] Aydee Rizzo MD Main Office [address] [place] [phone] 10/15/2024 09:08:19 10/23/2024 09:49:02 Human immunodeficiency virus infection 02578198 B20 HIV:Contin ue Descovy 1 tab po qd and Tivicay 50 mg po qd. compliance reviewed to prevent viral resistance , keep viral suppressio n and prevent transmissi on.COVID19 and RSV vaccines prescribed .Plan of care reviewed. Questions and concerns addressed Chronic ob structive pulmonary disease 19626074 J44.9 On Bactrim DS tiw suppressio n tx to prevent bronchitis /pneumonia .on o2 supplement F/u pulmonary. 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 Health Concerns Section Related Observation LastModified by Organization Detai ls LastModified Time None Recorded Concern Status LastModified by Organization Details LastModified Time None Recorded Advance Directives Directive None Recorded Payers Insurance Date Sequence Insurance Name Policy Number Policy Michel Covered Member ID Michel Member ID Guarantor Name 01/28/2025 1 [facility] - DOS ON OR AFTER 2022 - DUAL ELIGIBLE - LONG-TERM OPTIONS AND ONE CARE (MEDICARE REPLACEMENT/AD VANTAGE - HMO) [place] Mendoza [id number] [place] Mendoza Notes Date Note Type Note Provider Name and Address Organization Details Recorded Time 4 text/html /u HIV.pt is on Descovy 1 tab po qd and Tivicay 50 mg 1 tab po daily.compliant; denies missing doses.happy w regimen.prefers to keep same regimenmed list reviewed.lab results reviewed.has not been sick; no hospitalizations08/2023 HIV VL nondetceted; PR2=9086; AST/ALt wnl; no syphilis; HBV VL nondetceted.08/26/2022 HIV VL nondetceted; GG7=9444; ALt/AST wnl;eGFR.60; syphilis NR; eGFR>609/2022 HIV VL nondetceted; CD4 91420/2022 FG8=4457; HIV VL nondetceted; ALt/AST wnl; eGFR>6012 HIV VL nondetceted; VO1=0487; ALT/AST wnl; eGFR>609/2021 FE0=8954; HIV VL nondetected; eGFR>60. CKD hx.on Bactrim tiw to prevent recurrent bronchitis/pneumonia/hospi talizations.not sexually activemed list reviewed. Aydee Rizzo MD [address] [place] [address], [phone], ZOË RIZZO MD [facility] 11/30/2023 09:21:47 4 text/html /u HIV.pt is on Descovy 1 tab po qd and Tivicay 50 mg 1 tab po daily.compliant; denies missing doses.happy w regimen.med list reviewed.lab results reviewed.has not been sick; no hospitalizations03/2024 HIV VL Pending; partial resulst available.08/2023 HIV VL nondetceted; WE7=1204; AST/ALt wnl; no syphilis; HBV VL nondetceted.08/26/2022 HIV VL nondetceted; FO3=1153; ALt/AST wnl;eGFR.60; syphilis NR; eGFR>60 on Bactrim tiw to prevent recurrent bronchitis/pneumonia/hospi talizations.not sexually activemed list reviewed. pt was diabetic. on ozempic qw sc.she has lost some weight. Aydee Rizzo MD [address] [place] [address], [phone], [facility] Tammy RIZZO MD [facility] 04/12/2024 11:49:10 4 text/html f/u HIV.pt is on Descovy 1 tab po qd and Tivicay 50 mg 1 tab po daily.compliant; denies missing doses.happy w regimen.RUQ for few months; on/off; -01/29 . not after she eats. denies ETOH. no jaundice.lab results reviewed. no n/v/d.weight loss while on ozempic for DM.has not been sick; no vgodyndlkpxefkvo86/19/2024 HIV VL nondetected03/2024 HIV VL Pending; partial resulst available.08/2023 HIV VL nondetceted; VR4=2651; AST/ALt wnl; no syphilis; HBV VL nondetceted.08/26/2022 HIV VL nondetceted; CN7=5654; ALt/AST wnl;eGFR.60; syphilis NR; eGFR>60on Bactrim tiw to prevent recurrent bronchitis/pneumonia/hospi talizations. no flareups whil dana Bactrim suppression tx.not sexually activemed list reviewed.got the flu vaccinetrasnportation problems: daughter works and gets out late. Aydee Rizzo MD [address] [place] [address], [phone], [place] - AYDEE RIZZO MD [facility] 07/13/2024 09:55:33 5 text/html f/u HIV.pt is on Descovy 1 tab po qd and Tivicay 50 mg 1 tab po daily.compliant; denies missing doses.happy w regimen.med list reviewedhas not been sick; no hospitalizationslabs done 10/01/24: pending [id number]/10/2024 HIV VL nondetected03/2024 HIV VL Pending; partial results available.08/2023 HIV VL nondetceted; LY9=6022; AST/ALt wnl; no syphilis; HBV VL nondetceted.on Bactrim tiw to prevent recurrent bronchitis/pneumonia/hospi talizations. no flareups whil dana Bactrim suppression tx.not sexually activemed list reviewed.transportation problems: daughter works and gets out late. u/s 07/2024 fatty liver; aorta placquesDM/hypothyroidismo n ozempic.weight loss. Aydee Rizzo MD [address] [place], [address], [place] - AYDEE RIZZO MD [facility] 10/15/2024 10:10:59 5 text/html f/u HIV.pt is on Descovy [...] Pending; partial results available.08/2023 HIV VL nondetceted; WV2=5179; AST/ALt wnl; no syphilis; HBV VL nondetceted.on Bactrim tiw to prevent recurrent bronchitis/pneumonia/hospi talizations. no flareups while on Bactrim suppression tx.not sexually active for many years.med list reviewed.transportation barriers due to daughter/s job schedule Aydee Rizzo MD [address] [place] [address], [phone], [place] - AYDEE RIZZO MD [facility] 01/25/2025 10:23:57 OBGyn Episode No OBEpisode recorded.
== END 2025-02-25 10:44 | disposition home or self-care (01) ==
LOC: HO.HPS 10:16
PROVIDERS: PCP Internal Medicine; Visit Provider Hospitalist
DX: J43.2 Centrilobular emphysema (principal); R91.8 Other nonspecific abnormal finding of lung field; J96.11 Chronic respiratory failure with hypoxia
CPT/HCPCS: 99214; G2211

== ENCOUNTER → 2025-02-25 10:15 | Outpatient (BNVA) | payer OTHER, SELFPAY | PROVIDERS: PCP Internal Medicine; Visit Provider Hospitalist | DX: J43.2 Centrilobular emphysema (principal); J96.11 Chronic respiratory failure with hypoxia; R91.8 Other nonspecific abnormal finding of lung field; Z99.81 Dependence on supplemental oxygen | CPT/HCPCS: 99212 ==

== ENCOUNTER 2025-03-12 10:03 | Outpatient (AMB) | payer OTHER, SELFPAY ==
--- NOTE | 2025-03-12 10:05 | MHC.OFFVIS ---
Vital Signs 03/12/25 10:09 Height 5 ft 2 in Weight 170 lb 3.15 oz BMI 31.1 BP 94/58 L Blood Pressure Location Lt brachial Position Sitting Pulse 72 Pulse Source Pulse Oximeter Intake Visit Reasons: T2DM Intake Note: Patient present today to follow up on Type 2 Diabetes Mellitus. Last Diabetic Eye exam: July 2024 Last Podiatry Visit: Does not see a Transportation Refrigeration Technician Random Glucose: 108 mg/dl HgA1C: 5.8% 01/21/2025 Assistant Unit Forester Required: Yes Assistant Unit Forester Language: Industrial Management Teacher Services: Assistant Unit Forester Offered & Declined Accompanied by: Daughter Allergies egg (EGG) Allergy (Intermediate, Verified 03/12/25 10:09) STOMACH UPSET Medication List - Last Reconciled 03/12/25 by JAM Storm albuterol sulfate 2.5 mg (3 mL) inhalation Q6H PRN 30 days alcohol swabs (Alcohol Prep Pads) 1 pad topical BID 90 days alendronate 70 mg PO QWEEK atorvastatin 20 mg PO BEDTIME 90 days blood sugar diagnostic (HyginexTouch Ultra Test strips) USE DIRECTED TESTS 4 X/DAY blood-glucose meter (HyginexTouch Ultra2 Meter) DIRECTED TO CHECK BLOOD GLUCOSE 4 TIMES A DAY blood-glucose sensor (FreeStyle Marco 3 Plus Sensor device) Apply 1 new sensor every 15 days as directed to monitor blood glucose continuously. calcium carbonate-vitamin D3 600 mg-10 mcg (400 unit) 1 tab PO BID 90 days cholecalciferol (vitamin D3) 50 mcg PO DAILY dextrose (TRUEplus Glucose) 15 grams (32 mL) PO Q15M PRN dolutegravir (Tivicay) 50 mg PO DAILY emtricitabine-tenofovir alafen 200-25 mg (Descovy) 1 tab PO DAILY hiamfaaqfdi-zncryiwfv-expgwpdq 200-62.5-25 mcg (Trelegy Ellipta) 1 ea PO DAILY lancets As directed to check blood glucose 4x/day. levothyroxine 25 mcg PO DAILY lisinopril 10 mg PO DAILY 90 days metformin ER 500 mg PO BID montelukast 10 mg PO DAILY 90 days nebulizers (AeroEclipse II Nebulizer) As directed nystatin 1 appl topical BID 14 days Oxygen Home Use As directed semaglutide 0.5 mg (0.736 mL) subcut QWEEK 4 weeks Ventolin HFA 90 mcg/actuation (albuterol sulfate) 2 puffs inhalation Q4H PRN NS walker with seat HPI Comments Details: This is a 69-year-old female with a past medical history of B12 deficiency, neuropathy, osteoporosis, pulmonary nodules, hypothyroidism, COPD, HIV, hyperlipidemia, hypertension and type 2 diabetes who presents for diabetic management. She is accompanied by her daughter. Declined translator/interpreter. She was diagnosed with diabetes about 13 years ago. I reviewed her Dexcom download for February 27 to March 12 0% very high 6% high 94% target range 0% low G OH 6.5% She has infrequent hyperglycemia in the afternoon. Blood sugars are within target the remainder of the time. Hemoglobin A1c 5.8% 01/21/2025. Current medication regimen: Ozempic 0.5 mg weekly, metformin extended release 500 mg twice a day Compliance issues: none Hypoglycemia symptoms: none Hyperglycemia symptoms: none Eye exam: Done 08/10/2024 Microvascular complications: neuropathy in her feet Macrovascular complications: none Hypertension: treated with lisinopril 10 mg Hyperlipidemia: treated with atorvastatin 20 mg Fib4 value 1.67 11/09/2024. ROS: Constitutional: No unexplained weight loss, fever, chills, fatigue or night sweats. Gastrointestinal: No anorexia, nausea, vomiting or diarrhea. No abdominal pain or blood in stool. Neurologic: No headache, dizziness, syncope Skin: No wounds or rashes. Endocrine: No cold or heat intolerance. No polyuria or polydipsia. Physical exam: Constitutional: Alert, in no distress. Neck: Supple, Full range of motion. No lymphadenopathy. No palpable thyroid masses. Respiratory: Clear to auscultation. Cardiovascular: S1 S2 regular. No murmurs [facility] Medical History Controlled type 2 diabetes with neuropathy Bronchiolitis B12 deficiency Chronic respiratory failure Loss of balance Lumbar degenerative disc disease Obesity (BMI 30-39.9) Age-related osteoporosis without current pathological fracture Pulmonary nodules Obese Intertrigo Anemia Hypothyroidism COPD (chronic obstructive pulmonary disease) HIV (human immunodeficiency virus infection) Pure hypercholesterolemia Essential hypertension Diabetes mellitus Surgical History History of laparoscopy History of tubal ligation Family History Father Medical history unknown Mother Diabetes Hypertension CVD (cardiovascular disease) Pulmonary embolism Sister Crohn disease Maternal Aunt Breast cancer Brother Substance abuse Family/Other FH: mental illness Social History Housing: Apartment Alcohol intake: never Patient Tobacco Use Status: Former Tobacco user Tobacco use type: Cigarette Years Smoked: 38 years e-Cigarette/Vaping Use: Never Used Second Hand Smoke Exposure: No service: No Current occupational status: disabled Current occupation: right hand dominant Cognitive needs: No Hearing needs: No Vision needs: No Physical Exam Vital Signs: Last Vital Signs Pulse 72 03/12/25 10:09 BP 94/58 L 03/12/25 10:09 BMI result Body Mass Index 31.1 Office Procedures Glucose Monitoring Details Details: See [facility] [address] - Glucose monitoring, continuous-physician I&R Procedure code (CPT) selection complete Results Reviewed Results Reviewed: Laboratory Last Values Glucose (Clinic) 108 mg/dL (60-115) 03/12/25 10:14 Laboratory Tests 01/07/25 01/21/25 09:45 08:35 Plt Count 273 Creatinine 0.69 Estimated GFR > 60 Hemoglobin A1c % 5.8 AST 26 ALT 18 Triglycerides 80 Cholesterol 115 LDL Cholesterol, Calc 60 HDL Cholesterol 39 L Vitamin B12 323 TSH 1.22 Urine Creatinine 102.95 Urine Microalbumin 7.0 Microalb/Creat Ratio 6.7 Assessment & Plan Assessment & Plan (1) Controlled type 2 diabetes with neuropathy: Code(s): E11.40 - Type 2 diabetes mellitus with diabetic neuropathy, unspecified Category: Medical Plan In summary this is a 69-year-old female with well-controlled type 2 diabetes with neuropathy. Reduce metformin extended release to 500 mg once daily. Continue Ozempic 0.5 mg weekly. We previously discussed the diabetic diet, and she declined a referral to the dietitian. Discussed pathophysiology of Type II Diabetes Mellitus with the patient in detail.? I explained the detention risks and complications associated with uncontrolled diabetes including nephropathy, neuropathy, peripheral vascular disease, retinopathy, increased risk of heart disease and stroke.? Eye exam is up-to-date. She does not want to take medication for neuropathy, but she will try ynxn-vcy-qseulko capsaicin cream. Potential side effects reviewed. Reviewed treatment of hypoglycemia. She has glucose tablets. Follow up in 3 months for type 2 diabetes. Orders: Orders AMB Glucose Monitoring Today E11.9 - Type 2 diabetes mellitus without complications Medications: Refilled metformin ER 500 mg PO BID 90 tabs 1RF semaglutide 0.5 mg (0.736 mL) subcut QWEEK 3 mL 5RF 4 weeks Patient Instructions: Continue Ozempic 0.5 mg weekly Reduce Metformin ER to 500 mg once tablet daily If you experience low blood sugar, treat this by eating a chewable fruit candy like skittles or jelly beans (about 8 pieces), 4 ounces (1/2 cup) of fruit juice (not diet), 1 tablespoon of honey or 4 glucose tablets. If your blood sugar is under 55, take double the amount of one of the above. Recheck your blood sugar in 15 minutes. You can try topical Capsaicin cream for neuropathy of the feet. Coding Level of Care Code Est Pt Level 4 (57550) Diagnoses Controlled type 2 diabetes with neuropathy E11.40 CPT Codes Details - CPT: 45114 - Glucose monitoring, continuous-physician I&R ([id number])
[2025-03-12 10:09] VITALS: BP 94/58; PULSE 72; BMI 31.1
[2025-03-12 10:17] LABS: Glucose, Whole Blood 108 mg/dL (60-115)
--- OUTSIDE RECORDS SUMMARY | 2025-03-12 11:05 | XMS_ITS | Data Portability ---
Author Organization ZOË - AYDEE REVELES MD [facility], Main Office Address [address] [place] [id number] Assessment Encounter Date Assessment Date Assessment LastModified by Organization Details LastModified Time 11/30/2023 11/30/2023 AUDIO. [place] audio. 18 min [email or web address] Not available 11/30/2023 09:20:29 04/12/2024 04/12/2024 AUDIO. [place] audio. 16 min [email or web address] Not available 04/12/2024 11:47:22 07/13/2024 07/13/2024 video. [place] audio. 17 min [email or web address] Not available 07/13/2024 09:50:20 10/15/2024 10/15/2024 video. [place]icine. [place] audio. 19 min [email or web address] Not available 10/15/2024 09:56:46 01/11/2025 01/11/2025 video. [place]icine. [place]. 17 min [email or web address] Not available 01/25/2025 10:22:15 Plan of Treatment Reminders Order Date Submit Date Provider Last Modified By Organization Details Last Modified Time Details Appointments B20 FOLLOW UP 2024 11:00A Aretha Rizzo MD Not available Not available Not available Lab CBC w/ diff [address] (Lab), [address] [place] [address], [id number], 01/21/2025 10:03:30 ALT (alanine aminotra nsferase ), serum or plasma [address] (Lab), [address] [place] [address], [address], 01/21/2025 10:03:30 AST/SGOT (asparta te aminotra nsferase ), serum or plasma [address] (Lab), [address] [place] [address], [address], 01/21/2025 10:03:30 creatini ne w/ estimate d GFR (eGFR), serum or plasma [address] (Lab), [address] [place] [address], [address], 01/21/2025 10:03:30 HIV-1 RNA, quantita tive, PCR, serum or plasma [address] (Lab), [address] [place] [address], [address], 01/21/2025 10:03:30 RPR (rapid plasma reagin), serum [address] (Lab), [address] [place] [address], [address], 01/21/2025 10:03:31 cd4 T-cells, blood [address] (Lab), [address] [place] [address], [address], 01/21/2025 10:03:31 CBC w/ diff [address] (Lab), [address] [place] [address], [address], 10/22/2024 08:51:28 ALT (alanine aminotra nsferase ), serum or plasma [address] [place] [address] (Lab), [address] [place] [address], [address], 10/22/2024 08:51:28 AST/SGOT (asparta te aminotra nsferase ), serum or plasma [address] (Lab), [address] [place] [address], [address], 10/22/2024 08:51:28 creatini ne w/ estimate d GFR (eGFR), serum or plasma [address] (Lab), [address] [place] [address], [address], 10/22/2024 08:51:29 HIV-1 RNA, quantita tive, PCR, serum or plasma [address] (Lab), [address] [place] [address], [address], 10/22/2024 08:51:29 RPR (rapid plasma reagin), serum [address] (Lab), [address] [place] [address], [address], 10/22/2024 08:51:29 T-cell regulato ry subsets panel, blood [address] (Lab), [address] [place] [address], [address], 10/22/2024 08:51:29 Referral None recorded . Procedures None recorded . Surgeries None recorded . Imaging US, abdomen - RUQ pain [address], [place], [address], 07/27/2024 14:33:12 Medication Orders Bactrim DS 800 mg-160 mg tablet 2024 025 cmart[id number], [address] [place], [address], 01/11/2025 09:45:52 Descovy 200 mg-[address] [facility] [id number], [address] [place] [address], [address], 01/11/2025 09:45:48 Tivicay 50 mg tablet [address] [facility] [id number], [address] [place] [address], [address], 01/11/2025 09:45:51 Bactrim DS 800 mg-160 [address] [facility] [place], [address] [place] [address], [address], 10/15/2024 10:09:08 Descovy 200 mg-[address] [facility] [place], [address] [place] [address], [address], 10/15/2024 10:09:08 Tivicay 50 mg tablet [address] [facility] [place], [address] [place] [address], [address], 10/15/2024 10:09:08 Bactrim DS 800 mg-160 mg tablet 2023 024 cmartorell [facility] #2071, [address] [place] [address], [address], 07/13/2024 09:52:03 Descovy 200 mg-25 mg tablet 2023 024 [facility]acy #2071, [address] [place] [address], [address], 07/13/2024 09:52:02 Tivicay 50 mg tablet 2023 024 [facility]armacy #2071, [address] [place] [address], [address], 07/13/2024 09:52:01 Bactrim DS 800 mg-160 mg tablet [address] [facility] [place] #[id number], [address] [place], [address], 04/12/2024 11:45:34 Descovy 200 mg-25 [address] [facility] [place] #2071, [address] [place], [address], 04/12/2024 11:45:34 Tivicay 50 mg tablet [address] [facility] [place]71, [address] [place] [address], [address], 04/12/2024 11:45:33 Bactrim DS 800 mg-160 mg tablet [address] [facility] [place]2071, [address] [place], [address], 11/30/2023 09:21:41 Descovy 200 mg-25 mg tablet [address] [facility] [place]2071, [address] [place], [address], 11/30/2023 09:21:41 Tivicay 50 mg tablet [address] [facility] [place][id number], [address] [place] [address], [address], 11/30/2023 09:21:40 Patient TargetsNo targets recorded. Patient [...] Name and Address Organization Details Recorded Time Emphysema tous bronchiti s 619389667 Active 2013 Emphysemat ous bronchitis ; snomeddesc ription: Emphysemat ous bronchitis ; Report Immunity to Registry: Yes; Obstructi ve chronic bronchitis , without exacerbati on; snomeddesc ription: Emphysemat ous bronchitis ; Report Immunity to Registry: Yes; Not Available [facility] 4 06:58:30 Indigesti on 028911427 Active 2013 Dyspepsia and other specified disorders of function of stomach; snomeddesc ription: Indigestio n; Report Immunity to Registry: Yes; Indigesti on; snomeddesc ription: Indigestio n; Report Immunity to Registry: Yes; Not Available [facility] 4 06:58:30 Cobalamin deficienc y 805257565 Active 2013 Cobalamin deficiency ; snomeddesc ription: Cobalamin deficiency ; Report Immunity to Registry: Yes; Not Available [facility] 4 06:58:30 Vitamin B deficienc y 05270549 Active 2013 Other B-complex deficienci es; snomeddesc ription: Cobalamin deficiency ; Report Immunity to Registry: Yes; Not Available [facility] 4 06:58:30 Osteopeni a 046432185 Active 2014 Osteopenia ; snomeddesc ription: Osteopenia ; Report Immunity to Registry: Yes; Notes: endocrinol ogy; Not Available [facility] 4 06:58:30 Disorder of bone and articular cartilage 063577351 Active 2014 Disorder of bone and cartilage, unspecifie d; snomeddesc ription: Osteopenia ; Report Immunity to Registry: Yes; Notes: endocrinol ogy; Not Available [facility] 4 06:58:30 HIV seroposit ivity Active 2015 HIV seropositi vity; snomeddesc ription: HIV seropositi vity; Report Immunity to Registry: Yes; Notes: dx 1990 IVDU [id number] neg 2008 genotype 2008; Not Available [facility] 4 06:58:29 Viral hepatitis B without hepatic coma 469437107 Active 2016 Unspecifie d viral hepatitis B without hepatic coma; snomeddesc ription: Type B viral hepatitis; Report Immunity to Registry: Yes; Notes: past hx core ab pos; s ag neg; s ab pos 2016 HBV undetected 2017; Not Available [facility] 4 06:58:30 Type B viral hepatitis 50799120 Active 2016 Type B viral hepatitis; snomeddesc ription: Type B viral hepatitis; Report Immunity to Registry: Yes; Notes: past hx core ab pos; s ag neg; s ab pos 2016 HBV undetected 2017; Not Available [facility] 4 06:58:31 Hepatitis C carrier 201737804 Active 2017 Hepatitis C carrier; snomeddesc ription: Hepatitis C carrier; Report Immunity to Registry: Yes; Notes: VL undetectab le 2010; 2012; Ab pos; VL neg 2014; neg 12/2015; 2016; 2017; Not Available [facility] 4 06:58:31 Chronic obstructi ve pulmonary disease 76138217 Active 2023 Aydee Rizzo MD [address] [place] [address] [place], [address] , ZOË RIZZO MD [facility] 4 11:17:18 Human immunodef iciency virus infection 18372058 Active 2023 Aydee Rizzo MD [address] [place], [place] [address], [address] , ZOË RIZZO MD [facility] 4 11:17:23 Viral hepatitis C 71659399 Active 2023 Aydee Rizzo MD [address] [place] [address] [place], [address] , ZOË RIZZO MD [facility] 4 11:17:45 Type 2 diabetes mellitus 91383696 Active 2023 Aydee Rizzo MD [address] [place], [place] [address], [address] , ZOË RIZZO MD [facility] 4 11:48:54 Problem Notes None [...] 5; VACCINE_ IND: no; SU_FULL_ NAME: Aydee Sellersanam [...] no; Not Available Not Available Not Available [facility] Quad 60 mcg (15 mcg x 4)/0.5 [...] Pneumoco ccal conjugat e PCV20, polysacc haride [id number] conjugat e, adjuvant , PF; SU_FULL_ NAME: Aydee morales; Not Available Not Available Not Available [facility] (6mo up) 60 mcg (15 mcg x [...] MCV4O 0 completed Not Available [facility] 10/12/2023 06:54:07 Influenza, split virus, quadrivalent, preservative 8 completed Not Available [facility] 10/12/2023 06:54:07 Influenza, split virus, quadrivalent, preservative 9 completed Not Available [facility] 10/12/2023 06:54:07 Past Encounters Encounter ID Performer Location Encounter Start Date Encounter Closed Date Diagnosis/Indication Diagnosis SNOMED-CT Code Diagnosis ICD10 Code Diagnosis Note [id number] Aydee Rizzo MD Main Office [address] [place] [phone] 05/27/2023 13:01:20 05/27/2023 14:11:08 Human immunodeficiency virus infection 61867535 B20 HIV: Continue Descovy 1 tab po [...] care reviewed. Questions and concerns addressed Neuropathy 453307440 G62 .9 on gabapentin . Chronic ob structive pulmonary disease 69555948 J44.9 On Bactrim DS tiw suppressio n tx to prevent bronchitis /pneumonia .on o2 supplement F/u pulmonary. RSV vaccine recommende dflu vaccineon Bactrim DS tiw. Hepatitis C virus detected by enzyme-linked immunosorbent assay 461532128 R76.8 HCV VL nondetcete d. past infection. [id number] Aydee Rizzo MD Main Office [address] [place] [phone] 08/30/2023 09:37:12 08/30/2023 12:56:26 Human immunodeficiency virus infection 89757574 B20 HIV: Continue Descovy 1 tab po [...] concerns addressed Chronic ob structive pulmonary disease 16706066 J44.9 On Bactrim DS tiw suppressio n tx to prevent bronchitis /pneumonia .on o2 supplement F/u pulmonary. on Bactrim DS tiw for suppressio n of infection. vaccines recommende d Viral hepatitis C 689594 07 B19.20 past hx.VL undetectab le 2010; 2012; Ab pos; VL neg 2014; neg 12/2015; 2016; 2017 [id number] Aydee Rizzo MD Main Office [address] [place] [phone] 11/30/2023 09:03:23 11/30/2023 09:24:26 Human immunodeficiency virus infection 74980950 B20 HIV: Continue Descovy 1 tab po qd and Tivicay 50 mg po qd. compliance reviewed to prevent viral resistance , keep viral suppressio n and prevent transmissi on.pt aware of PreP availabili ty; U=U; condom use to prevent STI's. Plan of care reviewed. Questions and concerns addressed Chronic ob structive pulmonary disease 60536155 J44.9 On Bactrim DS tiw suppressio n tx to prevent bronchitis /pneumonia .on o2 supplement F/u pulmonary. [id number] Aydee Rizzo MD Main Office [address] [place] [phone] 04/12/2024 11:41:47 04/12/2024 12:24:59 Human immunodeficiency virus infection 74267000 B20 HIV:Contin ue Descovy 1 tab po qd and Tivicay 50 mg po qd. compliance reviewed to prevent viral resistance , keep viral suppressio n and prevent transmissi on.pt aware of PreP availabili ty; U=U; condom use to prevent STI's.DOXY PEP reviewedPl an of care reviewed. Questions and concerns addressed Chronic ob structive pulmonary disease 83273648 J44.9 On Bactrim DS tiw suppressio n tx to prevent bronchitis /pneumonia .on o2 supplement F/u pulmonary. Type 2 cherry betes mellitus 97874299 E11.9 on Ozempic sq qw.f/u PCP [id number] Aydee Rizzo MD Main Office [address] [place] [address] 07/13/2024 09:45:07 07/13/2024 09:53:56 Human immunodeficiency virus infection 11956817 B20 HIV:Contin ue Descovy 1 tab po qd and Tivicay 50 mg po qd. compliance reviewed to prevent viral resistance , keep viral suppressio n and prevent transmissi on.COVID19 and RSV vaccines prescribed .Plan of care reviewed. Questions and concerns addressed Chronic ob structive pulmonary disease 62957762 J44.9 On Bactrim DS tiw suppressio n tx to prevent bronchitis /pneumonia .on o2 supplement F/u pulmonary. Right uppe r quadrant pain 392808031 R10.11 will get lab results for ALt/ASTu/s abdto ER if worsening sx, n/v/d, fever or other [id number] Aydee Rizzo MD Main Office [address] [place] [phone] 10/15/2024 09:08:19 10/23/2024 09:49:02 Human immunodeficiency virus infection 39712418 B20 HIV:Contin ue Descovy 1 tab po qd and Tivicay 50 mg po qd. compliance reviewed to prevent viral resistance , keep viral suppressio n and prevent transmissi on.COVID19 and RSV vaccines prescribed .Plan of care reviewed. Questions and concerns addressed Chronic ob structive pulmonary disease 42689642 J44.9 On Bactrim DS tiw suppressio n tx to prevent bronchitis /pneumonia .on o2 supplement F/u pulmonary. 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 weight losshydrat iondiet reviewed Atheroscle rosis of aorta 58012387 I70.0 on lipitor qddiet and exercisehy drationf/u PCPDM control [id number] Aydee Rizzo MD Main Office [address] [place] [address] [place], ZOË [phone] 01/11/2025 09:39:01 01/11/2025 10:21:01 Human immunodeficiency virus infection 47884485 B20 HIV:Contin ue Descovy 1 tab po [...] concerns addressed Chronic ob structive pulmonary disease 38234632 J44.9 On Bactrim DS tiw suppressio n [...] Member ID Michel Member ID Guarantor Name 03/05/2025 1 [facility] - DOS ON OR AFTER 2022 - DUAL ELIGIBLE - GROUP HOME OPTIONS AND ONE CARE (MEDICARE REPLACEMENT/AD VANTAGE - HMO) Indiana Mendoza [id number] Indiana Mendoza Notes Date Note Type Note Provider Name and Address Organization Details Recorded Time 4 text/html /u HIV.pt is on Descovy 1 tab po qd and Tivicay 50 mg 1 tab po daily.compliant; denies missing doses.happy w regimen.prefers to keep same regimenmed list reviewed.lab results reviewed.has not been sick; no hospitalizations08/2023 HIV VL nondetceted; LC4=2823; AST/ALt wnl; no syphilis; HBV VL nondetceted.08/26/2022 HIV VL nondetceted; MC7=7495; ALt/AST wnl;eGFR.60; syphilis NR; eGFR>609/2022 HIV VL nondetceted; CD4 67671/2022 WZ1=6095; HIV VL nondetceted; ALt/AST wnl; eGFR>6012 HIV VL nondetceted; MV0=9129; ALT/AST wnl; eGFR>609/2021 DT5=8722; HIV VL nondetected; eGFR>60. CKD hx.on Bactrim tiw to prevent recurrent bronchitis/pneumonia/hospi talizations.not sexually activemed list reviewed. Aydee Rizzo MD [address] [place] [address], [address], ZOË RIZZO MD [facility] 11/30/2023 09:21:47 4 text/html /u HIV.pt is on Descovy 1 tab po qd and Tivicay 50 mg 1 tab po daily.compliant; denies missing doses.happy w regimen.med list reviewed.lab results reviewed.has not been sick; no hospitalizations03/2024 HIV VL Pending; partial resulst available.08/2023 HIV VL nondetceted; BW2=3408; AST/ALt wnl; no syphilis; HBV VL nondetceted.08/26/2022 HIV VL nondetceted; UT5=7489; ALt/AST wnl;eGFR.60; syphilis NR; eGFR>60 on Bactrim tiw to prevent recurrent bronchitis/pneumonia/hospi talizations.not sexually activemed list reviewed. pt was diabetic. on ozempic qw sc.she has lost some weight. Aydee Rizzo MD [address] [place] [address], [phone], [facility] Tammy RIZZO MD [facility] 04/12/2024 11:49:10 4 text/html f/u HIV.pt is on Descovy 1 tab po qd and Tivicay 50 mg 1 tab po daily.compliant; denies missing doses.happy w regimen.RUQ for few months; on/off; -01/29 . not after she eats. denies ETOH. no jaundice.lab results reviewed. no n/v/d.weight loss while on ozempic for DM.has not been sick; no xektppjyftnetuei80/19/2024 HIV VL nondetected03/2024 HIV VL Pending; partial resulst available.08/2023 HIV VL nondetceted; OQ6=3527; AST/ALt wnl; no syphilis; HBV VL nondetceted.08/26/2022 HIV VL nondetceted; IC9=9078; ALt/AST wnl;eGFR.60; syphilis NR; eGFR>60on Bactrim tiw to prevent recurrent bronchitis/pneumonia/hospi talizations. no flareups whil dana Bactrim suppression tx.not sexually activemed list reviewed.got the flu vaccinetrasnportation problems: daughter works and gets out late. Aydee Rizzo MD [address] [place] [address], [phone], [place] - AYDEE RIZZO MD [facility] 07/13/2024 09:55:33 5 text/html f/u HIV.pt is on Descovy 1 tab po qd and Tivicay 50 mg 1 tab po daily.compliant; denies missing doses.happy w regimen.med list reviewedhas not been sick; no hospitalizationslabs done 10/01/24: pending znoovvy1107/10/2024 HIV VL nondetected03/2024 HIV VL Pending; partial results available.08/2023 HIV VL nondetceted; HB3=0397; AST/ALt wnl; no syphilis; HBV VL nondetceted.on Bactrim tiw to prevent recurrent bronchitis/pneumonia/hospi talizations. no flareups whil dana Bactrim suppression tx.not sexually activemed list reviewed.transportation problems: daughter works and gets out late. u/s 07/2024 fatty liver; aorta placquesDM/hypothyroidismo n ozempic.weight loss. Aydee Rizzo MD [address] [place], [address], [place] - AYDEE RIZZO MD [facility] 10/15/2024 10:10:59 5 text/html f/u HIV.pt is [...] Pending; partial results available.08/2023 HIV VL nondetceted; GU4=2206; AST/ALt wnl; no syphilis; HBV VL nondetceted.on Bactrim tiw to prevent recurrent bronchitis/pneumonia/hospi talizations. no flareups while on Bactrim suppression tx.not sexually active for many years.med list reviewed.transportation barriers due to daughter/s job schedule Aydee Rizzo MD [address] [place] [address], [phone], ZOË - AYDEE RIZZO MD [facility] 01/25/2025 10:23:57 OBGyn Episode No OBEpisode recorded.
--- OUTSIDE RECORDS SUMMARY | 2025-03-12 11:05 | XMS_ITS | Patient Health Record ---
Author Organization [facility] Address [address] [place] [address] Care Team Providers Care Roustabout Hand Name Role Phone Be Chu MD, Jimenez Primary Care Provider Un available Cruz Lord Jr Unavailable [phone] Reason For Referral No Information Medications Medication SIG (Take, Route, Frequency, Duration) Notes Start Date End Date Status Levothyroxine Sodium 25mcg Active Proventil HFA 90mcg Active Sulfamethoxazole-TMP DS Active Multi Vitamin/Minerals Active metFORMIN HCl 1000mg Active Spiriva HandiHaler A ctive Aspir-81 81mg Active Ventolin HFA Active Albuterol 0.083% Act emelina Pioglitazone HCl Act emelina Montelukast Sodium A ctive Suprep Bowel Prep [...] W/U Status Risk Notes Problem Esophageal reflux (343700856) Esophageal reflux (530.81) Active confirmed Problem Liver function tests abnormal (438233984) Nonspecific abnormal results of liver function study (794.8) Active confirmed Problem Screening for malignant neoplasm of colon (610830180) Special screening for malignant neoplasms, colon (V76.51) Active confirmed Problem Liver function tests abnormal (677280475) Abnormal liver function tests (790.6) Active confirmed Plan Of Treatment Future Test Test Name Order Date COLONOSCOPY 10/28/2011 Insurance Providers Payer Name Payer Address Payer Phone Subscriber Number Group Number Insured Name Patient Relationship to Insured Coverage Start Date Coverage End Date [facility] [employer] [address] [place] [address] [id number] CHRISTIANO ERNST Self - patient is the insured MED[place] OF [place] [address] [place] [address] [id number] CHRISTIANO ERNST Self - patient is the insured Medical (General) History Medical History History ICD Code colonoscopy 05-17-2007 colon polyps HIV infection thyroid disease elevated cholesterol diabetes mellitus asthma Denies [place],CVA,renal disease
== END 2025-03-12 10:42 | disposition home or self-care (01) ==
LOC: HO.ENCR 10:04
PROVIDERS: PCP Internal Medicine; Visit Provider Physician Assistant Medical
DX: E11.40 Type 2 diabetes mellitus with diabetic neuropathy, unspecified (principal)

== ENCOUNTER → 2025-03-12 10:03 | Outpatient (BNVA) | payer OTHER, SELFPAY | PROVIDERS: PCP Internal Medicine; Visit Provider Physician Assistant Medical | DX: E11.9 Type 2 diabetes mellitus without complications (principal) | CPT/HCPCS: 82947; 99212 ==

== ENCOUNTER 2025-04-10 08:49 | Outpatient (REF) | payer OTHER, SELFPAY ==
--- OUTSIDE RECORDS SUMMARY | 2025-04-10 09:31 | XMS_ITS | Patient Health Record ---
Author Organization [facility] Address [address] [place] [address] Care Team Providers Care Special Investigation Unit Investigator Name Role Phone Be Chu MD, Jimenez [...] W/U Status Risk Notes Problem Esophageal reflux (648629419) Esophageal reflux (530.81) Active confirmed Problem Liver function tests abnormal (160956405) Nonspecific abnormal results of liver function study (794.8) Active confirmed Problem Screening for malignant neoplasm of colon (796383207) Special screening for malignant neoplasms, colon (V76.51) Active confirmed Problem Liver function tests abnormal (999941932) Abnormal liver function tests (790.6) Active confirmed Plan Of Treatment Future Test Test Name Order Date COLONOSCOPY 10/28/2011 Insurance Providers Payer Name Payer Address Payer Phone Subscriber Number Group Number Insured Name Patient Relationship to Insured Coverage Start Date Coverage End Date [facility] [employer] [address] [place] [address] [id number] CHRISTIANO ERNST Self - patient is the insured MEDICAID OF [email or web address]. [address] [place] [address] [id number] CHRISTIANO ERNST Self - patient is the insured Medical (General) History Medical History History ICD Code colonoscopy 05-17-2007 colon polyps HIV infection thyroid disease elevated cholesterol diabetes mellitus asthma Denies [place],CVA,renal disease
[2025-04-10 11:02] LABS: MANUAL DIFF FLAG NO
[2025-04-10 11:18] LABS: Hematocrit 38.4 % (37.0-47.0); Hemoglobin 13.5 g/dl (12.0-16.0); Imm Gran Abs Auto 0.03 X10*3/uL (0.00-0.03); Imm Gran Pct Auto 0.4 % (0.0-0.4); Lymphocytes Absolute Auto 3.0 X10*3/uL (1.2-4.9); Mean Corpuscular HGB Conc 35.2 g/dl (31.0-35.0); Mean Corpuscular Hemoglobin 27.4 pg (27.0-33.0); Mean Corpuscular Volume 77.9 fL (80.0-98.0); NRBC Abs Auto 0.000 X10*3/uL (0.0-0.012); NRBC Pct Auto 0.0 /100WBC (0.0-0.2); Platelet Count 281 X10*3/uL (160-400); Red Blood Count 4.93 X10*6/uL (4.20-5.50); White Blood Count 8.3 X10*3/uL (4.8-10.8)
[2025-04-10 11:39] LABS: Alanine Aminotransferase 18 U/L (0-31); Anion Gap 15 (12-20); Aspartate Amino Transferase 27 U/L (5-31); Carbon Dioxide 24 mmol/L (22-29); Chloride 106 mmol/L (96-108); Estimated Glomerular Filt Rate > 60; Potassium 4.4 mmol/L (3.3-5.1); Sodium 141 mmol/L (135-145)
[2025-04-10 12:19] LABS: CT PCR Urine NOT DETECTED (Not Detect.); NG PCR Urine NOT DETECTED (Not Detect.)
[2025-04-11 08:22] LABS: Syphilis Screen Nonreactive (Nonreactive)
[2025-04-11 08:23] LABS: ~HepC Num1 2.54 S/CO (0.00-0.79); ~Hepatitis C Antibody Reactive (Nonreactive)
[2025-04-12 13:49] LABS: HIV RNA PCR Qn Copies NOT DETECTED copies/mL (NOT DETECTED); HIV RNA PCR Qn Log Copies NOT DETECTED (NOT DETECTED)
[2025-04-14 00:24] LABS: Absolute CD3 Count 2090 cells/uL (840-3060); Absolute CD8 Count 901 cells/uL (180-1170); Percent CD3 Cells 74 % (57-85); Percent CD8 Cells 32 % (12-42)
== END 2025-04-10 08:50 | disposition home or self-care (01) ==
LOC: HO.10HDL 08:49
PROVIDERS: Visit Provider Internal Medicine Infectious Disease
DX: B20 Human immunodeficiency virus [HIV] disease (principal)
CPT/HCPCS: 80051; 82565; 84450; 84460; 85025; 86359; 86360; 86780; 86803; 87491; 87536; 87591

== ENCOUNTER 2025-05-13 10:59 | Outpatient (REF) | payer OTHER, SELFPAY ==
--- NOTE | ~2025-05-13 | MM_ITS ---
EXAMINATION: MM SCREENING DIGITAL BREAST TOMOSYNTHESIS, BILATERAL CLINICAL INFORMATION: Screening. Asymptomatic. COMPARISON: Comparison made to multiple prior, most recent May 08, 2024, and most remote February 26, 2021. TECHNIQUE: Digital breast tomosynthesis is performed in mediolateral oblique and craniocaudal views along with computer-aided detection (CAD). Synthesized 2D images are generated from the tomosynthesis. FINDINGS: BREAST COMPOSITION: There are scattered areas of fibroglandular density. BILATERAL BREASTS: No significant masses, suspicious calcifications or other abnormalities are seen in either breast. MM/MM tomosynthesis screening BI IMPRESSION: BILATERAL BREASTS: Negative, no mammographic evidence of malignancy. Normal interval follow-up is recommended in 12 months. ASSESSMENT: BI-RADS: Category 1: Negative RECOMMENDATION: Routine annual mammography screening. FOLLOW-UP: 1 year F/U This examination should not preclude the clinical evaluation of a suspicious palpable abnormality. This patient's information was entered into a reminder system with a target due date for their next mammogram. Electronically signed by: Chris John MD 05/14/2025 06:25 PM EDT
--- OUTSIDE RECORDS SUMMARY | 2025-05-13 13:39 | XMS_ITS | Patient Health Record ---
Author Organization [facility] Address [address] [place] [address] Care Team Providers Care Senior Electronics Design Engineer Name Role Phone Be Chu MD, Jimenez Primary Care Provider Un available Cruz Lord Jr Unavailable [phone] Reason For Referral No Information Medications Medication [...] W/U Status Risk Notes Problem Esophageal reflux (418443824) Esophageal reflux (530.81) Active confirmed Problem Liver function tests abnormal (453949548) Nonspecific abnormal results of liver function study (794.8) Active confirmed Problem Screening for malignant neoplasm of colon (194692872) Special screening for malignant neoplasms, colon (V76.51) Active confirmed Problem Liver function tests abnormal (395873698) Abnormal liver function tests (790.6) Active confirmed Plan Of Treatment Future Test Test Name Order Date COLONOSCOPY 10/28/2011 Insurance Providers Payer Name Payer Address Payer Phone Subscriber Number Group Number Insured Name Patient Relationship to Insured Coverage Start Date Coverage End Date [facility] [employer] [address] [place] [phone] [id number] CHRISTIANO ERNST Self - patient is the insured [place] [address] [place] [address] [id number] CHRISTIANO ERNST Self - patient is the insured Medical (General) History Medical History History ICD Code colonoscopy 05-17-2007 colon polyps HIV infection thyroid disease elevated cholesterol diabetes mellitus asthma Denies [place],CVA,renal disease
== END 2025-05-13 11:00 | disposition home or self-care (01) ==
LOC: HO.MAMMO 10:59
PROVIDERS: PCP Internal Medicine; Visit Provider Internal Medicine
DX: Z12.31 Encounter for screening mammogram for malignant neoplasm of breast (principal)
CPT/HCPCS: 77063; 77067

== ENCOUNTER → 2025-05-13 11:15 | Outpatient (BNV) | payer OTHER, SELFPAY | PROVIDERS: PCP Internal Medicine; Visit Provider Radiology Body Imaging | DX: Z12.31 Encounter for screening mammogram for malignant neoplasm of breast (principal) | CPT/HCPCS: 77063; 77067 ==

== ENCOUNTER 2025-05-30 13:45 | Outpatient (AMB) | payer OTHER, SELFPAY ==
[2025-05-30 13:49] VITALS: BP 140/80; PULSE 78; O2SAT 96; BMI 32.6
--- NOTE | 2025-05-30 13:49 | MHC.PC.OV ---
Vital Signs 05/30/25 13:49 Height 5 ft 2 in Weight 178 lb BMI 32.6 BP 140/80 H Blood Pressure Location Lt brachial Position Sitting Pulse 78 Pulse Source Pulse Oximeter Pulse Oximetry (%) 96 Oxygen Delivery Method Nasal Cannula Intake Visit Reasons: Annual physical Intake Note: Patient here for a follow up BP, DM Fisher Seal Required: No Fisher Seal Name: Amarilis Squires MD Information Interpreted: non-clinical & clinical Accompanied by: Self / Same As Patient Allergies egg (EGG) Allergy (Intermediate, Verified 05/30/25 14:01) STOMACH UPSET Medication List - Last Reconciled 05/30/25 by Amarilis Squires MD albuterol sulfate 2.5 mg (3 mL) inhalation Q6H PRN 30 days alcohol swabs (Alcohol Prep Pads) 1 pad topical BID 90 days alendronate 70 mg PO QWEEK atorvastatin 20 mg PO BEDTIME 90 days blood sugar diagnostic (RaftOutTouch Ultra Test strips) USE DIRECTED 3 TIMES A DAY blood-glucose meter (StageBlocuch Ultra2 Meter) DIRECTED TO CHECK BLOOD GLUCOSE 4 TIMES A DAY blood-glucose sensor (Cerecoryle Marco 3 Plus Sensor device) Apply 1 new sensor every 15 days as directed to monitor blood glucose continuously. calcium carbonate-vitamin D3 600 mg-10 mcg (400 unit) 1 tab PO BID 90 days cholecalciferol (vitamin D3) 50 mcg PO DAILY dextrose (TRUEplus Glucose) 15 grams (32 mL) PO Q15M PRN dolutegravir (Tivicay) 50 mg PO DAILY emtricitabine-tenofovir alafen 200-25 mg (Descovy) 1 tab PO DAILY zlapmougzzw-cupfpbqxd-axeqvfqh 200-62.5-25 mcg (Trelegy Ellipta) 1 ea PO DAILY lancets As directed to check blood glucose 4x/day. levothyroxine 25 mcg PO DAILY lisinopril 10 mg PO DAILY 90 days metformin ER 500 mg PO BID montelukast 10 mg PO DAILY 90 days nebulizers (AeroEclipse II Nebulizer) As directed nystatin 1 appl topical BID 14 days Oxygen Home Use As directed semaglutide 0.5 mg (0.736 mL) subcut QWEEK 4 weeks Ventolin HFA 90 mcg/actuation (albuterol sulfate) 2 puffs inhalation Q4H PRN NS walker with seat Tobacco use date assessed: 05/30/25 Fall risk assessment: No Falls in past year Last assessed Fall Risk: 05/30/25 Dental Screening Dental Screen Date: 05/30/25 Did you have a dental visit in the last 12 months?: No Did you have a dental problem in the last 6 months where you did not have access to dental care?: No Was dental information given to patient?: No HPI HPI Comments History of Present Illness Details The patient is a 69-year-old female presenting with an annual physical examination and review of preventative care measures. She has a history of hypertension, which was noted to be slightly elevated today compared to previous visits where it was lower. Her medication regimen includes lisinopril for blood pressure management. The patient has osteoporosis and is currently taking alendronate once a week as part of her treatment plan. She also takes calcium with vitamin D supplements to support bone health. Hyperlipidemia is managed with atorvastatin, and her cholesterol levels are stable, with a repeat test scheduled in four months. The patient has hypothyroidism, controlled with levothyroxine, and her thyroid function tests are within normal limits. A follow-up test is planned in four months to monitor her thyroid levels. She has a diagnosis of diabetes mellitus, for which she takes metformin, and her recent A1c was 5.8%. The patient has chronic obstructive pulmonary disease (COPD) and uses Trelegy for management. She tested positive for hepatitis C and HIV, with follow-up care managed by infectious disease specialists. Preventative care measures include a colon cancer screening with stool test due in 2026, bone densitometry scheduled for next year, and a mammogram completed last month. Vaccinations for pneumonia and tetanus are up to date, with the next tetanus booster due in 2025. [facility] Medical History Controlled type 2 diabetes with neuropathy Bronchiolitis B12 deficiency Chronic respiratory failure Loss of balance Lumbar degenerative disc disease Obesity (BMI 30-39.9) Age-related osteoporosis without current pathological fracture Pulmonary nodules Obese Intertrigo Anemia Hypothyroidism COPD (chronic obstructive pulmonary disease) HIV (human immunodeficiency virus infection) Pure hypercholesterolemia Essential hypertension Diabetes mellitus Surgical History History of laparoscopy History of tubal ligation Family History Father Medical history unknown Mother Diabetes Hypertension CVD (cardiovascular disease) Pulmonary embolism Sister Crohn disease Maternal Aunt Breast cancer Brother Substance abuse Family/Other FH: mental illness Social History Housing: Apartment Alcohol intake: never Patient Tobacco Use Status: Former Tobacco user Tobacco use type: Cigarette Years Smoked: 38 years e-Cigarette/Vaping Use: Never Used Second Hand Smoke Exposure: No service: No Current occupational status: disabled Current occupation: right hand dominant Cognitive needs: No Hearing needs: No Vision needs: No Questionnaire PHQ-9 Over the last 2 weeks, how often have you been bothered by any of the following problems? 1. Little interest or pleasure in doing things: not at all 2. Feeling down, depressed, or hopeless: not at all 3. Trouble falling or staying asleep, or sleeping too much: not at all 4. Feeling tired or having little energy: not at all 5. Poor appetite or overeating: not at all 6. Feeling bad about yourself - or that you are a failure or have let yourself or your family down: not at all 7. Trouble concentrating on things, such as reading the newspaper or watching television: not at all 8. Moving or speaking so slowly that other people could have noticed. Or the opposite - being so fidgety or restless that you have been moving around a lot more than usual: not at all 9. Thoughts that you would be better off or of hurting yourself in some way: not at all Total score: 0 Depression Screening Interpretation: Negative Depression Screening Done: Yes [id number] - PHQ-9 Billing: Yes Source: Developed by Drs. Kenneth Tavarez, Tuyet David, Kenneth Peterson and colleagues, with an educational faby from [employer]. Thrive Questionnaire Date Thrive assessed: 11/12/24 I am a: Patient What is your living situation today?: I have a steady place to live Within the past 12 months, did the food you bought not last and you didn't have the money to get more?: Often true Within the past 12 months, did you worry whether your food would run out before you got money to buy more?: I choose not to answer this question Do you have trouble paying for medicines?: No Do you have trouble getting transportation to medical appointments?: No Do you have trouble paying your heating and electricity bill?: No Do you have trouble taking care of your child, family member or friend?: No Do you have trouble with day-to-day activities such as bathing, preparing meals, shopping, managing finances, etc.?: Yes Are you currently unemployed and looking for a job?: No Are you interested in more education?: No Please select the resources that you would like help with: None Currently or been in a relationship where the following occur: I choose not to answer THRIVE Score: 1 AUDIT C Alcohol Use Questionnaire (AUDIT-C) 1. How often do you have a drink containing alcohol?: Never 3. How often do you have six or more drinks on one occasion?: Never Total Score: 0 Score Reviewed/Action Taken: No MIRANDA-7 AMB Questionnaire MIRANDA-7 Date MIRANDA - 7 assessed: 11/12/24 Feeling nervous, anxious, or on edge: 0 = Not at all Not being able to stop or control worryin = Not at all Worrying too much about different things: 0 = Not at all Trouble relaxin = Not at all Being so restless that it is hard to sit still: 0 = Not at all Becoming easily annoyed or irritable: 0 = Not at all Feeling afraid as if something awful might happen: 0 = Not at all Total MIRANDA-7 score (0-4 normal; 5-9 mild; 10-14 moderate; 15-21 severe): 0 Source: Developed by Drs. Kenneth Tavarez, Tuyet David, Kenneth Peterson and colleagues, with an educational faby from [employer]. MIRANDA-7 Assessment Billing MIRANDA-7 Assessment Tool: MIRANDA-7 Assessment 49157 Review of Systems Const All systems reviewed & are unremarkable except as noted in HPI and below Card Denies chest pain at rest, Denies chest pain with activity, Denies edema, Denies irregular heart rhythm, Denies claudication, Denies dyspnea, Denies dyspnea on exertion, Denies orthopnea, Denies paroxysmal nocturnal dyspnea and Denies slow heart rate Resp Denies cough, Denies dyspnea and Denies dyspnea on exertion Physical exam (Primary Care) Vital Signs: Last Vital Signs Pulse 78 05/30/25 13:49 BP 140/80 H 05/30/25 13:49 Pulse Ox 96 05/30/25 13:49 Oxygen Delivery Method Nasal Cannula 05/30/25 13:49 BMI result Body Mass Index 32.6 BMI Assessment/Plan discussion: High BMI High, discussed plan: lifestyle, weight reduction, dietary and physical activity Tobacco/Smoking Status: Tobacco use Status Tobacco use date assessed 05/30/25 05/30/25 13:56 Patient Tobacco Use Status Former Tobacco user 05/30/25 13:56 Tobacco use type Cigarette 05/30/25 13:56 e-Cigarette/Vaping Use Never Used 05/30/25 13:56 PHQ-9: PHQ-9 Score PHQ-9: Total score 0 05/30/25 14:24 Depression Screening Interpretation: Negative Thrive Assessment: Date of Thrive Assessment Date Thrive assessed 11/12/24 05/30/25 13:56 Currently or been in a relationship where the following occur: I choose not to answer [facility] Head: Yes normal to inspection, Yes normocephalic and Yes atraumatic Ears: external ears normal Eyes General: appearance normal, both eyes and all related structures Eyelids: Yes eyelids normal Conjunctivae: conjunctivae normal Neck Neck: Yes normal visual inspection and Yes supple Resp Effort & Inspection: normal respiratory effort Auscultation: clear to auscultation bilaterally Cardio Jugular venous distension: no JVD Rate: regular rate Rhythm: regular rhythm Heart sounds: S1 normal heart sound present and S2 normal heart sound present GI Inspection: Yes normal to inspection Palpation (GI): Soft to palpation and nontender Auscultation: normal bowel sounds Skin General skin exam: no rashes or lesions noted Neuro General: no focal motor deficits Extrem General: Yes full ROM Psych Appearance: grossly normal Office Procedures Flu Questionnaire Does the patient have a severe egg allergy?: No Does the patient have severe life threatening allergies?: No Does the patient have a fever or illness today?: No Has the patient ever had Guillain-Saline Syndrome?: No Has the patient ever had any past reaction to a flu shot?: No Results AMB Hemoglobin A1c AMB Hemoglobin A1c 5.8 % Last Edit by CHEVY Talbot on 05/30/25 14:13 Immunizations Fluarix [id number] (PF) 45 mcg (15 mcg x 3)/0.5 mL IM syringe Performing Provider: Amarilis Squires MD Performing Location: [facility] [place] [facility] Administered by: Felisha Jeffery CMA on 05/30/25 14:24 Dose Route Admin Location Dispensed Lot Number Expiration Date NDC Telecommunications Manager 0.5 mL IM Right Deltoid 0.5 mL [id number] 02/18/26 [id number] [employer] VIS Given Date VIS Provided VIS Publication Date 05/30/25 Single Vaccine 24 Eligibility Eligibility Date Funding Source Not [facility] Eligible 05/30/25 Private Results Reviewed Results Reviewed: Laboratory Last Values Hgb A1c (Clinic) 5.8 % (4.0-6.0) 05/30/25 13:58 Coding Level of Care Code Est Pt Prev Care >65y(57858) Diagnoses Physical exam Z00.00 Centrilobular emphysema J43.2 COPD type: emphysema Emphysema type: centrilobular Asymptomatic HIV infection, with no history of HIV-related illness Z21 HIV symptom status: asymptomatic, with no history of HIV-related illness Controlled type 2 diabetes with neuropathy E11.40 Additional Codes MIRANDA-7 Assessment Billing - MIRANDA-7 Assessment Tool: MIRANDA-7 Assessment 16032 ([id number]) PHQ-9 - 20007 - PHQ-9 Billing: Yes ([id number]) Time Spent (min) 30 Assessment & Plan Assessment & Plan (1) Physical exam: Code(s): Z00.00 - Encounter for general adult medical examination without abnormal findings Category: Medical (2) COPD (chronic obstructive pulmonary disease): Code(s): J44.9 - Chronic obstructive pulmonary disease, unspecified Category: Medical Qualifiers: COPD type: emphysema Emphysema type: centrilobular Qualified Code(s): J43.2 - Centrilobular emphysema (3) HIV (human immunodeficiency virus infection): Comment: stable Code(s): B20 - Human immunodeficiency virus [HIV] disease Category: Medical Qualifiers: HIV symptom status: asymptomatic, with no history of HIV-related illness Qualified Code(s): Z21 - Asymptomatic human immunodeficiency virus [HIV] infection status (4) Controlled type 2 diabetes with neuropathy: Code(s): E11.40 - Type 2 diabetes mellitus with diabetic neuropathy, unspecified Category: Medical Plan Plan Patient was informed and verbally consented to the use of an ambient scribe for clinic note documentation during this visit. 1. Diabetes Mellitus The patient is on metformin for diabetes management, with a recent A1c of 5.8%. Continued monitoring of blood glucose levels is recommended. 2. Chronic Obstructive Pulmonary Disease (Copd) The patient uses Trelegy for COPD management. Regular follow-up to monitor respiratory status is advised. 3. Hepatitis C The patient tested positive for hepatitis C antibody. Follow-up care is managed by infectious disease specialists. 4. Hiv The patient is HIV positive, with care coordinated by infectious disease specialists. Regular monitoring and management are essential. 5. Preventative Care Preventative care includes colon cancer screening with stool test due in 2026, bone densitometry scheduled for next year, and a mammogram completed last month. Vaccinations for pneumonia and tetanus are up to date, with the next tetanus booster due in 2025. Orders: Orders AMB Hemoglobin A1c Today Z13.9 - Encounter for screening, unspecified Vitamin D 25-OH Total 4 Months E55.9 - Vitamin D deficiency, unspecified Influenza [id number] Immunization Today Z23 - Encounter for immunization Lipid Panel 4 Months E78.5 - Hyperlipidemia, unspecified Microalbumin, Random (w Creat) 4 Months R80.9 - Proteinuria, unspecified Comprehensive [place]. Panel Fast 4 Months E11.42 - Type 2 diabetes mellitus with diabetic polyneuropathy Thyroid Stimulating Hormone 4 Months E03.9 - Hypothyroidism, unspecified
== END 2025-05-30 14:24 | disposition home or self-care (01) ==
LOC: HO.HMCH 13:46
PROVIDERS: PCP Internal Medicine; Visit Provider Internal Medicine
DX: Z00.00 Encounter for general adult medical examination without abnormal findings (principal); J43.2 Centrilobular emphysema; Z21 Asymptomatic human immunodeficiency virus [HIV] infection status; E11.40 Type 2 diabetes mellitus with diabetic neuropathy, unspecified; Z23 Encounter for immunization; Z13.9 Encounter for screening, unspecified

== ENCOUNTER → 2025-05-30 13:45 | Outpatient (BNVA) | payer OTHER, SELFPAY | PROVIDERS: PCP Internal Medicine; Visit Provider Internal Medicine | DX: Z00.00 Encounter for general adult medical examination without abnormal findings (principal); J43.2 Centrilobular emphysema; E11.42 Type 2 diabetes mellitus with diabetic polyneuropathy; E55.9 Vitamin D deficiency, unspecified; E78.5 Hyperlipidemia, unspecified; R80.9 Proteinuria, unspecified; E03.9 Hypothyroidism, unspecified; Z21 Asymptomatic human immunodeficiency virus [HIV] infection status; Z23 Encounter for immunization | CPT/HCPCS: 83036; 90471; 90656; 96127; 99397 ==

== ENCOUNTER 2025-06-11 09:57 | Outpatient (AMB) | payer OTHER, SELFPAY ==
--- NOTE | 2025-06-11 09:59 | MHC.OFFVIS ---
Vital Signs 06/11/25 10:00 Height 5 ft 2 in Weight 169 lb 5.04 oz BMI 31.0 BP 124/72 Blood Pressure Location Lt brachial Position Sitting Pulse 77 Pulse Source Pulse Oximeter Pulse Oximetry (%) 97 Oxygen Delivery Method Nasal Cannula Oxygen Flow Rate 2 Intake Visit Reasons: Type II diabetes Intake Note: Patient present today to follow up on Type 2 Diabetes Mellitus.? Last Diabetic Eye exam: July 2024 Last Podiatry Visit: Does not see a Clearing Tub Worker Random Glucose: 103 ? mg/dl HgA1C: 5.8% 05/30/2025 Punch Press Setter Required: Yes Punch Press Setter Language: Director Of Primary Services: Punch Press Setter Offered & Declined Punch Press Setter Name: Augusta newman. Information Interpreted: non-clinical & clinical Accompanied by: Daughter Allergies egg (EGG) Allergy (Intermediate, Verified 06/11/25 10:06) STOMACH UPSET Medication List - Last Reconciled 06/11/25 by JAM Storm albuterol sulfate 2.5 mg (3 mL) inhalation Q6H PRN 30 days alcohol swabs (Alcohol Prep Pads) 1 pad topical BID 90 days alendronate 70 mg PO QWEEK atorvastatin 20 mg PO BEDTIME 90 days blood sugar diagnostic (OneTouch Ultra Test strips) USE DIRECTED 3 TIMES A DAY blood-glucose meter (OneTouch Ultra2 Meter) DIRECTED TO CHECK BLOOD GLUCOSE 4 TIMES A DAY blood-glucose sensor (FreeStyle Marco 3 Plus Sensor device) Apply 1 new sensor every 15 days as directed to monitor blood glucose continuously. calcium carbonate-vitamin D3 600 mg-10 mcg (400 unit) 1 tab PO BID 90 days cholecalciferol (vitamin D3) 50 mcg PO DAILY dextrose (TRUEplus Glucose) 15 grams (32 mL) PO Q15M PRN dolutegravir (Tivicay) 50 mg PO DAILY emtricitabine-tenofovir alafen 200-25 mg (Descovy) 1 tab PO DAILY bdxbvrwwqsv-vflhbkqcs-opepylrx 200-62.5-25 mcg (Trelegy Ellipta) 1 ea PO DAILY lancets As directed to check blood glucose 4x/day. levothyroxine 25 mcg PO DAILY lisinopril 10 mg PO DAILY 90 days metformin ER 500 mg PO DAILY montelukast 10 mg PO DAILY 90 days nebulizers (AeroEclipse II Nebulizer) As directed nystatin 1 appl topical BID 14 days Oxygen Home Use As directed semaglutide 0.5 mg (0.736 mL) subcut QWEEK 4 weeks Ventolin HFA 90 mcg/actuation (albuterol sulfate) 2 puffs inhalation Q4H PRN NS walker with seat HPI Comments Details: This is a 69-year-old female with a past medical history of B12 deficiency, neuropathy, osteoporosis, pulmonary nodules, hypothyroidism, COPD, HIV, hyperlipidemia, hypertension and type 2 diabetes who presents for diabetic management. She is accompanied by her daughter. 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 She was diagnosed with diabetes about 14 years ago. GMI 6.2% 97% of readings are in range and 3% are high and there is no hypoglycemia My interpretation is that her blood sugars are within target range throughout 24 hours. Hemoglobin A1c 5.8% 05/30/2025. Current medication regimen: Ozempic 0.5 mg weekly, metformin extended release 500 mg once daily (confirmed dosing with patient) Compliance issues: none Hypoglycemia symptoms: none Hyperglycemia symptoms: none Eye exam: Done 08/10/2024- no complications Microvascular complications: neuropathy in her feet Macrovascular complications: none Hypertension: treated with lisinopril 10 mg Hyperlipidemia: treated with atorvastatin 20 mg Fib4 value 1.67 11/09/2024. ROS: Constitutional: No unexplained weight loss, fever, chills, fatigue or night sweats. Gastrointestinal: No anorexia, nausea, vomiting or diarrhea. No abdominal pain or blood in stool. Neurologic: No headache, dizziness, syncope Skin: No wounds or rashes. Endocrine: No cold or heat intolerance. No polyuria or polydipsia. Physical exam: Constitutional: Alert, in no distress. Neck: Supple, Full range of motion. No lymphadenopathy. No palpable thyroid masses. Respiratory: Clear to auscultation. Cardiovascular: S1 S2 regular. No murmurs Feet: Warm and well perfused, no clubbing, cyanosis or edema. DP pulses intact. No wounds. [facility], [facility] Medical History Controlled type 2 diabetes with neuropathy Bronchiolitis B12 deficiency Chronic respiratory failure Loss of balance Lumbar degenerative disc disease Obesity (BMI 30-39.9) Age-related osteoporosis without current pathological fracture Pulmonary nodules Obese Intertrigo Anemia Hypothyroidism COPD (chronic obstructive pulmonary disease) HIV (human immunodeficiency virus infection) Pure hypercholesterolemia Essential hypertension Diabetes mellitus Surgical History History of laparoscopy History of tubal ligation Family History Father Medical history unknown Mother Diabetes Hypertension CVD (cardiovascular disease) Pulmonary embolism Sister Crohn disease Maternal Aunt Breast cancer Brother Substance abuse Family/Other FH: mental illness Social History Housing: Apartment Alcohol intake: never Patient Tobacco Use Status: Former Tobacco user Tobacco use type: Cigarette Years Smoked: 38 years e-Cigarette/Vaping Use: Never Used Second Hand Smoke Exposure: No service: No Current occupational status: disabled Current occupation: right hand dominant Cognitive needs: No Hearing needs: No Vision needs: No Physical Exam Vital Signs: Last Vital Signs Pulse 77 06/11/25 10:00 BP 124/72 06/11/25 10:00 Pulse Ox 97 06/11/25 10:00 Oxygen Delivery Method Nasal Cannula 06/11/25 10:00 Oxygen Flow Rate 2 06/11/25 10:00 BMI result Body Mass Index 31.0 Office Procedures Glucose Monitoring Details Details: See [facility] [address] - Glucose monitoring, continuous-physician I&R Procedure code (CPT) selection complete Results Reviewed Results Reviewed: Laboratory Last Values Glucose (Clinic) 103 mg/dL (60-115) 06/11/25 10:11 Laboratory Tests 01/21/25 04/10/25 08:35 09:08 Creatinine 0.78 Estimated GFR > 60 AST 27 ALT 18 Vitamin B12 323 TSH 1.22 Urine Creatinine 102.95 Urine Microalbumin 7.0 Microalb/Creat Ratio 6.7 Assessment & Plan Assessment & Plan (1) Controlled type 2 diabetes with neuropathy: Code(s): E11.40 - Type 2 diabetes mellitus with diabetic neuropathy, unspecified Category: Medical (2) Essential hypertension: Code(s): I10 - Essential (primary) hypertension Category: Medical (3) Pure hypercholesterolemia: Code(s): E78.00 - Pure hypercholesterolemia, unspecified Category: Medical Plan In summary this is a 69-year-old female with controlled type 2 diabetes with neuropathy. Continue metformin extended release 500 mg daily and Ozempic 0.5 mg weekly. If she has low blood sugars she will discontinue metformin. Reviewed treatment of hypoglycemia. She has glucose tablets. We previously discussed the diabetic diet. Discussed pathophysiology of Type II Diabetes Mellitus with the patient in detail.? I explained the jail risks and complications associated with uncontrolled diabetes including nephropathy, neuropathy, peripheral vascular disease, retinopathy, increased risk of heart disease and stroke.? Eye exam is up-to-date. Continue lisinopril for hypertension and renal protection. Continue atorvastatin for hyperlipidemia and cardiovascular risk reduction. Follow up in 3 months for type 2 diabetes. Orders: Orders AMB Glucose Monitoring Today E11.9 - Type 2 diabetes mellitus without complications Medications: Changed From metformin ER 500 mg PO BID 90 tabs 1RF To metformin ER 500 mg PO DAILY Refilled semaglutide 0.5 mg (0.736 mL) subcut QWEEK 3 mL 5RF 4 weeks Patient Instructions: Continue metformin ER 500 mg once daily Continue Ozempic 0.5 mg weekly If you experience low blood sugar (under 70), treat this by eating a chewable fruit candy like skittles or jelly beans (about 8 pieces), 4 ounces (1/2 cup) of fruit juice (not diet), 1 tablespoon of honey or 4 glucose tablets. If your blood sugar is under 50, take double the amount of one of the above. Recheck your blood sugar in 15 minutes. If you have low blood sugars stop taking Metformin and call the office Coding Level of Care Code Est Pt Level 4 (21634) Diagnoses Controlled type 2 diabetes with neuropathy E11.40 Essential hypertension I10 Pure hypercholesterolemia E78.00 CPT Codes Details - CPT: 45857 - Glucose monitoring, continuous-physician I&R ([id number])
[2025-06-11 10:00] VITALS: BP 124/72; PULSE 77; O2SAT 97; BMI 31.0
[2025-06-11 10:16] LABS: Glucose, Whole Blood 103 mg/dL (60-115)
--- OUTSIDE RECORDS SUMMARY | 2025-06-11 11:30 | XMS_ITS | Patient Health Record ---
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 Name Role Phone Be Chu MD, Jimenez Primary Care Provider Un available Cruz Lord Jr Unavailable [phone] Reason For Referral No Information Medications Medication [...] ctive Suprep Bowel Prep 1 as directed Orally; Duration: 1 dose 10/28/2011 Active Pantoprazole Sodium 40 MG 1 tablet Orall y Once a day; Duration: 30 day(s) 02/15/2013 Active Cyanocobalamin 1000mcg Active Symbicort 160-4.5mcg Active Alendronate Sodium 70mg Active Golytely 236 GM as directed before colonoscopy Orally every 15 minutes; Duration: 1 day(s) 02/15/2013 Active Dulcolax 5 MG 1 tablet as needed O rally Once a day; Duration: 30 day(s) 06/22/2013 Active Social History Alcohol [...] W/U Status Risk Notes Problem Esophageal reflux (574774366) Esophageal reflux (530.81) Active confirmed Problem Liver function tests abnormal (843145347) Nonspecific abnormal results of liver function study (794.8) Active confirmed Problem Screening for malignant neoplasm of colon (158321887) Special screening for malignant neoplasms, colon (V76.51) Active confirmed Problem Liver function tests abnormal (533315911) Abnormal liver function tests (790.6) Active confirmed Plan Of Treatment Future Test Test Name Order Date COLONOSCOPY 10/28/2011 Insurance Providers Payer Name Payer Address Payer Phone Subscriber Number Group Number Insured Name Patient Relationship to Insured Coverage Start Date Coverage End Date [facility] [email or web address] [address] [place] [address] [phone] [id number] CHRISTIANO ERNST Self - patient is the insured MEDICA[employer] OF [employer] [address] [place] [address] [phone] [id number] CHRISTIANO ERNST Self - patient is the insured Medical (General) History Medical History History ICD Code colonoscopy 05-17-2007 colon polyps HIV infection thyroid disease elevated cholesterol diabetes mellitus asthma Denies [place],CVA,renal disease
--- OUTSIDE RECORDS SUMMARY | 2025-06-11 11:31 | XMS_ITS | Data Portability ---
Author Organization ZOË - AYDEE REVELES MD [facility], Main Office Address [address] [place] [phone] Assessment Encounter Date Assessment Date Assessment LastModified by Organization Details LastModified Time 04/12/2024 04/12/2024 AUDIO. tele[place]. audio. 16 min [email or web address] Not available 04/12/2024 11:47:22 07/13/2024 07/13/2024 video. [place] audio. 17 min [email or web address] Not available 07/13/2024 09:50:20 10/15/2024 10/15/2024 video. [place] audio. 19 min [email or web address] Not available 10/15/2024 09:56:46 01/11/2025 01/11/2025 video. [place]. [place]. 17 min [email or web address] Not available 01/25/2025 10:22:15 Plan of Treatment Reminders Order Date Submit Date Provider Last Modified By Organization Details Last Modified Time Details Appointments TH B20 F/U 2024 09:20A M Aydee Rizzo MD Not available Not available Not available Lab CBC w/ diff [address] (Lab), [address] [place] [address], [id number], 05/13/2025 09:10:43 ALT (alanine aminotra nsferase ), serum or plasma [address] (Lab), [address] [place] [address], [id number], 05/13/2025 09:10:43 AST/SGOT (asparta te aminotra nsferase ), serum or plasma [address] [place] [address] (Lab), [address] [place] [address], [id number], 05/13/2025 09:10:43 creatini ne w/ estimate d GFR (eGFR), serum or plasma [address] [place] [address] (Lab), [address] [place] [address], [address], 05/13/2025 09:10:43 HIV-1 RNA, quantita tive, PCR, serum or plasma [address] [place] [address] (Lab), [address] [place] [address], [id number], 05/13/2025 09:10:43 RPR (rapid plasma reagin), serum [address] [place] [address] (Lab), [address] [place] [address], [address], 05/13/2025 09:10:43 cd4 T-cells, blood [address] [place] [address] (Lab), [address] [place] [address], [id number], 05/13/2025 09:10:44 CBC w/ diff [address] [place] [address] (Lab), [address] [place] [address], [address], 01/21/2025 10:03:30 ALT (alanine aminotra nsferase ), serum or plasma [address] [place] [address] (Lab), [address] [place] [address], [address], 01/21/2025 10:03:30 AST/SGOT (asparta te aminotra nsferase ), serum or plasma [address] (Lab), [address] [place] [address], [address], 01/21/2025 10:03:30 creatini ne w/ estimate d GFR (eGFR), serum or plasma [address] (Lab), [address] [place] [address], [address], 01/21/2025 10:03:30 HIV-1 RNA, quantita tive, PCR, serum or plasma [address] (Lab), [address] [place] [address], [address], 01/21/2025 10:03:30 RPR (rapid plasma reagin), serum [address] [place] [address] (Lab), [address] [place] [address], [address], 01/21/2025 10:03:31 cd4 T-cells, blood [address] [place] [address] (Lab), [address] [place] [address], [address], 01/21/2025 10:03:31 CBC w/ diff [address] [place] [address] (Lab), [address] [place] [address], [address], 10/22/2024 08:51:28 ALT (alanine aminotra nsferase ), serum or plasma [address] [place] [address] (Lab), [address] [place] [address], [address], 10/22/2024 08:51:28 AST/SGOT (asparta te aminotra nsferase ), serum or plasma [address] [place] [address] (Lab), [address] [place] [address], [address], 10/22/2024 08:51:28 creatini ne w/ estimate d GFR (eGFR), serum or plasma [address] (Lab), [address] [place] [address], [address], 10/22/2024 08:51:29 HIV-1 RNA, quantita tive, PCR, serum or plasma [address] (Lab), [address] [place] [address], [address], 10/22/2024 08:51:29 RPR (rapid plasma reagin), serum [address] (Lab), [address] [place] [address], [address], 10/22/2024 08:51:29 T-cell regulato ry subsets panel, blood [address] (Lab), [address] [place] [address], [address], 10/22/2024 08:51:29 Referral None recorded . Procedures None recorded . Surgeries None recorded . Imaging US, abdomen - RUQ pain [address], [address], 07/27/2024 14:33:12 Medication Orders Bactrim DS 800 mg-160 mg tablet 2024 025 [facility]/Pharmacy #2071, [address] [place], [address], 05/06/2025 10:18:13 Descovy 200 mg-25 mg tablet 2024 025 [facility]/Pharmacy #2071, [address] [place], [address], 05/06/2025 10:18:01 Tivicay 50 mg tablet 2024 025 [facility] [address] [place] [address], [address], 05/06/2025 10:18:12 Bactrim DS 800 mg-160 mg tablet 2024 025 [email or web address] [facility] [address] [place] [address], [address], 01/11/2025 09:45:52 Descovy 200 mg-25 mg tablet 2024 025 [facility] [address] [place] [address], [address], 01/11/2025 09:45:48 Tivicay 50 mg tablet 2024 025 [facility] [address] [place] [address], [address], 01/11/2025 09:45:51 Bactrim DS 800 mg-160 mg tablet 2024 025 [facility] [address] [place] [address], [address], 10/15/2024 10:09:08 Descovy 200 mg-25 mg tablet 2024 025 [facility]/Pharmacy #207, [address] [place] [address], [address], 10/15/2024 10:09:08 Tivicay 50 mg tablet 2024 025 [facility]/Pharmacy #2071, [address] [place] [address], [address], 10/15/2024 10:09:08 Bactrim DS 800 mg-160 mg tablet 2023 [email or web address] [address] [place] [address], [address], 07/13/2024 09:52:03 Descovy 200 mg-25 mg tablet 2023 024 [facility] [address] [place], [address], 07/13/2024 09:52:02 Tivicay 50 mg tablet 2023 024 [facility] [address] [place], [address], 07/13/2024 09:52:01 Bactrim DS 800 mg-160 mg tablet 2023 024 [facility] [address] [place], [address], 04/12/2024 11:45:34 Descovy 200 mg-25 mg tablet 2023 024 [facility] [address] [place], [address], 04/12/2024 11:45:34 Tivicay 50 mg tablet 2023 024 [facility] [address] [place], [address], 04/12/2024 11:45:33 Patient TargetsNo targets recorded. Patient InstructionsNo instructions [...] Details Recorded Time Emphysema tous bronchiti s 563893671 Active 2013 Emphysemat ous bronchitis ; snomeddesc ription: Emphysemat ous bronchitis ; Report Immunity to Registry: Yes; Obstructi ve chronic bronchitis , without exacerbati on; snomeddesc ription: Emphysemat ous bronchitis ; Report Immunity to Registry: Yes; Not Available [facility] 4 06:58:30 Indigesti on 840535040 Active 2013 Dyspepsia and other specified disorders of function of stomach; snomeddesc ription: Indigestio n; Report Immunity to Registry: Yes; Indigesti on; snomeddesc ription: Indigestio n; Report Immunity to Registry: Yes; Not Available [facility] 4 06:58:30 Cobalamin deficienc y 973024466 Active 2013 Cobalamin deficiency ; snomeddesc ription: Cobalamin deficiency ; Report Immunity to Registry: Yes; Not Available [facility] 4 06:58:30 Vitamin B deficienc y 07664017 Active 2013 Other B-complex deficienci es; snomeddesc ription: Cobalamin deficiency ; Report Immunity to Registry: Yes; Not Available [facility] 4 06:58:30 Osteopeni a 460493206 Active 2014 Osteopenia ; snomeddesc ription: Osteopenia ; Report Immunity to Registry: Yes; Notes: endocrinol ogy; Not Available [facility] 4 06:58:30 Disorder of bone and articular cartilage 203252915 Active 2014 Disorder of bone and cartilage, unspecifie d; snomeddesc ription: Osteopenia ; Report Immunity to Registry: Yes; Notes: endocrinol ogy; Not Available [facility] 4 06:58:30 HIV seroposit ivity Active 2015 HIV seropositi vity; snomeddesc ription: HIV seropositi vity; Report Immunity to Registry: Yes; Notes: dx 1990 IVDU [id number] neg 2008 genotype 2007; Not Available [facility] 4 06:58:29 Viral hepatitis B without hepatic coma 182326080 Active 2016 Unspecifie d viral hepatitis B without hepatic coma; snomeddesc ription: Type B viral hepatitis; Report Immunity to Registry: Yes; Notes: past hx core ab pos; s ag neg; s ab pos 2016 HBV undetected 20162017; Not Available [facility] 4 06:58:30 Type B viral hepatitis 81570671 Active 2016 Type B viral hepatitis; snomeddesc ription: Type B viral hepatitis; Report Immunity to Registry: Yes; Notes: past hx core ab pos; s ag neg; s ab pos 2016 HBV undetected 2017; Not Available [facility] 4 06:58:31 Hepatitis C carrier 261009081 Active 2017 Hepatitis C carrier; snomeddesc ription: Hepatitis C carrier; Report Immunity to Registry: Yes; Notes: VL undetectab le 2010; 2012; Ab pos; VL neg 2014; neg 12/2015; 2016; 2017; Not Available [facility] 4 06:58:31 Chronic obstructi ve pulmonary disease 98197364 Active 2023 Aydee Rizzo MD [address] [place] [address] [place], [phone] , ZOË RIZZO MD [facility] 4 11:17:18 Human immunodef iciency virus infection 70120712 Active 2023 Aydee Rizzo MD [address] [place] [address] [place], [phone] , ZOË RIZZO MD [facility] 4 11:17:23 Viral hepatitis C 89425847 Active 2023 Aydee Rizzo MD [address] [place] [address] [place], [address] , ZOË RIZZO MD [facility] 4 11:17:45 Type 2 diabetes mellitus 96823089 Active 2023 Aydee Rizzo MD [address] [place] [address] [place], [address] , ZOË RIZZO MD [facility] 4 11:48:54 Problem Notes None recorded. Medical Equipment None Reported. Medications Name Sig Start Date Stop Date Status Note LastModified by Organization Details LastModified Time multivita min tablet Multiple Vitamins Quantity : 30; 3 refill(s ) 01/22 completed Frequenc y: qd; VACCINE_ IND: no; SU_FULL_ NAME: Aydee morales; Not Available Not Available Not Available pioglbonny one 15 mg tablet TOME EDYTA TABLETA POR VIA ORAL TODOS LOS SAXENA 07/10 completed Duration : 30; VACCINE_ IND: no; Not Available Not Available Not Available doxycycli ne hyclate 100 mg capsule TAKE 1 CAPSULE BY MOUTH TWICE A DAY FOR 10 DAYS 05/19 completed Not Available Not Available Not Available atorvasta tin 20 mg tablet TAKE 1 TABLET BY MOUTH EVERYDAY AT BEDTIME active Not Available Not Available No t Available albuterol sulfate 2.5 mg/3 mL (0.083 %) solution for nebulizat ion INHALE 1 VIAL VIA NEBULIZE R EVERY 6 HOURS NEEDED FOR SHORTNES S OF BREATH OR WHEEZING FOR 30 DAYS active Not Available Not Available No t Available atorvasta tin 10 mg tablet 10 [...] morales; Not Available Not Available Not Available FreeStyle Lancets 28 gauge DIRECTED TESTS 4 TIMES A DAY active Not Available Not Available No t Available alendrona te 70 mg tablet TAKE 1 TABLET BY MOUTH ONCE A WEEK active Not Available Not Available No t Available cyanocoba elena (vit B-12) 1,000 mcg [...] Not Available levothyro xine 25 mcg tablet TAKE 1 TABLET BY MOUTH EVERY DAY active Not Available Not Available No t Available Claritin- D 24 Hour 10 mg-240 [...] Available Not Available OneTouch Ultra Test strips USE DIRECTED 3 TIMES A DAY active Not Available Not Available No t Available meclizine 25 mg tablet TOME EDYTA TABLETA POR V?A ORAL JOSÉ LUSI VECES AL D?A CUANDO SEA NECESARI O 11/28 completed Duration : 30; VACCINE_ IND: no; Not Available Not Available Not Available cyanocoba elena (vit B-12) 1,000 mcg/mL injection solution 1000 mcg/mL Quantity : 1; Duration : 28; 3 refill(s ) 04/20 completed Duration : 28; VACCINE_ IND: no; SU_FULL_ NAME: Aydee Shannon andrew; Not Available Not Available Not Available ferrous [...] Not Available lisinopri l 10 mg tablet TAKE 1 TABLET BY MOUTH EVERY DAY active Not Available Not Available No t Available Advair Diskus 250 mcg-50 mcg/dose powder [...] Not Available monteluka st 10 mg tablet TAKE 1 TABLET BY MOUTH EVERY DAY active Not Available Not Available No t Available gabapenti n 100 mg capsule 100 [...] 500 mg tablet,ex tended release 24 hr TAKE 1 TABLET BY MOUTH TWICE A DAY active Not Available Not Available No t Available amoxicill in 875 mg-potass ium clavulana te 125 mg tablet 1 TAB ORALLY 2 TIMES A DAY FOR 10 DAYS 05/19 completed Not Available Not Available Not Available Ventolin HFA 90 mcg/actua tion aerosol inhaler INHALE 2 PUFFS EVERY 4 HOURS NEEDED FOR WHEEZE active Not Available Not Available No t Available Bactrim DS 800 mg-160 mg tablet Take 1 tablet 3 times a week by oral route for 30 days. 2024 active Not Available Not Available Not Avai lable Vitamin B-12 ER 1,000 mcg tablet,ex tended release TOME EDYTA TABLETA TOS LOS D? 11/28 completed Duration : 30; [...] )-vitamin D3 10 mcg (400 unit) tablet TAKE 1 TABLET BY MOUTH TWICE A DAY active Not Available Not Available No t Available Symbicort 160 mcg-4.5 mcg/actua tion HFA [...] TAKE 1 CAPSULE BY MOUTH EVERY DAY active Not Available Not Available No t Available Vitamin D3 50 mcg (2,000 unit) tablet TAKE 2 TABLETS BY MOUTH EVERY DAY active Not Available Not Available No t Available calcium 600 mg (as carbonate )-vitamin [...] a, seasonal , injectab le; SU_FULL_ NAME: Marloanam Aydee morales; VIS_DATE : 04:00:00 .0; Not Available Not Available Not Available Tivicay 50 mg tablet TAKE 1 TABLET BY MOUTH EVERY DAY active Not Available Not Available No t Available Afluria 45 mcg (15 mcg x 3)/0.5 mL intramusc ular suspensio n trivalen t Quantity : ; 0 refill(s ) 2013 active VACCINE_ IND: yes; VACCINE_ NAME: Influenz a, seasonal , injectab le; SU_FULL_ NAME: Marloanam moralesAydee; Not Available Not Available Not Available Triumeq [...] : 30; VACCINE_ IND: no; SU_FULL_ NAME: Marloanam morales Aydee; Not Available Not Available Not Available Descovy 200 mg-25 mg tablet TAKE 1 TABLET BY MOUTH EVERY DAY active Not Available Not Available No t Available Descovy Quantity : 30; 0 refill(s ) 2015 active Frequenc y: qd; VACCINE_ IND: no; Not Available Not Available Not Available Fluvirin 45 mcg (15 mcg x 3)/0.5 mL intramusc ular suspensio n trivalen t Quantity : ; 0 refill(s ) 09/16 completed VACCINE_ IND: yes; VACCINE_ NAME: Influenz a, seasonal , injectab le; SU_FULL_ NAME: Aydee Shannon l; Not Available Not Available Not Available Shingrix (PF) 50 mcg/0.5 mL intramusc ular suspensio n, kit 0.5ml IM x 1, then 0.5ml IM 2 months after 1rst dose 10/30 completed Duration : 1; VACCINE_ IND: no; VACCINE_ NAME: zoster recombin ant; SU_FULL_ NAME: Aydee Sellersanam morales; Not Available Not Available Not Available TRUEplus Glucose 15 gram/32 mL oral gel packet PLEASE SEE ATTACHED FOR DETAILED DIRECTIO NS active Not Available Not Available No t Available Afluria Quad 60 mcg (15 mcg x 4)/0.5 mL IM suspensio n quadriva lent Quantity : ; 0 refill(s ) 2017 active VACCINE_ IND: yes; VACCINE_ NAME: influenz a, injectab le, quadriva lent; SU_FULL_ NAME: Aydee Sellersanam morales; VIS_DATE : 19:32:33 .0; Not Available Not Available Not Available OneTouch Ultra2 Meter DIRECTED TO CHECK BLOOD GLUCOSE 4 TIMES A DAY active Not Available Not Available No t Available OneTouch Delica Plus Lancet 30 gauge USE DIRECTED 4 TIMES A DAY active Not Available Not Available No t Available Afluria Quad 60 mcg (15 mcg x 4)/0.5 mL intramusc ular susp. quadriva lent Quantity : ; 0 refill(s ) 2018 active VACCINE_ IND: yes; VACCINE_ NAME: influenz a, injectab le, quadriva lent; SU_FULL_ NAME: Aydee Sellersanam morales; VIS_DATE : 15:51:08 .0; Not Available Not Available Not Available Trelegy Ellipta 200 mcg-62.5 mcg-25 mcg powder for inhalatio n INHALE 1 PUFF BY MOUTH EVERY DAY active Not Available Not Available No t Available Prevnar 20 (PF) 0.5 mL intramusc ular syringe - Quantity : 1; Duration : 1; 0 refill(s ) 11/26 completed Frequenc y: x1; Duration : 1; VACCINE_ IND: no; VACCINE_ NAME: Pneumoco ccal conjugat e PCV20, polysacc haride GOT190 conjugat e, adjuvant , PF; SU_FULL_ NAME: [...] .0; Not Available Not Available Not Available Ozempic 0.25 mg or 0.5 mg (2 mg/3 mL) subcutane ous pen injector 0.5 MG (0.736 ML) SUBCUTAN EOUSLY EVERY WEEK FOR 4 WEEKS active Not Available Not Available No t Available FreeStyle Marco 3 Plus Sensor device USE DIRECTED CHANGE EVERY 14 DAYS active Not Available Not Available No t Available Vitals Date Recorded Body height Heart rate Body temperature Body mass index (BMI) Body weight Systolic And Diastolic Provider Name and Address Organization Details Last Updated DateTime 5 157.48 cm 73 /min 98.4 [degF] 30 kg/m2 44424.1 5 g 116/63 mm[Hg] Cristel LARSEN 5 09:51:33 Social History None recorded. Functional Status None [...] Time Meningococcal MCV4O 0 completed Not Available [facility] 10/12/2023 06:54:07 Influenza, split virus, quadrivalent, preservative 8 completed Not Available [facility] 10/12/2023 06:54:07 Influenza, split virus, quadrivalent, preservative 9 completed Not Available [facility] 10/12/2023 06:54:07 Influenza, adjuvanted, quadrivalent, PF 3 completed ZOË Clinton MD [facility] 05/06/2025 09:51:42 COVID-19, mRNA, LNP-S, PF, butch-sucrose, 30 mcg/0.3 mL 3 completed ZOË Clinton MD [facility] 05/06/2025 09:51:42 Past Encounters Encounter ID Performer Location Encounter Start Date Encounter Closed Date Diagnosis/Indication Diagnosis SNOMED-CT Code Diagnosis ICD10 Code Diagnosis IMO Codes Diagnosis Note [id number] Aydee Rizzo MD Main Office [address] [place] [phone] 05/27/2023 13:01:20 05/27/2023 14:11:08 Human immunodeficiency virus infection 68495274 B20 HIV: Continue Descovy 1 tab po [...] care reviewed. Questions and concerns addressed Neuropathy 157000265 G62 .9 on gabapentin . Chronic ob structive pulmonary disease 42473379 J44.9 On Bactrim DS tiw suppressio n tx to prevent bronchitis /pneumonia .on o2 supplement F/u pulmonary. RSV vaccine recommende dflu vaccineon Bactrim DS tiw. Hepatitis C virus detected by enzyme-linked immunosorbent assay 229197494 R76.8 HCV VL nondetcete d. past infection. [id number] Aydee Rizzo MD Main Office [address] [place] [phone] 6 08/30/2023 09:37:12 08/30/2023 12:56:26 Human immunodeficiency virus infection 71419350 B20 HIV: Continue Descovy 1 tab po [...] concerns addressed Chronic ob structive pulmonary disease 34145135 J44.9 On Bactrim DS tiw suppressio n tx to prevent bronchitis /pneumonia .on o2 supplement F/u pulmonary. on Bactrim DS tiw for suppressio n of infection. vaccines recommende d Viral hepatitis C 917056 07 B19.20 past hx.VL undetectab le 2010; 2012; Ab pos; VL neg 2014; neg 12/2015; 2016; 2017 [id number] Aydee Rizzo MD Main Office [address] [place] [phone] 11/30/2023 09:03:23 11/30/2023 09:24:26 Human immunodeficiency virus infection 10890564 B20 HIV: Continue Descovy 1 tab po qd and Tivicay 50 mg po qd. compliance reviewed to prevent viral resistance , keep viral suppressio n and prevent transmissi on.pt aware of PreP availabili ty; U=U; condom use to prevent STI's. Plan of care reviewed. Questions and concerns addressed Chronic ob structive pulmonary disease 41855342 J44.9 On Bactrim DS tiw suppressio n tx to prevent bronchitis /pneumonia .on o2 supplement F/u pulmonary. [id number] Aydee Rizzo MD Main Office [address] [place] [phone] 04/12/2024 11:41:47 04/12/2024 12:24:59 Human immunodeficiency virus infection 93402396 B20 HIV:Contin ue Descovy 1 tab po qd and Tivicay 50 mg po qd. compliance reviewed to prevent viral resistance , keep viral suppressio n and prevent transmissi on.pt aware of PreP availabili ty; U=U; condom use to prevent STI's.DOXY PEP reviewedPl an of care reviewed. Questions and concerns addressed Chronic ob structive pulmonary disease 28565879 J44.9 On Bactrim DS tiw suppressio n tx to prevent bronchitis /pneumonia .on o2 supplement F/u pulmonary. Type 2 cherry betes mellitus 38087071 E11.9 on Ozempic sq qw.f/u PCP [id number] Aydee Rizzo MD Main Office [address] [place] [phone] 6 07/13/2024 09:45:07 07/13/2024 09:53:56 Human immunodeficiency virus infection 51652889 B20 HIV:Contin ue Descovy 1 tab po qd and Tivicay 50 mg po qd. compliance reviewed to prevent viral resistance , keep viral suppressio n and prevent transmissi on.COVID19 and RSV vaccines prescribed .Plan of care reviewed. Questions and concerns addressed Chronic ob structive pulmonary disease 70314230 J44.9 On Bactrim DS tiw suppressio n tx to prevent bronchitis /pneumonia .on o2 supplement F/u pulmonary. Right uppe r quadrant pain 350848085 R10.11 will get lab results for ALt/ASTu/s abdto ER if worsening sx, n/v/d, fever or other [id number] Aydee Rizzo MD Main Office [address] [place] [address] 10/15/2024 09:08:19 10/23/2024 09:49:02 Human immunodeficiency virus infection 10749374 B20 HIV:Contin ue Descovy 1 tab po qd and Tivicay 50 mg po qd. compliance reviewed to prevent viral resistance , keep viral suppressio n and prevent transmissi on.COVID19 and RSV vaccines prescribed .Plan of care reviewed. Questions and concerns addressed Chronic ob structive pulmonary disease 19311930 J44.9 On Bactrim DS tiw suppressio n tx to prevent bronchitis /pneumonia .on o2 supplement F/u pulmonary. 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 [id number] Aydee Rizzo MD Main Office [address] [place] [address] 05/06/2025 09:31:19 05/06/2025 10:41:43 Human immunodeficiency virus infection 08130019 B20 HIV:Contin ue Descovy 1 tab po qd and Tivicay 50 mg po qd. compliance reviewed to prevent viral resistance , keep viral suppressio n and prevent transmissi on. 90 day supply prescribed to try to minimize prescripti on discordanc e. clinical trial options, 2 drug regimen, TAF free options, injectable s reviewed. she prefers to keep current regimen.pr evnar, influenza, Covid, and RSV vaccines prescribed .Plan of care reviewed. Questions and concerns addressed Chronic ob structive pulmonary disease 91336839 J44.9 On Bactrim DS 3x/week suppressio n tx to prevent bronchitis /pneumonia .on o2 supplement F/u pulmonary. Health Concerns Section Related Observation LastModified by Organization Detai ls LastModified Time None Recorded Concern Status LastModified by Organization Details LastModified Time None Recorded Advance Directives Directive None Recorded Payers Insurance Date Sequence Insurance Name Policy Number Policy Michel Covered Member ID Michel Member ID Guarantor Name 05/03/2025 1 [facility] - DOS ON OR AFTER 2022 - DUAL ELIGIBLE - RETIREMENT OPTIONS AND ONE CARE (MEDICARE REPLACEMENT/AD VANTAGE - HMO) [place] Mendoza [id number] [place] Mendoza Notes Date Note Type Note Provider Name and Address Organization Details Recorded Time 4 text/html ROS as noted in the HPI /u HIV.pt is on Descovy 1 tab po qd and Tivicay 50 mg 1 tab po daily.compliant; denies missing doses.happy w regimen.med list reviewed.lab results reviewed.has not been sick; no hospitalizations03/2024 HIV VL Pending; partial resulst available.08/2023 HIV VL nondetceted; MA6=5565; AST/ALt wnl; no syphilis; HBV VL nondetceted.08/26/2022 HIV VL nondetceted; UH7=4240; ALt/AST wnl;eGFR.60; syphilis NR; eGFR>60 on Bactrim tiw to prevent recurrent bronchitis/pneumonia/hospi talizations.not sexually activemed list reviewed. pt was diabetic. on ozempic qw sc.she has lost some weight. Aydee Rizzo MD [address] [place] [address], [phone], [facility] - AYDEE RIZZO MD [facility] 04/12/2024 11:49:10 4 text/html ROS as noted in the HPI f/u HIV.pt is on Descovy 1 tab po qd and Tivicay 50 mg 1 tab po daily.compliant; denies missing doses.happy w regimen.RUQ for few months; on/off; 5-6 . not after she eats. denies ETOH. no jaundice.lab results reviewed. no n/v/d.weight loss while on ozempic for DM.has not been sick; no [id number]/19/2024 HIV VL nondetected03/2024 HIV VL Pending; partial resulst available.08/2023 HIV VL nondetceted; HB6=0961; AST/ALt wnl; no syphilis; HBV VL nondetceted.08/26/2022 HIV VL nondetceted; BZ1=3090; ALt/AST wnl;eGFR.60; syphilis NR; eGFR>60on Bactrim tiw to prevent recurrent bronchitis/pneumonia/hospi talizations. no flareups whil dana Bactrim suppression tx.not sexually activemed list reviewed.got the flu vaccinetrasnportation problems: daughter works and gets out late. Aydee Rizzo MD [address] [place] [address], [phone], [facility] - AYEDE RIZZO MD [facility] 07/13/2024 09:55:33 5 text/html ROS as noted in the HPI f/u HIV.pt is on Descovy 1 tab po qd and Tivicay 50 mg 1 tab po daily.compliant; denies missing doses.happy w regimen.med list reviewedhas not been sick; no hospitalizationslabs done 10/01/24: pending [id number]/10/2024 HIV VL nondetected03/2024 HIV VL Pending; partial results available.08/2023 HIV VL nondetceted; TE8=4318; AST/ALt wnl; no syphilis; HBV VL nondetceted.on Bactrim tiw to prevent recurrent bronchitis/pneumonia/hospi talizations. no flareups whil dana Bactrim suppression tx.not sexually activemed list reviewed.transportation problems: daughter works and gets out late. u/s 07/2024 fatty liver; aorta placquesDM/hypothyroidismo n ozempic.weight loss. Aydee Rizzo MD [address] [place] [address], [phone], [facility] - AYDEE RIZZO MD [facility] 10/15/2024 10:10:59 5 text/html ROS as noted in the HPI f/u HIV.pt is on Descovy 1 tab po qd and Tivicay 50 mg 1 tab po daily.would like to keep same regimenaware of 2 drug regimens and injectables and clinical trial optionscompliant; denies missing doses.happy w regimen.med list reviewedhad labs done on 01/07/25: pending resultshas not been sick; no hospitalizations 07/10/2024 HIV VL nondetected03/2024 HIV VL Pending; partial results available.08/2023 HIV VL nondetceted; LS0=8786; AST/ALt wnl; no syphilis; HBV VL nondetceted.on Bactrim tiw to prevent recurrent bronchitis/pneumonia/hospi talizations. no flareups while on Bactrim suppression tx.not sexually active for many years.med list reviewed.transportation barriers due to daughter/s job schedule Aydee Rizzo MD [address] [place] [address], [phone], ZOË RIZZO MD [facility] 01/25/2025 10:23:57 text/html ROS as noted in the HPI f/u HIV.pt is on Descovy 1 tab po qd and Tivicay 50 mg 1 tab po daily.would like to keep same regimenDOvato, Biktarvy and injectables were reviewed; she prefers to keep same regimen; she gets anxiety with regimens switches; she is getting the the prescription at different times at the pharmacy; unsure of reason.compliant; denies missing doses.happy w regimen.med list reviewedhad labs done Marhas not been sick; no hospitalizationsContinues w/OxygenFeels good04/15/25: HIV VL not detected, CD4 1261 (45%)04/10/25: CMP/CBC WNL, eGFR >60, [place] [id number] HIV VL nondetected03/2024 HIV VL Pending; partial results available.08/2023 HIV VL nondetceted; DA3=5912; AST/ALt wnl; no syphilis; HBV VL nondetceted.on Bactrim 3x/week to prevent recurrent bronchitis/pneumonia/hospi talizations. no flareups while on Bactrim suppression tx.not sexually active for many years.med list reviewed.transportation barriers due to daughter/s job schedule; daughter here w/pt today Aydee Rizzo MD [address] [place] [address], [phone], ZOË RIZZO MD [facility] 05/06/2025 15:37:16 OBGyn Episode No OBEpisode recorded.
== END 2025-06-11 10:39 | disposition home or self-care (01) ==
LOC: HO.ENCR 09:58
PROVIDERS: PCP Internal Medicine; Visit Provider Physician Assistant Medical
DX: E11.40 Type 2 diabetes mellitus with diabetic neuropathy, unspecified (principal); I10 Essential (primary) hypertension; E78.00 Pure hypercholesterolemia, unspecified

== ENCOUNTER → 2025-06-11 09:57 | Outpatient (BNVA) | payer OTHER, SELFPAY | PROVIDERS: PCP Internal Medicine; Visit Provider Physician Assistant Medical | DX: I10 Essential (primary) hypertension (principal); E11.40 Type 2 diabetes mellitus with diabetic neuropathy, unspecified; E78.00 Pure hypercholesterolemia, unspecified | CPT/HCPCS: 82947; 99212 ==